=== PATIENT | male | born 1965 | race Caucasian/White ===

== ENCOUNTER 2020-07-19 09:44 | Inpatient (IN) | payer BC, SELFPAY ==
[2020-07-19] VITALS (11 sets, daily range): BP systolic 155–194; BP diastolic 54–74; PULSE 57–66; RESP 16–23; TEMP 36.6–37.1; O2SAT 86–99; BMI 47.1
--- NOTE | ~2020-07-19 | US_ITS ---
EXAMINATION: US venous doppler [facility] DATE: 07/20/2020 10:43 INDICATION: Lower limb edema. TECHNIQUE: Grayscale ultrasound images without and with compression and Doppler ultrasound images of the bilateral lower extremity veins were obtained. COMPARISON: None. FINDINGS: The visualized portions of right common femoral vein, profunda (deep) femoral vein, femoral vein, pop liteal vein, peroneal veins, posterior tibial veins, and greater saphenous vein outflow are patent. The visualized portions of left common femoral vein, profunda femoral vein, femoral vein, popliteal v ein, peroneal veins, posterior tibial veins, and greater saphenous vein outflow are patent. IMPRESSION: 1. No deep venous thrombosis. Reviewed, dictated and finalized at location A. TENDER
--- NOTE | ~2020-07-19 | XR_ITS ---
EXAMINATION: XR chest 1V portable DATE: 07/19/2020 10:33 INDICATION: Hypoxia. COVID-19 pneumonia. TECHNIQUE: A single frontal view of the chest was obtained on 2 radiographs. COMPARISON: None. FINDINGS: There are patchy airspace opacities in all lung zones bilaterally with a lower lung predomi nance. No pleural effusion or pneumothorax. Cardiomegaly is noted. IMPRESSION: 1. Diffuse lung disease, consistent with pneumonia or less likely pulmonary edema. 2. Cardiomegaly. Reviewed, dictated and finalized at location A. N STUDIES PROFESSOR IMPRESSION: 1. Diffuse lung disease, consistent with pneumonia or less likely pulmonary james ma. 2. Cardiomegaly.
--- NOTE | 2020-07-19 09:59 | ECG_ITS ---
Measurements Intervals [place] Rate: 75 P: 49 VA: 148 QRS: 27 QRSD: 101 T: 74 QT: 374 QTc: 418 Interpretive Statements SINUS RHYTHM VENTRICULAR PREMATURE COMPLEX DELAYED PRECORDIAL R/S TRANSITION BORDERLINE ST-T WAVE ABNORMALITY- LAT/HIGH LAT LEADS BASELINE ARTIFACT- II, III, AVR, V2, V5 BORDERLINE ECG Electronically Signed On 07-19-2020 11:21:52 GEOTECHNICIAL PROPERTIES TECHNICIAN by Avtar Whittington D.O.
--- NOTE | 2020-07-19 10:07 | PC.NURSE ---
Had pt job in place and his O2 dropped to 86%. Placed on 2 L O2 via NC
[2020-07-19 10:18] LABS: Eosinophils Percent Auto 0.2 % (0-4.4); Hematocrit 30.2 % (42.0-52.0); Immature Granulocyte Absolute 0.04 K/mm3 (0.00-0.031); Immature Granulocyte Percent A 0.8 % (0-0.5); Lymphocytes Absolute Auto 0.73 K/mm3 (0.9-3.2); Lymphocytes Percent Auto 14.5 % (18.3-44.2); Mean Corpuscular HGB Conc 33.1 g/dl (32-36); Mean Corpuscular Hemoglobin 27.1 pg (26-34); Mean Corpuscular Volume 81.8 fl (80-100); Mean Platelet Volume 10.1 fl (7.4-10.4); Monocytes Absolute Auto 0.6 K/mm3 (0.1-0.6); Monocytes Percent Auto 12.7 % (2.6-8.5); Neutrophils Absolute Auto 3.6 K/mm3 (1.3-6.7); Neutrophils Percent Auto 71.8 % (45.5-73.1); Platelet Count Result 290 k/mm3 (150-375); Red Blood Count 3.69 M/mm3 (4.6-6.20); Red Cell Distribution Width 13.8 % (11.5-14.5); White Blood Count 5.1 K/mm3 (4.5-10.0)
[2020-07-19 10:33] LABS: Alanine Aminotransferase 14 U/L (4-50); Albumin Level 3.3 g/dL (3.5-5.1); Alkaline Phosphatase 88 U/L (38-126); Anion Gap 5 mmol/L (8-16); Aspartate Amino Transferase 23 U/L (17-59); Bilirubin,Total 0.5 mg/dL (0.2-1.3); Blood Urea Nitrogen 22 mg/dL (9-20); Calcium 8.1 mg/dL (8.4-10.2); Carbon Dioxide 26 mmol/L (22-30); Chloride 105 mmol/L (98-107); Estimated CRCL calculation 60 ml/min; Estimated Glomerular Filt Rate 37; Glucose 80 mg/dL (75-110); Potassium 3.6 mmol/L (3.4-5.0); Sodium 136 mmol/L (137-145)
--- NOTE | 2020-07-19 11:57 | ED.GENADULT ---
HPI - General Adult General Chief complaint: Unspecified <Karena Aldana PA-C - Last Filed: 07/19/20 12:04> Stated complaint: COVID/LOW O2 <Karena Aldana PA-C - Last Filed: 07/19/20 12:04> Time Seen by Provider: 07/19/20 10:11 <Karena Aldana PA-C - Last Filed: 07/19/20 12:04> Source: patient <Karena Aldana PA-C - Last Filed: 07/19/20 12:04> Mode of arrival: ambulatory <CARLOS Cardenas Last Filed: 07/19/20 12:04> Limitations: no limitations <Karena Aldana PA-C - Last Filed: 07/19/20 12:04> History of Present Illness HPI narrative: Patient is a Covid positive diabetic with hypertension, high cholesterol, and a stent presenting with chief complaint of hypoxia over the past few days. Patient states that his has been monitoring his oxygen saturations and have noticed that they have been dropping into the 80s even sometimes when he is at rest but especially when he is exerting himself. Patient states that he has not had any fevers, chills, nausea, vomiting. Patient states that he was diagnosed with Covid on Wednesday before week prior he had been noticing some diarrhea. He denies any chest pain, abdominal pain. Patient denies any blood or mucus in his stools. Patient states that he has been able to eat and drink to stay hydrated. He states that he has had some occasional coughing is productive of clear mucus. He denies wheezing. He states at times he feels short of breath but not continuously. He denies any pain with inspiration or breathing. Patient denies have any history of COPD or asthma. He denies using oxygen at home. Patient states he has not had any trouble managing his blood sugars with his insulin pump has not been experiencing hyper or hypoglycemia. <Karena Aldana PA-C - Last Filed: 07/19/20 12:04> Related Data Home medications: Home Medications Medication Instructions Recorded Confirmed amlodipine 10 mg PO DAILY 07/19/20 07/19/20 aspirin 81 mg PO DAILY 07/19/20 07/19/20 atorvastatin 40 mg PO DAILY 07/19/20 07/19/20 clopidogrel 75 mg PO DAILY 07/19/20 07/19/20 furosemide 20 mg PO DAILY 07/19/20 07/19/20 lisinopril 40 mg PO DAILY 07/19/20 07/19/20 metoprolol succinate 100 mg PO DAILY 07/19/20 07/19/20 terazosin 10 mg PO DAILY 07/19/20 07/19/20 <Karena Aldana PA-C - Last Filed: 07/19/20 12:04> Allergies/adverse reactions: Allergies Allergy/AdvReac Type Severity Reaction Status Date / Time Penicillins Allergy Unknown WAS CHILD, Verified 07/19/20 14:49 DOES NOT REMEMBER <Karena Aldana PA-C - Last Filed: 07/19/20 12:04> Review of Systems Review of Systems: Narrative: CONSTITUTIONAL: Denies fever, chills, or sweats. EYES: Denies visual changes, redness, or discharge. ENT: Denies rhinorrhea, congestion, sore throat, or otalgia. CARDIOVASCULAR: Denies chest pain, palpitations, or edema. RESPIRATORY: Reports cough and hypoxia GASTROINTESTINAL: Reports occasional diarrhea denies abdominal pain, nausea, vomiting GENITOURINARY: Denies dysuria or hematuria. SKIN: Denies rash or itching. MUSCULOSKELETAL: Denies back pain, joint pain, or myalgia. NEUROLOGIC: Denies headache, numbness, dizziness, or weakness. PSYCHIATRIC: Denies anxiety or depression. <Karena Aldana PA-C - Last Filed: 07/19/20 12:04> [facility] Past Medical History Medical History: Medical History (Updated 07/20/20 @ 15:33 by Igor Swann MD) Chronic anemia Coronary artery disease Status post stent. History of skin cancer Including basal cell and squamous cell carcinoma. Hypertension Psoriasis Type 1 diabetes mellitus <Karena Aldana PA-C - Last Filed: 07/19/20 12:04> Surgical History Surgical History: Surgical History (Updated 07/19/20 @ 19:22 by Tereza Plaza PA-C) History of heart artery stent Status post surgical removal of malignant neoplasm of skin Including excision of basal cell and squamous cell carcinoma. <Karena Chavarria
--- NOTE | 2020-07-19 12:30 | PM.IMHP ---
H&P: HPI History of Present Illness Date/Time: 07/19/20 12:30 Chief Complaint: Low oxygen levels. Narrative: This is a very pleasant 54-year-old male with type 1 diabetes mellitus, coronary artery disease, and hypertension who presented to the emergency department earlier today via private vehicle from home with reports of low oxygen levels. He has not been feeling very well since Wednesday with reports of fatigue, body aches, diarrhea, cough rarely productive of clear sputum, and mild shortness of breath. He tested positive for COVID-19 this past Wednesday (2 days ago) and he has been monitoring his pulse ox at home per his doctor's instructions. Over the last 12 hours or so his SpO2 has been around 88%, prompting the visit to the emergency department. On arrival to the ED his SpO2 was 86% on room air, and he is currently on 2 L nasal cannula. To his knowledge he has not had a fever and he also denies anosmia, dysgeusia, nausea, and vomiting. No chest pain, pleuritic pain, or palpitations. He has chronic lower extremity edema which is unchanged. No history of DVT or pulmonary embolism. Review of Systems Review of Systems: Narrative: Twelve systems were reviewed with pertinent positives and negatives as per HPI. Weight has remained stable. No headache or neck ache. He believes his diabetes is fairly well controlled although admits that his most recent A1c was somewhere around 9. No retinopathy to his knowledge. He has been referred to a rn surgical due to small amounts of protein in his urine. No blurry vision, polydipsia, or polyuria. Except as documented, all other systems were reviewed and are negative. [facility] Past Medical History Medical History (Updated 07/19/20 @ 19:26 by Tereza Plaza PA-C) Chronic anemia Coronary artery disease Status post stent. History of skin cancer Including basal cell and squamous cell carcinoma. Hypertension Psoriasis Type 1 diabetes mellitus Surgical History Surgical History (Updated 07/19/20 @ 19:22 by Tereza Plaza PA-C) History of heart artery stent Status post surgical removal of malignant neoplasm of skin Including excision of basal cell and squamous cell carcinoma. Family History Family History Other Diabetes mellitus Grandparent Diabetes mellitus Heart attack Father Heart attack Social History Social History (Updated 07/19/20 @ 19:23 by Tereza Plaza PA-C) Social History: Surrogate decision maker: Michelle Parks, spouse. Code status: Full code. Smoking status: Never smoker Alcohol intake: never Substance use: never Additional living arrangements comments: Resides with his in [address]. Additional occupation/education comments: Works for [employer]. Gender identity (if verbalized by the patient): Male Sexual Orientation (if Verbalized by the Patient): Straight or Heterosexual Spiritual care concerns: No Meds Home Medications and Allergies Home Medications Medication Instructions Recorded Confirmed Type amlodipine 10 mg PO DAILY 07/19/20 07/19/20 History aspirin [Adult Aspirin] 81 mg PO DAILY 07/19/20 07/19/20 History atorvastatin 40 mg PO DAILY 07/19/20 07/19/20 History clopidogrel 75 mg PO DAILY 07/19/20 07/19/20 History furosemide 20 mg PO DAILY 07/19/20 07/19/20 History lisinopril 40 mg PO DAILY 07/19/20 07/19/20 History metoprolol succinate 100 mg PO DAILY 07/19/20 07/19/20 History terazosin 10 mg PO DAILY 07/19/20 07/19/20 History Allergies Allergy/AdvReac Type Severity Reaction Status Date / Time Penicillins Allergy Unknown WAS CHILD, Verified 07/19/20 14:49 DOES NOT REMEMBER Vital Signs Vital Signs - 24 hr 07/19/20 09:55 07/19/20 09:58 07/19/20 10:07 Temperature 98.7 F Pulse Rate 66 66 Respiratory Rate 23 H Blood Pressure 194/57 H Pulse Oximetry 94 86 L 07/19/20 10:09 07/19/20 11:18 07/19/20 12:
--- NOTE | 2020-07-19 14:36 | ADMGEN ---
This patient, Lucian Parks, was admitted to 3 [facility] Surg Room 321-01. Patient/family oriented to hospital policies and general routines including ID bracelet, bed and alarms, visiting hours, pain management, procedures, bathroom and other care routines, personal items, smoking policy, room service/diet, and visiting hours. Information on how to activate the Rapid Response Team has been discussed. Patient/Family are encouraged to report perceived risks to care and to ask questions if they do not understand what they are told or what they should do.
[2020-07-19 18:11] LABS: Glucose Point of Care 81 (65-105)
[2020-07-19 18:11] LABS: Glucose Point of Care 45 (65-105)
[2020-07-19 20:30] LABS: Alanine Aminotransferase 21 U/L (4-50); Estimated CRCL calculation 71 ml/min; Estimated Glomerular Filt Rate 46
[2020-07-19 21:35] LABS: Thyroid Stimulating Hormone Reflex 0.693 uIU/mL (0.465-4.68)
[2020-07-19] MEDS: REMDESIVIR 200 MG/NS 250 ML 200 MG/250 ML BAG 250 MG IVPB (21:48)
[2020-07-19 22:19] LABS: Glucose Point of Care 150 (65-105)
[2020-07-20] VITALS (7 sets, daily range): BP systolic 162–182; BP diastolic 68–79; PULSE 52–75; RESP 18–20; TEMP 36.3–36.8; O2SAT 92–95
--- NOTE | 2020-07-20 06:41 | PC.NURSE ---
EXT [id number] CALLED FOR DIABETIC RN EDUCATOR. MESSAGE LEFT RE: CONSULT NEEDED.
[2020-07-20] MEDS: DEXAMETHASONE 2 MG TABLET 6 MG PO (08:20)
[2020-07-20] MEDS: ATORVASTATIN 40 MG TABLET PO (08:20)
[2020-07-20] MEDS: ASPIRIN 81 MG CHEWABLE TABLET PO (08:20)
[2020-07-20] MEDS: amLODIPine BESYLATE 5 MG TABLET 10 MG PO (08:20)
[2020-07-20] MEDS: CLOPIDOGREL BISULFATE 75 MG TABLET PO (08:21)
[2020-07-20] MEDS: ENOXAPARIN 40 MG/0.4 ML SYRINGE SUB-Q (08:21)
[2020-07-20] MEDS: FUROSEMIDE 20 MG TABLET PO (08:22)
[2020-07-20] MEDS: lisinopriL 20 MG TABLET 40 MG PO (08:22)
[2020-07-20] MEDS: METOPROLOL SUCCINATE EXT REL 100 MG TABCR PO (08:23)
[2020-07-20] MEDS: TERAZOSIN HCL 5 MG CAPSULE 10 MG PO (08:24)
[2020-07-20 08:38] LABS: Glucose Point of Care 50 (65-105)
[2020-07-20 08:49] LABS: Glucose Point of Care 83 (65-105)
[2020-07-20 09:45] LABS: Hematocrit 29.2 % (42.0-52.0); Hemoglobin 9.6 g/dL (14.0-18.0); Mean Corpuscular HGB Conc 32.9 g/dl (32-36); Mean Corpuscular Hemoglobin 26.8 pg (26-34); Mean Corpuscular Volume 81.6 fl (80-100); Mean Platelet Volume 10.3 fl (7.4-10.4); Platelet Count Result 299 k/mm3 (150-375); Red Blood Count 3.58 M/mm3 (4.6-6.20); Red Cell Distribution Width 13.9 % (11.5-14.5); White Blood Count 4.6 K/mm3 (4.5-10.0)
[2020-07-20 12:03] LABS: Alanine Aminotransferase 12 U/L (4-50); Albumin Level 3.1 g/dL (3.5-5.1); Alkaline Phosphatase 83 U/L (38-126); Anion Gap 3 mmol/L (8-16); Aspartate Amino Transferase 20 U/L (17-59); Bilirubin,Total 0.5 mg/dL (0.2-1.3); Blood Urea Nitrogen 19 mg/dL (9-20); CRP 7.3 mg/dL (<1.0); Calcium 8.4 mg/dL (8.4-10.2); Carbon Dioxide 28 mmol/L (22-30); Chloride 106 mmol/L (98-107); Estimated CRCL calculation 73 ml/min; Estimated Glomerular Filt Rate 46; Glucose 111 mg/dL (75-110); Lactate Dehydrogenase 896 U/L (313-618); Magnesium 2.4 mg/dL (1.6-2.3); Potassium 4.1 mmol/L (3.4-5.0); Sodium 137 mmol/L (137-145)
[2020-07-20 12:15] LABS: Glucose Point of Care 143 (65-105)
--- NOTE | 2020-07-20 15:28 | PM.IMPN ---
Progress Note: A&P Assessment and Plan (1) Pneumonia due to COVID-19 virus: Code(s): U07.1 - COVID-19; J12.82 - Pneumonia due to coronavirus disease 2018 Status: Acute Assessment and Plan: Remdesivir day 2 Dexamethasone day 1 Azithromycin day 2 (2) Acute respiratory failure with hypoxia: Code(s): J96.01 - Acute respiratory failure with hypoxia Status: Acute Assessment and Plan: currently requiring 2 L of oxygen wean as possible (3) Renal failure: Qualifiers: Renal failure chronicity: acute on chronic Acute renal failure type: unspecified Chronic kidney disease stage: stage 3 (moderate) Chronic kidney disease stage 3 subtype: unspecified whether 3a or 3b Qualified Code(s): N17.9 - Acute kidney failure, unspecified; N18.30 - Chronic kidney disease, stage 3 unspecified Code(s): N19 - Unspecified kidney failure Status: Acute Assessment and Plan: creatinine improved from 1.9-1.6 with hydration (4) Type 1 diabetes mellitus: Qualifiers: Diabetes mellitus complication status: with hyperglycemia Qualified Code(s): E10.65 - Type 1 diabetes mellitus with hyperglycemia Code(s): E10.9 - Type 1 diabetes mellitus without complications Status: Inactive Assessment and Plan: hypoglycemia at 50 this morning with insulin pump improved after eating and after steroid dose (5) Hypertension: Qualifiers: Hypertension type: essential hypertension Qualified Code(s): I10 - Essential (primary) hypertension Code(s): I10 - Essential (primary) hypertension Status: Inactive Assessment and Plan: remains elevated despite home medications and p.r.n. hydralazine IV (6) Chronic anemia: Code(s): D64.9 - Anemia, unspecified Status: Inactive Assessment and Plan: likely due to chronic kidney disease follow-up lab Subjective Date/time seen: 07/20/20 15:28 Interval history: Admitted July 19 with COVID-19 and hypoxia. Symptoms began around July 16. July 20. Short of breath with activity. Minimal coughing. Denied pain. Appetite improved. Eight entire lunch. Denied chest pain or gastrointestinal symptoms. Admitted to fatigue. Review of Systems Review of Systems: All systems reviewed & are unremarkable except as noted in HPI and below Exam Narrative: Exam Narrative: HEENT: PERRL, sclerae nonicteric, pharyngeal mucosa pink and intact NECK: No JVD, adenopathy, or thyromegaly CHEST: slightly coarse breath sounds. Normal effort. HEART: NL S1/S2, regular, no murmur ABDOMEN: BS+, soft, nontender, no mass, no bruits EXTREMITIES: No cyanosis, edema, or clubbing NEUROLOGIC: CN intact and symmetric to inspection. MUSCULOSKELETAL: Tone and strength symmetric. PSYCH: Alert. Oriented to person, place, and time. Objective Data Vital Signs Vital Signs: Vital Signs - 24 hr 07/19/20 16:00 07/19/20 20:00 07/20/20 00:00 Temperature 97.8 F 98.4 F 97.8 F Pulse Rate 58 L 59 L 56 L Respiratory Rate 18 20 20 Blood Pressure 171/71 H 174/73 H 177/79 H Pulse Oximetry 95 96 95 07/20/20 04:00 07/20/20 08:00 Temperature 97.3 F L 98.1 F Pulse Rate 60 58 L Respiratory Rate 20 18 Blood Pressure 170/75 H 180/69 H Pulse Oximetry 95 93 Intake/Output Intake/Output: Intake & Output 07/17/20 07/18/20 07/19/20 07/20/20 23:59 23:59 23:59 23:59 Intake Total 1290 560 Output Total 750 200 Balance 540 360 Meds/Results Medications: Active Medications Generic Name Dose Route Start Last Admin Trade Name Freq PRN Reason Stop Dose Admin Amlodipine Besylate 10 mg 07/20/20 09:00 07/20/20 08:20 Amlodipine Besylate 5 Mg Tablet PO 10 mg DAILY CHRISTINA Administration Aspirin 81 mg 07/20/20 08:00 07/20/20 08:20 Aspirin 81 Mg Chewable Tablet PO 81 mg DAILY@0800 CHRISTINA Administration Atorvastatin Calcium 40 mg 07/20/20 09:00 07/20/20 08:20 Atorvastatin 40 Mg
[2020-07-20 18:33] LABS: Glucose Point of Care 232 (65-105)
--- NOTE | 2020-07-20 18:58 | PC.NURSE ---
PT BS AT 1600 WAS 232 HE GAVE HIMSELF 5.7 UNITS,PT HAS INSULIN PUMP FROM HOME
--- NOTE | 2020-07-20 19:30 | ECHO_ITS ---
Patient Info Name: Lucian Parks Age: 54 years : 1965 Gender: Male Ht: 70 in Wt: 330 lbs BSA: 2.80 m2 HR: 60 bpm BP: 170 / 75 mmHg Technical Quality: Fair Exam Date: 07/20/2020 7:28 AM Exam Location: [facility] Pulmonary Patient Status: Inpatient Admit Date: 07/19/2020 Staff Ordering Physician: Tereza Plaza PA-C Health Information Clerk: Michelle Dejesus RDCS Attending Provider: Lucian Genao MD Referring Physician: Mela HURLEY; Exam Type: CA echo dop color flow w con Study Info Complete two-dimensional, color flow and Doppler transthoracic echocardiogram is performed with contrast to opacify the left ventricle and to improve the deliniation of the left ventricle endocardial borders. Contrast/Agitated Saline Amount: 4.00 ml Summary 1. Left ventricular chamber dimension is normal. 2. Left ventricular systolic function is normal, estimated at 65-70%. 3. There is moderately increased left ventricular wall thickness. 4. Left ventricular septal wall motion is unable to be assessed secondary to poor endocardial definition. 5. The left ventricular diastolic function is grade I diastolic dysfunction. 6. Right ventricular chamber dimension is not well visualized. Left Ventricle Left ventricular chamber dimension is normal. Left ventricular systolic function is normal, estimated at 65-70%. There is moderately increased left ventricular wall thickness. Left ventricular septal wall motion is unable to be assessed secondary to poor endocardial definition. The left ventricular diastolic function is grade I diastolic dysfunction. Right Ventricle Right ventricular chamber dimension is not well visualized. Left Atria Left atrial chamber dimension is mildly enlarged. Right Atria Right atrial chamber dimension is mildly enlarged. Aortic Valve The aortic valve is trileaflet. There is no aortic valve sclerosis. There is no aortic valve stenosis. There is no aortic valve regurgitation. Pulmonic Valve The pulmonic valve is not well visualized. There is no pulmonic regurgitation. There is no pulmonic valve stenosis. Mitral Valve The mitral valve has normal leaflets. There is no mitral valve stenosis. There is no mitral valve regurgitation. Tricuspid Valve The tricuspid valve leaflets are normal. There is no significant tricuspid valve stenosis. There is no tricuspid valve regurgitation. Pericardium/Pleural The pericardium appears normal. There is no pericardial effusion. Inferior Vena Cava Inferior vena cava is not well visualized. Left Ventricular Outflow Tract Name Value Normal LVOT 2D LVOT Diameter 2.30 cm LVOT Doppler LVOT Peak Velocity 114.89 cm/s LVOT Peak Gradient 5 mmHg LVOT Mean Gradient 2 mmHg LVOT VTI 30.45 cm LVOT VTI/AV VTI Ratio 0.73 LVOT Stroke Volume 126.66 ml LVOT CO 7.01 l/min LVOT CI 2.51 L/min/m2
[2020-07-20] MEDS: REMDESIVIR 100 MG/NS 250 ML 100 MG/250 ML BAG 250 MG IVPB (21:58)
[2020-07-20 22:22] LABS: Glucose Point of Care 300 (65-105)
[2020-07-21] VITALS (8 sets, daily range): BP systolic 153–191; BP diastolic 65–117; PULSE 57–91; RESP 16–20; TEMP 36.4–37.2; O2SAT 93–96
[2020-07-21] MEDS: hydrALAZINE HCL 20 MG/ML VIAL 10 MG IV PUSH (01:03)
[2020-07-21] MEDS: hydrALAZINE HCL 50 MG TABLET PO (05:44)
[2020-07-21 06:44] LABS: Hematocrit 30.2 % (42.0-52.0); Hemoglobin 9.8 g/dL (14.0-18.0); Mean Corpuscular HGB Conc 32.5 g/dl (32-36); Mean Corpuscular Hemoglobin 26.1 pg (26-34); Mean Corpuscular Volume 80.5 fl (80-100); Mean Platelet Volume 10.4 fl (7.4-10.4); Platelet Count Result 370 k/mm3 (150-375); Red Blood Count 3.75 M/mm3 (4.6-6.20); Red Cell Distribution Width 13.5 % (11.5-14.5); White Blood Count 5.6 K/mm3 (4.5-10.0)
[2020-07-21 06:51] LABS: D Dimer 1.54 ug/mL (<0.48)
[2020-07-21 07:48] LABS: Alanine Aminotransferase 13 U/L (4-50); Alkaline Phosphatase 85 U/L (38-126); Anion Gap 5 mmol/L (8-16); Aspartate Amino Transferase 18 U/L (17-59); Bilirubin,Total 0.4 mg/dL (0.2-1.3); Blood Urea Nitrogen 21 mg/dL (9-20); CRP 5.2 mg/dL (<1.0); Calcium 8.5 mg/dL (8.4-10.2); Carbon Dioxide 26 mmol/L (22-30); Chloride 105 mmol/L (98-107); Estimated CRCL calculation 78 ml/min; Estimated Glomerular Filt Rate 49; Glucose 306 mg/dL (75-110); Lactate Dehydrogenase 808 U/L (313-618); Potassium 4.2 mmol/L (3.4-5.0); Sodium 136 mmol/L (137-145)
[2020-07-21 07:58] LABS: Glucose Point of Care 289 (65-105)
[2020-07-21] MEDS: DEXAMETHASONE 2 MG TABLET 6 MG PO (08:01)
[2020-07-21] MEDS: ASPIRIN 81 MG CHEWABLE TABLET PO (08:01)
[2020-07-21] MEDS: amLODIPine BESYLATE 5 MG TABLET 10 MG PO (08:02)
[2020-07-21] MEDS: ENOXAPARIN 40 MG/0.4 ML SYRINGE SUB-Q (08:03)
[2020-07-21] MEDS: ATORVASTATIN 40 MG TABLET PO (08:03)
[2020-07-21] MEDS: CLOPIDOGREL BISULFATE 75 MG TABLET PO (08:03)
[2020-07-21] MEDS: FUROSEMIDE 20 MG TABLET PO (08:04)
[2020-07-21] MEDS: lisinopriL 20 MG TABLET 40 MG PO (08:04)
[2020-07-21] MEDS: TERAZOSIN HCL 5 MG CAPSULE 10 MG PO (08:06)
[2020-07-21] MEDS: METOPROLOL SUCCINATE EXT REL 100 MG TABCR PO (08:06)
[2020-07-21 11:21] LABS: Glucose Point of Care 303 (65-105)
[2020-07-21 12:08] LABS: Glucose Point of Care 329 (65-105)
--- NOTE | 2020-07-21 13:29 | PM.DS ---
DS: Admitting Diagnosis Admitting Diagnosis Admitting Diagnosis: Hypoxia DS: Discharge Diagnosis Discharge Diagnosis (1) Pneumonia due to COVID-19 virus: Code(s): U07.1 - COVID-19; J12.82 - Pneumonia due to coronavirus disease 2019 Status: Acute (2) Acute respiratory failure with hypoxia: Code(s): J96.01 - Acute respiratory failure with hypoxia Status: Acute (3) Renal failure: Qualifiers: Acute renal failure type: unspecified Chronic kidney disease stage: stage 3 (moderate) Chronic kidney disease stage 3 subtype: unspecified whether 3a or 3b Renal failure chronicity: acute on chronic Qualified Code(s): N17.9 - Acute kidney failure, unspecified; N18.30 - Chronic kidney disease, stage 3 unspecified Code(s): N19 - Unspecified kidney failure Status: Acute (4) Type 1 diabetes mellitus: Qualifiers: Diabetes mellitus complication status: with hyperglycemia Qualified Code(s): E10.65 - Type 1 diabetes mellitus with hyperglycemia Code(s): E10.9 - Type 1 diabetes mellitus without complications Status: Inactive (5) Hypertension: Qualifiers: Hypertension type: essential hypertension Qualified Code(s): I10 - Essential (primary) hypertension Code(s): I10 - Essential (primary) hypertension Status: Inactive (6) Chronic anemia: Code(s): D64.9 - Anemia, unspecified Status: Inactive DS: Summary Hospital Course Reason for hospitalization: Patient is a 54-year-old man with a history of diabetes type 1, coronary artery disease, hypertension, who presented to the ER with low oxygen levels. Positive for COVID-19 two days prior to arrival. He had associated symptoms of body aches, diarrhea, cough and mild shortness of breath. On arrival to the ER he was hypoxic at 96% on room air and was requiring 2 L via nasal cannula. Initial labs showed normocytic anemia with a hemoglobin of 10, hematocrit 30, slight LULU with a creatinine 1.9, BUN 22, hemoglobin A1c 9%. Chest x-ray showed diffuse lung disease, consistent with pneumonia. He was admitted into the hospital for hypoxia and COVID-19. He has chronic leg swelling and venous Doppler order which was negative for PE. Echocardiogram showed normal EF, 65-70%, moderate LVH, diastolic grade 1. Patient received IV Decadron and Remdesivir while hospitalized. He was feeling much better and no longer hypoxia. Home oxygen evaluation was completed showing he has not needed oxygen. He was stable for discharge home to follow-up PCP. He understands agrees the plan all questions answered. Hospital Course: See above Status at Discharge Cognitive/behavioral status at discharge: Stable, improved. Time Spent with Patient Time attestation: Total time spent providing and/or coordinating discharge services: 43 Time spent: Greater than 30 minutes Exam Narrative: Exam Narrative: General: 54-year-old man sitting up in bed. Appears comfortable. In no acute distress. Skin: No jaundice or cyanosis. Good skin turgor. Neck: Full range of motion. Supple. Respiratory: Lungs are clear to auscultation bilaterally. No bony chest wall tenderness. Cardiovascular: The heart has a regular rate and rhythm without murmur. Lower extremities: No lower extremity edema. Distal pulses are easily palpated. No calf tenderness to palpation. Gastrointestinal: The abdomen is soft, nontender and nondistended with active bowel sounds. Psychiatric: Lucid and oriented. Memory intact. Neurologic: No focal deficits. Speech is clear. No facial drooping. DS: Data Data Completed and Pending Labs on day of discharge: Labs from last 24 hours 07/21/20 07/21/20 07/21/20 11:36 11:04 07:43 WBC RBC Hgb Hct MCV MCH MCHC RDW Plt Count MPV D-Dimer Sodium Potassium Chloride Carbon Dioxide Anion Gap BUN Creatinine
--- NOTE | 2020-07-21 17:26 | PCRCNOTE ---
Late entry 1200. Pt. does not require Home Oxygen; Felecia Choudhary PA-C notified of Home Oxygen Evaluation results.
== END 2020-07-21 14:45 | disposition home or self-care (01) | DRG 177 ==
LOC: ANHED 12:04 → ANH3MEDSUR 12:35
PROVIDERS: Internal Medicine; Physician Assistant; Admitting Provider Family Medicine; Emergency Provider Emergency Medicine; PCP Family Medicine; Visit Provider Physician Assistant
DX: U07.1 COVID-19 (principal); J12.82 Pneumonia due to coronavirus disease 2019; J96.01 Acute respiratory failure with hypoxia; N17.9 Acute kidney failure, unspecified; Z68.42 Body mass index [BMI] 45.0-49.9, adult; N18.30 Chronic kidney disease, stage 3 unspecified; E10.649 Type 1 diabetes mellitus with hypoglycemia without coma; E10.22 Type 1 diabetes mellitus with diabetic chronic kidney disease; D63.1 Anemia in chronic kidney disease; I12.9 Hypertensive chronic kidney disease with stage 1 through stage 4 chronic kidney disease, or unspecified chronic kidney disease; N18.9 Chronic kidney disease, unspecified; I25.10 Atherosclerotic heart disease of native coronary artery without angina pectoris; E66.9 Obesity, unspecified; L40.9 Psoriasis, unspecified; Z95.5 Presence of coronary angioplasty implant and graft; Z85.828 Personal history of other malignant neoplasm of skin
CPT/HCPCS: 36415; 71045; 80053; 82565; 82728; 82948; 83036; 83615; 83735; 84443; 84460; 85025; 85027; 85380; 86140; 93005; 93970; 94618; A9270; C8929; G0378; J0360; J0456; J1650; J7060; J8540; Q9957

== ENCOUNTER 2022-05-23 12:01 | Inpatient (IN) | payer BC, SELFPAY ==
[2022-05-23] VITALS (30 sets, daily range): BP systolic 152–201; BP diastolic 78–115; PULSE 109–133; RESP 18–41; TEMP 36.9–37.1; O2SAT 85–100; BMI 53.4
--- NOTE | ~2022-05-23 | XR_ITS ---
EXAMINATION: XR chest 1V portable DATE: 05/24/2022 02:15 INDICATION: Central line placement. TECHNIQUE: A single frontal view of the chest was obtained. COMPARISON: Chest single view 05/23/2022 FINDINGS: There are airspace opacities in all lung zones bilaterally with a perihilar and basilar pre dominance. There are likely small pleural effusions. No pneumothorax. Cardiomegaly is noted. The endo tracheal tube tip is 4.3 cm above the carlos alberto. A right internal jugular central venous catheter is see n with tip in the superior vena cava. The nasogastric tube tip is beyond the inferior margin of the r adiograph, but at least to the stomach. IMPRESSION: 1. Central line tip in superior vena cava. 2. Diffuse lung disease with slight improvement, consistent with pulmonary edema versus pneumonia. 3. Small pleural effusions. 4. Cardiomegaly. Reviewed, dictated and finalized at location A. C JOURNALIST IMPRESSION: 1. Central line tip in superior vena cava. 2. Diffuse lung disease with slight improvement, consistent with pulmonary andrew a versus pneumonia. 3. Small pleural effusions. 4. Cardiomegaly.
--- NOTE | ~2022-05-23 | US_ITS ---
EXAMINATION: US venous doppler [facility] DATE: 05/24/2022 14:59 INDICATION: elevated d dimer , lower extremity swelling. TECHNIQUE: Grayscale images without and with compression and Doppler images of the bilateral lower ex tremity veins were obtained. COMPARISON: None FINDINGS: The right common femoral vein, profunda (deep) femoral vein, femoral vein, popliteal vein, peroneal v ein, posterior tibial veins, gastrocnemius vein, and greater saphenous vein are patent. The left common femoral vein, profunda femoral vein, femoral vein, popliteal vein, peroneal vein, pos terior tibial veins, gastrocnemius vein, and greater saphenous vein are patent. IMPRESSION: 1. Patent bilateral lower extremity veins. No evidence of deep venous thrombosis. Reviewed, dictated and finalized at location K. MATOR PROJECT MANAGER IMPRESSION: 1. Patent bilateral lower extremity veins. No evidence of deep venous thrombos is.
--- NOTE | ~2022-05-23 | XR_ITS ---
EXAMINATION: XR chest ET placement DATE: 05/25/2022 14:02 INDICATION: Intubation TECHNIQUE: frontal view of the chest was obtained. COMPARISON: Chest radiograph dated 05/25/22 FINDINGS: Endotracheal tube tip 3.3 cm above the carlos alberto. Nasogastric tube extends below the left hemidiaphragm with distal tip collimated off the study. Right internal jugular central venous catheter with distal tip at the cephalad superior vena cava. Persistent gradient of basilar predominant hazy airspace opacities throughout both lungs with obscura tion of the diaphragm. No pneumothorax. Cardiomegaly. IMPRESSION: 1. Lines and tubes in expected position. 2. Persistent diffuse bilateral airspace opacities consistent with small to moderate-sized bilateral pleural effusions with associated atelectasis, pulmonary edema, pneumonia or some combination thereof . Line 3. Cardiomegaly. Reviewed, dictated and finalized at location A. CAN TENDER IMPRESSION: 1. Lines and tubes in expected position. 2. Persistent diffuse bilateral airspace opacities consistent with small to mod erate-sized bilateral pleural effusions with associated atelectasis, pulmonary edema, pneumonia or some combination thereof. Line 3. Cardiomegaly.
--- NOTE | ~2022-05-23 | XR_ITS ---
EXAMINATION: XR chest 1V portable DATE: 05/25/2022 06:35 INDICATION: Respiratory failure. TECHNIQUE: A single frontal view of the chest was obtained. COMPARISON: Chest single view 05/24/2022 FINDINGS: There are airspace opacities in all lung zones bilaterally with a basilar predominance. The re are small pleural effusions. No pneumothorax. Cardiomegaly is noted. The endotracheal tube tip is 5.0 cm above the carlos alberto. The nasogastric tube tip is in the stomach. A right internal jugular central venous catheter is seen with tip in the superior vena cava. IMPRESSION: 1. Stable diffuse lung disease with a basilar predominance, consistent with pulmonary edema versus pn eumonia. 2. Stable small pleural effusions. 3. Cardiomegaly. Reviewed, dictated and finalized at location A. CAMERA OPERATOR IMPRESSION: 1. Stable diffuse lung disease with a basilar predominance, consistent with pul monary edema versus pneumonia. 2. Stable small pleural effusions. 3. Cardiomegaly.
--- NOTE | ~2022-05-23 | XR_ITS ---
EXAMINATION: XR chest 1V portable DATE: 06/04/2022 06:31 INDICATION: Acute respiratory failure. TECHNIQUE: A single frontal view of the chest was obtained. COMPARISON: Chest single view 06/03/2022 FINDINGS: Sensitivity is decreased by obesity. There are airspace opacities in the perihilar regions and at the lung bases, right worse than left. There is likely a small right pleural effusion. No pneu mothorax. Cardiomegaly is noted. The endotracheal tube tip is 4.9 cm above the carlos alberto. A left interna l jugular central venous catheter is seen with tip at the superior cavoatrial junction. A right inter nal jugular central venous catheter is seen with tip in the superior vena cava. IMPRESSION: 1. Stable airspace opacities in the perihilar regions and at the lung bases, right worse than left, c onsistent with pneumonia versus pulmonary edema versus atelectasis. 2. Stable small right pleural effusion. 3. Cardiomegaly. Reviewed, dictated and finalized at location A. EATION SUPERVISOR IMPRESSION: 1. Stable airspace opacities in the perihilar regions and at the lung bases, ri ght worse than left, consistent with pneumonia versus pulmonary edema versus at electasis. 2. Stable small right pleural effusion. 3. Cardiomegaly.
--- NOTE | ~2022-05-23 | XR_ITS ---
EXAMINATION: XR chest 1V portable INDICATION: Acute respiratory failure TECHNIQUE: Portable AP chest at 0752 hours COMPARISON: 05/29/2022 FINDINGS: The endotracheal tube ends approximately 2.9 cm above the carlos alberto. The nasogastric tube is f ollowed as far as the stomach. Its tip is beyond the inferior margin of the radiograph. A right inter nal jugular catheter ends with its tip in the superior vena cava. A left internal jugular central duane ous catheter ends with its tip at the superior cavoatrial junction. Cardiomegaly is noted. Enteric co ntrast material is seen in the partially visualized stomach. Diffuse interstitial and airspace opacit ies persist without significant change. Stable to moderate-sized pleural effusions are noted. There i s no pneumothorax. IMPRESSION: 1. Stable diffuse lung disease, consistent with pneumonia and/or pulmonary edema. 2. Small to moderate-sized pleural effusions, stable. 3. Cardiomegaly. Reviewed, dictated and finalized at location A. FACTURING SCHEDULER IMPRESSION: 1. Stable diffuse lung disease, consistent with pneumonia and/or pulmonary andrew a. 2. Small to moderate-sized pleural effusions, stable. 3. Cardiomegaly.
--- NOTE | ~2022-05-23 | XR_ITS ---
EXAMINATION: XR chest 1V portable DATE: 06/06/2022 06:17 INDICATION: Ventilated patient TECHNIQUE: frontal view of the chest was obtained. COMPARISON: Chest radiograph dated 06/05/2022 FINDINGS: Endotracheal tube tip 5.7 cm above the carlos alberto. Nasogastric tube extends to at least the caudal esopha jewel and beyond which is unable to be distinguished due to underpenetration. Larger bore left internal jugular central venous catheter with distal tip at the caudal superior vena cava and smaller more ri ght internal jugular central venous catheter with distal tip at the cephalad superior vena cava. Persistent airspace opacities in bilateral lower lung zones. No pneumothorax. Cardiomegaly. Residual oral contrast material in the stomach. IMPRESSION: 1. Opacities in the bilateral lower lung zones which could represent atelectasis, pneumonia, small pl eural effusions or some combination thereof. 2. Cardiomegaly. Reviewed, dictated and finalized at location A. ICAL RESOURCE COORDINATOR IMPRESSION: 1. Opacities in the bilateral lower lung zones which could represent atelectasi s, pneumonia, small pleural effusions or some combination thereof. 2. Cardiomegaly.
--- NOTE | ~2022-05-23 | XR_ITS ---
EXAMINATION: XR chest port-a-cath/central DATE: 05/28/2022 12:02 INDICATION: Dialysis catheter placement. TECHNIQUE: A single frontal view of the chest was obtained. COMPARISON: Chest single view at 5:24 AM FINDINGS: Sensitivity is decreased by obesity. There are airspace opacities in the mid and lower lung zones with a basilar predominance. There are small to moderate-sized pleural effusions. No pneumotho rax. Cardiomegaly is noted. The endotracheal tube tip is 3.6 cm above the carlos alberto. A right internal ju gular central venous catheter is seen with tip in the superior vena cava. A left internal jugular zaria tral venous catheter is seen with tip at the superior cavoatrial junction. The nasogastric tube tip i s beyond the inferior margin of the radiograph, but at least to the stomach. IMPRESSION: 1. New central line tip at the superior cavoatrial junction. 2. Airspace opacities in the mid and lower lung zones with a basilar predominance with slight improve ment on the right, consistent with atelectasis versus pneumonia. 3. Stable small to moderate-sized pleural effusions. 4. Cardiomegaly. Reviewed, dictated and finalized at location A. GE MANAGEMENT CONSULTANT IMPRESSION: 1. New central line tip at the superior cavoatrial junction. 2. Airspace opacities in the mid and lower lung zones with a basilar predominan ce with slight improvement on the right, consistent with atelectasis versus pne umonia. 3. Stable small to moderate-sized pleural effusions. 4. Cardiomegaly.
--- NOTE | ~2022-05-23 | XR_ITS ---
EXAMINATION: XR chest 1V portable DATE: 06/01/2022 06:45 INDICATION: Acute respiratory failure. TECHNIQUE: A single frontal view of the chest was obtained. COMPARISON: Chest single view 05/31/2022 FINDINGS: Sensitivity is decreased by obesity. There are small to moderate-sized pleural effusions. T here are airspace opacities in the perihilar regions and at the lung bases. No pneumothorax. Cardiome alison is noted. The endotracheal tube tip is 3.9 cm above the carlos alberto. A left internal jugular central venous catheter is seen with tip at the superior cavoatrial junction. A right internal jugular centra l venous catheter is seen with tip in the superior vena cava. IMPRESSION: 1. Stable airspace opacities in the perihilar regions and at the lung bases, consistent with atelecta sis versus pulmonary edema versus pneumonia. 2. Stable mild small to moderate sized pleural effusions. 3. Cardiomegaly. Reviewed, dictated and finalized at location A. RACHO TANNER IMPRESSION: 1. Stable airspace opacities in the perihilar regions and at the lung bases, co nsistent with atelectasis versus pulmonary edema versus pneumonia. 2. Stable mild small to moderate sized pleural effusions. 3. Cardiomegaly.
--- NOTE | ~2022-05-23 | XR_ITS ---
EXAMINATION: XR chest 1V portable DATE: 06/05/2022 06:24 INDICATION: Acute respiratory failure. TECHNIQUE: A single frontal view of the chest was obtained. COMPARISON: Chest single view 06/04/2022 FINDINGS: Sensitivity is decreased by obesity. There are airspace opacities in the perihilar regions and at the lung bases. There are small pleural effusions. No pneumothorax. Cardiomegaly is noted. The endotracheal tube tip is 4.3 cm above the carlos alberto. A left internal jugular central venous catheter is seen with tip at the superior cavoatrial junction. A right internal jugular central venous catheter is seen with tip in the superior vena cava. The nasogastric tube tip is not well visualized in the in ferior chest. IMPRESSION: 1. Airspace opacities in the perihilar regions and lung bases with worsening on the left, consistent with pneumonia versus pulmonary edema versus atelectasis. 2. Small pleural effusions. 3. Cardiomegaly. Reviewed, dictated and finalized at location A. DING TANK TENDER HELPER
--- NOTE | ~2022-05-23 | XR_ITS ---
EXAMINATION: XR chest 1V portable DATE: 05/26/2022 05:51 INDICATION: Respiratory failure. TECHNIQUE: A single frontal view of the chest was obtained. COMPARISON: Chest single view 05/25/2022 FINDINGS: Sensitivity is decreased by obesity. There are airspace opacities in the mid and lower lung zones with a basilar predominance. There are small to moderate-sized pleural effusions. No pneumotho rax. Cardiomegaly is noted. The endotracheal tube tip is 3.7 cm above the carlos alberto. A right internal ju gular central venous catheter is seen with tip in the superior vena cava. The nasogastric tube tip is in the stomach. IMPRESSION: 1. Slightly improved airspace opacities in the mid and lower lung zones with a basilar predominance, consistent with pneumonia versus pulmonary edema versus atelectasis. 2. Stable small to moderate-sized pleural effusions. 3. Cardiomegaly. Reviewed, dictated and finalized at location A. ISITION COST ESTIMATOR IMPRESSION: 1. Slightly improved airspace opacities in the mid and lower lung zones with a basilar predominance, consistent with pneumonia versus pulmonary edema versus a telectasis. 2. Stable small to moderate-sized pleural effusions. 3. Cardiomegaly.
--- NOTE | ~2022-05-23 | XR_ITS ---
EXAMINATION: XR chest 1V portable DATE: 05/27/2022 06:26 INDICATION: Respiratory failure. TECHNIQUE: A single frontal view of the chest was obtained. COMPARISON: Chest single view 05/26/2022 FINDINGS: Sensitivity is decreased by obesity. There are airspace opacities in the perihilar regions and lung bases. There are small to moderate-sized pleural effusions. No pneumothorax. Cardiomegaly is noted. The endotracheal tube tip is 3.6 cm above the carlos alberto. A right internal jugular central venous catheter is seen with tip in the superior vena cava. The nasogastric tube tip is beyond the inferior margin of the radiograph, but at least to the stomach. IMPRESSION: 1. Stable airspace opacities in the perihilar regions and lung bases, consistent with pneumonia versu s pulmonary edema versus atelectasis. 2. Stable small to moderate-sized pleural effusions. 3. Cardiomegaly. Reviewed, dictated and finalized at location A. STRIAL RELATIONS MANAGER IMPRESSION: 1. Stable airspace opacities in the perihilar regions and lung bases, consisten t with pneumonia versus pulmonary edema versus atelectasis. 2. Stable small to moderate-sized pleural effusions. 3. Cardiomegaly.
--- NOTE | ~2022-05-23 | XR_ITS ---
EXAMINATION: XR chest 1V portable DATE: 06/02/2022 06:15 INDICATION: Acute respiratory failure. TECHNIQUE: A single frontal view of the chest was obtained on 2 radiographs. COMPARISON: Chest single view 06/01/2022 FINDINGS: Sensitivity is decreased by obesity. There are airspace opacities in the perihilar regions and at the lung bases. There is a small right pleural effusion. No pneumothorax. Cardiomegaly is note d. The endotracheal tube tip is 3.9 cm above the carlos alberto. A left internal jugular central venous petty ter is seen with tip at the superior cavoatrial junction. A right internal jugular central venous cat heter is seen with tip in the superior vena cava. The nasogastric tube tip is beyond the inferior mar gin of the radiograph, but at least to the stomach. IMPRESSION: 1. Improved airspace opacities in the perihilar regions and at the lung bases, consistent with pulmon dominguez edema versus pneumonia versus atelectasis. 2. Small right pleural effusion. 3. Cardiomegaly. Reviewed, dictated and finalized at location A. CEMENTER IMPRESSION: 1. Improved airspace opacities in the perihilar regions and at the lung bases, consistent with pulmonary edema versus pneumonia versus atelectasis. 2. Small right pleural effusion. 3. Cardiomegaly.
--- NOTE | ~2022-05-23 | XR_ITS ---
EXAMINATION: XR chest 1V portable DATE: 05/24/2022 00:13 INDICATION: Intubation. TECHNIQUE: A single frontal view of the chest was obtained. COMPARISON: Chest single view 05/23/2022 FINDINGS: There are airspace opacities in all lung zones bilaterally with a perihilar and basilar pre dominance. There are likely small pleural effusions. No pneumothorax. Cardiomegaly is noted. The endo tracheal tube tip is 4.6 cm above the carlos alberto. The nasogastric tube tip is beyond the inferior margin of the radiograph, but at least to the stomach. IMPRESSION: 1. Worsened diffuse lung disease, consistent with pulmonary edema versus pneumonia. 2. Small pleural effusions. 3. Cardiomegaly. Reviewed, dictated and finalized at location A. ENSATION PROGRAMS MANAGER IMPRESSION: 1. Worsened diffuse lung disease, consistent with pulmonary edema versus pneumo yusra. 2. Small pleural effusions. 3. Cardiomegaly.
--- NOTE | ~2022-05-23 | XR_ITS ---
EXAMINATION: XR chest 1V portable DATE: 05/23/2022 13:34 INDICATION: Hypoxia TECHNIQUE: frontal view of the chest was obtained. COMPARISON: Chest radiograph dated 07/19/2020 FINDINGS: Indistinct interstitial opacities throughout both lungs with perihilar and lower lung predominance. M ore patchy airspace opacities in the left lower lung zones with obscuration of the left hemidiaphragm . No pneumothorax. Cardiomegaly. IMPRESSION: 1. Diffuse bilateral interstitial and airspace opacities with lower lung predominance most likely con gestive heart failure related mild to moderate pulmonary edema although differential includes pneumon ia. 2. Likely small left pleural effusion. Reviewed, dictated and finalized at location A. ACTING MACHINE OPERATOR IMPRESSION: 1. Diffuse bilateral interstitial and airspace opacities with lower lung predom inance most likely congestive heart failure related mild to moderate pulmonary edema although differential includes pneumonia. 2. Likely small left pleural effusion.
--- NOTE | ~2022-05-23 | XR_ITS ---
EXAMINATION: XR chest 1V portable DATE: 06/03/2022 05:59 INDICATION: Acute respiratory failure TECHNIQUE: frontal view of the chest was obtained. COMPARISON: Chest radiograph dated 06/02/2022 FINDINGS: Endotracheal tube tip 3.7 cm above the carlos alberto. Nasogastric tube tip and some oral contrast within the body of the stomach. Left internal jugular central venous catheter with distal tip at the caudal sup erior vena cava. Persistent opacities in the bilateral lower lung zones, right greater than left. Likely small right p leural effusion. No definitive left pleural effusion. No pneumothorax. Cardiomegaly. IMPRESSION: 1. No significant change in opacities in the bilateral lower lung zones consistent with atelectasis, pneumonia, pulmonary edema or some combination thereof. 2. Small right pleural effusion. 3. Cardiomegaly.. Reviewed, dictated and finalized at location A. Y CATTLE FARM MANAGER IMPRESSION: 1. No significant change in opacities in the bilateral lower lung zones consist ent with atelectasis, pneumonia, pulmonary edema or some combination thereof. 2. Small right pleural effusion. 3. Cardiomegaly..
--- NOTE | ~2022-05-23 | XR_ITS ---
EXAMINATION: XR chest 1V portable DATE: 05/28/2022 06:06 INDICATION: Respiratory failure. TECHNIQUE: A single frontal view of the chest was obtained. COMPARISON: Chest single view 05/27/2022 FINDINGS: Sensitivity is decreased by obesity. There are airspace opacities in the perihilar regions and at the lung bases. There are small to moderate-sized pleural effusions. No pneumothorax. Cardiome alison is noted. The endotracheal tube tip is 5.1 cm above the carlos alberto. A right internal jugular central venous catheter is seen with tip in the superior vena cava. The nasogastric tube tip is in the stoma ch. IMPRESSION: 1. Stable airspace opacities in the perihilar regions and at the lung bases, consistent with pneumoni a versus pulmonary edema versus atelectasis. 2. Stable small to moderate-sized pleural effusions. 3. Cardiomegaly. Reviewed, dictated and finalized at location A. BOILER IMPRESSION: 1. Stable airspace opacities in the perihilar regions and at the lung bases, co nsistent with pneumonia versus pulmonary edema versus atelectasis. 2. Stable small to moderate-sized pleural effusions. 3. Cardiomegaly.
--- NOTE | ~2022-05-23 | US_ITS ---
EXAMINATION: US renal BI DATE: 05/24/2022 15:00 INDICATION: Acute on chronic renal failure TECHNIQUE: Multiple grayscale and Doppler ultrasound images of the kidneys were obtained. COMPARISON: None. FINDINGS: The right kidney measures 12.7 x 5.2 x 6.0 cm. The left kidney was not visualized. The kidneys demons trate normal parenchymal echogenicity. There is no hydronephrosis. The bladder is decompressed by a F oley which was poorly visualized. IMPRESSION: Limited evaluation. Grossly normal appearing right kidney. Left kidney not visualized. Reviewed, dictated and finalized at location K. ENSER TESTER IMPRESSION: Limited evaluation. Grossly normal appearing right kidney. Left kidney not visu alized.
--- NOTE | ~2022-05-23 | XR_ITS ---
EXAMINATION: XR abdomen NG/feed tube insert DATE: 05/25/2022 14:02 INDICATION: Orogastric tube reinsertion. TECHNIQUE: A semiupright view of the abdomen was obtained. COMPARISON: None. FINDINGS: The lower abdomen is excluded. The nasogastric tube tip is in the stomach. IMPRESSION: 1. Nasogastric tube tip in the stomach. Reviewed, dictated and finalized at location A. UCTION INSPECTOR
--- NOTE | ~2022-05-23 | XR_ITS ---
EXAMINATION: XR chest 1V portable DATE: 05/29/2022 06:30 INDICATION: Respiratory failure. TECHNIQUE: A single frontal view of the chest was obtained. COMPARISON: Chest single view 05/28/2022 FINDINGS: Sensitivity is decreased by obesity. There are airspace opacities in the mid and lower lung zones with a basilar predominance. There are small to moderate-sized pleural effusions. No pneumotho rax. Cardiomegaly is noted. The endotracheal tube tip is 3.1 cm above the carlos alberto. The nasogastric tub e tip is in the stomach. A left internal jugular central venous catheter is seen with tip at the supe rior cavoatrial junction. A right internal jugular central venous catheter is seen with tip in the dixon perior vena cava. IMPRESSION: 1. Airspace opacities in the mid and lower lung zones with a basilar predominance with worsening on t he right, consistent with atelectasis versus pulmonary edema versus pneumonia. 2. Stable small to moderate-sized pleural effusions. 3. Cardiomegaly. Reviewed, dictated and finalized at location A. STATION DEPARTMENT MANAGER IMPRESSION: 1. Airspace opacities in the mid and lower lung zones with a basilar predominan ce with worsening on the right, consistent with atelectasis versus pulmonary ed caitlin versus pneumonia. 2. Stable small to moderate-sized pleural effusions. 3. Cardiomegaly.
--- NOTE | 2022-05-23 12:25 | ECG_ITS ---
Measurements Intervals [place] Rate: 108 P: 140 NM: 177 QRS: 85 QRSD: 108 T: -26 QT: 295 QTc: 397 Interpretive Statements REDUCED ECG QUALITY BECAUSE OF PATIENT MOTION ARTIFACT INTRAVENTRICULAR CONDUCTION DELAY WITH INCOMPLETE LEFT BUNDLE BRANCH BLOCK ST SEGMENT ELEVATION IN THE PRECORDIAL LEADS CONSIDER ACUTE ANTERIOR INJURY COMPARED WITH PREVIOUS TRACING PATIENT IS MORE TACHYCARDIC, ECG IS OF REDUCED QUALITY AND ST SEGMENT FINDINGS CONSISTENT WITH ANTERIOR INJURY ARE NOTED COMPARED TO ECG 07/19/2020 09:52:09 NO SIGNIFICANT CHANGES Electronically Signed On 05-24-2022 8:18:45 COATER OPERATOR by Lucian Mora M.D.
--- NOTE | 2022-05-23 12:27 | ED.SOB ---
HPI - SOB/Dyspnea General Chief Complaint: Shortness of Breath/Dyspnea Stated Complaint: SOB Time Seen by Provider: 05/23/22 12:21 History of Present Illness HPI Narrative: Patient is a 56-year-old male with a history of hypertension, hyperlipidemia, CAD presenting with shortness of breath. Patient states that he was exposed to COVID-19 approximately 2 weeks ago. States that he has felt unwell since then. States that he has had intermittent vomiting as well as coughing. Today he became acutely short of breath so he came in for evaluation. States that he has had increased work of breathing for approximately 6 hours. He denies chest pain, palpitations, lightheadedness. No numbness or weakness, headache, abdominal pain, dysuria, diarrhea, leg swelling. Related Data Home Medications Medication Instructions Recorded Confirmed amlodipine 10 mg tablet 10 mg PO DAILY 07/19/20 05/23/22 aspirin 81 mg tablet 81 mg PO DAILY 07/19/20 05/23/22 atorvastatin 40 mg tablet 40 mg PO DAILY 07/19/20 05/23/22 clopidogrel 75 mg tablet 75 mg PO DAILY 07/19/20 05/23/22 furosemide 20 mg tablet 40 mg PO BID 07/19/20 05/23/22 lisinopril 40 mg tablet 40 mg PO DAILY 07/19/20 05/23/22 metoprolol succinate 100 mg 100 mg PO DAILY 07/19/20 05/23/22 tablet,extended release 24 hr terazosin 10 mg capsule 10 mg PO DAILY 07/19/20 05/23/22 Allergies Allergy/AdvReac Type Severity Reaction Status Date / Time Penicillins Allergy Unknown WAS CHILD, Verified 05/23/22 12:38 DOES NOT REMEMBER Review of Systems Review of Systems: All systems reviewed & are unremarkable except as noted in HPI and below PMFSH Past Medical History Medical History BPH (benign prostatic hyperplasia) Chronic anemia Coronary artery disease Status post stent. 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 Hypertension Pneumonia due to COVID-19 virus Psoriasis Type 1 diabetes mellitus Surgical History Surgical History History of cataract extraction History of heart artery stent History of removal of pigmented skin lesion Status post surgical removal of malignant neoplasm of skin Including excision of basal cell and squamous cell carcinoma. Family History Family History Other Diabetes mellitus Grandparent Diabetes mellitus Heart attack Father Heart attack Social History Social History Social History: The patient is and lives with his who is a durable power croze cutter for healthcare. He has One child. He works for [employer] in the [employer] department Surrogate decision maker: Michelle Parks, spouse. Code status: Full code. Smoking status: Never smoker Alcohol intake: never Substance use: never Substance use type: does not use Lack of Transportation: No Lack of Food: Never True Current Housing: I Have Housing Concerned About Future Housing: No Difficulty Paying Gas/Electric Bills: No Difficulty Paying for Meds: No Currently Unemployed: No Education: Associate Degree Difficulty w/ Childcare or Family Care: No Additional living arrangements comments: Resides with his in [place]. Additional occupation/education comments: Works for [employer]. Gender identity (if verbalized by the patient): Male Sexual Orientation (if Verbalized by the Patient): Straight or Heterosexual Spiritual care concerns: No Exam Narrative: GENERAL: Obese male in moderate respiratory distress HEAD: Normocephalic, atraumatic. EYES: PERRLA and EOMI. ENT: Nares clear, no rhinorrhea or epistaxis. Mucous membranes moist. NECK: Supple. CHEST: Crackles and wheezes bilaterally. Moderate respiratory distress. Saturating 98% on 5 L nasal cannula HEART: Regular rate and rhythm. No
[2022-05-23] MEDS: methylPREDNISolone SOD SUCC 125 MG VIAL IV PUSH (12:36)
[2022-05-23 12:37] LABS: Basophils Absolute Auto 0.1 K/mm3 (0.0-0.1); Basophils Percent Auto 0.4 % (0.2-1.2); Eosinophils Absolute Auto 0.1 K/mm3 (0-0.3); Eosinophils Percent Auto 0.4 % (0-4.4); Hematocrit 31.5 % (42.0-52.0); Hemoglobin 9.7 g/dL (14.0-18.0); Immature Granulocyte Absolute 0.15 K/mm3 (0.00-0.031); Immature Granulocyte Percent A 1.1 % (0-0.5); Lymphocytes Absolute Auto 0.71 K/mm3 (0.9-3.2); Lymphocytes Percent Auto 5.3 % (18.3-44.2); Mean Corpuscular HGB Conc 30.8 g/dl (32-36); Mean Corpuscular Hemoglobin 28.2 pg (26-34); Mean Corpuscular Volume 91.6 fl (80-100); Mean Platelet Volume 11.2 fl (7.4-10.4); Monocytes Absolute Auto 0.8 K/mm3 (0.1-0.6); Neutrophils Absolute Auto 11.7 K/mm3 (1.3-6.7); Neutrophils Percent Auto 86.8 % (45.5-73.1); Platelet Count Result 438 k/mm3 (150-375); Red Blood Count 3.44 M/mm3 (4.6-6.20); Red Cell Distribution Width 13.6 % (11.5-14.5); White Blood Count 13.5 K/mm3 (4.5-10.0)
[2022-05-23] MEDS: SODIUM CHLORIDE 0.9% IV 1,000 ML 999 ML IV CONT ×2 (12:37→14:20)
[2022-05-23 12:46] LABS: Alanine Aminotransferase 49 U/L (6-50); Albumin Level 3.6 g/dL (3.5-5.1); Alkaline Phosphatase 280 U/L (38-126); Anion Gap 7 mmol/L (8-16); Aspartate Amino Transferase 30 U/L (17-59); Bilirubin,Total 0.4 mg/dL (0.2-1.3); Blood Urea Nitrogen 39 mg/dL (9-20); Carbon Dioxide 25 mmol/L (22-30); Chloride 97 mmol/L (98-107); Estimated CRCL calculation 46 ml/min; Estimated Glomerular Filt Rate 31; Glucose 440 mg/dL (65-110); Potassium 4.9 mmol/L (3.4-5.0); Sodium 129 mmol/L (137-145)
[2022-05-23 12:47] LABS: INR 1.1; Prothrombin Time 13.6 Seconds (11.1-14.7)
[2022-05-23 12:48] LABS: Partial Thromboplastin Time 33.8 SECONDS (22.3-36.8)
[2022-05-23 13:01] LABS: NT Pro B Type Natriuretic Pept 2930 pg/mL (5-100)
[2022-05-23 13:07] LABS: D Dimer 2.03 ug/mL (<0.48)
[2022-05-23] MEDS: IPRATROPIUM BR 0.02% INH SOLN 0.5 MG/2.5 ML VIAL INHALATION (13:10)
[2022-05-23] MEDS: ALBUTEROL SULFATE NEB 2.5 MG/3 ML INH 10 MG INHALATION (13:10)
[2022-05-23 13:13] LABS: Alveolar/Arterial O2 Gradient 30.1 mmHg; Base Excess ABG -4.6 mEq/l (+/-2.0); Fractional Inspired Oxygen 28 %; HCO3 ABG 25.1 mEq/l (22.0-26.0); Oxygen Content ABG 16.5 %vol (16.0-22.0); Oxygen Saturation ABG 93.6 % (95.0-100.0); Oxyhemoglobin 92.6 % THb (90.0-100.0); PO2 ABG 86.5 mmHg (80.0-100.0); PO2 FiO2 Ratio Arterial Blood 3.09 %; Total Hemoglobin 12.6 g/dL (12.0-18.0)
[2022-05-23 13:20] LABS: PCO2 ABG 70.4 mmHg (35.0-45.0)
[2022-05-23 13:21] LABS: Influenza A QL RT-PCR Negative (Negative); Influenza B QL RT-PCR Negative (Negative); RSV RNA, RT-PCR Negative (Negative); SARS-CoV-2 RNA PCR Negative
[2022-05-23 15:43] LABS: Alveolar/Arterial O2 Gradient 166.7 mmHg; Base Excess ABG -6.2 mEq/l (+/-2.0); Fractional Inspired Oxygen 90 %; HCO3 ABG 21.3 mEq/l (22.0-26.0); Oxygen Content ABG 16.1 %vol (16.0-22.0); Oxygen Saturation ABG 99.8 % (95.0-100.0); Oxyhemoglobin 98.5 % THb (90.0-100.0); PCO2 ABG 51.1 mmHg (35.0-45.0); PO2 ABG 422.6 mmHg (80.0-100.0); Total Hemoglobin 10.8 g/dL (12.0-18.0)
[2022-05-23 15:46] LABS: Device BIPAP; Modified Allen's Test Pass; Site Drawn RIGHT RADIAL; pH ABG 7.237 (7.350-7.450)
[2022-05-23] MEDS: FUROSEMIDE INJ 40 MG/4 ML VIAL IV PUSH (16:55)
--- NOTE | 2022-05-23 17:05 | PM.IMHP ---
H&P: HPI History of Present Illness Date/Time: 05/23/22 17:05 Chief Complaint: Shortness of breath Narrative: This is a 56-year-old male patient with hypertension, hyperlipidemia and coronary artery disease. The patient came in with complaints of shortness of breath. The patient was exposed to COVID-19 approximately 2 weeks ago. He has felt unwell since then. The patient has had intermittent vomiting and coughing. The patient has become more increasingly short of breath especially the last 6 hours prior to coming to the emergency room. The patient also switch has swelling to his lower extremities. The patient denies having any congestive heart failure. White count is 13.5. H&H is 9.7 and 31.5. Which is his baseline. D-dimer was listed at 2.03. Initial pH was 7.170 repeat was 7.237. CO2 initially was 70.4 and has come down is 51.1. Sodium level was 129. The patient has his own insulin pump and delivered insulin to himself in the ER. However since he was admitted to IMU he is not able to take care of the pump on his own. Creatinine is 2.2 with an average baseline of 1.5-1.9. His blood sugar is greater than 500. His troponin is 4.260. Dr. Mora has been consulted. The patient was given IV fluids, neb treatments, Solu-Medrol, Lasix and nitro in the emergency room. Chest x-ray was read as the following1. Diffuse bilateral interstitial and airspace opacities with lower lung predominance most likely congestive heart failure related mild to moderate pulmonary edema although differential includes pneumonia. 2. Likely small left pleural effusion. The patient has a history of coronary artery disease and has 1 stent. The patient is being admitted to inpatient status on the date of service of 05/23/2022. Review of Systems Review of Systems: All systems reviewed & are unremarkable except as noted in HPI and below Constitutional: Constitutional: Reports as per HPI and Reports no additional constitutional complaints Eyes: Eyes: Reports as per HPI and Reports no additional eye complaints ENT: Reports system reviewed and no additional complaints, except as documented and Reports Normal hearing present Cardiovascular: Cardiovascular: Reports no additional cardiovascular complaints Respiratory: Respiratory: Reports no additional respiratory complaints and Reports no additional respiratory complaints Gastrointestinal: Gastrointestinal: Reports as per HPI and Reports no additional gastrointestinal complaints Musculoskeletal: Musculoskeletal: Reports no additional musculoskeletal complaints Integumentary/Breasts: Skin/Breast: Reports system reviewed and no additional complaints, except as docu and Reports as per HPI Neurologic: Reports system reviewed and no additional complaints, except as documented, Reports as per HPI and Reports Normal hearing present Psychiatric: Psychiatric: Reports no additional psychiatric complaints and Reports as per HPI Endocrine: Endocrine: Reports no additional endocrine complaints Hematologic/Lymphatic: Hematologic/Lymphatic: Reports no additional hematologic/lymphatic complaints Allergic/Immunologic: Allergic/Immunologic: Reports no additional allergic/immunologic complaints [facility] Past Medical History Medical History (Updated 05/23/22 @ 21:35 by Amelia Allan NP) BPH (benign prostatic hyperplasia) Chronic anemia Coronary artery disease Status post stent. 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 Hypertension Pneumonia due to COVID-19 virus Psoriasis Type 1 diabetes mellitus Surgical History Surgical History (Updated 05/23/22 @ 21:20 by Amelia Allan NP) History of cataract extraction History of heart artery stent History of removal of pigmented skin lesion Status post surgical removal of malignant neoplasm of skin Including excision of basal cell and squamous cell carcinoma. Family History Family History (Reviewed 05/23/22 @ 21:18 by Felicitas
[2022-05-23 19:02] LABS: Glucose Point of Care 499 mg/dl (65-105)
[2022-05-23] MEDS: NITROGLYCERIN OINTMENT 1 INCH DOSE TRANSDERM (19:13)
[2022-05-23 20:54] LABS: Glucose Point of Care > 500 mg/dl (65-105)
[2022-05-23] MEDS: INSULIN ASPART (*BKC) 100 UNITS/ML 12 UNITS SUB-Q (21:30)
[2022-05-23] MEDS: INSULIN GLARGINE (*BKC) 100 UNITS/ML 12 UNITS SUB-Q (21:30)
[2022-05-23 21:54] LABS: Hemoglobin A1C 6.9 % (<5.7)
[2022-05-23] MEDS: BUMETANIDE INJ 1 MG/4 ML VIAL IV PUSH (21:56)
[2022-05-23] MEDS: HEPARIN SODIUM 5,000 UNITS/ML VIAL 5000 UNITS SUB-Q (21:57)
[2022-05-23] MEDS: methylPREDNISolone SOD SUCC 125 MG VIAL 60 MG IV PUSH (21:58)
[2022-05-23 21:59] LABS: Anion Gap 8 mmol/L (8-16); Blood Urea Nitrogen 46 mg/dL (9-20); Calcium 8.1 mg/dL (8.4-10.2); Carbon Dioxide 23 mmol/L (22-30); Chloride 100 mmol/L (98-107); Estimated CRCL calculation 51 ml/min; Estimated Glomerular Filt Rate 28; Glucose 544 mg/dL (65-110); Potassium 6.1 mmol/L (3.4-5.0); Sodium 131 mmol/L (137-145)
[2022-05-23 22:23] LABS: Alveolar/Arterial O2 Gradient 99.9 mmHg; Base Excess ABG -5.7 mEq/l (+/-2.0); Fractional Inspired Oxygen 40 %; Oxygen Content ABG 15.3 %vol (16.0-22.0); Oxygen Saturation ABG 98.3 % (95.0-100.0); Oxyhemoglobin 97.1 % THb (90.0-100.0); PCO2 ABG 46.3 mmHg (35.0-45.0); PO2 ABG 132.1 mmHg (80.0-100.0)
--- NOTE | 2022-05-23 22:29 | ECG_ITS ---
Measurements Intervals [place] Rate: 104 P: 66 WI: 193 QRS: 66 QRSD: 107 T: 133 QT: 307 QTc: 404 Interpretive Statements SINUS TACHYCARDIA SUSPECT RECENT ANTERIOR NH BY SERIAL ECG REVIEW INCOMPLETE LEFT BUNDLE BRANCH BLOCK COMPARED TO ECG 05/23/2022 12:20:35 SINUS TACHYCARDIA NOW PRESENT Electronically Signed On 05-24-2022 8:37:16 NEWS PHOTOGRAPHER by Lucian Mora M.D.
[2022-05-23 22:33] LABS: pH ABG 7.274 (7.350-7.450)
[2022-05-23 22:34] LABS: Modified Allen's Test Pass; Site Drawn RIGHT RADIAL
[2022-05-23 22:35] LABS: Device BIPAP
[2022-05-23 22:36] LABS: Expiratory Pressure 8 cmH2O; Inspiratory Pressure 20 cmH2O
[2022-05-23] MEDS: ONDANSETRON INJ 4 MG/2 ML VIAL IV PUSH (22:50)
[2022-05-23] MEDS: ETOMIDATE 20 MG/10 ML AMPUL 60 MG IV PUSH (23:15)
[2022-05-23] MEDS: ROCURONIUM BROMIDE 50 MG/5 ML VIAL 60 MG IV PUSH (23:16)
[2022-05-23] MEDS: MIDAZOLAM 100MG/NS 100ML(*CRX) 100 MG/100 ML BAG IV CONT (23:22)
[2022-05-23] MEDS: FENTANYL 2,500MCG/NS250ML(*CRX 2,500 MCG/250 ML BAG IV CONT (23:22)
[2022-05-23] MEDS: ALBUTEROL SULFATE NEB 2.5 MG/3 ML INH 5 MG INHALATION (23:42)
--- NOTE | 2022-05-23 23:43 | WPDPROCEDUR ---
Procedures Central Line Placement Right Femoral: Central Line Date: 05/23/22 Central Line Time: 23:30 Discussed w/ the patient/family/POA,the placement of a central venous catheter, including its clinical necessity/indication & associated potential risks, benifits and alternatives.: Yes Consent: I have discussed with the patient and/or surrogate, the non-emergent placement of a central venous catheter, including its clinical necessity/indication and associated potential risks and complications. The patient and/or surrogate understand(s) and acknowledge(s) the need to proceed with central venous catheter insertion as an important element of the patient's clinical management. Additional comments: Unable to obtain femoral central line. I attempted both sides x2 kids. Intubation Intubation Date: 05/23/22 Intubation Time: 23:19 A pre-procedural Time-Out was completed immediately before starting the procedure and confirmed: Patient Identification, Site, Procedure, Patient Position and the Availability of Requisite Equipment: Yes Sedative: etomidate Mg given: 40 Paralytic: rocuronium Mg given: 40 Laryngoscope: fiber optic video scope Assist device used: fiber optic device ET tube size: 7.5 Tube secured depth (cm): 25 Tube secured location: lips Tube placement confirmation: visualized tube passing through cords, equal breath sounds bilaterally and confirmation by capnometry
--- NOTE | 2022-05-23 23:45 | PM.EVENT ---
Event Note Event Note Event Note: 05/25/22 2300 the patient had bill on the bipap and tolerated well. the patient had an emesis while on the bipap. the patient continued to have resp distress. we discussed intubation and ventilator. as well as central line. the patient gave me verbal ok to do prcedures. Dr Poe was called and gave vent settings as well as sedation orders
[2022-05-24] VITALS (38 sets, daily range): BP systolic 102–143; BP diastolic 61–82; PULSE 70–109; RESP 12–24; TEMP 36.5–36.9; O2SAT 91–100
[2022-05-24] MEDS: MIDAZOLAM HCL (*CRX) 2 MG/2 ML VIAL 5 MG IV PUSH (00:38)
[2022-05-24] MEDS: fentaNYL CITRATE INJ (*CRX) 100 MCG/2 ML VIAL 50 MCG IV PUSH (01:29)
[2022-05-24 01:45] LABS: Glucose Point of Care > 500 mg/dl (65-105)
--- NOTE | 2022-05-24 01:54 | P.PCNBED_ITS ---
Procedures Central Line Placement Left IJ: Central Line Date: 05/24/22 Central Line Time: 01:15 Performed Emergently - Given emergent patient condition, temporal constraints may have precluded informed consent.: Yes Time Out Performed: Yes Patient Position: trendelenburg Patient placed on monitor/pulse ox: Yes Provider Prep: mask, sterile gown, sterile gloves, Max. sterile barrier precautions, cap and hand hygiene with conventional soap/water or alcohol based hand rub Central line prep: 2% Chlorhexidine scrub Sterile US Technique with sterile gel/sterile probe covers: Yes Central line lumen inserted: triple Swedish: 7 Length (cm): 16 Depth of Insertion (cm): 16 Post Procedure: sutured in place, good blood return, all ports aspirated, flushed, capped, transparent dressing, hemostatic product, antimicrobial product, securement product and aseptic technique maintained throughout procedure Post procedure x-ray: tip of catheter in good position and no pneumothorax seen Patient tolerated procedure: well
--- NOTE | 2022-05-24 02:02 | ADMIMU ---
This patient, Lucian Parks, was admitted to IMU status om 05/24/22 at 2020, and placed in Intensive Care Unit-7. Patient/family oriented to hospital policies and general routines including ID bracelet, bed and alarms, visiting hours, pain management, procedures, bathroom and other care routines, personal items, smoking policy, room service/diet, and visiting hours. Valuables list has been completed. Information on how to activate the Rapid Response Team has been discussed. Patient/Family are encouraged to report perceived risks to care and to ask questions if they do not understand what they are told or what they should do.
--- NOTE | 2022-05-24 02:02 | PC.NURSE ---
Called Michelle and updated her to patients condition including intubation, central line placement, heparin drip, possible insulin drip, and visiting hours. Michelle states understanding and will be up in morning.
[2022-05-24 02:14] LABS: Basophils Percent Auto 0.2 % (0.2-1.2); Hemoglobin 8.9 g/dL (14.0-18.0); Immature Granulocyte Absolute 0.19 K/mm3 (0.00-0.031); Lymphocytes Absolute Auto 0.22 K/mm3 (0.9-3.2); Lymphocytes Percent Auto 1.1 % (18.3-44.2); Mean Corpuscular HGB Conc 30.7 g/dl (32-36); Mean Corpuscular Hemoglobin 28.3 pg (26-34); Mean Corpuscular Volume 92.4 fl (80-100); Mean Platelet Volume 11.1 fl (7.4-10.4); Monocytes Absolute Auto 0.4 K/mm3 (0.1-0.6); Monocytes Percent Auto 2.2 % (2.6-8.5); Neutrophils Absolute Auto 18.9 K/mm3 (1.3-6.7); Neutrophils Percent Auto 95.5 % (45.5-73.1); Platelet Count Result 428 k/mm3 (150-375); Red Blood Count 3.14 M/mm3 (4.6-6.20); Red Cell Distribution Width 13.7 % (11.5-14.5); White Blood Count 19.7 K/mm3 (4.5-10.0)
[2022-05-24] MEDS: INSULIN ASPART (*BKC) 100 UNITS/ML 16 UNITS SUB-Q (02:15)
--- NOTE | 2022-05-24 02:16 | WPDPROCEDUR ---
Procedures Central Line Placement Right IJ: Central Line Date: 05/24/22 Central Line Time: 01:15 Consent: I have discussed with the patient and/or surrogate, the non-emergent placement of a central venous catheter, including its clinical necessity/indication and associated potential risks and complications. The patient and/or surrogate understand(s) and acknowledge(s) the need to proceed with central venous catheter insertion as an important element of the patient's clinical management. Time Out Performed: Yes Patient Position: trendelenburg Patient placed on monitor/pulse ox: Yes Provider Prep: mask, sterile gown, sterile gloves, Max. sterile barrier precautions, cap and hand hygiene with conventional soap/water or alcohol based hand rub Central line prep: 2% Chlorhexidine scrub Sterile US Technique with sterile gel/sterile probe covers: Yes Central line lumen inserted: triple Portuguese: 7 Length (cm): 17 Depth of Insertion (cm): 17 Post Procedure: sutured in place, good blood return, all ports aspirated, flushed, capped, transparent dressing, hemostatic product, antimicrobial product, securement product and aseptic technique maintained throughout procedure Post procedure x-ray: tip of catheter in good position and no pneumothorax seen Patient tolerated procedure: well
[2022-05-24] MEDS: PROPOFOL IV EMULSION 100 ML 5.07 MG IV CONT (02:18)
--- NOTE | 2022-05-24 02:19 | PM.EVENT ---
Event Note Event Note Event Note: Nurse practitioner asked for my assistance in the patient's room. The patient had been admitted to ICU as IMU status due to overflow issues. However while on BiPAP the patient vomited and aspirated. The patient had been intubated and placed on the ventilator. He was on sedation with fentanyl at 150 mcg and Versed at 5 mg. The nurse practitioner had attempted a right femoral central line without success. I was preparing to do a right IJ when I got called to another patient's room for a code. Nine came back in the room nurse practitioner with attempting and left femoral line without success. At that time I set up for a right IJ which was straightforward and completed quickly. Prior to onset of the procedure the patient's blood pressures were soft with systolics in the 90s. The patient has nitropaste was discontinued due to hypotension. Heart rate was also in the 90s. Due to soft blood pressures an order was given for Levophed given the patient was anticipated to need more sedation. However after the procedure was completed the patient's blood pressures were in the 140s systolic. The patient is still awake and moving around on the ventilator. He is oxygenating well. Levophed was not started. Probable fall was ordered due to the patient being agitated biting at the tube and fighting the vent. Vent settings were provided by the barber or beauty shop manager. Repeat chest x-ray report repair performed after central line placement which demonstrated possible slightly improved pulmonary edema. Central line was up in appropriate position. No pneumothorax noted. Given that the patient likely had some aspiration will add Flagyl to the current antibiotic therapy that has already been ordered with Rocephin and azithromycin. Nursing staff notified me shortly after procedure the patient's glucoses came back elevated at greater than 500. Anion gap was normal. Patient usually wears an insulin pump which has been removed. According to the external med history the patient insulin pump usually infuse is 65 units units of insulin a day. (from midnight to 03:30 1.7 units from 03:30 to 08:30 2.25 units from 08:30 to noon 3.4 units from noon to 18:00 3 units from 18:00 to 21:00 3.3 units an from 21:00 to midnight 3 units.) His insulin to carb ratio is 1 unit of insulin for every 5 carbs he eats. His correction factor is 1 unit of insulin for every 25 mg a glucose above 130. I gave an order for 60 units of Lantus subQ x1 and 16 units of the NovoLog. Will repeat Accu-Cheks in 2 hours and re-evaluate. However prior to time for the next Accu-Chek repeat BMP came back with glucoses even higher at 565 despite the Lantus and subQ insulin. Subsequently 20 units of IV insulin was given in the setting of acute hyperkalemia. Patient has markedly elevated troponins. Cardiology was consulted. The patient is heparin drip was started after central line was placed as the patient did not have enough venous access for the heparin drip prior to this. I have ordered repeat stat EKG. On review of the patient's labs he does have a combined respiratory and metabolic acidosis. ABG has been improving. However now patient also has severe hyperkalemia, hyperglycemia with serum bicarb of 21. He still has a normal anion gap. Will get a stat ABG and EKG to evaluate for rhythm changes the setting hyperkalemia. Patient has been given a bolus of sodium bicarb, calcium gluconate, and Lokalma as well as an hour long nebulizer. 90 minutes spent in critical care activities in addition to procedures. Due to a high probability of clinically significant, life threatening deterioration, the patient required my highest level of preparedness to intervene emergently and I personally spent this critical care time directly and personally managing the patient. This critical care time included obtaining a history; examining the patient; pulse oximetry; ordering and review of studies; arranging
[2022-05-24] MEDS: HEPARIN SOD/D5W 100 UNITS/ML 25,000 UNITS/250 ML BAG 10 UNITS IV CONT (02:20)
--- NOTE | 2022-05-24 02:24 | ECG_ITS ---
Measurements Intervals [place] Rate: 77 P: 57 AL: 203 QRS: 65 QRSD: 102 T: 138 QT: 360 QTc: 408 Interpretive Statements SINUS RHYTHM ANTERIOR ND PROBABLY RECENT BY SERIAL ECG COMPARED TO ECG 05/23/2022 22:34:12 COMPARED TO PRIOR TRACINGS INJURY CURRENT HAS RESOLVED Electronically Signed On 05-24-2022 8:41:25 MEDICAL PROGRAM SPECIALIST by Lucian Mora M.D.
[2022-05-24 02:28] LABS: INR 1.2; Prothrombin Time 14.5 Seconds (11.1-14.7)
[2022-05-24 02:29] LABS: Partial Thromboplastin Time 32.4 SECONDS (22.3-36.8)
[2022-05-24] MEDS: BUMETANIDE INJ 1 MG/4 ML VIAL IV PUSH (02:32)
[2022-05-24 02:52] LABS: Anion Gap 8 mmol/L (8-16); Blood Urea Nitrogen 51 mg/dL (9-20); Calcium 7.6 mg/dL (8.4-10.2); Carbon Dioxide 21 mmol/L (22-30); Chloride 99 mmol/L (98-107); Estimated CRCL calculation 45 ml/min; Estimated Glomerular Filt Rate 25; Glucose 565 mg/dL (65-110); Potassium 7.2 mmol/L (3.4-5.0); Sodium 128 mmol/L (137-145); Triglycerides 55 mg/dL (<150)
[2022-05-24] MEDS: INSULIN GLARGINE (*BKC) 100 UNITS/ML 60 UNITS SUB-Q (02:58)
[2022-05-24 03:28] LABS: Alveolar/Arterial O2 Gradient 614.6 mmHg; Base Excess ABG -6.6 mEq/l (+/-2.0); Carboxyhemoglobin 0.1 % THb (0-2.0); Fractional Inspired Oxygen 100 %; Methemoglobin ABG 0.2 %THb (0-1.5); Oxygen Content ABG 9.1 %vol (16.0-22.0); PO2 FiO2 Ratio Arterial Blood 0.38 %; Reduced Hemoglobin 34.4 %THb (0-5.0); Total Hemoglobin 9.9 g/dL (12.0-18.0)
[2022-05-24] MEDS: INSULIN HUMAN REGULAR (*BKC) 100 UNITS/ML 20 UNITS IV PUSH ×2 (03:30→05:44)
[2022-05-24] MEDS: SODIUM BICARBONATE 8.4% 50 MEQ/50 ML SYRINGE IV PUSH (03:32)
[2022-05-24 03:37] LABS: PCO2 ABG 60.2 mmHg (35.0-45.0)
[2022-05-24 03:38] LABS: Oxygen Saturation ABG 58.4 % (95.0-100.0); PO2 ABG 38.2 mmHg (80.0-100.0)
[2022-05-24 03:39] LABS: Arterial Blood Gas PEEP 5 cmH2O; Arterial Blood Gas Vent Mode CMV; Arterial Blood Gas Ventilator rate 20 /MIN; Device VENTILATOR; Modified Allen's Test Pass; Oxyhemoglobin 65.3 % THb (90.0-100.0); Site Drawn RIGHT RADIAL
[2022-05-24] MEDS: CALCIUM GLUCONATE 1,000 MG/10 ML VIAL 1000 MG IV PUSH (03:39)
[2022-05-24 03:40] LABS: Arterial Blood Gas Tidal Volume 450 ml
[2022-05-24] MEDS: SODIUM ZIRCONIUM CYCLOSILICATE 10 GM POWD.PACK PO ×4 (03:46→22:40)
[2022-05-24] MEDS: metroNIDAZOLE 500 MG/ISO 100ML 500 MG/100 ML BAG 100 MG IVPB ×3 (04:06→22:13)
[2022-05-24 04:11] LABS: Alveolar/Arterial O2 Gradient 349.5 mmHg; Base Excess ABG -4.3 mEq/l (+/-2.0); Fractional Inspired Oxygen 100 %; HCO3 ABG 21.3 mEq/l (22.0-26.0); Oxygen Content ABG 13.7 %vol (16.0-22.0); Oxygen Saturation ABG 99.7 % (95.0-100.0); Oxyhemoglobin 98.1 % THb (90.0-100.0); PCO2 ABG 41.7 mmHg (35.0-45.0); PO2 ABG 321.8 mmHg (80.0-100.0); PO2 FiO2 Ratio Arterial Blood 3.22 %; Total Hemoglobin 9.3 g/dL (12.0-18.0); pH ABG 7.327 (7.350-7.450)
[2022-05-24 04:12] LABS: Site Drawn RIGHT RADIAL
[2022-05-24 04:13] LABS: Arterial Blood Gas PEEP 5 cmH2O; Arterial Blood Gas Tidal Volume 450 ml; Arterial Blood Gas Vent Mode CMV; Arterial Blood Gas Ventilator rate 20 /MIN; Device VENTILATOR; Modified Allen's Test Pass
[2022-05-24] MEDS: ALBUTEROL SULFATE NEB 2.5 MG/3 ML INH INHALATION ×4 (04:23→20:23)
[2022-05-24] MEDS: IPRATROPIUM BR 0.02% INH SOLN 0.5 MG/2.5 ML VIAL INHALATION ×4 (04:23→20:23)
[2022-05-24 05:04] LABS: Glucose Point of Care > 500 mg/dl (65-105)
[2022-05-24 05:04] LABS: Glucose Point of Care 454 mg/dl (65-105)
[2022-05-24 05:29] LABS: Glucose Point of Care 436 mg/dl (65-105)
[2022-05-24 06:22] LABS: Basophils Percent Auto 0.1 % (0.2-1.2); Hematocrit 25.7 % (42.0-52.0); Immature Granulocyte Absolute 0.12 K/mm3 (0.00-0.031); Immature Granulocyte Percent A 0.8 % (0-0.5); Lymphocytes Absolute Auto 0.35 K/mm3 (0.9-3.2); Lymphocytes Percent Auto 2.5 % (18.3-44.2); Mean Corpuscular HGB Conc 31.1 g/dl (32-36); Mean Corpuscular Hemoglobin 29.1 pg (26-34); Mean Corpuscular Volume 93.5 fl (80-100); Mean Platelet Volume 11.1 fl (7.4-10.4); Monocytes Absolute Auto 0.4 K/mm3 (0.1-0.6); Monocytes Percent Auto 2.9 % (2.6-8.5); Neutrophils Absolute Auto 13.4 K/mm3 (1.3-6.7); Neutrophils Percent Auto 93.7 % (45.5-73.1); Platelet Count Result 357 k/mm3 (150-375); Red Blood Count 2.75 M/mm3 (4.6-6.20); Red Cell Distribution Width 13.6 % (11.5-14.5); White Blood Count 14.3 K/mm3 (4.5-10.0)
[2022-05-24 06:48] LABS: Sodium Urine Random 21 meq/L
[2022-05-24] MEDS: CENTRAL LINE FLUSH 10 ML IV PUSH ×4 (06:52→22:05)
[2022-05-24] MEDS: methylPREDNISolone SOD SUCC 125 MG VIAL 60 MG IV PUSH (06:52)
[2022-05-24 08:44] LABS: Glucose Point of Care 401 mg/dl (65-105)
[2022-05-24 08:44] LABS: Glucose Point of Care 334 mg/dl (65-105)
[2022-05-24 09:05] LABS: Partial Thromboplastin Time 33.5 SECONDS (22.3-36.8)
[2022-05-24] MEDS: HEPARIN SODIUM 5,000 UNITS/ML VIAL 4000 UNITS IV PUSH ×3 (09:16→22:35)
[2022-05-24 09:22] LABS: Alanine Aminotransferase 45 U/L (6-50); Albumin Level 3.2 g/dL (3.5-5.1); Alkaline Phosphatase 210 U/L (38-126); Anion Gap 5 mmol/L (8-16); Aspartate Amino Transferase 76 U/L (17-59); Bilirubin,Total 0.3 mg/dL (0.2-1.3); Blood Urea Nitrogen 55 mg/dL (9-20); Carbon Dioxide 26 mmol/L (22-30); Chloride 99 mmol/L (98-107); Estimated CRCL calculation 39 ml/min; Estimated Glomerular Filt Rate 21; Glucose 321 mg/dL (65-110); Potassium 5.5 mmol/L (3.4-5.0); Sodium 130 mmol/L (137-145)
--- NOTE | 2022-05-24 09:47 | PM.CNCAR ---
Assessment and Plan Assessment and plan (1) Pulmonary edema: Code(s): J81.1 - Chronic pulmonary edema Status: Acute (2) Acute anterior wall GA: Code(s): I21.09 - ST elevation (STEMI) myocardial infarction involving other coronary artery of anterior wall Status: Acute Plan this is a 56-year-old man very complex situation he has coronary artery disease with previous PCI about a decade ago. He appears to have sustained an anterior wall infarction. His presentation was somewhat late as his ECG findings are as described above and his troponin levels were already elevated when he came to the hospital. His serial EKGs do demonstrate resolution of the acute current of injury and he now has anterior Q-waves. At this time I would not bring him to the [employer] urgently or emergently today as this infarction clearly has already occurred and the risk benefit of bringing him to the [employer] at this late stage would seem to outweigh the risk of complications and contrast nephropathy he has relatively severe chronic kidney disease. We will treat him medically and hopefully be able to clear his congestive heart failure eventually get him off the ventilator and then reassess his status. If he does have ischemic chest pain, ventricular arrhythmias or other complications then clearly angiography will be considered /performed if he has an uncomplicated event with this essentially completed event it may not be necessary more of benefit to bring him for an angiogram at this time/during this hospitalization. Thank you for asking me to see this gentleman and participate in this very challenging situation. echocardiogram has been performed which of course is appropriate the results of that are pending at the time of this dictation Lucian Mora MD [facility] History of Present Illness History of Present Illness Consult date/time: 05/24/22 09:47 Reason For Visit: Hypoxic Respiratory Failure Narrative: This is a 56-year-old gentleman I am seeing at the request of the hospitalist and block breaker operator staff this morning following admission yesterday from being seen in this hospital's emergency room. He is unknown to me prior to this encounter. The patient came to [place] emergency room yesterday and was seen principally with symptoms of feeling poorly with worsening shortness of breath for about 5 or 6 days prior to coming in the hospital. He was not reporting any symptoms of chest pain pressure or heaviness. He was seen in the emergency room by the a physician and evaluated and felt to have evidence of some congestive heart failure on examination and on chest x-ray and was noted to have an elevated troponin level of over 4 although it was not felt that he was having any other evidence of an acute coronary syndrome. The patient was admitted to the hospital ICU because of significant shortness of breath was given diuretics and despite this his shortness of breath worsened through the evening and later in the evening was intubated placed on a mechanical ventilator support. His troponin levels have risen to over 12 and rate reviewing his electrocardiograms this morning it does appear that he had a acute anterior current of injury on the presenting EKG that was not present on an ECG in the old chart here about a year ago. Two subsequent EKGs demonstrate the development of anterior Q-waves with resolution of the ST segment elevation. The patient is being seen in the ICU his records have been reviewed fortunately his arrived for a visit and I was able to obtain some additional history from her. According to his the patient has a history of coronary artery disease with percutaneous revascularization done at [facility] about a decade ago. I do not have any records of those details. He follows with a application integration specialist in [place] regularly. He also follows with an classroom instructor at [facility] for his insulin dependent diabetes he is also morbidly obese
[2022-05-24] MEDS: INSULIN HUMAN REGULAR (*BKC) 100 UNITS in SODIUM CHLORIDE 0.9% IV 99 ML 5.3 UNITS IV CONT (10:03)
[2022-05-24] MEDS: INSULIN HUMAN REGULAR (*BKC) 100 UNITS/ML 10 UNITS IV PUSH (10:04)
[2022-05-24 10:08] LABS: Glucose Point of Care 326 mg/dl (65-105)
[2022-05-24] MEDS: ATORVASTATIN 40 MG TABLET FEED TUBE (10:08)
[2022-05-24] MEDS: CLOPIDOGREL BISULFATE 75 MG TABLET FEED TUBE (10:08)
[2022-05-24] MEDS: MINERAL OIL/WHITE PETROLATUM OINTMENT 1 APPLIC EACH EYE ×2 (10:08→21:05)
[2022-05-24 11:09] LABS: Glucose Point of Care 303 mg/dl (65-105)
[2022-05-24 11:23] LABS: Creatine Kinase 743 U/L (55-170)
[2022-05-24 11:26] LABS: Hemoglobin A1C 7.3 % (<5.7)
--- NOTE | 2022-05-24 12:16 | WPDCNINT ---
Assessment and Plan Assessment and plan (1) Acute respiratory failure with hypoxia: Code(s): J96.01 - Acute respiratory failure with hypoxia Status: Acute Assessment and Plan: Acute Respiratory failure secondary to congestive heart failure and possible community-acquired pneumonia Continue full mechanical ventilation support to prevent hypoxemia/hypercarbia and end organ damage. ABG reviewed and will increase PEEP to 8 Chest x-ray reviewed Low tidal volume ventilation strategy to prevent volutrauma Bronchodilators Hold additional diuretics today at this time since patient's blood pressure soft and patient is in acute renal failure. Also he is only on 30% FiO2 now Empiric Rocephin azithromycin for treatment of community-acquired pneumonia Culture sent and are pending Check procalcitonin level (2) CAP (community acquired pneumonia): Code(s): J18.9 - Pneumonia, unspecified organism Status: Acute Assessment and Plan: See above (3) Acute anterior wall DC: Code(s): I21.09 - ST elevation (STEMI) myocardial infarction involving other coronary artery of anterior wall Status: Acute Assessment and Plan: Patient has history of coronary disease with PCI done more than 12 years ago at [facility] for an DC Patient presented with elevated troponin and abnormal EKG Patient evaluated by Cardiology Recommend conservative management at this time and will plan to cardiac catheterization once his renal function stabilizes or improves Continue aspirin Plavix statin heparin infusion Check echocardiogram (4) Congestive heart failure: Code(s): I50.9 - Heart failure, unspecified Status: Acute Assessment and Plan: His most recent echo done in 08/04 showed diastolic dysfunction patient does have all the signs of congestive heart failure Repeat echo has been ordered (5) Coronary artery disease: Code(s): I25.10 - Atherosclerotic heart disease of [place] coronary artery without angina pectoris Status: Acute Assessment and Plan: See above (6) Hypertension: Qualifiers: Hypertension type: essential hypertension Qualified Code(s): I10 - Essential (primary) hypertension Code(s): I10 - Essential (primary) hypertension Status: Acute Assessment and Plan: Blood pressure is now soft since patient is sedated Hold antihypertensives (7) Pulmonary edema: Code(s): J81.1 - Chronic pulmonary edema Status: Acute Assessment and Plan: Diuretics once blood pressure and renal function allows (8) Type 1 diabetes mellitus: Qualifiers: Diabetes mellitus complication status: with hyperglycemia Qualified Code(s): E10.65 - Type 1 diabetes mellitus with hyperglycemia Code(s): E10.9 - Type 1 diabetes mellitus without complications Status: Acute Assessment and Plan: Patient received significant on insulin overnight. Blood Sugar still elevated Start insulin infusion for tighter control (9) Acute kidney injury: Code(s): N17.9 - Acute kidney failure, unspecified Status: Acute Assessment and Plan: Multifactorial acute renal failure with baseline chronic kidney disease Patient presented with hyperglycemia hypoxia and hypertension He was also on diuretics and lisinopril at home Patient did take some NSAIDs as an outpatient CK level mildly elevated suggestive of rhabdomyolysis Hold further diuretics today Check renal ultrasound urine electrolytes check now will not be helpful as patient did receive diuretics Monitor renal function urine output and creatinine Consult nephrology If renal function continues to deteriorate he may need hemodialysis (10) Hyperkalemia: Code(s): E87.5 - Hyperkalemia Status: Acute Assessment and Plan: Secondary to acute renal failure, acidosis and hyperglycemia 10 units insulin IV push in start insulin drip Marty per tube Recheck BMP later to
[2022-05-24 12:27] LABS: Glucose Point of Care 285 mg/dl (65-105)
[2022-05-24 13:05] LABS: Glucose Point of Care 243 mg/dl (65-105)
[2022-05-24 14:08] LABS: Glucose Point of Care 201 mg/dl (65-105)
[2022-05-24 15:10] LABS: Glucose Point of Care 167 mg/dl (65-105)
[2022-05-24 15:21] LABS: Anion Gap 1 mmol/L (8-16); Blood Urea Nitrogen 59 mg/dL (9-20); Calcium 8.3 mg/dL (8.4-10.2); Carbon Dioxide 31 mmol/L (22-30); Chloride 103 mmol/L (98-107); Estimated CRCL calculation 34 ml/min; Estimated Glomerular Filt Rate 18; Glucose 179 mg/dL (65-110); Potassium 5.6 mmol/L (3.4-5.0); Sodium 135 mmol/L (137-145)
[2022-05-24 15:24] LABS: Partial Thromboplastin Time 40.3 SECONDS (22.3-36.8)
[2022-05-24 16:07] LABS: Glucose Point of Care 165 mg/dl (65-105)
[2022-05-24 17:20] LABS: Procalcitonin 2.5 ng/mL
[2022-05-24 18:06] LABS: Glucose Point of Care 140 mg/dl (65-105)
[2022-05-24 18:06] LABS: Glucose Point of Care 132 mg/dl (65-105)
[2022-05-24 19:08] LABS: Glucose Point of Care 120 mg/dl (65-105)
[2022-05-24 20:03] LABS: Glucose Point of Care 102 mg/dl (65-105)
[2022-05-24] MEDS: FENTANYL 2,500MCG/NS250ML(*CRX 2,500 MCG/250 ML BAG 12.5 MCG IV CONT (20:05)
[2022-05-24] MEDS: MIDAZOLAM 100MG/NS 100ML(*CRX) 100 MG/100 ML BAG IV CONT (20:07)
[2022-05-24] MEDS: HEPARIN SOD/D5W 100 UNITS/ML 25,000 UNITS/250 ML BAG 18 UNITS IV CONT (20:58)
[2022-05-24 22:26] LABS: Partial Thromboplastin Time 53.6 SECONDS (22.3-36.8)
[2022-05-24 22:42] LABS: Glucose Point of Care 89 mg/dl (65-105)
[2022-05-24 22:42] LABS: Glucose Point of Care 84 mg/dl (65-105)
[2022-05-24 23:04] LABS: Glucose Point of Care 94 mg/dl (65-105)
[2022-05-25] VITALS (42 sets, daily range): BP systolic 98–186; BP diastolic 63–92; PULSE 70–996; RESP 12–23; TEMP 36.7–37.2; O2SAT 93–100; BMI 53.3
--- NOTE | 2022-05-25 | ECHO_ITS ---
Patient Info Name: Lucian Parks Age: 56 years : 1965 Gender: Male Ht: 70 in Wt: 372 lbs BSA: 2.98 m2 HR: 90 bpm BP: 127 / 84 mmHg Heart Rhythm: Sinus Rhythm Exam Date: 05/25/2022 8:15 AM Exam Location: [facility] Patient Status: Inpatient Admit Date: 05/23/2022 Staff Ordering Physician: Amelia Allan NP Roving Hand: Eugene Corea RDCS, RT Attending Provider: Asael Davenport MD Referring Physician: Sanjana CABRERA; Exam Type: CA echo dop color flow w con Study Info Indications R60.0 - Localized edema Complete two-dimensional, color flow and Doppler transthoracic echocardiogram is performed with contrast to opacify the left ventricle and to improve the deliniation of the left ventricle endocardial borders. Summary 1. Technically challenging exam because of obesity, definity contrast injected to improve quality. 2. Left ventricular enlargement with severe global hypokinesia akinesis of the distal anterior wall and apex. 3. No significant valvular dysfunction. 4. Small circumferential pericardial effusion. Left Ventricle Left ventricular chamber dimension is moderately enlarged. Left ventricular systolic function is severely reduced, estimated at 30-35%. The left ventricular diastolic function is grade II diastolic dysfunction. Right Ventricle Right ventricular chamber dimension is normal. Left Atria Left atrial chamber dimension is normal. Right Atria Right atrial chamber dimension is not well visualized. Aortic Valve The aortic valve is normal. Pulmonic Valve The pulmonic valve is not well visualized. Mitral Valve The mitral valve has normal leaflets. Tricuspid Valve The tricuspid valve leaflets are normal. Pericardium/Pleural The pericardium appears normal. There is small circumferential pericardial effusion. Aorta The aortic root size at the sinus of Valsalva is normal. Left Ventricular Outflow Tract Name Value Normal LVOT Doppler LVOT Peak Gradient 3 mmHg LVOT Mean Gradient 2 mmHg LVOT VTI 15.49 cm LVOT VTI/AV VTI Ratio 0.55 Mitral Valve Name Value Normal MV Doppler MV Decel [place] 662.16 cm/s2 MV PHT 0 s MV Area (PHT) 4.11 cm2 4.00-5.00 MV Diastolic Function MV E Peak Velocity 122.36 cm/s MV A Peak Velocity 82.04 cm/s MV E/A 1.49 MV Decel Time 0 s MV Annular TDI MV E/e' (Septal) 35.55 <=8.00 MV E/e' (Lateral) 26.76 <=8.00 MV E/e' (Average) 31.16 Tricuspid Valve
[2022-05-25 00:04] LABS: Glucose Point of Care 111 mg/dl (65-105)
[2022-05-25 01:07] LABS: Glucose Point of Care 112 mg/dl (65-105)
[2022-05-25] MEDS: ALBUTEROL SULFATE NEB 2.5 MG/3 ML INH INHALATION ×4 (01:55→21:04)
[2022-05-25] MEDS: IPRATROPIUM BR 0.02% INH SOLN 0.5 MG/2.5 ML VIAL INHALATION ×4 (01:55→21:04)
[2022-05-25 02:12] LABS: Glucose Point of Care 107 mg/dl (65-105)
[2022-05-25 03:15] LABS: Glucose Point of Care 94 mg/dl (65-105)
[2022-05-25 04:09] LABS: Glucose Point of Care 94 mg/dl (65-105)
[2022-05-25 04:40] LABS: Hematocrit 25.8 % (42.0-52.0); Hemoglobin 8.1 g/dL (14.0-18.0); Mean Corpuscular HGB Conc 31.4 g/dl (32-36); Mean Corpuscular Hemoglobin 28.8 pg (26-34); Mean Corpuscular Volume 91.8 fl (80-100); Mean Platelet Volume 10.5 fl (7.4-10.4); Platelet Count Result 374 k/mm3 (150-375); Red Blood Count 2.81 M/mm3 (4.6-6.20); Red Cell Distribution Width 14.1 % (11.5-14.5); White Blood Count 18.7 K/mm3 (4.5-10.0)
[2022-05-25 05:01] LABS: Partial Thromboplastin Time 76.8 SECONDS (22.3-36.8)
[2022-05-25 05:02] LABS: Alanine Aminotransferase 45 U/L (6-50); Albumin Level 3.1 g/dL (3.5-5.1); Alkaline Phosphatase 193 U/L (38-126); Anion Gap 7 mmol/L (8-16); Aspartate Amino Transferase 70 U/L (17-59); Bilirubin,Total 0.2 mg/dL (0.2-1.3); Blood Urea Nitrogen 64 mg/dL (9-20); Calcium 8.2 mg/dL (8.4-10.2); Carbon Dioxide 26 mmol/L (22-30); Chloride 102 mmol/L (98-107); Estimated CRCL calculation 26 ml/min; Estimated Glomerular Filt Rate 13; Glucose 90 mg/dL (65-110); Magnesium 2.6 mg/dL (1.6-2.3); Phosphorus 6.6 mg/dL (2.5-4.5); Potassium 5.2 mmol/L (3.4-5.0); Sodium 135 mmol/L (137-145)
[2022-05-25 05:07] LABS: Alveolar/Arterial O2 Gradient 98.7 mmHg; Base Excess ABG -2.9 mEq/l (+/-2.0); Carboxyhemoglobin 0.2 % THb (0-2.0); Fractional Inspired Oxygen 30 %; HCO3 ABG 22.3 mEq/l (22.0-26.0); Methemoglobin ABG 0.3 %THb (0-1.5); Oxygen Content ABG 16.7 %vol (16.0-22.0); Oxygen Saturation ABG 92.9 % (95.0-100.0); Oxyhemoglobin 91.8 % THb (90.0-100.0); PCO2 ABG 40.4 mmHg (35.0-45.0); PO2 ABG 67.7 mmHg (80.0-100.0); PO2 FiO2 Ratio Arterial Blood 2.26 %; Reduced Hemoglobin 7.7 %THb (0-5.0); Total Hemoglobin 12.9 g/dL (12.0-18.0)
[2022-05-25 05:08] LABS: Glucose Point of Care 85 mg/dl (65-105)
[2022-05-25 05:09] LABS: Device VENTILATOR; Modified Allen's Test Unable to perform; Site Drawn RIGHT RADIAL
[2022-05-25 05:10] LABS: Arterial Blood Gas PEEP 8 cmH2O; Arterial Blood Gas Tidal Volume 450 ml; Arterial Blood Gas Vent Mode CMV; Arterial Blood Gas Ventilator rate 20 /MIN
[2022-05-25] MEDS: metroNIDAZOLE 500 MG/ISO 100ML 500 MG/100 ML BAG 100 MG IVPB ×3 (05:36→21:38)
[2022-05-25] MEDS: CENTRAL LINE FLUSH 10 ML IV PUSH ×4 (05:37→21:39)
[2022-05-25 06:26] LABS: Glucose Point of Care 104 mg/dl (65-105)
[2022-05-25 07:01] LABS: Glucose Point of Care 131 mg/dl (65-105)
[2022-05-25 08:03] LABS: Glucose Point of Care 134 mg/dl (65-105)
[2022-05-25] MEDS: PERFLUTREN LIPID MICROSPHERES 1.5 ML VIAL DILUTED TO 10 ML TOTAL VOLUME IV PUSH (08:40)
--- NOTE | 2022-05-25 08:40 | IVDEFINITY ---
Prior to administration of IV Definity the patient was educated on the risks and benefits of the imaging enhancing agent including potential adverse side effects. The patient verbalized understanding. Allergies were verified. No exclusion criteria were identified and at least one of the following inclusion criteria were met: 1) physician request, 2) patient technically difficult to image (per the [place] [employer] guidelines of two or more segments not discernable within the apical view), or 3) questionable left ventricular function. ?
[2022-05-25] MEDS: HEPARIN SOD/D5W 100 UNITS/ML 25,000 UNITS/250 ML BAG 22 UNITS IV CONT (09:04)
[2022-05-25] MEDS: FUROSEMIDE INJ 100 MG/10 ML VIAL 80 MG IV PUSH (09:05)
[2022-05-25] MEDS: ATORVASTATIN 40 MG TABLET FEED TUBE (09:06)
[2022-05-25] MEDS: MINERAL OIL/WHITE PETROLATUM OINTMENT 1 APPLIC EACH EYE ×2 (09:06→20:28)
[2022-05-25] MEDS: CLOPIDOGREL BISULFATE 75 MG TABLET FEED TUBE (09:06)
[2022-05-25] MEDS: PANTOPRAZOLE SODIUM IV 40 MG VIAL IV PUSH (09:07)
[2022-05-25] MEDS: INSULIN GLARGINE (*BKC) 100 UNITS/ML 30 UNITS SUB-Q (09:21)
--- NOTE | 2022-05-25 09:52 | PM.PNCARD ---
Progress Note: A&P Assessment and Plan (1) Pulmonary edema: Code(s): J81.1 - Chronic pulmonary edema Status: Acute (2) Acute anterior wall NM: Code(s): I21.09 - ST elevation (STEMI) myocardial infarction involving other coronary artery of anterior wall Status: Acute Assessment and Plan: Appears to have sustained a late presentation anterior wall infarction. EKGs showing resolution of acute ST changes and he now has anterior Q waves. No plan to bring him to the cardiac cath lab manager at this time. Conservative medical management for now unless he develops ischemic chest pain or ventricular arrhythmias. Contine plavix, statin Echo has been performed earlier this morning but is not yet read, further recommendations to follow. Plan Subjective Date/time seen: 05/25/22 09:52 Cardiology follow up for STEMI Patient remains intubated and sedated in the ICU. Stable, no acute events overnight Review of Systems Review of Systems: ROS unobtainable: Yes unobtainable due to endotracheal tube Exam Const: Other: Obese male intubated and sedated HENMT: Mouth: Yes moist mucous membranes Eyes: Sclera: sclerae normal Neck: Neck: supple Other: unable to assess for venous distention given his body habitus. Resp: Auscultation: not clear to auscultation bilaterally and rhonchi Other: Cardio: Rate: regular rate Rhythm: regular rhythm Heart sounds: no gallops and no murmurs GI: Auscultation: normal bowel sounds Urinary Catheter: Urinary Catheter: patent and draining Skin: General skin exam: normal color Neuro: Other: sedated on ventilator support Extrem: Other: significant bilateral lower extremity edema Objective Data Vital Signs Vital Signs: Vital Signs - 24 hr 05/24/22 10:45 05/24/22 10:00 05/24/22 12:10 Temperature 36.8 C Pulse Rate 77 74 78 Respiratory Rate 20 24 H Blood Pressure 115/65 Pulse Oximetry 93 96 Oxygen Delivery Mechanical Ventilation Fraction of Inspired Oxygen 30 05/24/22 12:00 05/24/22 12:00 05/24/22 12:00 Temperature 36.9 C Pulse Rate 78 Respiratory Rate 20 Blood Pressure 117/68 Pulse Oximetry 94 91 Oxygen Delivery Mechanical Ventilation Fraction of Inspired Oxygen 40 05/24/22 14:05 05/24/22 16:00 05/24/22 14:00 Temperature 36.8 C Pulse Rate 82 82 Respiratory Rate 21 H 12 Blood Pressure 140/82 Pulse Oximetry 95 Oxygen Delivery Fraction of Inspired Oxygen 40 05/24/22 10:00 05/24/22 12:00 05/24/22 14:00 Temperature Pulse Rate 74 78 82 Respiratory Rate Blood Pressure Pulse Oximetry Oxygen Delivery Fraction of Inspired Oxygen 05/24/22 14:48 05/24/22 14:52 05/24/22 15:00 Temperature Pulse Rate 78 78 77 Respiratory Rate 20 20 Blood Pressure Pulse Oximetry 97 Oxygen Delivery Mechanical Ventilation Fraction of Inspired Oxygen 30 05/24/22 16:51 05/24/22 16:00 05/24/22 16:00 Temperature Pulse Rate 74 78 Respiratory Rate Blood Pressure Pulse Oximetry 95 95 Oxygen Delivery Mechanical Ventilation Mechanical Ventilation Fraction of Inspired Oxygen 30 05/24/22 16:00 05/24/22 18:00 05/24/22 18:00 Temperature 36.8 C 36.8 C Pulse Rate 76 72 72 Respiratory Rate 16 20 Blood Pressure 113/67 104/62 Pulse Oximetry 95 98 Oxygen Delivery Fraction of Inspired Oxygen 05/24/22 16:00 05/24/22 18:00 05/24/22 14:00 Temperature Pulse Rate 76 73 82 Respiratory Rate 20 20 20 Blood Pressure Pulse Oximetry Oxygen Delivery Fraction of Inspired Oxygen 05/24/22 16:00 05/24/22 18:00 05/24/22 20:00 Temperature 36.8 C Pulse Rate 76 73 73 Respiratory Rate 20 20 20 Blood Pressure 103/65 Pulse Oximetry 97 Oxygen Delivery Fraction of Inspired Oxygen 05/24/22 20:05 05/24/22 20:05 05/24/22 20:07 Temperature Pulse Rate 73 73 73 Respiratory Rate 20 20 20 Blood Pressure Pulse Oximetry Oxyg
--- NOTE | 2022-05-25 10:26 | WPDINTPN ---
Progress Note: A&P Assessment and Plan (1) Acute respiratory failure with hypoxia: Code(s): J96.01 - Acute respiratory failure with hypoxia Status: Acute Assessment and Plan: Acute Respiratory failure secondary to congestive heart failure and possible community-acquired pneumonia Continue full mechanical ventilation support to prevent hypoxemia/hypercarbia and end organ damage. ABG reviewed -continue current vent settings Chest x-ray reviewed and showed Stable diffuse lung disease with a basilar predominance, consistent with pulmonary edema versus pneumonia. 2. Stable small pleural effusions. Low tidal volume ventilation strategy to prevent volutrauma Bronchodilators Will order Lasix IV today Empiric Rocephin azithromycin for treatment of community-acquired pneumonia Blood cultures 1/ is growing Gram-positive cocci in anaerobic bottle which I anticipate to be contaminant procalcitonin level 2.5 (2) CAP (community acquired pneumonia): Code(s): J18.9 - Pneumonia, unspecified organism Status: Acute Assessment and Plan: See above (3) Acute anterior wall AL: Code(s): I21.09 - ST elevation (STEMI) myocardial infarction involving other coronary artery of anterior wall Status: Acute Assessment and Plan: Patient has history of coronary disease with PCI done more than 12 years ago at [facility] for an [place] Patient presented with elevated troponin and abnormal EKG Patient was evaluated by Cardiology Recommend conservative management at this time and will plan to cardiac catheterization once his renal function stabilizes or improves Continue aspirin Plavix statin heparin infusion echocardiogram was done this morning and report is pending (4) Congestive heart failure: Code(s): I50.9 - Heart failure, unspecified Status: Acute Assessment and Plan: His most recent echo done in 08/04 showed diastolic dysfunction patient does have all the signs of congestive heart failure Repeat echo has been done and report is pending (5) Coronary artery disease: Code(s): I25.10 - Atherosclerotic heart disease of [place] coronary artery without angina pectoris Status: Acute Assessment and Plan: See above (6) Hypertension: Qualifiers: Hypertension type: essential hypertension Qualified Code(s): I10 - Essential (primary) hypertension Code(s): I10 - Essential (primary) hypertension Status: Acute Assessment and Plan: Blood pressure is now soft since patient is sedated Hold antihypertensives (7) Pulmonary edema: Code(s): J81.1 - Chronic pulmonary edema Status: Acute Assessment and Plan: Will give Lasix IV today (8) Type 1 diabetes mellitus: Qualifiers: Diabetes mellitus complication status: with hyperglycemia Qualified Code(s): E10.65 - Type 1 diabetes mellitus with hyperglycemia Code(s): E10.9 - Type 1 diabetes mellitus without complications Status: Acute Assessment and Plan: Currently on insulin infusion Transition to Lantus and sliding scale insulin (9) Acute kidney injury: Code(s): N17.9 - Acute kidney failure, unspecified Status: Acute Assessment and Plan: Multifactorial acute renal failure with baseline chronic kidney disease Patient presented with hyperglycemia hypoxia and hypertension He was also on diuretics and lisinopril at home Patient did take some NSAIDs as an outpatient CK level mildly elevated suggestive of rhabdomyolysis Hold further diuretics today Renal ultrasound - Limited evaluation. Grossly normal appearing right kidney. Left kidney not visualized.. Likely secondary to morbid obesity urine electrolytes were not checked as it would not have been helpful as patient did receive diuretics Monitor renal function urine output and creatinine Creatinine has been worsening Nephrology consulted If renal function continues to deteriorate he may need hemod
[2022-05-25] MEDS: SODIUM ZIRCONIUM CYCLOSILICATE 10 GM POWD.PACK PO ×3 (10:44→21:39)
[2022-05-25 11:10] LABS: Partial Thromboplastin Time 54.3 SECONDS (22.3-36.8)
[2022-05-25] MEDS: HEPARIN SODIUM 5,000 UNITS/ML VIAL 4000 UNITS IV PUSH (11:17)
--- NOTE | 2022-05-25 12:18 | P.CONNP_ITS ---
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) * CPK mildly elevated -- follow trend * issues with hyperkalemia noted requiring medical management * creatinine continues to worsen * 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 * follow trend of repeat labs and UOP (2) Stage 3a chronic kidney disease: Code(s): N18.31 - Chronic kidney disease, stage 3a Status: Chronic Assessment and Plan: * creatinine was running ~ 1.5 - 1.6mg/dl in July 2020 * presumably due to his HTN, DM and vascular disease (3) Hyperkalemia: Code(s): E87.5 - Hyperkalemia Status: Acute Assessment and Plan: * due to LULU, acidosis and high blood sugars * continue medical management (lokelma) * follow trend of K+ (4) Acute respiratory failure with hypoxia: Code(s): J96.01 - Acute respiratory failure with hypoxia Status: Acute Assessment and Plan: * thought to be secondary to CHF and possible pneumonia * currently on full ventilator support * CXR notes pulmonary edema versus pneumonia * empirically on ceftriaxone and azithromycin for presumed pneumonia * follow culture data * seems reasonable for trial of IV diuretics today given concerns for CHF * this may help improve K+ issues as well (5) CAP (community acquired pneumonia): Code(s): J18.9 - Pneumonia, unspecified organism Status: Acute Assessment and Plan: * based on imaging to date * follow cultures * on antibiotics (6) Acute anterior wall MS: Code(s): I21.09 - ST elevation (STEMI) myocardial infarction involving other coronary artery of anterior wall Status: Acute Assessment and Plan: * known history of CAD * presented with elevated troponins and EKG changes * Cardiology following with recommendations noted * continue conservative therapy for now -- plan cardiac catheterization once renal function improves/stabilizes * continue ASA/plavix/heparin * follow-up on repeat Echo (7) Congestive heart failure: Code(s): I50.9 - Heart failure, unspecified Status: Acute Assessment and Plan: * previous echo in Jul 2020 with diastolic dysfunction * evidence of CHF noted on admission * repeat echo pending * IV diuresis today and assess response (8) Pulmonary edema: Code(s): J81.1 - Chronic pulmonary edema Status: Acute Assessment and Plan: * attempt IV diuresis today * follow I/Os (9) Hypertension: Qualifiers: Hypertension type: essential hypertension Qualified Code(s): I10 - Essential (primary) hypertension Code(s): I10 - Essential (primary) hypertension Status: Chronic Assessment and Plan: * hypertensive on presentation * BP now soft/stable likely due to sedation * BP medications on hold (10) Type 1 diabetes mellitus: Qualifiers: Diabetes mellitus complication status: with hyperglycemia Qualified Code(s): E10.65 - Type 1 d
--- NOTE | 2022-05-25 12:18 | PM.CNNEP ---
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) CPK mildly elevated -- follow trend issues with hyperkalemia noted requiring medical management creatinine continues to worsen remains at high risk for PIER HAND/dialysis follow trend of repeat labs and UOP (2) Stage 3a chronic kidney disease: Code(s): N18.31 - Chronic kidney disease, stage 3a Status: Chronic Assessment and Plan: creatinine was running ~ 1.5 - 1.6mg/dl in July 2020 presumably due to his HTN, DM and vascular disease (3) Hyperkalemia: Code(s): E87.5 - Hyperkalemia Status: Acute Assessment and Plan: due to LULU, acidosis and high blood sugars continue medical management (lokelca) follow trend of K+ (4) Acute respiratory failure with hypoxia: Code(s): J96.01 - Acute respiratory failure with hypoxia Status: Acute Assessment and Plan: thought to be secondary to CHF and possible pneumonia currently on full ventilator support CXR notes pulmonary edema versus pneumonia empirically on ceftriaxone and azithromycin for presumed pneumonia follow culture data seems reasonable for trial of IV diuretics today given concerns for CHF this may help improve K+ issues as well (5) CAP (community acquired pneumonia): Code(s): J18.9 - Pneumonia, unspecified organism Status: Acute Assessment and Plan: based on imaging to date follow cultures on antibiotics (6) Acute anterior wall PA: Code(s): I21.09 - ST elevation (STEMI) myocardial infarction involving other coronary artery of anterior wall Status: Acute Assessment and Plan: known history of CAD presented with elevated troponins and EKG changes Cardiology following with recommendations noted continue conservative therapy for now -- plan cardiac catheterization once renal function improves/stabilizes continue ASA/plavix/heparin follow-up on repeat Echo (7) Congestive heart failure: Code(s): I50.9 - Heart failure, unspecified Status: Acute Assessment and Plan: previous echo in Jul 2020 with diastolic dysfunction evidence of CHF noted on admission repeat echo pending IV diuresis today and assess response (8) Pulmonary edema: Code(s): J81.1 - Chronic pulmonary edema Status: Acute Assessment and Plan: attempt IV diuresis today follow I/Os (9) Hypertension: Qualifiers: Hypertension type: essential hypertension Qualified Code(s): I10 - Essential (primary) hypertension Code(s): I10 - Essential (primary) hypertension Status: Chronic Assessment and Plan: hypertensive on presentation BP now soft/stable likely due to sedation BP medications on hold (10) Type 1 diabetes mellitus: Qualifiers: Diabetes mellitus complication status: with hyperglycemia Qualified Code(s): E10.65 - Type 1 diabetes mellitus with hyperglycemia Code(s): E10.9 - Type 1 diabetes mellitus without complications Status: Acute Assessment and Plan: follow accuchecks glycemic control > 20 minutes spent reviewing electronic record and in discussion with medical staff involved in the patient's care given patient complicated history and events that led to his admission. Will continue to follow. History of Present Illness Reason for Consult Consult date: 05/25/22 Chief Complain
[2022-05-25 12:37] LABS: Glucose Point of Care 182 mg/dl (65-105)
--- NOTE | 2022-05-25 13:10 | P.CDI_ITS ---
CDI Query Clarification Request acute on chronic systolic CHF <Asael Davenport MD - Last Filed: 05/26/22 07:11> Clarified Diagnosis Clarified Diagnosis: Pt with elevated BNP on 05/23 lab work. Pt receiving IV Bumex. CHF noted on assessment and plan. Pt with documented edema. Please specify type and acuity of heart failure if known. * Acute * Chronic * Acute on Chronic * Unknown * Systolic * Diastolic * Combined Systolic and Diastolic * Unknown <Elisha Grajeda RN - Last Filed: 05/25/22 13:13>
--- NOTE | 2022-05-25 13:51 | P.PCNBED_ITS ---
Procedures Intubation Intubation Date: 05/25/22 Intubation Time: 13:40 Consent: Patient was already intubated. He self-extubated and was hypoxic and abdominal breathing. Patient was reintubated emergently A pre-procedural Time-Out was completed immediately before starting the procedure and confirmed: Patient Identification, Site, Procedure, Patient Position and the Availability of Requisite Equipment: Yes Sedative: etomidate Mg given: 20 Paralytic: rocuronium Mg given: 50 Laryngoscope: fiber optic video scope Assist device used: fiber optic device ET tube size: cuffed Tube secured depth (cm): 27 Tube secured location: lips Tube placement confirmation: visualized tube passing through cords, equal breath sounds bilaterally, no breath sounds over epigastrium and confirmation by c apnometry Patient tolerated procedure: well Intubation complications: none
[2022-05-25] MEDS: FENTANYL 2,500MCG/NS250ML(*CRX 2,500 MCG/250 ML BAG 15 MCG IV CONT (14:57)
[2022-05-25 15:18] LABS: Device NASAL CANNULA
[2022-05-25 17:17] LABS: Glucose Point of Care 237 mg/dl (65-105)
[2022-05-25] MEDS: INSULIN ASPART (*BKC) 100 UNITS/ML SUB-Q ×3 (17:34→23:44)
[2022-05-25] MEDS: MIDAZOLAM 100MG/NS 100ML(*CRX) 100 MG/100 ML BAG IV CONT (18:34)
[2022-05-25] MEDS: HEPARIN SOD/D5W 100 UNITS/ML 25,000 UNITS/250 ML BAG 26 UNITS IV CONT (19:38)
[2022-05-25 20:46] LABS: Glucose Point of Care 235 mg/dl (65-105)
[2022-05-25 23:45] LABS: Glucose Point of Care 302 mg/dl (65-105)
[2022-05-26] VITALS (39 sets, daily range): BP systolic 108–141; BP diastolic 60–80; PULSE 66–101; RESP 20–21; TEMP 37.1–37.6; O2SAT 99–100
[2022-05-26 00:12] LABS: Partial Thromboplastin Time 73.2 SECONDS (22.3-36.8)
[2022-05-26] MEDS: FENTANYL 2,500MCG/NS250ML(*CRX 2,500 MCG/250 ML BAG 20 MCG IV CONT (01:38)
[2022-05-26] MEDS: IPRATROPIUM BR 0.02% INH SOLN 0.5 MG/2.5 ML VIAL INHALATION ×4 (02:40→21:35)
[2022-05-26] MEDS: ALBUTEROL SULFATE NEB 2.5 MG/3 ML INH INHALATION ×4 (02:41→21:35)
[2022-05-26] MEDS: metroNIDAZOLE 500 MG/ISO 100ML 500 MG/100 ML BAG 100 MG IVPB ×3 (05:25→22:06)
[2022-05-26 05:26] LABS: Hematocrit 23.3 % (42.0-52.0); Hemoglobin 7.2 g/dL (14.0-18.0); Mean Corpuscular HGB Conc 30.9 g/dl (32-36); Mean Corpuscular Hemoglobin 28.2 pg (26-34); Mean Corpuscular Volume 91.4 fl (80-100); Mean Platelet Volume 10.9 fl (7.4-10.4); Platelet Count Result 296 k/mm3 (150-375); Red Blood Count 2.55 M/mm3 (4.6-6.20); Red Cell Distribution Width 14.3 % (11.5-14.5); White Blood Count 10.9 K/mm3 (4.5-10.0)
[2022-05-26] MEDS: INSULIN ASPART (*BKC) 100 UNITS/ML SUB-Q ×5 (05:27→20:41)
[2022-05-26] MEDS: CENTRAL LINE FLUSH 10 ML IV PUSH ×4 (05:28→22:06)
[2022-05-26 05:32] LABS: Partial Thromboplastin Time 79.9 SECONDS (22.3-36.8)
[2022-05-26 05:38] LABS: Glucose Point of Care 300 mg/dl (65-105)
[2022-05-26 05:39] LABS: Alanine Aminotransferase 34 U/L (6-50); Albumin Level 2.8 g/dL (3.5-5.1); Alkaline Phosphatase 162 U/L (38-126); Anion Gap 4 mmol/L (8-16); Aspartate Amino Transferase 33 U/L (17-59); Bilirubin,Total 0.2 mg/dL (0.2-1.3); Blood Urea Nitrogen 76 mg/dL (9-20); Calcium 7.8 mg/dL (8.4-10.2); Carbon Dioxide 28 mmol/L (22-30); Chloride 96 mmol/L (98-107); Estimated CRCL calculation 26 ml/min; Estimated Glomerular Filt Rate 13; Glucose 310 mg/dL (65-110); Magnesium 2.5 mg/dL (1.6-2.3); Phosphorus 5.4 mg/dL (2.5-4.5); Sodium 128 mmol/L (137-145); Triglycerides 115 mg/dL (<150)
[2022-05-26 05:49] LABS: Alveolar/Arterial O2 Gradient 135.5 mmHg; Base Excess ABG -1.5 mEq/l (+/-2.0); Carboxyhemoglobin 0.3 % THb (0-2.0); Fractional Inspired Oxygen 40 %; HCO3 ABG 22.8 mEq/l (22.0-26.0); Methemoglobin ABG 0.3 %THb (0-1.5); Oxygen Content ABG 11.3 %vol (16.0-22.0); Oxyhemoglobin 96.4 % THb (90.0-100.0); PCO2 ABG 36.4 mmHg (35.0-45.0); PO2 ABG 107.8 mmHg (80.0-100.0); Total Hemoglobin 8.2 g/dL (12.0-18.0); pH ABG 7.415 (7.350-7.450)
[2022-05-26 05:50] LABS: Modified Allen's Test Pass; Site Drawn RIGHT RADIAL
[2022-05-26 05:51] LABS: Arterial Blood Gas PEEP 10 cmH2O; Arterial Blood Gas Vent Mode CMV; Arterial Blood Gas Ventilator rate 20 /MIN; Device VENTILATOR
[2022-05-26 05:52] LABS: Arterial Blood Gas Tidal Volume 450 ml
[2022-05-26] MEDS: HEPARIN SOD/D5W 100 UNITS/ML 25,000 UNITS/250 ML BAG 26 UNITS IV CONT ×2 (05:59→16:23)
[2022-05-26] MEDS: MIDAZOLAM 100MG/NS 100ML(*CRX) 100 MG/100 ML BAG 6 MG IV CONT ×2 (07:38→22:38)
[2022-05-26] MEDS: CLOPIDOGREL BISULFATE 75 MG TABLET FEED TUBE (08:52)
[2022-05-26] MEDS: ATORVASTATIN 40 MG TABLET FEED TUBE (08:52)
[2022-05-26] MEDS: PANTOPRAZOLE SODIUM IV 40 MG VIAL IV PUSH (08:53)
[2022-05-26] MEDS: INSULIN GLARGINE (*BKC) 100 UNITS/ML 45 UNITS SUB-Q (08:53)
[2022-05-26] MEDS: MINERAL OIL/WHITE PETROLATUM OINTMENT 1 APPLIC EACH EYE ×2 (08:53→20:44)
[2022-05-26 09:04] LABS: Glucose Point of Care 345 mg/dl (65-105)
--- NOTE | 2022-05-26 10:05 | P.PNNP_ITS ---
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) * CPK mildly elevated -- follow trend * issues with hyperkalemia noted requiring medical management - doing better * creatinine rising and UOP following -- continue trial of diuretics * stills 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 * follow trend of repeat labs and UOP (2) Stage 3a chronic kidney disease: Code(s): N18.31 - Chronic kidney disease, stage 3a Status: Chronic Assessment and Plan: * creatinine was running ~ 1.5 - 1.6mg/dl in July 2020 * presumably due to his HTN, DM and vascular disease (3) Hyperkalemia: Code(s): E87.5 - Hyperkalemia Status: Acute Assessment and Plan: * appears to be doing better * due to LULU, acidosis and high blood sugars * continue medical management (lokelma) * follow trend of K+ (4) Acute respiratory failure with hypoxia: Code(s): J96.01 - Acute respiratory failure with hypoxia Status: Acute Assessment and Plan: * thought to be secondary to CHF and possible pneumonia * currently on full ventilator support * CXR notes pulmonary edema versus pneumonia * empirically on ceftriaxone and azithromycin for presumed pneumonia * follow culture data * seems reasonable for trial of IV diuretics given concerns for CHF/volume overload * this may help improve K+ issues as well (5) CAP (community acquired pneumonia): Code(s): J18.9 - Pneumonia, unspecified organism Status: Acute Assessment and Plan: * based on imaging to date * follow cultures * on antibiotics (6) Acute anterior wall [place]: Code(s): I21.09 - ST elevation (STEMI) myocardial infarction involving other coronary artery of anterior wall Status: Acute Assessment and Plan: * known history of CAD * presented with elevated troponins and EKG changes * Cardiology following with recommendations noted * continue conservative therapy for now -- plan cardiac catheterization once renal function improves/stabilizes * continue ASA/plavix/heparin * follow-up on repeat Echo (7) Congestive heart failure: Code(s): I50.9 - Heart failure, unspecified Status: Acute Assessment and Plan: * previous echo in Jul 2020 with diastolic dysfunction * evidence of CHF noted on admission * repeat echo pending * IV diuresis and assess response (8) Pulmonary edema: Code(s): J81.1 - Chronic pulmonary edema Status: Acute Assessment and Plan: * attempt IV diuresis today * follow I/Os (9) Hypertension: Qualifiers: Hypertension type: essential hypertension Qualified Code(s): I10 - Essential (primary) hypertension Code(s): I10 - Essential (primary) hypertension Status: Chronic Assessment and Plan: * hypertensive on presentation * BP now soft/stable likely due to sedation * BP medications on hold (10) Type 1 diabetes mellitus: Qualifiers:
--- NOTE | 2022-05-26 10:05 | PM.PNNEP ---
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) CPK mildly elevated -- follow trend issues with hyperkalemia noted requiring medical management - doing better creatinine rising and UOP following -- continue trial of diuretics stills remains at 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 follow trend of repeat labs and UOP (2) Stage 3a chronic kidney disease: Code(s): N18.31 - Chronic kidney disease, stage 3a Status: Chronic Assessment and Plan: creatinine was running ~ 1.5 - 1.6mg/dl in July 2020 presumably due to his HTN, DM and vascular disease (3) Hyperkalemia: Code(s): E87.5 - Hyperkalemia Status: Acute Assessment and Plan: appears to be doing better due to LULU, acidosis and high blood sugars continue medical management (lokelma) follow trend of K+ (4) Acute respiratory failure with hypoxia: Code(s): J96.01 - Acute respiratory failure with hypoxia Status: Acute Assessment and Plan: thought to be secondary to CHF and possible pneumonia currently on full ventilator support CXR notes pulmonary edema versus pneumonia empirically on ceftriaxone and azithromycin for presumed pneumonia follow culture data seems reasonable for trial of IV diuretics given concerns for CHF/volume overload this may help improve K+ issues as well (5) CAP (community acquired pneumonia): Code(s): J18.9 - Pneumonia, unspecified organism Status: Acute Assessment and Plan: based on imaging to date follow cultures on antibiotics (6) Acute anterior wall [place]: Code(s): I21.09 - ST elevation (STEMI) myocardial infarction involving other coronary artery of anterior wall Status: Acute Assessment and Plan: known history of CAD presented with elevated troponins and EKG changes Cardiology following with recommendations noted continue conservative therapy for now -- plan cardiac catheterization once renal function improves/stabilizes continue ASA/plavix/heparin follow-up on repeat Echo (7) Congestive heart failure: Code(s): I50.9 - Heart failure, unspecified Status: Acute Assessment and Plan: previous echo in Jul 2020 with diastolic dysfunction evidence of CHF noted on admission repeat echo pending IV diuresis and assess response (8) Pulmonary edema: Code(s): J81.1 - Chronic pulmonary edema Status: Acute Assessment and Plan: attempt IV diuresis today follow I/Os (9) Hypertension: Qualifiers: Hypertension type: essential hypertension Qualified Code(s): I10 - Essential (primary) hypertension Code(s): I10 - Essential (primary) hypertension Status: Chronic Assessment and Plan: hypertensive on presentation BP now soft/stable likely due to sedation BP medications on hold (10) Type 1 diabetes mellitus: Qualifiers: Diabetes mellitus complication status: with hyperglycemia Qualified Code(s): E10.65 - Type 1 diabetes mellitus with hyperglycemia Code(s): E10.9 - Type 1 diabetes mellitus without complications Status: Acute Assessment and Plan: follow accuchecks glycemic control Will continue to follow. Subjective Date/time seen: 05/26/22 10:05 No real significan change -- remains intubated/sedated and on mechanical ventilation; remains on heparin gtt; urine output continues to d
[2022-05-26] MEDS: SODIUM ZIRCONIUM CYCLOSILICATE 10 GM POWD.PACK PO ×3 (11:08→22:06)
--- NOTE | 2022-05-26 11:27 | WPDINTPN ---
Progress Note: A&P Assessment and Plan (1) Acute respiratory failure with hypoxia: Code(s): J96.01 - Acute respiratory failure with hypoxia Status: Acute Assessment and Plan: Acute Respiratory failure secondary to congestive heart failure, volume overload and possible community-acquired pneumonia/aspiration pneumonia -intubated 05/24/2022, patient self-extubated on 05/25/2022 and was reintubated and was using accessory muscles of respiration. Continue full mechanical ventilation support to prevent hypoxemia/hypercarbia and end organ damage. -ABG reviewed -continue current vent settings Chest x-ray this morning: Slightly improved airspace opacities in the mid and lower lung zones with a basilar predominance, consistent with pneumonia versus pulmonary edema versus atelectasis.. Stable small to moderate-sized pleural effusions.. Cardiomegaly. Low tidal volume ventilation strategy to prevent volutrauma Bronchodilators Patient did not respond well to Lasix on 05/25 Empiric Rocephin azithromycin for treatment of community-acquired pneumonia Blood cultures 1/2 is growing Gram-positive cocci in anaerobic bottle, started on vancomycin procalcitonin level 2.5 (2) CAP (community acquired pneumonia): Code(s): J18.9 - Pneumonia, unspecified organism Status: Acute Assessment and Plan: See above (3) Acute anterior wall [place]: Code(s): I21.09 - ST elevation (STEMI) myocardial infarction involving other coronary artery of anterior wall Status: Acute Assessment and Plan: Patient has history of coronary disease with PCI done more than 12 years ago at [facility] for an [place] - elevated troponin and abnormal EKG -Cardiology evaluated the patient -appreciate cardiology recommendations, conservative management at this time and will plan to cardiac catheterization once his renal function stabilizes or improves Continue aspirin, Plavix, statin, heparin infusion 05/25/2022: Echocardiogram showed technically attending examine because of obesity, LV enlargement with severe global hypokinesia, achiness of the distal anterior wall and apex. No significant evaluated dysfunction, EF of 30-35%, small circumferential pericardial effusion (4) Congestive heart failure: Code(s): I50.9 - Heart failure, unspecified Status: Acute Assessment and Plan: His most recent echo done in 08/04 showed diastolic dysfunction patient does have all the signs of congestive heart failure Echocardiogram as above (5) Coronary artery disease: Code(s): I25.10 - Atherosclerotic heart disease of [place] coronary artery without angina pectoris Status: Acute Assessment and Plan: See above (6) Hypertension: Qualifiers: Hypertension type: essential hypertension Qualified Code(s): I10 - Essential (primary) hypertension Code(s): I10 - Essential (primary) hypertension Status: Chronic Assessment and Plan: Blood pressures are stable -continue to hold antihypertensives (7) Pulmonary edema: Code(s): J81.1 - Chronic pulmonary edema Status: Acute Assessment and Plan: Patient was given Lasix on 05/25/2022, will discuss with Nephrology regarding Bumex q.12 hours (8) Type 1 diabetes mellitus: Qualifiers: Diabetes mellitus complication status: with hyperglycemia Qualified Code(s): E10.65 - Type 1 diabetes mellitus with hyperglycemia Code(s): E10.9 - Type 1 diabetes mellitus without complications Status: Acute Assessment and Plan: Patient was initially on insulin infusion has been transition to Lantus. Will increase Lantus -continue Accu-Cheks and sliding scale insulin (9) Acute kidney injury: Code(s): N17.9 - Acute kidney failure, unspecified Status: Acute Assessment and Plan: Multifactorial acute renal failure with baseline chronic kidney disease Patient presented with hyperglycemia, hypoxia and hypertension -He
--- NOTE | 2022-05-26 11:30 | PCNFU ---
Nutrition Follow-Up Complete: Inadequate Oral Intake as related to mechanical vent as evidenced by NPO goal: Meet estimated nutritional needs Patient is meeting nutritional needs. We will continue with current goal. Pt current nutrition is Nepro at 50 ml/hr. Last recorded weight is 170.9 kg. Bowel Motility:No BM reported Labs Reviewed:PO4 5.4,BUN 76, Cr 4.7,Glu 310 Meds Noted:Fentanyl, Versed, Vancomycin, Heparin, Plavix, Lipitor, Zithromax. Skin: WNL Additional Notes: Patient remains on mechanical vent and tube feedings of Nepro at 60 ml/hr and tolerating. This is providing 2376 kcals/107 gms protein/960 ml water. Meeting 94% of caloric needs at 15 kcal/kg and 100% protein needs. Flush 30 ml q 4 hours. Agree with diet orders. Will monitor daily in ICU rounds and reassessing every Wednesday and Wednesday.
[2022-05-26 12:02] LABS: Iron 23 ug/dL (49-181)
[2022-05-26] MEDS: BUMETANIDE INJ 1 MG/4 ML VIAL IV PUSH (12:07)
[2022-05-26 12:15] LABS: Percent Iron Saturation 8 % (20-50)
[2022-05-26 13:11] LABS: Glucose Point of Care 389 mg/dl (65-105)
[2022-05-26 13:14] LABS: Folic Acid 7.5 ng/mL (2.76->20)
[2022-05-26] MEDS: INSULIN ASPART (*BKC) 100 UNITS/ML 10 UNITS SUB-Q (13:43)
[2022-05-26] MEDS: PROPOFOL IV EMULSION 100 ML 5.13 MG IV CONT (13:51)
[2022-05-26 14:16] LABS: Hematocrit 25.7 % (42.0-52.0); Hemoglobin 7.9 g/dL (14.0-18.0); Mean Corpuscular HGB Conc 30.7 g/dl (32-36); Mean Corpuscular Hemoglobin 28.3 pg (26-34); Mean Corpuscular Volume 92.1 fl (80-100); Mean Platelet Volume 11.2 fl (7.4-10.4); Platelet Count Result 320 k/mm3 (150-375); Red Blood Count 2.79 M/mm3 (4.6-6.20); Red Cell Distribution Width 14.3 % (11.5-14.5); White Blood Count 13.5 K/mm3 (4.5-10.0)
[2022-05-26 17:11] LABS: Glucose Point of Care 355 mg/dl (65-105)
[2022-05-26] MEDS: FENTANYL 2,500MCG/NS250ML(*CRX 2,500 MCG/250 ML BAG 17.5 MCG IV CONT (17:32)
--- NOTE | 2022-05-26 17:33 | PM.PNCARD ---
Progress Note: A&P Assessment and Plan (1) Acute anterior wall NV: Code(s): I21.09 - ST elevation (STEMI) myocardial infarction involving other coronary artery of anterior wall Status: Acute Assessment and Plan: Appears to have sustained a late presentation anterior wall infarction. EKGs showing resolution of acute ST changes and he now has anterior Q waves. 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 Conservative medical management for now unless he develops ischemic chest pain or ventricular arrhythmias. Fortunately BP and HR stable. Contine plavix, statin Echo EF 30-35%, severe hypokinesis to akinesis of the distal anterior wall and apex. Currently on heparin. He is at risk of LV apical thrombi. However, he has worsening anemia, so changing to a DOAC or warfarin may be harmful. Follow H&H. (2) Acute combined systolic and diastolic congestive heart failure: Code(s): I50.41 - Acute combined systolic (congestive) and diastolic (congestive) heart failure Status: Acute Assessment and Plan: Cardiomyopathy, EF 30-35%, with acute CHF. Not responding well to diuretics, remains on the ventilator with pulmonary edema Will add dobutamine 2.5 mcg per kilos Hold off on beta-yesenia at this time Unable to use an CARLOS-inhibitor or ARB Can try hydralazine +nitrates (3) LULU (acute kidney injury): Code(s): N17.9 - Acute kidney failure, unspecified Status: Acute Assessment and Plan: Creatinine continues to rise, hopefully will peak soon. Will add low-dose dobutamine, hope for better renal perfusion and diuresis Followed by Dr. Kincaid (4) Acute respiratory failure with hypoxia: Code(s): J96.01 - Acute respiratory failure with hypoxia Status: Acute Plan Subjective Date/time seen: Follow-up late presentation anterior NV, CHF. Admitted with shortness of breath, coughing, vomiting, COVID exposure (tested neg), hypertension, acute CHF, anemia, acute on chronic kidney disease. Echo showed moderate LV enlargement, akinesis of the distal anterior wall and apex, EF 30-35%, diastolic dysfunction, small pericardial effusion. Troponins up to 19.7. Intubated and sedated in the ICU. History of remote NV and PCI 12 years ago. 05/26/22 17:33 Remains on ventilator, FiO2 40%, sedated. Did not respond well to the IV diuretic challenge. Heparin drip, antibiotics, sedation. Labs suggest iron deficiency. Creatinine continues to rise. Had a blood culture positive for Gram-positive cocci in the anaerobic bottle. Telemetry shows sinus rhythm, occasional PVC Review of Systems Review of Systems: Review of systems obtained and patient's nurse and EMR. ROS unobtainable: Yes unobtainable due to endotracheal tube, unobtainable due to medical condition and unobtainable due to mental status Exam Const: Other: Obese male intubated and sedated HENMT: Mouth: Yes moist mucous membranes Eyes: Sclera: sclerae normal Neck: Neck: supple Other: unable to assess for venous distention given his body habitus. Resp: Auscultation: clear to auscultation bilaterally and no rhonchi Other: Cardio: Rate: regular rate Rhythm: regular rhythm Heart sounds: no gallops and no murmurs Other: difficult exam, distant heart sounds GI: GI Palp: No Tenderness to palpation present (GI) Auscultation: normal bowel sounds Urinary Catheter: Urinary Catheter: patent and draining Skin: General skin exam: normal color Lesions: lesion noted (Excoriation right tibia, appears old) Neuro: Other: sedated on ventilator support Extrem: Other: significant bilateral lower extremity edema Psych: Other: Intubated and sedated Objective Data Vital Signs Vital Signs: Vital Signs - 24 hr 05/25/22 17:37 05/25/22 18:00 05/25/22 18:00 Temperature Pulse Rate 97 97 97 Respiratory Rate 20 20 Blood Pressure Pulse Oximetry 99 Oxygen Delivery Mechanical Ventilatio
[2022-05-26] MEDS: DOBUTamine 250 MG/D5W 250 ML 250 MG/250 ML BAG 25.64 MG IV CONT (19:27)
[2022-05-26] MEDS: AZITHROMYCIN IV 500 MG in SODIUM CHLORIDE 0.9% IV 250 ML 250 MG IVPB (20:42)
[2022-05-26 20:43] LABS: Glucose Point of Care 273 mg/dl (65-105)
[2022-05-26] MEDS: PROPOFOL IV EMULSION 100 ML 10.25 MG IV CONT (22:05)
[2022-05-27] VITALS (37 sets, daily range): BP systolic 121–169; BP diastolic 57–88; PULSE 76–111; RESP 20–21; TEMP 36.8–37.8; O2SAT 97–100
[2022-05-27] MEDS: INSULIN ASPART (*BKC) 100 UNITS/ML SUB-Q ×2 (00:04→05:03)
[2022-05-27] MEDS: ISOSORBIDE DINITRATE 5 MG TABLET PO ×5 (00:05→23:51)
[2022-05-27] MEDS: hydrALAZINE 10 MG TABLET PO ×3 (00:05→11:52)
[2022-05-27 00:08] LABS: Glucose Point of Care 271 mg/dl (65-105)
[2022-05-27] MEDS: BUMETANIDE INJ 1 MG/4 ML VIAL IV PUSH ×3 (00:08→23:54)
[2022-05-27] MEDS: HEPARIN SOD/D5W 100 UNITS/ML 25,000 UNITS/250 ML BAG 26 UNITS IV CONT ×2 (01:53→11:51)
[2022-05-27] MEDS: ALBUTEROL SULFATE NEB 2.5 MG/3 ML INH INHALATION ×4 (02:15→21:14)
[2022-05-27] MEDS: IPRATROPIUM BR 0.02% INH SOLN 0.5 MG/2.5 ML VIAL INHALATION ×4 (02:15→21:14)
[2022-05-27 04:17] LABS: IFOB Positive Control Positive; Immunochemical Fecal Occult Bl Negative (N)
[2022-05-27 04:36] LABS: Hematocrit 23.5 % (42.0-52.0); Hemoglobin 7.3 g/dL (14.0-18.0); Mean Corpuscular HGB Conc 31.1 g/dl (32-36); Mean Corpuscular Hemoglobin 28.3 pg (26-34); Mean Corpuscular Volume 91.1 fl (80-100); Mean Platelet Volume 10.6 fl (7.4-10.4); Platelet Count Result 296 k/mm3 (150-375); Red Blood Count 2.58 M/mm3 (4.6-6.20); Red Cell Distribution Width 14.1 % (11.5-14.5); White Blood Count 12.6 K/mm3 (4.5-10.0)
[2022-05-27 04:56] LABS: Alanine Aminotransferase 27 U/L (6-50); Albumin Level 2.7 g/dL (3.5-5.1); Alkaline Phosphatase 153 U/L (38-126); Anion Gap 5 mmol/L (8-16); Aspartate Amino Transferase 23 U/L (17-59); Bilirubin,Total 0.2 mg/dL (0.2-1.3); Blood Urea Nitrogen 87 mg/dL (9-20); Calcium 7.7 mg/dL (8.4-10.2); Carbon Dioxide 26 mmol/L (22-30); Chloride 96 mmol/L (98-107); Estimated CRCL calculation 26 ml/min; Estimated Glomerular Filt Rate 13; Glucose 343 mg/dL (65-110); Magnesium 2.6 mg/dL (1.6-2.3); Phosphorus 6.9 mg/dL (2.5-4.5); Potassium 4.6 mmol/L (3.4-5.0); Sodium 127 mmol/L (137-145)
[2022-05-27] MEDS: DOBUTamine 250 MG/D5W 250 ML 250 MG/250 ML BAG 25.64 MG IV CONT ×2 (04:59→16:02)
[2022-05-27 05:07] LABS: Glucose Point of Care 391 mg/dl (65-105)
[2022-05-27 05:31] LABS: Alveolar/Arterial O2 Gradient 79.7 mmHg; Base Excess ABG -1.9 mEq/l (+/-2.0); Carboxyhemoglobin 0.3 % THb (0-2.0); Device VENTILATOR; Fractional Inspired Oxygen 30 %; HCO3 ABG 23.2 mEq/l (22.0-26.0); Methemoglobin ABG 0.2 %THb (0-1.5); Modified Allen's Test Unable to perform; Oxygen Content ABG 11.2 %vol (16.0-22.0); Oxygen Saturation ABG 96.3 % (95.0-100.0); Oxyhemoglobin 94.6 % THb (90.0-100.0); PCO2 ABG 40.7 mmHg (35.0-45.0); PO2 ABG 86.4 mmHg (80.0-100.0); PO2 FiO2 Ratio Arterial Blood 2.88 %; Reduced Hemoglobin 4.9 %THb (0-5.0); Site Drawn RIGHT RADIAL; Total Hemoglobin 8.3 g/dL (12.0-18.0); pH ABG 7.373 (7.350-7.450)
[2022-05-27 05:32] LABS: Arterial Blood Gas PEEP 10 cmH2O; Arterial Blood Gas Tidal Volume 500 ml; Arterial Blood Gas Vent Mode CMV; Arterial Blood Gas Ventilator rate 20 /MIN
[2022-05-27] MEDS: metroNIDAZOLE 500 MG/ISO 100ML 500 MG/100 ML BAG 100 MG IVPB ×3 (06:05→21:48)
[2022-05-27] MEDS: CENTRAL LINE FLUSH 10 ML IV PUSH ×4 (06:05→20:33)
[2022-05-27] MEDS: PROPOFOL IV EMULSION 100 ML 10.25 MG IV CONT ×2 (06:07→22:41)
[2022-05-27] MEDS: ALBUMIN HUMAN 25% 25 GM/100 ML 100 ML IVPB ×2 (07:45→11:52)
[2022-05-27] MEDS: FENTANYL 2,500MCG/NS250ML(*CRX 2,500 MCG/250 ML BAG 17.5 MCG IV CONT ×2 (08:19→22:38)
[2022-05-27] MEDS: ATORVASTATIN 40 MG TABLET FEED TUBE (09:00)
[2022-05-27] MEDS: PANTOPRAZOLE SODIUM IV 40 MG VIAL IV PUSH ×2 (09:00→20:33)
[2022-05-27] MEDS: CLOPIDOGREL BISULFATE 75 MG TABLET FEED TUBE (09:00)
[2022-05-27] MEDS: MINERAL OIL/WHITE PETROLATUM OINTMENT 1 APPLIC EACH EYE ×2 (09:00→20:12)
[2022-05-27] MEDS: VANCOMYCIN HCL 2,000 MG in SODIUM CHLORIDE 0.9% IV 500 ML 250 MG IVPB (09:01)
[2022-05-27 09:46] LABS: Glucose Point of Care 403 mg/dl (65-105)
[2022-05-27] MEDS: INSULIN HUMAN REGULAR (*BKC) 100 UNITS in SODIUM CHLORIDE 0.9% IV 99 ML 6.8 UNITS IV CONT (09:56)
[2022-05-27 11:10] LABS: Glucose Point of Care 390 mg/dl (65-105)
[2022-05-27] MEDS: SODIUM ZIRCONIUM CYCLOSILICATE 10 GM POWD.PACK PO ×3 (11:10→21:54)
--- NOTE | 2022-05-27 11:40 | WPDINTPN ---
Progress Note: A&P Assessment and Plan (1) Acute respiratory failure with hypoxia: Code(s): J96.01 - Acute respiratory failure with hypoxia Status: Acute Assessment and Plan: Acute Respiratory failure secondary to congestive heart failure, volume overload and possible community-acquired pneumonia/aspiration pneumonia -intubated 05/24/2022, patient self-extubated on 05/25/2022 and was reintubated and was using accessory muscles of respiration. Continue full mechanical ventilation support to prevent hypoxemia/hypercarbia and end organ damage. -ABG reviewed -continue current vent settings Chest x-ray this morning: Stable airspace opacities in the perihilar regions and lung bases, consistent with pneumonia versus pulmonary edema versus atelectasis. Stable small to moderate-sized pleural effusions. Cardiomegaly. Low tidal volume ventilation strategy to prevent volutrauma Bronchodilators Patient did not respond well to Lasix on 05/25 -start patient on Bumex after discussing with Nephrology on 05/26 Empiric Rocephin azithromycin for treatment of community-acquired pneumonia 05/23; Blood cultures growing staph epidermis 1 of 2, discontinued vancomycin (2) CAP (community acquired pneumonia): Code(s): J18.9 - Pneumonia, unspecified organism Status: Acute Assessment and Plan: See above (3) Acute anterior wall [place]: Code(s): I21.09 - ST elevation (STEMI) myocardial infarction involving other coronary artery of anterior wall Status: Acute Assessment and Plan: Patient has history of coronary disease with PCI done more than 12 years ago at [facility] for an [place] - elevated troponin and abnormal EKG -Cardiology evaluated the patient -appreciate cardiology recommendations, conservative management at this time and will plan to cardiac catheterization once his renal function stabilizes or improves Continue aspirin, Plavix, statin, heparin infusion 05/25/2022: Echocardiogram showed technically attending examine because of obesity, LV enlargement with severe global hypokinesia, achiness of the distal anterior wall and apex. No significant evaluated dysfunction, EF of 30-35%, small circumferential pericardial effusion (4) Congestive heart failure: Code(s): I50.9 - Heart failure, unspecified Status: Acute Assessment and Plan: His most recent echo done in 08/04 showed diastolic dysfunction patient does have all the signs of congestive heart failure Echocardiogram as above -given his cardiomyopathy and congestive heart failure along with renal failure, cardiology started dobutamine, will continue (5) Coronary artery disease: Code(s): I25.10 - Atherosclerotic heart disease of [place] coronary artery without angina pectoris Status: Acute Assessment and Plan: See above (6) Hypertension: Qualifiers: Hypertension type: essential hypertension Qualified Code(s): I10 - Essential (primary) hypertension Code(s): I10 - Essential (primary) hypertension Status: Chronic Assessment and Plan: Blood pressures are stable -patient was started on hydralazine 10 mg per tube q.6 hours and isosorbide dinitrate 5 mg p.o. q.6 hours per Cardiology (7) Pulmonary edema: Code(s): J81.1 - Chronic pulmonary edema Status: Acute Assessment and Plan: Patient was given Lasix on 05/25/2022, discussed with Nephrology regarding Bumex q.12 hours, agreeable (8) Type 1 diabetes mellitus: Qualifiers: Diabetes mellitus complication status: with hyperglycemia Qualified Code(s): E10.65 - Type 1 diabetes mellitus with hyperglycemia Code(s): E10.9 - Type 1 diabetes mellitus without complications Status: Acute Assessment and Plan: Patient was initially on insulin infusion has been transitioned to Lantus. Patient currently hyperglycemic, with restart insulin infusion -continue Accu-Cheks and sliding scale insulin (9) Acute kidney
[2022-05-27 11:53] LABS: Glucose Point of Care 357 mg/dl (65-105)
--- NOTE | 2022-05-27 12:04 | PCFNICU ---
ICU Rounding Note: Pt current nutrition is Nepro at 60 ml/hr Last recorded weight is 174.2 kg. Bowel Motility:+Bm reported 05/27 Labs Reviewed:Glu 343, Cr 4.8,BUN 87, GFR 13, Na 127, ALl2.7 Meds Noted:Propofol at 10.25 ml/yl=069 kcals,Versed, Vancomycin, Heparin, Plavix, Lipitor, Zithromax Skin: WNL Additional Notes: Patient remains on mechanical vent and tube feedings of Nepro at 60 ml/hr and tolerating. Propofol infusion providing an additional 270 kcals. Flush 30 ml q 4 hours. Agree with diet orders at this time. Will monitor daily in ICU rounds and reassessing every Wednesday and Wednesday.
--- NOTE | 2022-05-27 12:09 | PM.PNNEP ---
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) CPK mildly elevated -- follow trend issues with hyperkalemia noted requiring medical management - doing better creatinine rising and UOP low -- continue trial of diuretics stills 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 follow trend of repeat labs and UOP (2) Stage 3a chronic kidney disease: Code(s): N18.31 - Chronic kidney disease, stage 3a Status: Chronic Assessment and Plan: creatinine was running ~ 1.5 - 1.6mg/dl in July 2020 presumably due to his HTN, DM and vascular disease (3) Hyperkalemia: Code(s): E87.5 - Hyperkalemia Status: Acute Assessment and Plan: appears to be doing better due to LULU, acidosis and high blood sugars continue medical management (lokelma) PRN follow trend of K+ (4) Acute respiratory failure with hypoxia: Code(s): J96.01 - Acute respiratory failure with hypoxia Status: Acute Assessment and Plan: thought to be secondary to CHF and possible pneumonia currently on full ventilator support CXR notes pulmonary edema versus pneumonia empirically on ceftriaxone and azithromycin for presumed pneumonia follow culture data still with concerns/issues for CHF/volume overload questionable improvement with diuretics and dobutamine (5) CAP (community acquired pneumonia): Code(s): J18.9 - Pneumonia, unspecified organism Status: Acute Assessment and Plan: based on imaging to date follow cultures on antibiotics (6) Acute anterior wall NV: Code(s): I21.09 - ST elevation (STEMI) myocardial infarction involving other coronary artery of anterior wall Status: Acute Assessment and Plan: known history of CAD presented with elevated troponins and EKG changes Cardiology following with recommendations noted continue conservative therapy for now -- plan cardiac catheterization once renal function improves/stabilizes continue ASA/plavix/heparin (7) Congestive heart failure: Code(s): I50.9 - Heart failure, unspecified Status: Acute Assessment and Plan: previous echo in Jul 2020 with diastolic dysfunction evidence of CHF noted on admission repeat echo pending IV diuretics and dobutamine with poor response (8) Pulmonary edema: Code(s): J81.1 - Chronic pulmonary edema Status: Acute Assessment and Plan: continue attempts at diuresis follow I/Os (9) Hypertension: Qualifiers: Hypertension type: essential hypertension Qualified Code(s): I10 - Essential (primary) hypertension Code(s): I10 - Essential (primary) hypertension Status: Chronic Assessment and Plan: hypertensive on presentation BP now soft/stable likely due to sedation BP medications on hold (10) Type 1 diabetes mellitus: Qualifiers: Diabetes mellitus complication status: with hyperglycemia Qualified Code(s): E10.65 - Type 1 diabetes mellitus with hyperglycemia Code(s): E10.9 - Type 1 diabetes mellitus without complications Status: Acute Assessment and Plan: follow accuchecks glycemic control Will continue to follow. Subjective Date/time seen: 05/27/22 12:09 Remains intubated/sedated and on mechanical ventilation; urine still low despite IV diuretic therapy as well as IV dobutamine; creatinine up a but no critical elect
--- NOTE | 2022-05-27 12:09 | P.PNNP_ITS ---
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) * CPK mildly elevated -- follow trend * issues with hyperkalemia noted requiring medical management - doing better * creatinine rising and UOP low -- continue trial of diuretics * stills remains at high risk for 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/dialysis * follow trend of repeat labs and UOP (2) Stage 3a chronic kidney disease: Code(s): N18.31 - Chronic kidney disease, stage 3a Status: Chronic Assessment and Plan: * creatinine was running ~ 1.5 - 1.6mg/dl in July 2020 * presumably due to his HTN, DM and vascular disease (3) Hyperkalemia: Code(s): E87.5 - Hyperkalemia Status: Acute Assessment and Plan: * appears to be doing better * due to LULU, acidosis and high blood sugars * continue medical management (lokelma) PRN * follow trend of K+ (4) Acute respiratory failure with hypoxia: Code(s): J96.01 - Acute respiratory failure with hypoxia Status: Acute Assessment and Plan: * thought to be secondary to CHF and possible pneumonia * currently on full ventilator support * CXR notes pulmonary edema versus pneumonia * empirically on ceftriaxone and azithromycin for presumed pneumonia * follow culture data * still with concerns/issues for CHF/volume overload * questionable improvement with diuretics and dobutamine (5) CAP (community acquired pneumonia): Code(s): J18.9 - Pneumonia, unspecified organism Status: Acute Assessment and Plan: * based on imaging to date * follow cultures * on antibiotics (6) Acute anterior wall [place]: Code(s): I21.09 - ST elevation (STEMI) myocardial infarction involving other coronary artery of anterior wall Status: Acute Assessment and Plan: * known history of CAD * presented with elevated troponins and EKG changes * Cardiology following with recommendations noted * continue conservative therapy for now -- plan cardiac catheterization once renal function improves/stabilizes * continue ASA/plavix/heparin (7) Congestive heart failure: Code(s): I50.9 - Heart failure, unspecified Status: Acute Assessment and Plan: * previous echo in Jul 2020 with diastolic dysfunction * evidence of CHF noted on admission * repeat echo pending * IV diuretics and dobutamine with poor response (8) Pulmonary edema: Code(s): J81.1 - Chronic pulmonary edema Status: Acute Assessment and Plan: * continue attempts at diuresis * follow I/Os (9) Hypertension: Qualifiers: Hypertension type: essential hypertension Qualified Code(s): I10 - Essential (primary) hypertension Code(s): I10 - Essential (primary) hypertension Status: Chronic Assessment and Plan: * hypertensive on presentation * BP now soft/stable likely due to sedation * BP medications on hold (10) Type 1 diabetes mellitus: Qualifiers: Diabetes mellitus complication status:
[2022-05-27 12:53] LABS: Glucose Point of Care 320 mg/dl (65-105)
[2022-05-27 13:48] LABS: Glucose Point of Care 302 mg/dl (65-105)
[2022-05-27] MEDS: MIDAZOLAM 100MG/NS 100ML(*CRX) 100 MG/100 ML BAG 6 MG IV CONT (14:24)
[2022-05-27 14:57] LABS: Glucose Point of Care 271 mg/dl (65-105)
[2022-05-27 15:54] LABS: Glucose Point of Care 240 mg/dl (65-105)
[2022-05-27] MEDS: INSULIN HUMAN REGULAR (*BKC) 100 UNITS in SODIUM CHLORIDE 0.9% IV 99 ML 14.7 UNITS IV CONT (16:03)
[2022-05-27 16:49] LABS: Glucose Point of Care 233 mg/dl (65-105)
--- NOTE | 2022-05-27 17:33 | P.PNCA_ITS ---
Progress Note: A&P Assessment and Plan (1) Acute anterior wall [place]: Code(s): I21.09 - ST elevation (STEMI) myocardial infarction involving other coronary artery of anterior wall Status: Acute Assessment and Plan: Appears to have sustained a late presentation anterior wall infarction. EKGs showing resolution of acute ST changes and he now has anterior Q waves. 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 Conservative medical management for now unless he develops ischemic chest pain or ventricular arrhythmias. Fortunately BP and HR stable. * Continue plavix, statin * Echo EF 30-35%, severe hypokinesis to akinesis of the distal anterior wall and apex. * Currently on heparin. He is at risk of LV apical thrombi. However, he has worsening anemia, so changing to a DOAC or warfarin may be harmful. Follow H&H. * OK to DC heparin from cardiology point of view since he has likely completed the infarction and is becoming progressively anemic. (2) Acute combined systolic and diastolic congestive heart failure: Code(s): I50.41 - Acute combined systolic (congestive) and diastolic (congestive) heart failure Status: Acute Assessment and Plan: Cardiomyopathy, EF 30-35%, with acute CHF. * Not responding well to diuretics, remains on the ventilator with pulmonary edema * Added dobutamine 2.5 mcg per kilos, no improvement * Hold off on beta-yesenia at this time * Unable to use an CARLOS-inhibitor or ARB * Titrate hydralazine +nitrates * Becoming progressively volume-overloaded (3) LULU (acute kidney injury): Code(s): N17.9 - Acute kidney failure, unspecified Status: Acute Assessment and Plan: Creatinine continues to rise, hopefully will peak soon. * Will add low-dose dobutamine, hope for better renal perfusion and diuresis * Creatinine rising * Progressive volume overload * Followed by Dr. Kincaid (4) Acute respiratory failure with hypoxia: Code(s): J96.01 - Acute respiratory failure with hypoxia Status: Acute Assessment and Plan: Pneumonia + CHF. * Intubated, an antibiotics. Plan Subjective Date/time seen: Follow-up late presentation anterior VA, CHF.? Admitted with shortness of breath, coughing, vomiting, COVID exposure (tested neg), hypertension, acute CHF, anemia, acute on chronic kidney disease.? Echo showed moderate LV enlargement, akinesis of the distal anterior wall and apex, EF 30-35%, diastolic dysfunction, small pericardial effusion.? Troponins up to 19.7.? Intubated and sedated in the ICU.? History of remote VA and PCI 12 years ago. 05/26/22? 17:33 Remains on ventilator, FiO2 40%, sedated.? Did not respond well to the IV diuretic challenge.? Heparin drip, antibiotics, sedation.? Labs s uggest iron deficiency.? Creatinine continues to rise.? Had a blood culture positive for Gram-positive cocci in the anaerobic bottle.? Added dobutamine 2.5 mcg, low-dose hydralazine and nitrates. 05/27/22 17:33 Remains intubated and sedated, SBP 146-169 mmHg. 40% FiO2. I's and O's yesterday: 3900, 800 cc's. Hct down to 23.5, creat up to 4.8.TEle = NSR Review of Systems Review of Systems: ROS unobtainable: Yes unobtainable due to endotracheal tube, unobtainable due to medical condition and unobtainable due to mental status Exam Const: Other: Obese male intubated and sedated HENMT: Mouth: Yes moist mucous membranes Eyes: Sclera: sclerae normal Neck: Neck
--- NOTE | 2022-05-27 17:33 | PM.PNCARD ---
Progress Note: A&P Assessment and Plan (1) Acute anterior wall [place]: Code(s): I21.09 - ST elevation (STEMI) myocardial infarction involving other coronary artery of anterior wall Status: Acute Assessment and Plan: Appears to have sustained a late presentation anterior wall infarction. EKGs showing resolution of acute ST changes and he now has anterior Q waves. 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 Conservative medical management for now unless he develops ischemic chest pain or ventricular arrhythmias. Fortunately BP and HR stable. Continue plavix, statin Echo EF 30-35%, severe hypokinesis to akinesis of the distal anterior wall and apex. Currently on heparin. He is at risk of LV apical thrombi. However, he has worsening anemia, so changing to a DOAC or warfarin may be harmful. Follow H&H. OK to DC heparin from cardiology point of view since he has likely completed the infarction and is becoming progressively anemic. (2) Acute combined systolic and diastolic congestive heart failure: Code(s): I50.41 - Acute combined systolic (congestive) and diastolic (congestive) heart failure Status: Acute Assessment and Plan: Cardiomyopathy, EF 30-35%, with acute CHF. Not responding well to diuretics, remains on the ventilator with pulmonary edema Added dobutamine 2.5 mcg per kilos, no improvement Hold off on beta-yesenia at this time Unable to use an CARLOS-inhibitor or ARB Titrate hydralazine +nitrates Becoming progressively volume-overloaded (3) LULU (acute kidney injury): Code(s): N17.9 - Acute kidney failure, unspecified Status: Acute Assessment and Plan: Creatinine continues to rise, hopefully will peak soon. Will add low-dose dobutamine, hope for better renal perfusion and diuresis Creatinine rising Progressive volume overload Followed by Dr. Kincaid (4) Acute respiratory failure with hypoxia: Code(s): J96.01 - Acute respiratory failure with hypoxia Status: Acute Assessment and Plan: Pneumonia + CHF. Intubated, an antibiotics. Plan Subjective Date/time seen: Follow-up late presentation anterior DE, CHF.? Admitted with shortness of breath, coughing, vomiting, COVID exposure (tested neg), hypertension, acute CHF, anemia, acute on chronic kidney disease.? Echo showed moderate LV enlargement, akinesis of the distal anterior wall and apex, EF 30-35%, diastolic dysfunction, small pericardial effusion.? Troponins up to 19.7.? Intubated and sedated in the ICU.? History of remote DE and PCI 12 years ago. 05/26/22? 17:33 Remains on ventilator, FiO2 40%, sedated.? Did not respond well to the IV diuretic challenge.? Heparin drip, antibiotics, sedation.? Labs suggest iron deficiency.? Creatinine continues to rise.? Had a blood culture positive for Gram-positive cocci in the anaerobic bottle.? Added dobutamine 2.5 mcg, low-dose hydralazine and nitrates. 05/27/22 17:33 Remains intubated and sedated, SBP 146-169 mmHg. 40% FiO2. I's and O's yesterday: 3900, 800 cc's. Hct down to 23.5, creat up to 4.8.TEle = NSR Review of Systems Review of Systems: ROS unobtainable: Yes unobtainable due to endotracheal tube, unobtainable due to medical condition and unobtainable due to mental status Exam Const: Other: Obese male intubated and sedated HENMT: Mouth: Yes moist mucous membranes Eyes: Sclera: sclerae normal Neck: Neck: supple Other: unable to assess for venous distention given his body habitus. Resp: Auscultation: clear to auscultation bilaterally and no rhonchi Other: Cardio: Rate: regular rate Rhythm: regular rhythm Heart sounds: no gallops and no murmurs Other: difficult exam, distant heart sounds GI: Inspection: distended Auscultation: normal bowel sounds Other: Abdominal wall edema, wonder if some ascites. Urinary Catheter: Urinary Catheter: patent and draining Skin: General skin exam: normal color
[2022-05-27 18:03] LABS: Glucose Point of Care 176 mg/dl (65-105)
[2022-05-27 18:55] LABS: Glucose Point of Care 181 mg/dl (65-105)
[2022-05-27] MEDS: hydrALAZINE HCL 25 MG TABLET PO ×2 (19:04→23:51)
[2022-05-27 20:03] LABS: Glucose Point of Care 142 mg/dl (65-105)
[2022-05-27] MEDS: AZITHROMYCIN IV 500 MG in SODIUM CHLORIDE 0.9% IV 250 ML 250 MG IVPB (20:35)
[2022-05-27 20:45] LABS: Glucose Point of Care 142 mg/dl (65-105)
[2022-05-27 21:28] LABS: Osmolality, Urine 354 mOsm/kg (50-1200)
[2022-05-27 22:02] LABS: Glucose Point of Care 154 mg/dl (65-105)
[2022-05-27 22:49] LABS: Glucose Point of Care 153 mg/dl (65-105)
[2022-05-27 23:54] LABS: Glucose Point of Care 134 mg/dl (65-105)
[2022-05-28] VITALS (46 sets, daily range): BP systolic 101–135; BP diastolic 54–68; PULSE 71–96; RESP 16–20; TEMP 35.7–37.7; O2SAT 93–100
[2022-05-28 01:17] LABS: Glucose Point of Care 135 mg/dl (65-105)
[2022-05-28] MEDS: ALBUTEROL SULFATE NEB 2.5 MG/3 ML INH INHALATION ×4 (02:00→20:10)
[2022-05-28] MEDS: IPRATROPIUM BR 0.02% INH SOLN 0.5 MG/2.5 ML VIAL INHALATION ×4 (02:00→20:15)
[2022-05-28] MEDS: DOBUTamine 250 MG/D5W 250 ML 250 MG/250 ML BAG 25.64 MG IV CONT (02:01)
[2022-05-28 02:09] LABS: Glucose Point of Care 121 mg/dl (65-105)
[2022-05-28] MEDS: INSULIN HUMAN REGULAR (*BKC) 100 UNITS in SODIUM CHLORIDE 0.9% IV 99 ML 5.9 UNITS IV CONT (03:11)
[2022-05-28 03:16] LABS: Glucose Point of Care 126 mg/dl (65-105)
[2022-05-28 04:15] LABS: Glucose Point of Care 120 mg/dl (65-105)
[2022-05-28] MEDS: metroNIDAZOLE 500 MG/ISO 100ML 500 MG/100 ML BAG 100 MG IVPB ×3 (05:10→21:59)
[2022-05-28] MEDS: CENTRAL LINE FLUSH 10 ML IV PUSH ×7 (05:12→22:03)
[2022-05-28] MEDS: ISOSORBIDE DINITRATE 5 MG TABLET PO (05:13)
[2022-05-28] MEDS: hydrALAZINE HCL 25 MG TABLET PO (05:13)
[2022-05-28 05:28] LABS: Glucose Point of Care 112 mg/dl (65-105)
[2022-05-28 05:38] LABS: Hematocrit 21.9 % (42.0-52.0); Mean Corpuscular HGB Conc 31.1 g/dl (32-36); Mean Corpuscular Hemoglobin 28.1 pg (26-34); Mean Corpuscular Volume 90.5 fl (80-100); Mean Platelet Volume 10.6 fl (7.4-10.4); Platelet Count Result 268 k/mm3 (150-375); Red Blood Count 2.42 M/mm3 (4.6-6.20); Red Cell Distribution Width 14.4 % (11.5-14.5); White Blood Count 9.1 K/mm3 (4.5-10.0)
[2022-05-28 05:42] LABS: Hemoglobin 6.8 g/dL (14.0-18.0)
[2022-05-28 05:46] LABS: Triglycerides 53 mg/dL (<150)
[2022-05-28 05:48] LABS: Alanine Aminotransferase 24 U/L (6-50); Albumin Level 2.8 g/dL (3.5-5.1); Alkaline Phosphatase 141 U/L (38-126); Anion Gap 5 mmol/L (8-16); Aspartate Amino Transferase 23 U/L (17-59); Bilirubin,Total 0.2 mg/dL (0.2-1.3); Blood Urea Nitrogen 89 mg/dL (9-20); Calcium 7.8 mg/dL (8.4-10.2); Carbon Dioxide 26 mmol/L (22-30); Chloride 101 mmol/L (98-107); Estimated CRCL calculation 22 ml/min; Estimated Glomerular Filt Rate 10; Glucose 118 mg/dL (65-110); Magnesium 2.9 mg/dL (1.6-2.3); Phosphorus 7.6 mg/dL (2.5-4.5); Potassium 4.4 mmol/L (3.4-5.0); Sodium 132 mmol/L (137-145)
[2022-05-28 05:55] LABS: Partial Thromboplastin Time 36.8 SECONDS (22.3-36.8)
[2022-05-28 06:25] LABS: Glucose Point of Care 115 mg/dl (65-105)
[2022-05-28 07:32] LABS: Glucose Point of Care 106 mg/dl (65-105)
[2022-05-28] MEDS: PROPOFOL IV EMULSION 100 ML 10.25 MG IV CONT ×2 (08:28→18:47)
[2022-05-28 08:33] LABS: Glucose Point of Care 117 mg/dl (65-105)
[2022-05-28] MEDS: MINERAL OIL/WHITE PETROLATUM OINTMENT 1 APPLIC EACH EYE ×2 (08:41→20:22)
[2022-05-28] MEDS: CLOPIDOGREL BISULFATE 75 MG TABLET FEED TUBE (08:41)
[2022-05-28] MEDS: ATORVASTATIN 40 MG TABLET FEED TUBE (08:41)
[2022-05-28] MEDS: SODIUM ZIRCONIUM CYCLOSILICATE 10 GM POWD.PACK PO ×3 (08:54→22:03)
[2022-05-28 09:14] LABS: INR 1.2; Prothrombin Time 14.8 Seconds (11.1-14.7)
[2022-05-28 09:15] LABS: Triglycerides 54 mg/dL (<150)
[2022-05-28 09:16] LABS: Partial Thromboplastin Time 36.6 SECONDS (22.3-36.8)
[2022-05-28 09:40] LABS: Glucose Point of Care 130 mg/dl (65-105)
[2022-05-28 10:31] LABS: Glucose Point of Care 153 mg/dl (65-105)
[2022-05-28] MEDS: PANTOPRAZOLE SODIUM IV 40 MG VIAL IV PUSH ×2 (11:17→20:22)
--- NOTE | 2022-05-28 11:57 | PCFNICU ---
ICU Rounding Note: Pt current nutrition is Nepro at 60 ml/hr. Last recorded weight is 181.2 kg. Bowel Motility:+Bm reported 05/28 Labs Reviewed:Glu 118, Cr 5.7,BUN 89,GFR 10, Na 132, Alb 2.8,Hgb 6.8 Meds Noted:Propofol at 10.25 ml/fr=343 kcals,Versed, Heparin, Plavix, Lipitor, Zithromax Skin:WNL Additional Notes: Patient remains on mechanical vent. Tube feeding on hold. Plans for Dialysis catheter placed today. Blood given today. Following daily in ICU rounds. Will monitor daily in ICU rounds and reassessing every Wednesday and Wednesday.
[2022-05-28 12:13] LABS: Glucose Point of Care 246 mg/dl (65-105)
[2022-05-28] MEDS: FENTANYL 2,500MCG/NS250ML(*CRX 2,500 MCG/250 ML BAG 17.5 MCG IV CONT (13:09)
[2022-05-28] MEDS: MIDAZOLAM 100MG/NS 100ML(*CRX) 100 MG/100 ML BAG 6 MG IV CONT (13:10)
--- NOTE | 2022-05-28 13:27 | WPDPROCEDUR ---
Procedures Hemodialysis Catheter Placement Left IJ: Discussed w/ patient and/or surrogate, the non-emergent placement of a hemodialysis catheter, including it's clinincal necessity/indication & associated potential risks & complications.: Yes The patient and/or surrogate understand(s) and acknowledge(s) the need to proceed with hemodialysis catheter insertion as an important element of the patient's clinical management.: Yes Consent: Obtained consent from patient's HD Catheter Date: 05/28/22 HD Catheter Time: 11:41 Pre-procedural Time-Out was completed immediately before starting the procedure and confirmed: Patient Identification, Site, Procedure, Patient Position and the Availability of Requisite Equipment.: Yes Patient Position: supine Patient Placed on Monitor/Pulse Ox: Yes Provider Prep: mask, sterile gown, sterile gloves, Max. sterile barrier precautions, cap and hand hygiene Hemodialysis Catheter Prep: Chlorhexidine scrub Local Anesthesia Used: lidocaine 1% Amount of anesthesia used (mL): 3 Ultrasound Used for Placement: Yes Hemodialysis Catheter Inserted: triple Depth of Insertion (cm): 20 Post Procedure: sutured in place, good blood return, all ports aspirated, flushed, capped, transparent dressing, hemostatic product, antimicrobial product, securement product and aseptic technique maintained throughout procedure Post Procedure X-Ray: tip of catheter in good position and no pneumothorax seen Patient Tolerated Procedure: well Complications: none
--- NOTE | 2022-05-28 13:30 | WPDINTPN ---
Progress Note: A&P Assessment and Plan (1) Acute respiratory failure with hypoxia: Code(s): J96.01 - Acute respiratory failure with hypoxia Status: Acute Assessment and Plan: Acute Respiratory failure secondary to congestive heart failure, volume overload and possible community-acquired pneumonia/aspiration pneumonia -intubated 05/24/2022, patient self-extubated on 05/25/2022 and was reintubated and was using accessory muscles of respiration. Continue full mechanical ventilation support to prevent hypoxemia/hypercarbia and end organ damage. -ABG reviewed -continue current vent settings Chest x-ray this morning: Stable airspace opacities in the perihilar regions and lung bases, consistent with pneumonia versus pulmonary edema versus atelectasis. Stable small to moderate-sized pleural effusions. Cardiomegaly. Low tidal volume ventilation strategy to prevent volutrauma Bronchodilators Patient did not respond well to Lasix on 05/25 -started on IV Bumex after discussing with Nephrology on 05/26 with minimal response Empiric Rocephin azithromycin for treatment of community-acquired pneumonia 05/23; Blood cultures growing staph epidermis 1 of 2, discontinued vancomycin Patient will require dialysis for fluid removal (2) CAP (community acquired pneumonia): Code(s): J18.9 - Pneumonia, unspecified organism Status: Acute Assessment and Plan: See above (3) Acute anterior wall [place]: Code(s): I21.09 - ST elevation (STEMI) myocardial infarction involving other coronary artery of anterior wall Status: Acute Assessment and Plan: Patient has history of coronary disease with PCI done more than 12 years ago at [facility] for an OR - elevated troponin and abnormal EKG -Cardiology evaluated the patient -appreciate cardiology recommendations, conservative management at this time and will plan to cardiac catheterization once his renal function stabilizes or improves Continue aspirin, Plavix, statin, heparin infusion 05/25/2022: Echocardiogram showed technically attending examine because of obesity, LV enlargement with severe global hypokinesia, achiness of the distal anterior wall and apex. No significant evaluated dysfunction, EF of 30-35%, small circumferential pericardial effusion (4) Congestive heart failure: Code(s): I50.9 - Heart failure, unspecified Status: Acute Assessment and Plan: His most recent echo done in 08/04 showed diastolic dysfunction patient does have all the signs of congestive heart failure Echocardiogram as above -given his cardiomyopathy and congestive heart failure along with renal failure, cardiology s -dobutamine was discontinued later this morning on 05/28 due to arrhythmias/tachyarrhythmias (5) Coronary artery disease: Code(s): I25.10 - Atherosclerotic heart disease of [place] coronary artery without angina pectoris Status: Acute Assessment and Plan: See above (6) Hypertension: Qualifiers: Hypertension type: essential hypertension Qualified Code(s): I10 - Essential (primary) hypertension Code(s): I10 - Essential (primary) hypertension Status: Chronic Assessment and Plan: Blood pressures are stable -patient was started on hydralazine 10 mg per tube q.6 hours and isosorbide dinitrate 5 mg p.o. q.6 hours per Cardiology (7) Pulmonary edema: Code(s): J81.1 - Chronic pulmonary edema Status: Acute Assessment and Plan: Patient was given Lasix on 05/25/2022, discussed with Nephrology patient did not respond well to Bumex which was started on 05/26 (8) Type 1 diabetes mellitus: Qualifiers: Diabetes mellitus complication status: with hyperglycemia Qualified Code(s): E10.65 - Type 1 diabetes mellitus with hyperglycemia Code(s): E10.9 - Type 1 diabetes mellitus without complications Status: Acute Assessment and Plan: Patient was initially on insulin infusion has bee
--- NOTE | 2022-05-28 15:20 | P.PNNP_ITS ---
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) * CPK mildly elevated -- follow trend * issues with hyperkalemia noted requiring medical management - doing better * creatinine rising and UOP low despite IV diuretics * initiation of REFUND SPECIALIST/hemodialysis today -- likely plan HD tomorrow and day after as well * follow electrolytes, volume status, and clearance * follow trend of labs and UOP for possible renal recovery (2) Stage 3a chronic kidney disease: Code(s): N18.31 - Chronic kidney disease, stage 3a Status: Chronic Assessment and Plan: * creatinine was running ~ 1.5 - 1.6mg/dl in July 2020 * presumably due to his HTN, DM and vascular disease (3) Acute respiratory failure with hypoxia: Code(s): J96.01 - Acute respiratory failure with hypoxia Status: Acute Assessment and Plan: * thought to be secondary to CHF and possible pneumonia * currently on full ventilator support * serial CXRs with pulmonary edema versus pneumonia * empirically on ceftriaxone and azithromycin for presumed pneumonia * follow culture data * still with concerns/issues for CHF/volume overload * fluid removal with dialysis as hemodynamics tolerate (4) CAP (community acquired pneumonia): Code(s): J18.9 - Pneumonia, unspecified organism Status: Acute Assessment and Plan: * based on imaging to date * follow cultures * on antibiotics (5) Acute anterior wall [place]: Code(s): I21.09 - ST elevation (STEMI) myocardial infarction involving other coronary artery of anterior wall Status: Acute Assessment and Plan: * known history of CAD * presented with elevated troponins and EKG changes * Cardiology following with recommendations noted * continue conservative therapy for now -- plan cardiac catheterization once renal function improves/stabilizes * continue ASA/plavix/heparin (6) Congestive heart failure: Code(s): I50.9 - Heart failure, unspecified Status: Acute Assessment and Plan: * previous echo in Jul 2020 with diastolic dysfunction * evidence of CHF noted on admission * poor response with IV diuretics and dobutamine * plan fluid removal with dialysis (7) Pulmonary edema: Code(s): J81.1 - Chronic pulmonary edema Status: Acute Assessment and Plan: * attempts at diuresis failed * push fluid removal/ultrafiltration with dialysis * follow I/Os (8) Hypertension: Qualifiers: Hypertension type: essential hypertension Qualified Code(s): I10 - Essential (primary) hypertension Code(s): I10 - Essential (primary) hypertension Status: Chronic Assessment and Plan: * hypertensive on presentation * stable at this time * follow trend of hemodynamics (9) Type 1 diabetes mellitus: Qualifiers: Diabetes mellitus complication status: with hyperglycemia Qualified Code(s): E10.65 - Type 1 diabetes mellitus with hyperglycemia Code(s):
--- NOTE | 2022-05-28 15:20 | PM.PNNEP ---
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) CPK mildly elevated -- follow trend issues with hyperkalemia noted requiring medical management - doing better creatinine rising and UOP low despite IV diuretics initiation of INFORMATION SCIENTIST/hemodialysis today -- likely plan HD tomorrow and day after as well follow electrolytes, volume status, and clearance follow trend of labs and UOP for possible renal recovery (2) Stage 3a chronic kidney disease: Code(s): N18.31 - Chronic kidney disease, stage 3a Status: Chronic Assessment and Plan: creatinine was running ~ 1.5 - 1.6mg/dl in July 2020 presumably due to his HTN, DM and vascular disease (3) Acute respiratory failure with hypoxia: Code(s): J96.01 - Acute respiratory failure with hypoxia Status: Acute Assessment and Plan: thought to be secondary to CHF and possible pneumonia currently on full ventilator support serial CXRs with pulmonary edema versus pneumonia empirically on ceftriaxone and azithromycin for presumed pneumonia follow culture data still with concerns/issues for CHF/volume overload fluid removal with dialysis as hemodynamics tolerate (4) CAP (community acquired pneumonia): Code(s): J18.9 - Pneumonia, unspecified organism Status: Acute Assessment and Plan: based on imaging to date follow cultures on antibiotics (5) Acute anterior wall [place]: Code(s): I21.09 - ST elevation (STEMI) myocardial infarction involving other coronary artery of anterior wall Status: Acute Assessment and Plan: known history of CAD presented with elevated troponins and EKG changes Cardiology following with recommendations noted continue conservative therapy for now -- plan cardiac catheterization once renal function improves/stabilizes continue ASA/plavix/heparin (6) Congestive heart failure: Code(s): I50.9 - Heart failure, unspecified Status: Acute Assessment and Plan: previous echo in Jul 2020 with diastolic dysfunction evidence of CHF noted on admission poor response with IV diuretics and dobutamine plan fluid removal with dialysis (7) Pulmonary edema: Code(s): J81.1 - Chronic pulmonary edema Status: Acute Assessment and Plan: attempts at diuresis failed push fluid removal/ultrafiltration with dialysis follow I/Os (8) Hypertension: Qualifiers: Hypertension type: essential hypertension Qualified Code(s): I10 - Essential (primary) hypertension Code(s): I10 - Essential (primary) hypertension Status: Chronic Assessment and Plan: hypertensive on presentation stable at this time follow trend of hemodynamics (9) Type 1 diabetes mellitus: Qualifiers: Diabetes mellitus complication status: with hyperglycemia Qualified Code(s): E10.65 - Type 1 diabetes mellitus with hyperglycemia Code(s): E10.9 - Type 1 diabetes mellitus without complications Status: Acute Assessment and Plan: follow accuchecks glycemic control Will continue to follow. Subjective Date/time seen: 05/28/22 15:20 Tolerating hemodialysis treatment at the time of my visit (seen on HD at 3:00pm); given worsening volume status in association with riising BUN + creatininine along with poor response to IV diuretic therapy, decision made to proceed with initiation of dial
[2022-05-28 15:45] LABS: Hepatitis B Surface Antigen Negative (Negative)
[2022-05-28 15:51] LABS: Hepatitis B Core IgM Result Negative (Negative)
[2022-05-28 16:02] LABS: Hepatitis B Surface Anti Res Negative
[2022-05-28 17:17] LABS: Anion Gap 9 mmol/L (8-16); Blood Urea Nitrogen 71 mg/dL (9-20); Calcium 7.9 mg/dL (8.4-10.2); Carbon Dioxide 23 mmol/L (22-30); Chloride 98 mmol/L (98-107); Estimated CRCL calculation 27 ml/min; Estimated Glomerular Filt Rate 13; Glucose 289 mg/dL (65-110); Magnesium 2.6 mg/dL (1.6-2.3); Potassium 4.7 mmol/L (3.4-5.0); Sodium 130 mmol/L (137-145)
[2022-05-28 17:35] LABS: Glucose Point of Care 278 mg/dl (65-105)
--- NOTE | 2022-05-28 18:07 | WPDGICN ---
Assessment and Plan Assessment and plan (1) Anemia: Code(s): D64.9 - Anemia, unspecified Status: Acute Assessment and Plan: There has been a drop in his counts, gradually without any obvious evidence of bleeding. He is at the point where he may need transfusion. I am concerned that because he needs anticoagulation that there is risk of bleeding. I will perform an EGD to examine least his upper gastrointestinal tract. (2) LULU (acute kidney injury): Code(s): N17.9 - Acute kidney failure, unspecified Status: Acute Assessment and Plan: His BUN was 71 with a creatinine of 4.7. He is just this afternoon begun hemodialysis. (3) Congestive heart failure: Code(s): I50.9 - Heart failure, unspecified Status: Acute Assessment and Plan: He is being treated with diuretics and now dialysis (4) Acute respiratory failure with hypoxia: Code(s): J96.01 - Acute respiratory failure with hypoxia Status: Acute Assessment and Plan: intubated for the last several days. Chest x-ray shows airspace opacities in the perihilar areas and the lung bases consistent with pneumonia and/or pulmonary edema Plan EGD tomorrow. We will hold heparin for couple of hours prior GI Consult Note Consult date/time: 05/28/22 18:07 HPI: Lucian Parks is a 56 year old male Who is being treated for acute respiratory failure due to congestive heart failure. Is also also thought he may have community-acquired and or aspiration pneumonia. He also has been found have a myocardial infarction and has history of coronary artery disease. He has been intubated for the past 4 days. He has been found to be anemic with a drop in his hemoglobin from 8.02 days ago to 6.8 today. Of fecal occult blood apparently was negative. The staff has not seen any evidence of gastrointestinal bleeding. He is however on heparin infusion and Plavix raising the possibility that he may bleed if he has stress ulcers. His admission medications do not show use of NSAIDs other than aspirin which he was taking once a day along with his Plavix due to previous coronary disease. He had PCI done 12 years ago. FOR[facility]LY [facility], [facility] Past Medical History Medical History BPH (benign prostatic hyperplasia) Chronic anemia Coronary artery disease Status post stent. 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 Hypertension Pneumonia due to COVID-19 virus Psoriasis Type 1 diabetes mellitus Surgical History Surgical History History of cataract extraction History of heart artery stent History of removal of pigmented skin lesion Status post surgical removal of malignant neoplasm of skin Including excision of basal cell and squamous cell carcinoma. Family History Family History Other Diabetes mellitus Grandparent Diabetes mellitus Heart attack Father Heart attack Social History Social History Social History: The patient is and lives with his who is a durable power hand or machine paster for healthcare. He has One child. He works for [employer] in the [employer] department Surrogate decision maker: Michelle Parks, spouse. Code status: Full code. Smoking status: Never smoker Alcohol intake: never Substance use: never Substance use type: does not use Lack of Transportation: No Lack of Food: Never True Current Housing: I Have Housing Concerned About Future Housing: No Difficulty Paying Gas/Electric Bills: No Difficulty Paying for Meds: No Currently Unemployed: No Education: Associate Degree Difficulty w/ Childcare or Family Care: No Additional living arrangements comments: Resides with his in [place]. Additional occupation/education
[2022-05-28 18:28] LABS: Glucose Point of Care 292 mg/dl (65-105)
[2022-05-28] MEDS: INSULIN ASPART (*BKC) 100 UNITS/ML SUB-Q ×2 (18:49→23:19)
--- NOTE | 2022-05-28 19:45 | P.PNCA_ITS ---
Progress Note: A&P Assessment and Plan (1) Acute anterior wall DC: Code(s): I21.09 - ST elevation (STEMI) myocardial infarction involving other coronary artery of anterior wall Status: Acute Assessment and Plan: Appears to have sustained a late presentation anterior wall infarction. EKGs showing resolution of acute ST changes and he now has anterior Q waves. No plan to bring him to the energy systems laboratory director at this time. Conservative medical management for now unless he develops ischemic chest pain or ventricular arrhythmias. Fortunately BP and HR stable. * Appears to have a completed anterior infarction * Echo EF 30-35%, severe hypokinesis to akinesis of the distal anterior wall and apex. * Eventual ischemia evaluation depending on the patient's course * Continue plavix, statin * Add low-dose metoprolol. (2) Acute combined systolic and diastolic congestive heart failure: Code(s): I50.41 - Acute combined systolic (congestive) and diastolic (congestive) heart failure Status: Acute Assessment and Plan: Cardiomyopathy, EF 30-35%, with acute CHF. * Not responding well to diuretics, remains on the ventilator with pulmonary edema * No improvement with dobutamine 2.5 mcg per kilos, discontinued due to arrhythmias * Unable to use an CARLOS-inhibitor or ARB * Continue hydralazine +nitrates * Volume removal with dialysis. * Add low-dose metoprolol. (3) Ventricular arrhythmia: Code(s): I49.9 - Cardiac arrhythmia, unspecified Status: Acute Assessment and Plan: Frequent PVCs and some nonsustained ventricular tachycardia noted today. * Dobutamine discontinued * Potassium 4.7 * Add low-dose metoprolol * Check potassium and magnesium in the morning (4) LULU (acute kidney injury): Code(s): N17.9 - Acute kidney failure, unspecified Status: Acute Assessment and Plan: Creatinine continues to rise, hopefully will peak soon. * Progressive volume overload * Started dialysis 05/28/2022. * Followed by Dr. Kincaid (5) Anemia: Code(s): D64.9 - Anemia, unspecified Status: Acute Assessment and Plan: Heparin discontinued, remains on Plavix. * EGD on 05/29/2022 * Add aspirin if blood count improves (6) Acute respiratory failure with hypoxia: Code(s): J96.01 - Acute respiratory failure with hypoxia Status: Acute Assessment and Plan: Pneumonia + CHF. * Intubated, an antibiotics. Plan Subjective Date/time seen: Follow-up late presentation anterior DC, CHF.? Admitted with shortness of breath, coughing, vomiting, COVID exposure (tested neg), hypertension, acute CHF, anemia, acute on chronic kidney disease.? Echo showed moderate LV enla rgement, akinesis of the distal anterior wall and apex, EF 30-35%, diastolic dysfunction, small pericardial effusion.? Troponins up to 19.7.? Intubated and sedated in the ICU.? History of remote DC and PCI 12 years ago. 05/26/22? 17:33 Remains on ventilator, FiO2 40%, sedated.? Did not respond well to the IV diuretic challenge.? Heparin drip, antibiotics, sedation.? Labs suggest iron deficiency.? Creatinine continues to rise.? Had a blood culture positive for Gram-positive cocci in the anaerobic bottle.? Added dobutamine 2.5 mcg, low-dose hydralazine and nitrates. 05/27/22? 17:33? Remains intubated and sedated, SBP 146-169 mmHg.? 40% FiO2.? I's and O's yesterday:? 3900, 800 cc's.? Hct down to 23.5, creat up to 4.8.TEle = NSR . Increased hydralazine dose
--- NOTE | 2022-05-28 19:45 | PM.PNCARD ---
Progress Note: A&P Assessment and Plan (1) Acute anterior wall CT: Code(s): I21.09 - ST elevation (STEMI) myocardial infarction involving other coronary artery of anterior wall Status: Acute Assessment and Plan: Appears to have sustained a late presentation anterior wall infarction. EKGs showing resolution of acute ST changes and he now has anterior Q waves. No plan to bring him to the labor contract analyst at this time. Conservative medical management for now unless he develops ischemic chest pain or ventricular arrhythmias. Fortunately BP and HR stable. Appears to have a completed anterior infarction Echo EF 30-35%, severe hypokinesis to akinesis of the distal anterior wall and apex. Eventual ischemia evaluation depending on the patient's course Continue plavix, statin Add low-dose metoprolol. (2) Acute combined systolic and diastolic congestive heart failure: Code(s): I50.41 - Acute combined systolic (congestive) and diastolic (congestive) heart failure Status: Acute Assessment and Plan: Cardiomyopathy, EF 30-35%, with acute CHF. Not responding well to diuretics, remains on the ventilator with pulmonary edema No improvement with dobutamine 2.5 mcg per kilos, discontinued due to arrhythmias Unable to use an CARLOS-inhibitor or ARB Continue hydralazine +nitrates Volume removal with dialysis. Add low-dose metoprolol. (3) Ventricular arrhythmia: Code(s): I49.9 - Cardiac arrhythmia, unspecified Status: Acute Assessment and Plan: Frequent PVCs and some nonsustained ventricular tachycardia noted today. Dobutamine discontinued Potassium 4.7 Add low-dose metoprolol Check potassium and magnesium in the morning (4) LULU (acute kidney injury): Code(s): N17.9 - Acute kidney failure, unspecified Status: Acute Assessment and Plan: Creatinine continues to rise, hopefully will peak soon. Progressive volume overload Started dialysis 05/28/2022. Followed by Dr. Kincaid (5) Anemia: Code(s): D64.9 - Anemia, unspecified Status: Acute Assessment and Plan: Heparin discontinued, remains on Plavix. EGD on 05/29/2022 Add aspirin if blood count improves (6) Acute respiratory failure with hypoxia: Code(s): J96.01 - Acute respiratory failure with hypoxia Status: Acute Assessment and Plan: Pneumonia + CHF. Intubated, an antibiotics. Plan Subjective Date/time seen: Follow-up late presentation anterior CT, CHF.? Admitted with shortness of breath, coughing, vomiting, COVID exposure (tested neg), hypertension, acute CHF, anemia, acute on chronic kidney disease.? Echo showed moderate LV enlargement, akinesis of the distal anterior wall and apex, EF 30-35%, diastolic dysfunction, small pericardial effusion.? Troponins up to 19.7.? Intubated and sedated in the ICU.? History of remote CT and PCI 12 years ago. 05/26/22? 17:33 Remains on ventilator, FiO2 40%, sedated.? Did not respond well to the IV diuretic challenge.? Heparin drip, antibiotics, sedation.? Labs suggest iron deficiency.? Creatinine continues to rise.? Had a blood culture positive for Gram-positive cocci in the anaerobic bottle.? Added dobutamine 2.5 mcg, low-dose hydralazine and nitrates. 05/27/22? 17:33? Remains intubated and sedated, SBP 146-169 mmHg.? 40% FiO2.? I's and O's yesterday:? 3900, 800 cc's.? Hct down to 23.5, creat up to 4.8.TEle = NSR . Increased hydralazine dose 05/28/22 19:45 remains intubated and sedated. Systolic blood pressure 101- 123 mmHg. Had hemodialysis today with the removal of 2000 cc. Dobutamine was discontinued due to frequent PVCs and some nonsustained ventricular particular Heparin was discontinued ; hematocrit 22. Review of Systems Review of Systems: Review of systems obtained from the chart and the patient's nurse. ROS unobtainable: Yes unobtainable due to endotracheal tube, unobtainable due to medical condition and
[2022-05-28] MEDS: METOPROLOL TARTRATE 12.5 MG TABLET PO (20:54)
[2022-05-28 23:19] LABS: Glucose Point of Care 308 mg/dl (65-105)
[2022-05-29] VITALS (102 sets, daily range): BP systolic 105–157; BP diastolic 53–81; PULSE 60–92; RESP 0–24; TEMP 36–37.2; O2SAT 94–100
[2022-05-29] MEDS: IPRATROPIUM BR 0.02% INH SOLN 0.5 MG/2.5 ML VIAL INHALATION ×4 (02:22→20:23)
[2022-05-29] MEDS: ALBUTEROL SULFATE NEB 2.5 MG/3 ML INH INHALATION ×4 (02:22→20:24)
[2022-05-29] MEDS: PROPOFOL IV EMULSION 100 ML 10.25 MG IV CONT (03:28)
[2022-05-29] MEDS: FENTANYL 2,500MCG/NS250ML(*CRX 2,500 MCG/250 ML BAG 17.5 MCG IV CONT ×2 (04:21→18:49)
[2022-05-29 05:17] LABS: Hematocrit 26.8 % (42.0-52.0); Hemoglobin 8.2 g/dL (14.0-18.0); Mean Corpuscular HGB Conc 30.6 g/dl (32-36); Mean Corpuscular Hemoglobin 28.4 pg (26-34); Mean Corpuscular Volume 92.7 fl (80-100); Mean Platelet Volume 11.4 fl (7.4-10.4); Platelet Count Result 283 k/mm3 (150-375); Red Blood Count 2.89 M/mm3 (4.6-6.20); Red Cell Distribution Width 14.6 % (11.5-14.5); White Blood Count 14.5 K/mm3 (4.5-10.0)
[2022-05-29 05:26] LABS: Alanine Aminotransferase 28 U/L (6-50); Alkaline Phosphatase 181 U/L (38-126); Anion Gap 15 mmol/L (8-16); Aspartate Amino Transferase 23 U/L (17-59); Bilirubin,Total 0.5 mg/dL (0.2-1.3); Blood Urea Nitrogen 81 mg/dL (9-20); Calcium 8.3 mg/dL (8.4-10.2); Carbon Dioxide 18 mmol/L (22-30); Chloride 96 mmol/L (98-107); Estimated CRCL calculation 21 ml/min; Estimated Glomerular Filt Rate 10; Glucose 342 mg/dL (65-110); Magnesium 2.8 mg/dL (1.6-2.3); Phosphorus 8.6 mg/dL (2.5-4.5); Potassium 4.8 mmol/L (3.4-5.0); Sodium 129 mmol/L (137-145)
[2022-05-29 05:47] LABS: Alveolar/Arterial O2 Gradient 87.2 mmHg; Base Excess ABG -10.6 mEq/l (+/-2.0); Carboxyhemoglobin 0.5 % THb (0-2.0); Fractional Inspired Oxygen 30 %; Methemoglobin ABG 0.4 %THb (0-1.5); Oxygen Content ABG 12.3 %vol (16.0-22.0); Oxygen Saturation ABG 91.5 % (95.0-100.0); Oxyhemoglobin 90.2 % THb (90.0-100.0); PCO2 ABG 44.7 mmHg (35.0-45.0); PO2 ABG 74.2 mmHg (80.0-100.0); PO2 FiO2 Ratio Arterial Blood 2.47 %; Reduced Hemoglobin 8.9 %THb (0-5.0); Total Hemoglobin 9.6 g/dL (12.0-18.0)
[2022-05-29] MEDS: INSULIN ASPART (*BKC) 100 UNITS/ML SUB-Q ×4 (05:48→23:57)
[2022-05-29 05:49] LABS: Device VENTILATOR; Modified Allen's Test Pass; Site Drawn LEFT RADIAL; pH ABG 7.197 (7.350-7.450)
[2022-05-29 05:50] LABS: Arterial Blood Gas PEEP 10 cmH2O; Arterial Blood Gas Tidal Volume 500 ml; Arterial Blood Gas Vent Mode CMV; Arterial Blood Gas Ventilator rate 20 /MIN
[2022-05-29] MEDS: CENTRAL LINE FLUSH 10 ML IV PUSH ×6 (05:50→18:16)
[2022-05-29] MEDS: ISOSORBIDE DINITRATE 5 MG TABLET PO ×4 (05:51→23:47)
[2022-05-29] MEDS: hydrALAZINE HCL 25 MG TABLET PO ×4 (05:52→23:47)
[2022-05-29 05:53] LABS: Glucose Point of Care 329 mg/dl (65-105)
[2022-05-29] MEDS: metroNIDAZOLE 500 MG/ISO 100ML 500 MG/100 ML BAG 100 MG IVPB ×3 (06:01→23:41)
[2022-05-29] MEDS: MIDAZOLAM 100MG/NS 100ML(*CRX) 100 MG/100 ML BAG 6 MG IV CONT (06:01)
[2022-05-29] MEDS: SODIUM BICARBONATE 8.4% 50 MEQ/50 ML SYRINGE IV PUSH (06:46)
[2022-05-29] MEDS: METOPROLOL TARTRATE 12.5 MG TABLET PO ×2 (08:25→20:43)
[2022-05-29] MEDS: MINERAL OIL/WHITE PETROLATUM OINTMENT 1 APPLIC EACH EYE ×2 (08:27→20:42)
[2022-05-29] MEDS: PANTOPRAZOLE SODIUM IV 40 MG VIAL IV PUSH ×2 (08:28→20:43)
[2022-05-29] MEDS: CLOPIDOGREL BISULFATE 75 MG TABLET FEED TUBE (08:28)
[2022-05-29] MEDS: ATORVASTATIN 40 MG TABLET FEED TUBE (08:28)
[2022-05-29] MEDS: INSULIN GLARGINE (*BKC) 100 UNITS/ML 35 UNITS SUB-Q (08:30)
--- NOTE | 2022-05-29 12:01 | PCNFU ---
Nutrition Follow-Up Complete: Inadequate Oral Intake as related to mechanical vent as evidenced by NPO Goal: Meet estimated nutritional needs Patient is progressing towards goal. We will continue current goal. Pt current nutrition is Nepro at 60 ml/hr. Last recorded weight is 182.4 kg. Bowel Motility: FMS Labs Reviewed:Glu 342, BUN 81, Na 129, Alb 2.8, Hgb 8.2 Meds Noted:Propofol at 5.13 ml/ca=085 kcals,Versed, Heparin, Plavix, Lipitor, Zithromax Skin: DT-Right Heel Additional Notes:Patient remains on mechanical vent and tube feedings of Nepro at 60 ml/hr. Tube feeding currently on hold for EGD today. Tube feedings at goal rate providing 2376 kcals/107 gms protein/960 ml water. Meeting 94% kcals needs at 15 kcal/kg and 100% protein needs. Flush 30 ml q 4 hours. Protein Modular of Juvan started BID for wound healing. Agree with diet orders. Plans for Dialysis today. Will monitor daily in ICU rounds and reassessing every Wednesday and Wednesday.
[2022-05-29 12:02] LABS: Glucose Point of Care 389 mg/dl (65-105)
--- NOTE | 2022-05-29 13:18 | WPDINTPN ---
Progress Note: A&P Assessment and Plan (1) Acute respiratory failure with hypoxia: Code(s): J96.01 - Acute respiratory failure with hypoxia Status: Acute Assessment and Plan: Acute Respiratory failure secondary to congestive heart failure, volume overload and possible community-acquired pneumonia/aspiration pneumonia -intubated 05/24/2022, patient self-extubated on 05/25/2022 and was reintubated and was using accessory muscles of respiration. Continue full mechanical ventilation support to prevent hypoxemia/hypercarbia and end organ damage. -ABG reviewed -ventilator was adjusted Chest x-ray this morning: Airspace opacities in the mid and lower lung zones with a basilar predominance with worsening on the right, consistent with atelectasis versus pulmonary edema versus pneumonia. Stable small to moderate-sized pleural effusions. Cardiomegaly. Bronchodilators Patient did not respond well to Lasix or Bumex -fluid removal with hemodialysis which was started on 05/28/202205/23; Blood cultures growing staph epidermis 1 of 2, discontinued vancomycin -05/27/2022: Repeat blood cultures growing Staph epidermidis 2/2 bottles, it was MSSA -will start cefazolin 05/29, and continue Flagyl -sedated with fentanyl, Versed, propofol infusion, daily sedation vacation maintain RASS of 0 to -1 (2) CAP (community acquired pneumonia): Code(s): J18.9 - Pneumonia, unspecified organism Status: Acute Assessment and Plan: See above (3) Acute anterior wall MS: Code(s): I21.09 - ST elevation (STEMI) myocardial infarction involving other coronary artery of anterior wall Status: Acute Assessment and Plan: Patient has history of coronary disease with PCI done more than 12 years ago at [facility] for an MS - elevated troponin and abnormal EKG -Cardiology evaluated the patient -appreciate cardiology recommendations, conservative management at this time and will plan to cardiac catheterization once his renal function stabilizes or improves Continue aspirin, Plavix, statin, -heparin infusion was discontinued per Cardiology -low-dose metoprolol was added 06/25/2014 05/25/2022: Echocardiogram showed technically attending examine because of obesity, LV enlargement with severe global hypokinesia, achiness of the distal anterior wall and apex. No significant evaluated dysfunction, EF of 30-35%, small circumferential pericardial effusion (4) Congestive heart failure: Code(s): I50.9 - Heart failure, unspecified Status: Acute Assessment and Plan: His most recent echo done in 08/04 showed diastolic dysfunction patient does have all the signs of congestive heart failure Echocardiogram as above -given his cardiomyopathy and congestive heart failure along with renal failure, cardiology following -dobutamine was discontinued on 05/28 due to arrhythmias/tachyarrhythmias -continue hydralazine and nitrates -unable to use Izaiah inhibitor or Arb due to renal dysfunction -will require fluid removal with dialysis (5) Coronary artery disease: Code(s): I25.10 - Atherosclerotic heart disease of [place] coronary artery without angina pectoris Status: Acute Assessment and Plan: See above (6) Hypertension: Qualifiers: Hypertension type: essential hypertension Qualified Code(s): I10 - Essential (primary) hypertension Code(s): I10 - Essential (primary) hypertension Status: Chronic Assessment and Plan: Blood pressures are stable -patient on hydralazine, isosorbide, metoprolol -monitor blood pressures (7) Pulmonary edema: Code(s): J81.1 - Chronic pulmonary edema Status: Acute Assessment and Plan: Patient was given Lasix on 05/25/2022, discussed with Nephrology patient did not respond well to Bumex which was started on 05/26, patient did not respond to diuretics and/or dobutamine -fluid removal with dialysis (8) Type 1 diabetes mellitus: Qualifi
--- NOTE | 2022-05-29 14:08 | PCSTNOTE ---
Nurse reported that this patient is intubated and orders were discontinued.
--- NOTE | 2022-05-29 14:38 | P.PNNP_ITS ---
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) * CPK mildly elevated -- follow trend * HD today and likely tomorrow as well * follow electrolytes, volume status, and clearance * follow trend of labs and UOP for possible renal recovery (2) Stage 3a chronic kidney disease: Code(s): N18.31 - Chronic kidney disease, stage 3a Status: Chronic Assessment and Plan: * creatinine was running ~ 1.5 - 1.6mg/dl in July 2020 * presumably due to his HTN, DM and vascular disease (3) Acute respiratory failure with hypoxia: Code(s): J96.01 - Acute respiratory failure with hypoxia Status: Acute Assessment and Plan: * thought to be secondary to CHF and possible pneumonia * currently on full ventilator support * serial CXRs with pulmonary edema versus pneumonia * still with issues related CHF/volume overload * continue fluid removal with dialysis as hemodynamics tolerate (4) Anemia: Code(s): D64.9 - Anemia, unspecified Status: Acute Assessment and Plan: * noted fluctuations since admission * anemia studies noted: * iron deficiency present * B12 and folate okay * LULU and CKD likely playing a role * s/p PRBC transfusion on 05/28 (hgb dropped to 6.8) * GI following - plan EGD * follow trend of H/H (5) CAP (community acquired pneumonia): Code(s): J18.9 - Pneumonia, unspecified organism Status: Acute Assessment and Plan: * based on imaging to date * follow cultures - MSSA noted in blood cultures * on antibiotics (6) Acute anterior wall DE: Code(s): I21.09 - ST elevation (STEMI) myocardial infarction involving other coronary artery of anterior wall Status: Acute Assessment and Plan: * known history of CAD * presented with elevated troponins and EKG changes * Cardiology following with recommendations noted * continue conservative therapy for now -- plan cardiac catheterization once renal function improves/stabilizes * continue ASA/plavix/heparin (7) Congestive heart failure: Code(s): I50.9 - Heart failure, unspecified Status: Acute Assessment and Plan: * previous echo in Jul 2020 with diastolic dysfunction * evidence of CHF noted on admission * poor response with IV diuretics and dobutamine * plan fluid removal with dialysis (8) Pulmonary edema: Code(s): J81.1 - Chronic pulmonary edema Status: Acute Assessment and Plan: * attempts at diuresis failed * repeat Echo noted -- EF now 30 - 35% * push fluid removal/ultrafiltration with dialysis * follow I/Os (9) Hypertension: Qualifiers: Hypertension type: essential hypertension Qualified Code(s): I10 - Essential (primary) hypertension Code(s): I10 - Essential (primary) hypertension Status: Chronic Assessment and Plan: * hypertensive on presentation * stable at this time * follow trend of hemodynamics (10) Type 1 diabet
--- NOTE | 2022-05-29 14:38 | PM.PNNEP ---
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) CPK mildly elevated -- follow trend HD today and likely tomorrow as well follow electrolytes, volume status, and clearance follow trend of labs and UOP for possible renal recovery (2) Stage 3a chronic kidney disease: Code(s): N18.31 - Chronic kidney disease, stage 3a Status: Chronic Assessment and Plan: creatinine was running ~ 1.5 - 1.6mg/dl in July 2020 presumably due to his HTN, DM and vascular disease (3) Acute respiratory failure with hypoxia: Code(s): J96.01 - Acute respiratory failure with hypoxia Status: Acute Assessment and Plan: thought to be secondary to CHF and possible pneumonia currently on full ventilator support serial CXRs with pulmonary edema versus pneumonia still with issues related CHF/volume overload continue fluid removal with dialysis as hemodynamics tolerate (4) Anemia: Code(s): D64.9 - Anemia, unspecified Status: Acute Assessment and Plan: noted fluctuations since admission anemia studies noted: iron deficiency present B12 and folate okay LULU and CKD likely playing a role s/p PRBC transfusion on 05/28 (hgb dropped to 6.8) GI following - plan EGD follow trend of H/H (5) CAP (community acquired pneumonia): Code(s): J18.9 - Pneumonia, unspecified organism Status: Acute Assessment and Plan: based on imaging to date follow cultures - MSSA noted in blood cultures on antibiotics (6) Acute anterior wall MA: Code(s): I21.09 - ST elevation (STEMI) myocardial infarction involving other coronary artery of anterior wall Status: Acute Assessment and Plan: known history of CAD presented with elevated troponins and EKG changes Cardiology following with recommendations noted continue conservative therapy for now -- plan cardiac catheterization once renal function improves/stabilizes continue ASA/plavix/heparin (7) Congestive heart failure: Code(s): I50.9 - Heart failure, unspecified Status: Acute Assessment and Plan: previous echo in Jul 2020 with diastolic dysfunction evidence of CHF noted on admission poor response with IV diuretics and dobutamine plan fluid removal with dialysis (8) Pulmonary edema: Code(s): J81.1 - Chronic pulmonary edema Status: Acute Assessment and Plan: attempts at diuresis failed repeat Echo noted -- EF now 30 - 35% push fluid removal/ultrafiltration with dialysis follow I/Os (9) Hypertension: Qualifiers: Hypertension type: essential hypertension Qualified Code(s): I10 - Essential (primary) hypertension Code(s): I10 - Essential (primary) hypertension Status: Chronic Assessment and Plan: hypertensive on presentation stable at this time follow trend of hemodynamics (10) Type 1 diabetes mellitus: Qualifiers: Diabetes mellitus complication status: with hyperglycemia Qualified Code(s): E10.65 - Type 1 diabetes mellitus with hyperglycemia Code(s): E10.9 - Type 1 diabetes mellitus without complications Status: Acute Assessment and Plan: follow accuchecks glycemic control Will continue to follow. Subjective Date/time seen: 05/29/22 14:38 Tolerated dialysis treatment yesterday and tolerating dialysis treatment today at the time of m
--- NOTE | 2022-05-29 14:48 | P.PNCA_ITS ---
Progress Note: A&P Assessment and Plan (1) Acute anterior wall [place]: Code(s): I21.09 - ST elevation (STEMI) myocardial infarction involving other coronary artery of anterior wall Status: Acute Assessment and Plan: Appears to have sustained a late presentation anterior wall infarction. EKGs showing resolution of acute ST changes and he now has anterior Q waves. 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 Conservative medical management for now unless he develops ischemic chest pain or ventricular arrhythmias. Fortunately BP and HR stable. * Appears to have a completed anterior infarction * Echo EF 30-35%, severe hypokinesis to akinesis of the distal anterior wall and apex. * Eventual ischemia evaluation depending on the patient's course * Continue plavix, statin * Added low-dose metoprolol, BP tolerating well. (2) Acute combined systolic and diastolic congestive heart failure: Code(s): I50.41 - Acute combined systolic (congestive) and diastolic (congestive) heart failure Status: Acute Assessment and Plan: Cardiomyopathy, EF 30-35%, with acute CHF. * Not responding well to diuretics, remains on the ventilator with pulmonary edema * No improvement with dobutamine 2.5 mcg per kilos, discontinued due to arrhythmias * Unable to use an CARLOS-inhibitor or ARB * Continue hydralazine +nitrates * Volume removal with dialysis. * Continue low-dose metoprolol. (3) Ventricular arrhythmia: Code(s): I49.9 - Cardiac arrhythmia, unspecified Status: Acute Assessment and Plan: Frequent PVCs and some nonsustained ventricular tachycardia noted 05/28. * Dobutamine discontinued (4) LULU (acute kidney injury): Code(s): N17.9 - Acute kidney failure, unspecified Status: Acute Assessment and Plan: Creatinine continues to rise, hopefully will peak soon. * Progressive volume overload * Started dialysis 05/28/2022. * Followed by Dr. Kincaid (5) Anemia: Code(s): D64.9 - Anemia, unspecified Status: Acute Assessment and Plan: Heparin discontinued, remains on Plavix. * Plan for EGD today but this has not been done yet * Add aspirin if blood count improves (6) Acute respiratory failure with hypoxia: Code(s): J96.01 - Acute respiratory failure with hypoxia Status: Acute Assessment and Plan: Pneumonia + CHF. * Intubated, an antibiotics. Plan Subjective Date/time seen: 05/29/22 14:48 Cardiology follow up for STEMI, cardiomyopathy, CHF Started on hemodialysis yesterday. Remains intubated and sedated in the ICU. Review of Systems Review of Systems: ROS unobtainable: Yes unobtainable due to endotracheal tube, unobtainable due to medical condition and unobtainable due to mental status Exam Const: Other: Obese male intubated and sedated HENMT: Mouth: Yes moist mucous membranes Eyes: Sclera: sclerae normal Neck: Neck: supple Other: unable to assess for venous distention given his body habitus. Resp: Auscultation: clear to auscultation bilaterally and no rhonchi Other: Cardio: Rate: regular rate Rhythm: regular rhythm Heart sounds: no gallops and no murmurs Other: difficult exam, distant heart sounds GI: Inspection: distended Auscultation: normal bowel sounds Other: Abdominal wall edema Urinary Catheter: Urin
--- NOTE | 2022-05-29 14:48 | PM.PNCARD ---
Progress Note: A&P Assessment and Plan (1) Acute anterior wall [place]: Code(s): I21.09 - ST elevation (STEMI) myocardial infarction involving other coronary artery of anterior wall Status: Acute Assessment and Plan: Appears to have sustained a late presentation anterior wall infarction. EKGs showing resolution of acute ST changes and he now has anterior Q waves. 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 Conservative medical management for now unless he develops ischemic chest pain or ventricular arrhythmias. Fortunately BP and HR stable. Appears to have a completed anterior infarction Echo EF 30-35%, severe hypokinesis to akinesis of the distal anterior wall and apex. Eventual ischemia evaluation depending on the patient's course Continue plavix, statin Added low-dose metoprolol, BP tolerating well. (2) Acute combined systolic and diastolic congestive heart failure: Code(s): I50.41 - Acute combined systolic (congestive) and diastolic (congestive) heart failure Status: Acute Assessment and Plan: Cardiomyopathy, EF 30-35%, with acute CHF. Not responding well to diuretics, remains on the ventilator with pulmonary edema No improvement with dobutamine 2.5 mcg per kilos, discontinued due to arrhythmias Unable to use an CARLOS-inhibitor or ARB Continue hydralazine +nitrates Volume removal with dialysis. Continue low-dose metoprolol. (3) Ventricular arrhythmia: Code(s): I49.9 - Cardiac arrhythmia, unspecified Status: Acute Assessment and Plan: Frequent PVCs and some nonsustained ventricular tachycardia noted 05/28. Dobutamine discontinued (4) LULU (acute kidney injury): Code(s): N17.9 - Acute kidney failure, unspecified Status: Acute Assessment and Plan: Creatinine continues to rise, hopefully will peak soon. Progressive volume overload Started dialysis 05/28/2022. Followed by Dr. Kincaid (5) Anemia: Code(s): D64.9 - Anemia, unspecified Status: Acute Assessment and Plan: Heparin discontinued, remains on Plavix. Plan for EGD today but this has not been done yet Add aspirin if blood count improves (6) Acute respiratory failure with hypoxia: Code(s): J96.01 - Acute respiratory failure with hypoxia Status: Acute Assessment and Plan: Pneumonia + CHF. Intubated, an antibiotics. Plan Subjective Date/time seen: 05/29/22 14:48 Cardiology follow up for STEMI, cardiomyopathy, CHF Started on hemodialysis yesterday. Remains intubated and sedated in the ICU. Review of Systems Review of Systems: ROS unobtainable: Yes unobtainable due to endotracheal tube, unobtainable due to medical condition and unobtainable due to mental status Exam Const: Other: Obese male intubated and sedated HENMT: Mouth: Yes moist mucous membranes Eyes: Sclera: sclerae normal Neck: Neck: supple Other: unable to assess for venous distention given his body habitus. Resp: Auscultation: clear to auscultation bilaterally and no rhonchi Other: Cardio: Rate: regular rate Rhythm: regular rhythm Heart sounds: no gallops and no murmurs Other: difficult exam, distant heart sounds GI: Inspection: distended Auscultation: normal bowel sounds Other: Abdominal wall edema Urinary Catheter: Urinary Catheter: patent and draining Skin: General skin exam: normal color and lesion (Excoriation right tibia, appears old) Lesions: lesion noted (Excoriation right tibia, appears old) Neuro: Other: sedated on ventilator support Extrem: Other: Severe bilateral lower extremity edema, edema of hands, arms and abdominal wall Psych: Other: Intubated and sedated Objective Data Vital Signs Vital Signs: Vital Signs - 24 hr 05/28/22 15:07 05/28/22 15:15 05/28/22 15:00 Temperature 36.4 C L Pulse Rate 81 81 81 Respiratory Rate 20 16 Blood Pressure 112/63 Pulse Oximetry 96 99 Oxyg
[2022-05-29] MEDS: EPOETIN ALFA-EPBX 10,000 UNITS/ML VIAL 10000 UNITS IV PUSH (17:10)
[2022-05-29 18:05] LABS: Glucose Point of Care 285 mg/dl (65-105)
[2022-05-29] MEDS: PROPOFOL IV EMULSION 100 ML 5.13 MG IV CONT (18:24)
[2022-05-30] VITALS (53 sets, daily range): BP systolic 127–174; BP diastolic 63–114; PULSE 20–205; RESP 14–26; TEMP 36–37.9; O2SAT 94–99
[2022-05-30 00:13] LABS: Glucose Point of Care 292 mg/dl (65-105)
[2022-05-30] MEDS: hydrALAZINE HCL 20 MG/ML VIAL 10 MG IV PUSH (01:37)
[2022-05-30] MEDS: IPRATROPIUM BR 0.02% INH SOLN 0.5 MG/2.5 ML VIAL INHALATION ×4 (02:46→20:46)
[2022-05-30] MEDS: ALBUTEROL SULFATE NEB 2.5 MG/3 ML INH INHALATION ×4 (02:47→20:46)
[2022-05-30] MEDS: ISOSORBIDE DINITRATE 5 MG TABLET PO ×4 (05:27→23:58)
[2022-05-30] MEDS: CENTRAL LINE FLUSH 10 ML IV PUSH ×9 (05:28→21:00)
[2022-05-30] MEDS: hydrALAZINE HCL 25 MG TABLET PO ×4 (05:28→23:58)
[2022-05-30] MEDS: INSULIN ASPART (*BKC) 100 UNITS/ML SUB-Q ×3 (05:51→18:18)
[2022-05-30 05:52] LABS: Alveolar/Arterial O2 Gradient 76.5 mmHg; Base Excess ABG -7.4 mEq/l (+/-2.0); Carboxyhemoglobin 0.3 % THb (0-2.0); Fractional Inspired Oxygen 30 %; HCO3 ABG 18.8 mEq/l (22.0-26.0); Methemoglobin ABG 0.2 %THb (0-1.5); Oxygen Content ABG 12.4 %vol (16.0-22.0); Oxygen Saturation ABG 95.8 % (95.0-100.0); Oxyhemoglobin 94.4 % THb (90.0-100.0); PCO2 ABG 41.2 mmHg (35.0-45.0); PO2 FiO2 Ratio Arterial Blood 2.97 %; Reduced Hemoglobin 5.1 %THb (0-5.0); Total Hemoglobin 9.2 g/dL (12.0-18.0)
[2022-05-30 05:53] LABS: Device VENTILATOR; Modified Allen's Test Pass; Site Drawn LEFT RADIAL; pH ABG 7.278 (7.350-7.450)
[2022-05-30 05:54] LABS: Arterial Blood Gas PEEP 10 cmH2O; Arterial Blood Gas Tidal Volume 500 ml; Arterial Blood Gas Vent Mode CMV; Arterial Blood Gas Ventilator rate 22 /MIN
[2022-05-30] MEDS: metroNIDAZOLE 500 MG/ISO 100ML 500 MG/100 ML BAG 100 MG IVPB ×3 (06:00→21:00)
[2022-05-30 06:08] LABS: Alanine Aminotransferase 29 U/L (6-50); Albumin Level 3.1 g/dL (3.5-5.1); Alkaline Phosphatase 182 U/L (38-126); Anion Gap 17 mmol/L (8-16); Aspartate Amino Transferase 30 U/L (17-59); Bilirubin,Total 0.4 mg/dL (0.2-1.3); Blood Urea Nitrogen 70 mg/dL (9-20); Calcium 8.1 mg/dL (8.4-10.2); Carbon Dioxide 17 mmol/L (22-30); Chloride 99 mmol/L (98-107); Estimated CRCL calculation 22 ml/min; Estimated Glomerular Filt Rate 10; Glucose 313 mg/dL (65-110); Potassium 4.6 mmol/L (3.4-5.0); Sodium 133 mmol/L (137-145); Triglycerides 122 mg/dL (<150)
[2022-05-30 06:11] LABS: Glucose Point of Care 294 mg/dl (65-105)
[2022-05-30 06:11] LABS: Basophils Percent Auto 0.2 % (0.2-1.2); Eosinophils Absolute Auto 0.4 K/mm3 (0-0.3); Eosinophils Percent Auto 2.2 % (0-4.4); Hematocrit 26.9 % (42.0-52.0); Hemoglobin 8.1 g/dL (14.0-18.0); Immature Granulocyte Absolute 0.15 K/mm3 (0.00-0.031); Immature Granulocyte Percent A 0.9 % (0-0.5); Lymphocytes Absolute Auto 0.48 K/mm3 (0.9-3.2); Mean Corpuscular HGB Conc 30.1 g/dl (32-36); Mean Corpuscular Hemoglobin 28.4 pg (26-34); Mean Corpuscular Volume 94.4 fl (80-100); Mean Platelet Volume 11.6 fl (7.4-10.4); Monocytes Absolute Auto 1.3 K/mm3 (0.1-0.6); Monocytes Percent Auto 7.9 % (2.6-8.5); Neutrophils Absolute Auto 13.9 K/mm3 (1.3-6.7); Neutrophils Percent Auto 85.8 % (45.5-73.1); Platelet Count Result 275 k/mm3 (150-375); Red Blood Count 2.85 M/mm3 (4.6-6.20); Red Cell Distribution Width 14.7 % (11.5-14.5); White Blood Count 16.2 K/mm3 (4.5-10.0)
[2022-05-30 07:31] LABS: Acanthocytes 2+ (NORMAL); Platelet Estimate Adequate (Adequate); Poikilocytosis 1+ (NORMAL); Schistocytes None Seen (NORMAL)
--- NOTE | 2022-05-30 08:02 | SUR.OPER ---
0720: PT SEDATION MANAGED BY JOSH WOODWARD. VITAL SIGNS: 137/67, 95%, 90, 20. AFTER PROCEDURE COMPLETE VITAL SIGNS: 194/78, 94%, 93, 16. PT NURSE CRISSY AT BEDSIDE, AWARE OF PROCEDURE FINDINGS.
--- NOTE | 2022-05-30 09:53 | PCPTNOTE ---
Pt currently on Mechanical vent and sedated. Pt not appropriate for skilled therapy at this time. Please re-order when pt becomes appropriate.
[2022-05-30] MEDS: MINERAL OIL/WHITE PETROLATUM OINTMENT 1 APPLIC EACH EYE ×2 (09:56→20:49)
[2022-05-30] MEDS: PANTOPRAZOLE SODIUM IV 40 MG VIAL IV PUSH ×2 (09:56→20:49)
[2022-05-30] MEDS: CLOPIDOGREL BISULFATE 75 MG TABLET FEED TUBE (09:57)
[2022-05-30] MEDS: METOPROLOL TARTRATE 12.5 MG TABLET PO ×2 (09:57→20:50)
[2022-05-30] MEDS: ATORVASTATIN 40 MG TABLET FEED TUBE (09:58)
[2022-05-30] MEDS: INSULIN GLARGINE (*BKC) 100 UNITS/ML 50 UNITS SUB-Q (10:00)
[2022-05-30] MEDS: FENTANYL 2,500MCG/NS250ML(*CRX 2,500 MCG/250 ML BAG 15 MCG IV CONT (10:13)
--- NOTE | 2022-05-30 11:33 | PM.IMPN ---
Progress Note: A&P Assessment and Plan (1) Acute respiratory failure with hypoxia: Code(s): J96.01 - Acute respiratory failure with hypoxia Status: Acute Assessment and Plan: Acute Respiratory failure secondary to congestive heart failure, volume overload and possible community-acquired pneumonia/aspiration pneumonia -intubated 05/24/2022, patient self-extubated on 05/25/2022 and was reintubated and was using accessory muscles of respiration. Continue full mechanical ventilation support to prevent hypoxemia/hypercarbia and end organ damage. -ABG reviewed -ventilator was adjusted Chest x-ray this morning: Airspace opacities in the mid and lower lung zones with a basilar predominance with worsening on the right, consistent with atelectasis versus pulmonary edema versus pneumonia. Stable small to moderate-sized pleural effusions. Cardiomegaly. Bronchodilators Patient did not respond well to Lasix or Bumex -fluid removal with hemodialysis which was started on 05/28/2022 -05/27/2022: Repeat blood cultures growing Staph epidermidis 07/16 bottles, it was MSSA -started cefazolin 05/29, and continue Flagyl -sedated with fentanyl, Versed, propofol infusion, daily sedation vacation maintain RASS of 0 to -1 (2) CAP (community acquired pneumonia): Code(s): J18.9 - Pneumonia, unspecified organism Status: Acute Assessment and Plan: See above (3) Acute anterior wall [place]: Code(s): I21.09 - ST elevation (STEMI) myocardial infarction involving other coronary artery of anterior wall Status: Acute Assessment and Plan: Patient has history of coronary disease with PCI done more than 12 years ago at [facility] for an [place] - elevated troponin and abnormal EKG -Cardiology evaluated the patient -appreciate cardiology recommendations, conservative management at this time and will plan to cardiac catheterization once his renal function stabilizes or improves Continue aspirin, Plavix, statin, -heparin infusion was discontinued per Cardiology -low-dose metoprolol was added 06/25/2014 05/25/2022: Echocardiogram showed technically attending examine because of obesity, LV enlargement with severe global hypokinesia, achiness of the distal anterior wall and apex. No significant evaluated dysfunction, EF of 30-35%, small circumferential pericardial effusion (4) Congestive heart failure: Code(s): I50.9 - Heart failure, unspecified Status: Acute Assessment and Plan: His most recent echo done in 08/04 showed diastolic dysfunction patient does have all the signs of congestive heart failure Echocardiogram as above -given his cardiomyopathy and congestive heart failure along with renal failure, cardiology following -dobutamine was discontinued on 05/28 due to arrhythmias/tachyarrhythmias -continue hydralazine and nitrates -unable to use Izaiah inhibitor or Arb due to renal dysfunction -will require fluid removal with dialysis (5) Coronary artery disease: Code(s): I25.10 - Atherosclerotic heart disease of [place] coronary artery without angina pectoris Status: Acute Assessment and Plan: See above (6) Hypertension: Qualifiers: Hypertension type: essential hypertension Qualified Code(s): I10 - Essential (primary) hypertension Code(s): I10 - Essential (primary) hypertension Status: Chronic Assessment and Plan: Blood pressures are stable -patient on hydralazine, isosorbide, metoprolol -monitor blood pressures (7) Pulmonary edema: Code(s): J81.1 - Chronic pulmonary edema Status: Acute Assessment and Plan: Patient was given Lasix on 05/25/2022, did not respond well to Bumex which was started on 05/26, patient did not respond to diuretics and/or dobutamine -fluid removal with dialysis (8) Type 1 diabetes mellitus: Qualifiers: Diabetes mellitus complication status: with hyperglycemia Qualified Code(s): E10.65 - Type 1 diabetes
[2022-05-30 12:33] LABS: Glucose Point of Care 323 mg/dl (65-105)
--- NOTE | 2022-05-30 12:42 | WPDINTPN ---
Progress Note: A&P Assessment and Plan (1) Acute respiratory failure with hypoxia: Code(s): J96.01 - Acute respiratory failure with hypoxia Status: Acute Assessment and Plan: Acute Respiratory failure secondary to congestive heart failure, volume overload and possible community-acquired pneumonia/aspiration pneumonia -intubated 05/24/2022, patient self-extubated on 05/25/2022 and was reintubated and was using accessory muscles of respiration. Continue full mechanical ventilation support to prevent hypoxemia/hypercarbia and end organ damage. Chest x-ray this morning: Airspace opacities in the mid and lower lung zones with a basilar predominance with worsening on the right, consistent with atelectasis versus pulmonary edema versus pneumonia.. Stable small to moderate-sized pleural effusions.. Cardiomegaly.. -continue Bronchodilators Patient did not respond well to Lasix or Bumex and dobutamine -fluid removal with hemodialysis which was started on 05/28/202205/23; Blood cultures growing staph epidermis 1 of 2, discontinued vancomycin -05/27/2022: Repeat blood cultures growing Staph epidermidis 2/2 bottles, it was MSSA -continue cefazolin 05/29, and continue Flagyl -sedated with fentanyl, Versed, propofol infusion, daily sedation vacation maintain RASS of 0 to -1 (2) CAP (community acquired pneumonia): Code(s): J18.9 - Pneumonia, unspecified organism Status: Acute Assessment and Plan: See above (3) Acute anterior wall [place]: Code(s): I21.09 - ST elevation (STEMI) myocardial infarction involving other coronary artery of anterior wall Status: Acute Assessment and Plan: Patient has history of coronary disease with PCI done more than 12 years ago at [facility] for an [place] - elevated troponin and abnormal EKG -Cardiology evaluated the patient -appreciate cardiology recommendations, conservative management at this time and will plan to cardiac catheterization once his renal function stabilizes or improves Continue aspirin, Plavix, statin, -status post heparin infusion x48 hours -low-dose metoprolol was added 06/25/2014 05/25/2022: Echocardiogram showed technically attending examine because of obesity, LV enlargement with severe global hypokinesia, achiness of the distal anterior wall and apex. No significant evaluated dysfunction, EF of 30-35%, small circumferential pericardial effusion (4) Congestive heart failure: Code(s): I50.9 - Heart failure, unspecified Status: Acute Assessment and Plan: His most recent echo done in 08/04 showed diastolic dysfunction patient does have all the signs of congestive heart failure Echocardiogram as above -given his cardiomyopathy and congestive heart failure along with renal failure, cardiology following -dobutamine was discontinued on 05/28 due to arrhythmias/tachyarrhythmias -continue hydralazine and nitrates -unable to use CARLOS-inhibitor or ARB -will require fluid removal with dialysis (5) Coronary artery disease: Code(s): I25.10 - Atherosclerotic heart disease of [place] coronary artery without angina pectoris Status: Acute Assessment and Plan: See above (6) Hypertension: Qualifiers: Hypertension type: essential hypertension Qualified Code(s): I10 - Essential (primary) hypertension Code(s): I10 - Essential (primary) hypertension Status: Chronic Assessment and Plan: Blood pressures are stable -patient on hydralazine, isosorbide, metoprolol -monitor blood pressures (7) Pulmonary edema: Code(s): J81.1 - Chronic pulmonary edema Status: Acute Assessment and Plan: Patient was given Lasix on 05/25/2022, discussed with Nephrology patient did not respond well to Bumex which was started on 05/26, patient did not respond to diuretics and/or dobutamine -fluid removal with dialysis (8) Type 1 diabetes mellitus: Qualifiers: Diabetes mellitus complication st
--- NOTE | 2022-05-30 12:46 | P.PNNP_ITS ---
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) * CPK mildly elevated -- follow trend * HD today and likely again on Wednesday * follow electrolytes, volume status, and clearance * follow trend of labs and UOP for possible renal recovery (2) Stage 3a chronic kidney disease: Code(s): N18.31 - Chronic kidney disease, stage 3a Status: Chronic Assessment and Plan: * creatinine was running ~ 1.5 - 1.6mg/dl in July 2020 * presumably due to his HTN, DM and vascular disease (3) Acute respiratory failure with hypoxia: Code(s): J96.01 - Acute respiratory failure with hypoxia Status: Acute Assessment and Plan: * thought to be secondary to CHF and possible pneumonia * currently on full ventilator support * serial CXRs with pulmonary edema versus pneumonia * still with issues related CHF/volume overload * continue fluid removal with dialysis as hemodynamics tolerate (4) Anemia: Code(s): D64.9 - Anemia, unspecified Status: Acute Assessment and Plan: * noted fluctuations since admission * anemia studies noted: * iron deficiency present * B12 and folate okay * LULU and CKD likely playing a role * s/p PRBC transfusion on 05/28 (hgb dropped to 6.8) * GI following - s/p EGD with results noted * Epogen with HD * follow trend of H/H (5) CAP (community acquired pneumonia): Code(s): J18.9 - Pneumonia, unspecified organism Status: Acute Assessment and Plan: * based on imaging to date * follow cultures - MSSA noted in blood cultures * on antibiotics (6) Acute anterior wall [place]: Code(s): I21.09 - ST elevation (STEMI) myocardial infarction involving other coronary artery of anterior wall Status: Acute Assessment and Plan: * known history of CAD * presented with elevated troponins and EKG changes * Cardiology following with recommendations noted * continue conservative therapy for now -- plan cardiac catheterization at a later date * continue ASA/plavix/heparin (7) Congestive heart failure: Code(s): I50.9 - Heart failure, unspecified Status: Acute Assessment and Plan: * previous echo in Jul 2020 with diastolic dysfunction * evidence of CHF noted on admission * poor response with IV diuretics and dobutamine * repeat Echo noted -- EF now 30 - 35% * continue fluid removal with dialysis (8) Pulmonary edema: Code(s): J81.1 - Chronic pulmonary edema Status: Acute Assessment and Plan: * attempts at diuresis failed * push fluid removal/ultrafiltration with dialysis * follow I/Os (9) Hypertension: Qualifiers: Hypertension type: essential hypertension Qualified Code(s): I10 - Essential (primary) hypertension Code(s): I10 - Essential (primary) hypertension Status: Chronic Assessment and Plan: * hypertensive on presentation * stable at this time * follow trend of hemodynamics
--- NOTE | 2022-05-30 12:46 | PM.PNNEP ---
Progress Note: A&P Assessment and Plan (1) Acute kidney injury: Code(s): N17.9 - Acute kidney failure, unspecified Status: Acute Assessment and Plan: multifactorial etiology: cardiac event/RI combination of hyperglycemia, hypertension, and hypoxia on presentation (?) volume depletion/prerenal factors (?) ongoing use of diuretics and CARLOS-I prior to admission NSAID use as an outpatient evaluation to date: renal ultrasound limited due to obesity - right kidney normal but unable to visualize left kidney urine electrolytes not done (but on diuretics CARPENTER AND JOINER) CPK mildly elevated -- follow trend HD today and likely again on Wednesday follow electrolytes, volume status, and clearance follow trend of labs and UOP for possible renal recovery (2) Stage 3a chronic kidney disease: Code(s): N18.31 - Chronic kidney disease, stage 3a Status: Chronic Assessment and Plan: creatinine was running ~ 1.5 - 1.6mg/dl in July 2020 presumably due to his HTN, DM and vascular disease (3) Acute respiratory failure with hypoxia: Code(s): J96.01 - Acute respiratory failure with hypoxia Status: Acute Assessment and Plan: thought to be secondary to CHF and possible pneumonia currently on full ventilator support serial CXRs with pulmonary edema versus pneumonia still with issues related CHF/volume overload continue fluid removal with dialysis as hemodynamics tolerate (4) Anemia: Code(s): D64.9 - Anemia, unspecified Status: Acute Assessment and Plan: noted fluctuations since admission anemia studies noted: iron deficiency present B12 and folate okay LLUU and CKD likely playing a role s/p PRBC transfusion on 05/28 (hgb dropped to 6.8) GI following - s/p EGD with results noted Epogen with HD follow trend of H/H (5) CAP (community acquired pneumonia): Code(s): J18.9 - Pneumonia, unspecified organism Status: Acute Assessment and Plan: based on imaging to date follow cultures - MSSA noted in blood cultures on antibiotics (6) Acute anterior wall [place]: Code(s): I21.09 - ST elevation (STEMI) myocardial infarction involving other coronary artery of anterior wall Status: Acute Assessment and Plan: known history of CAD presented with elevated troponins and EKG changes Cardiology following with recommendations noted continue conservative therapy for now -- plan cardiac catheterization at a later date continue ASA/plavix/heparin (7) Congestive heart failure: Code(s): I50.9 - Heart failure, unspecified Status: Acute Assessment and Plan: previous echo in Jul 2020 with diastolic dysfunction evidence of CHF noted on admission poor response with IV diuretics and dobutamine repeat Echo noted -- EF now 30 - 35% continue fluid removal with dialysis (8) Pulmonary edema: Code(s): J81.1 - Chronic pulmonary edema Status: Acute Assessment and Plan: attempts at diuresis failed push fluid removal/ultrafiltration with dialysis follow I/Os (9) Hypertension: Qualifiers: Hypertension type: essential hypertension Qualified Code(s): I10 - Essential (primary) hypertension Code(s): I10 - Essential (primary) hypertension Status: Chronic Assessment and Plan: hypertensive on presentation stable at this time follow trend of hemodynamics (10) Type 1 diabetes mellitus: Qualifiers: Diabetes mellitus complication status: with hyperglycemia Qualified Code(s): E10.65 - Type 1 diabetes mellitus with hyperglycemia Code(s): E10.9 - Type 1 diabetes mellitus without complications Status: Acute Assessment and Plan: follow accuchecks glycemic control Will continue to follow. Subjective Date/time seen: 05/30/22 12:46 Tolerating dialysis treatment at the time of my visit (seen on HD at ~ 12:30PM);
--- NOTE | 2022-05-30 17:14 | ECG_ITS ---
Measurements Intervals [place] Rate: 88 P: 38 UT: 160 QRS: 46 QRSD: 117 T: 128 QT: 351 QTc: 426 Interpretive Statements SINUS RHYTHM WITH OCCASIONAL VENTRICULAR PREMATURE COMPLEXES ANTERIOR MYOCARDIAL INFARCTION Recent POSSIBLE INFERIOR MYOCARDIAL INFARCTION [30 ms Q WAVE IN II/aVF], PROBABLY OLD NO SIGNIFICANT CHANGES Electronically Signed On 05-31-2022 14:40:23 DRILL RIG OPERATOR by Mell Howell M.D.
[2022-05-30 17:46] LABS: Glucose Point of Care 272 mg/dl (65-105)
[2022-05-30 17:58] LABS: Magnesium 2.6 mg/dL (1.6-2.3)
[2022-05-30 18:14] LABS: Alanine Aminotransferase 30 U/L (6-50); Albumin Level 3.4 g/dL (3.5-5.1); Alkaline Phosphatase 181 U/L (38-126); Anion Gap 12 mmol/L (8-16); Aspartate Amino Transferase 39 U/L (17-59); Bilirubin,Total 0.4 mg/dL (0.2-1.3); Blood Urea Nitrogen 54 mg/dL (9-20); Calcium 8.5 mg/dL (8.4-10.2); Carbon Dioxide 25 mmol/L (22-30); Chloride 95 mmol/L (98-107); Estimated CRCL calculation 25 ml/min; Estimated Glomerular Filt Rate 12; Glucose 294 mg/dL (65-110); Potassium 4.4 mmol/L (3.4-5.0); Sodium 132 mmol/L (137-145)
--- NOTE | 2022-05-30 18:55 | ECG_ITS ---
Measurements Intervals [place] Rate: 209 P: DC: 0 QRS: 132 QRSD: 152 T: -64 QT: 233 QTc: 434 Interpretive Statements UNCERTAIN TACHCYARDIA WITH A CHANGE IN AXIS, PROBABLY VENTRICULAR TACHYCARDIA RIGHTWARD AXIS COMPARED TO ECG 05/30/2022 17:18:11THE RHYTHM HAS CHANGED Electronically Signed On 05-31-2022 14:42:38 BILINGUAL INSIDE SALES REPRESENTATIVE by Mell Howell M.D.
[2022-05-30] MEDS: AMIODARONE 150 MG/D5W 100 ML 150 MG/100 ML BAG 600 MG IV CONT (19:05)
[2022-05-30] MEDS: AMIODARONE 360 MG/D5W 200 ML 360 MG/200 ML BAG 33.33 MG IV CONT (19:15)
[2022-05-30] MEDS: MIDAZOLAM 100MG/NS 100ML(*CRX) 100 MG/100 ML BAG IV CONT (20:47)
[2022-05-30] MEDS: CLINDAMYCIN 900 MG/D5W 50 ML 900 MG/50 ML PIGGYBACK 100 MG IVPB (20:47)
[2022-05-30] MEDS: EPOETIN ALFA-EPBX 10,000 UNITS/ML VIAL 10000 UNITS IV PUSH (20:50)
[2022-05-30 23:51] LABS: Glucose Point of Care 357 mg/dl (65-105)
[2022-05-30] MEDS: AMIODARONE 360 MG/D5W 200 ML 360 MG/200 ML BAG 16.67 MG IV CONT (23:59)
[2022-05-31] VITALS (77 sets, daily range): BP systolic 121–189; BP diastolic 68–103; PULSE 62–205; RESP 0–26; TEMP 36.8–37.9; O2SAT 95–99
[2022-05-31] MEDS: INSULIN HUMAN REGULAR (*BKC) 100 UNITS/ML 8 UNITS IV PUSH (00:10)
[2022-05-31] MEDS: hydrALAZINE HCL 20 MG/ML VIAL 10 MG IV PUSH (01:18)
[2022-05-31] MEDS: AMIODARONE 150 MG/D5W 100 ML 150 MG/100 ML BAG 600 MG IV CONT ×2 (01:42→16:51)
[2022-05-31] MEDS: ALBUTEROL SULFATE NEB 2.5 MG/3 ML INH INHALATION ×4 (03:14→20:00)
[2022-05-31] MEDS: IPRATROPIUM BR 0.02% INH SOLN 0.5 MG/2.5 ML VIAL INHALATION ×4 (03:14→20:00)
[2022-05-31] MEDS: CLINDAMYCIN 900 MG/D5W 50 ML 900 MG/50 ML PIGGYBACK 100 MG IVPB ×3 (04:14→21:28)
[2022-05-31 04:34] LABS: Hematocrit 26.5 % (42.0-52.0); Hemoglobin 8.2 g/dL (14.0-18.0); Mean Corpuscular HGB Conc 30.9 g/dl (32-36); Mean Corpuscular Hemoglobin 27.9 pg (26-34); Mean Corpuscular Volume 90.1 fl (80-100); Mean Platelet Volume 11.3 fl (7.4-10.4); Platelet Count Result 279 k/mm3 (150-375); Red Blood Count 2.94 M/mm3 (4.6-6.20); Red Cell Distribution Width 14.6 % (11.5-14.5); White Blood Count 17.9 K/mm3 (4.5-10.0)
[2022-05-31 04:43] LABS: Alanine Aminotransferase 29 U/L (6-50); Albumin Level 3.2 g/dL (3.5-5.1); Alkaline Phosphatase 162 U/L (38-126); Anion Gap 15 mmol/L (8-16); Aspartate Amino Transferase 33 U/L (17-59); Bilirubin,Total 0.3 mg/dL (0.2-1.3); Blood Urea Nitrogen 66 mg/dL (9-20); Calcium 8.3 mg/dL (8.4-10.2); Carbon Dioxide 21 mmol/L (22-30); Chloride 93 mmol/L (98-107); Estimated CRCL calculation 22 ml/min; Estimated Glomerular Filt Rate 10; Glucose 415 mg/dL (65-110); Magnesium 2.7 mg/dL (1.6-2.3); Phosphorus 8.8 mg/dL (2.5-4.5); Potassium 4.6 mmol/L (3.4-5.0); Sodium 129 mmol/L (137-145)
[2022-05-31] MEDS: hydrALAZINE HCL 25 MG TABLET PO ×3 (05:05→18:08)
[2022-05-31] MEDS: metroNIDAZOLE 500 MG/ISO 100ML 500 MG/100 ML BAG 100 MG IVPB ×3 (05:05→21:28)
[2022-05-31] MEDS: ISOSORBIDE DINITRATE 5 MG TABLET PO ×3 (05:05→18:08)
[2022-05-31] MEDS: CENTRAL LINE FLUSH 10 ML IV PUSH ×8 (05:06→21:29)
[2022-05-31] MEDS: INSULIN ASPART (*BKC) 100 UNITS/ML 12 UNITS SUB-Q (05:08)
[2022-05-31 05:39] LABS: Base Excess ABG -5.5 mEq/l (+/-2.0); Carboxyhemoglobin 0.2 % THb (0-2.0); Fractional Inspired Oxygen 30 %; HCO3 ABG 20.1 mEq/l (22.0-26.0); Methemoglobin ABG 0.4 %THb (0-1.5); Oxygen Content ABG 12.7 %vol (16.0-22.0); Oxygen Saturation ABG 97.2 % (95.0-100.0); Oxyhemoglobin 95.6 % THb (90.0-100.0); PCO2 ABG 39.3 mmHg (35.0-45.0); PO2 ABG 100.7 mmHg (80.0-100.0); PO2 FiO2 Ratio Arterial Blood 3.36 %; Reduced Hemoglobin 3.8 %THb (0-5.0); Total Hemoglobin 9.3 g/dL (12.0-18.0); pH ABG 7.326 (7.350-7.450)
[2022-05-31 05:55] LABS: Arterial Blood Gas PEEP 10 cmH2O; Arterial Blood Gas Vent Mode CMV; Arterial Blood Gas Ventilator rate 22 /MIN; Device VENTILATOR; Modified Allen's Test Pass; Site Drawn RIGHT RADIAL
[2022-05-31 05:56] LABS: Arterial Blood Gas Tidal Volume 500 ml
[2022-05-31 06:46] LABS: Glucose Point of Care 480 mg/dl (65-105)
[2022-05-31] MEDS: AMIODARONE 360 MG/D5W 200 ML 360 MG/200 ML BAG 33.33 MG IV CONT ×3 (06:53→19:08)
[2022-05-31 08:24] LABS: Glucose Point of Care 459 mg/dl (65-105)
[2022-05-31] MEDS: INSULIN HUMAN REGULAR (*BKC) 100 UNITS in SODIUM CHLORIDE 0.9% IV 99 ML 8.4 UNITS IV CONT (08:29)
--- NOTE | 2022-05-31 08:45 | WPDINTPN ---
Progress Note: A&P Assessment and Plan (1) Ventricular arrhythmia: Code(s): I49.9 - Cardiac arrhythmia, unspecified Status: Acute Assessment and Plan: Patient with frequent PVCs and nonsustained V-tach on 05/28 -dobutamine was discontinued -overnight patient had multiple episodes of ventricular tachycardia, started on amiodarone bolus and infusion 05/30 -will increase metoprolol to 25mg PO Q12H -will maintain potassium >4.0 and magnesium >2.5 (2) Acute respiratory failure with hypoxia: Code(s): J96.01 - Acute respiratory failure with hypoxia Status: Acute Assessment and Plan: Acute Respiratory failure secondary to congestive heart failure, volume overload and possible community-acquired pneumonia/aspiration pneumonia -intubated 05/24/2022, patient self-extubated on 05/25/2022 and was reintubated and was using accessory muscles of respiration. Continue full mechanical ventilation support to prevent hypoxemia/hypercarbia and end organ damage. Chest x-ray this morning: Airspace opacities in the mid and lower lung zones with a basilar predominance with worsening on the right, consistent with atelectasis versus pulmonary edema versus pneumonia.. Stable small to moderate-sized pleural effusions.. Cardiomegaly.. -continue Bronchodilators Patient did not respond well to Lasix or Bumex and dobutamine -fluid removal with hemodialysis which was started on 05/28/202205/23; Blood cultures growing staph epidermis 1 of 2, discontinued vancomycin -05/27/2022: Repeat blood cultures growing Staph epidermidis 2/2 bottles, it was MRSA -cefazolin was switched to vancomycin, patient went into SVT after vancomycin was started, discontinued and patient placed on clindamycin, - continue Flagyl for possible aspiration -sedated with fentanyl, Versed, OFF propofol , daily sedation vacation maintain RASS of 0 to -1 (3) CAP (community acquired pneumonia): Code(s): J18.9 - Pneumonia, unspecified organism Status: Acute Assessment and Plan: See above (4) Acute anterior wall [place]: Code(s): I21.09 - ST elevation (STEMI) myocardial infarction involving other coronary artery of anterior wall Status: Acute Assessment and Plan: Patient has history of coronary disease with PCI done more than 12 years ago at [facility] for an [place] - elevated troponin and abnormal EKG -Cardiology evaluated the patient -appreciate cardiology recommendations, conservative management at this time and will plan to cardiac catheterization once his renal function stabilizes or improves Continue aspirin, Plavix, statin, -status post heparin infusion x48 hours -low-dose metoprolol was added 06/25/2014 05/25/2022: Echocardiogram showed technically attending examine because of obesity, LV enlargement with severe global hypokinesia, achiness of the distal anterior wall and apex. No significant evaluated dysfunction, EF of 30-35%, small circumferential pericardial effusion (5) Congestive heart failure: Code(s): I50.9 - Heart failure, unspecified Status: Acute Assessment and Plan: His most recent echo done in 08/04 showed diastolic dysfunction patient does have all the signs of congestive heart failure Echocardiogram as above -given his cardiomyopathy and congestive heart failure along with renal failure, cardiology following -dobutamine was discontinued on 05/28 due to arrhythmias/tachyarrhythmias -continue hydralazine and nitrates and beta-yesenia -unable to use CARLOS-inhibitor or ARB -will require fluid removal with dialysis (6) Coronary artery disease: Code(s): I25.10 - Atherosclerotic heart disease of [place] coronary artery without angina pectoris Status: Acute Assessment and Plan: See above (7) Hypertension: Qualifiers: Hypertension type: essential hypertension Qualified Code(s): I10 - Essential (primary) hypertension Code(s): I10 - Essential (primary) hypertens
[2022-05-31 09:45] LABS: Glucose Point of Care 443 mg/dl (65-105)
[2022-05-31] MEDS: METOPROLOL TARTRATE 25 MG TABLET PO ×2 (09:46→21:28)
[2022-05-31] MEDS: CLOPIDOGREL BISULFATE 75 MG TABLET FEED TUBE (09:48)
[2022-05-31] MEDS: ATORVASTATIN 40 MG TABLET FEED TUBE (09:48)
[2022-05-31] MEDS: PANTOPRAZOLE SODIUM IV 40 MG VIAL IV PUSH ×2 (09:48→21:29)
[2022-05-31] MEDS: MINERAL OIL/WHITE PETROLATUM OINTMENT 1 APPLIC EACH EYE ×2 (09:48→21:29)
[2022-05-31] MEDS: INSULIN GLARGINE (*BKC) 100 UNITS/ML 50 UNITS SUB-Q (09:51)
[2022-05-31 10:25] LABS: Glucose Point of Care 424 mg/dl (65-105)
--- NOTE | 2022-05-31 10:51 | P.PNNP_ITS ---
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) * CPK mildly elevated -- follow trend * HD yesterday and likely again tomorrow * follow electrolytes, volume status, and clearance * follow trend of labs and UOP for possible renal recovery (2) Stage 3a chronic kidney disease: Code(s): N18.31 - Chronic kidney disease, stage 3a Status: Chronic Assessment and Plan: * creatinine was running ~ 1.5 - 1.6mg/dl in July 2020 * presumably due to his HTN, DM and vascular disease (3) Acute respiratory failure with hypoxia: Code(s): J96.01 - Acute respiratory failure with hypoxia Status: Acute Assessment and Plan: * thought to be secondary to CHF and possible pneumonia * currently on full ventilator support * serial CXRs with pulmonary edema versus pneumonia * still with issues related CHF/volume overload * continue fluid removal with dialysis as hemodynamics tolerate (4) Anemia: Code(s): D64.9 - Anemia, unspecified Status: Acute Assessment and Plan: * noted fluctuations since admission * anemia studies noted: * iron deficiency present * B12 and folate okay * LULU and CKD likely playing a role * s/p PRBC transfusion on 05/28 (hgb dropped to 6.8) * GI following - s/p EGD with results noted * Epogen with HD * follow trend of H/H (5) CAP (community acquired pneumonia): Code(s): J18.9 - Pneumonia, unspecified organism Status: Acute Assessment and Plan: * based on imaging to date * follow cultures - MSSA noted in blood cultures * on antibiotics (6) Acute anterior wall [place]: Code(s): I21.09 - ST elevation (STEMI) myocardial infarction involving other coronary artery of anterior wall Status: Acute Assessment and Plan: * known history of CAD * presented with elevated troponins and EKG changes * Cardiology following with recommendations noted * continue conservative therapy for now -- plan cardiac catheterization at a later date * continue ASA/plavix/heparin (7) Congestive heart failure: Code(s): I50.9 - Heart failure, unspecified Status: Acute Assessment and Plan: * previous echo in Jul 2020 with diastolic dysfunction * evidence of CHF noted on admission * poor response with IV diuretics and dobutamine * repeat Echo noted -- EF now 30 - 35% * continue fluid removal with dialysis (8) Pulmonary edema: Code(s): J81.1 - Chronic pulmonary edema Status: Acute Assessment and Plan: * attempts at diuresis failed * push fluid removal/ultrafiltration with dialysis * follow I/Os (9) Hypertension: Qualifiers: Hypertension type: essential hypertension Qualified Code(s): I10 - Essential (primary) hypertension Code(s): I10 - Essential (primary) hypertension Status: Chronic Assessment and Plan: * hypertensive on presentation * stable at this time * follow trend of hemodynamics
--- NOTE | 2022-05-31 10:51 | PM.PNNEP ---
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) CPK mildly elevated -- follow trend HD yesterday and likely again tomorrow follow electrolytes, volume status, and clearance follow trend of labs and UOP for possible renal recovery (2) Stage 3a chronic kidney disease: Code(s): N18.31 - Chronic kidney disease, stage 3a Status: Chronic Assessment and Plan: creatinine was running ~ 1.5 - 1.6mg/dl in July 2020 presumably due to his HTN, DM and vascular disease (3) Acute respiratory failure with hypoxia: Code(s): J96.01 - Acute respiratory failure with hypoxia Status: Acute Assessment and Plan: thought to be secondary to CHF and possible pneumonia currently on full ventilator support serial CXRs with pulmonary edema versus pneumonia still with issues related CHF/volume overload continue fluid removal with dialysis as hemodynamics tolerate (4) Anemia: Code(s): D64.9 - Anemia, unspecified Status: Acute Assessment and Plan: noted fluctuations since admission anemia studies noted: iron deficiency present B12 and folate okay LULU and CKD likely playing a role s/p PRBC transfusion on 05/28 (hgb dropped to 6.8) GI following - s/p EGD with results noted Epogen with HD follow trend of H/H (5) CAP (community acquired pneumonia): Code(s): J18.9 - Pneumonia, unspecified organism Status: Acute Assessment and Plan: based on imaging to date follow cultures - MSSA noted in blood cultures on antibiotics (6) Acute anterior wall [place]: Code(s): I21.09 - ST elevation (STEMI) myocardial infarction involving other coronary artery of anterior wall Status: Acute Assessment and Plan: known history of CAD presented with elevated troponins and EKG changes Cardiology following with recommendations noted continue conservative therapy for now -- plan cardiac catheterization at a later date continue ASA/plavix/heparin (7) Congestive heart failure: Code(s): I50.9 - Heart failure, unspecified Status: Acute Assessment and Plan: previous echo in Jul 2020 with diastolic dysfunction evidence of CHF noted on admission poor response with IV diuretics and dobutamine repeat Echo noted -- EF now 30 - 35% continue fluid removal with dialysis (8) Pulmonary edema: Code(s): J81.1 - Chronic pulmonary edema Status: Acute Assessment and Plan: attempts at diuresis failed push fluid removal/ultrafiltration with dialysis follow I/Os (9) Hypertension: Qualifiers: Hypertension type: essential hypertension Qualified Code(s): I10 - Essential (primary) hypertension Code(s): I10 - Essential (primary) hypertension Status: Chronic Assessment and Plan: hypertensive on presentation stable at this time follow trend of hemodynamics (10) Type 1 diabetes mellitus: Qualifiers: Diabetes mellitus complication status: with hyperglycemia Qualified Code(s): E10.65 - Type 1 diabetes mellitus with hyperglycemia Code(s): E10.9 - Type 1 diabetes mellitus without complications Status: Acute Assessment and Plan: follow accuchecks glycemic control Will continue to follow. Subjective Date/time seen: 05/31/22 10:51 Tolerated dialysis treatment yesterday with ~ 4L fluid removal; issues with ve
[2022-05-31 11:07] LABS: Glucose Point of Care 402 mg/dl (65-105)
[2022-05-31 12:47] LABS: Glucose Point of Care 401 mg/dl (65-105)
[2022-05-31 13:07] LABS: Glucose Point of Care 367 mg/dl (65-105)
[2022-05-31] MEDS: INSULIN HUMAN REGULAR (*BKC) 100 UNITS in SODIUM CHLORIDE 0.9% IV 99 ML 21.5 UNITS IV CONT (13:36)
[2022-05-31 14:29] LABS: Glucose Point of Care 313 mg/dl (65-105)
--- NOTE | 2022-05-31 15:04 | ECG_ITS ---
Measurements Intervals [place] Rate: 68 P: 39 SD: 176 QRS: 64 QRSD: 127 T: 129 QT: 399 QTc: 426 Interpretive Statements SINUS RHYTHM POSSIBLE ANTERIOR MYOCARDIAL INFARCTION [30 ms Q WAVE IN V3/V4, OR R < 0.2 mV IN V4], OF INDETERMINATE AGE LATERAL ST AND T-WAVE ABNORMALITY, CONSIDER ISCHEMIA ABNORMAL ECG Electronically Signed On 06-01-2022 10:26:58 MEMBER SERVICES COORDINATOR by Bay Slater M.D.
[2022-05-31] MEDS: METOPROLOL TARTRATE INJ 5 MG/5 ML VIAL (16:22)
[2022-05-31] MEDS: METOCLOPRAMIDE HCL INJ 10 MG/2 ML VIAL 5 MG IV PUSH (16:22)
[2022-05-31] MEDS: METOPROLOL TARTRATE INJ 5 MG/5 ML VIAL IV PUSH (16:52)
[2022-05-31] MEDS: AMIODARONE 150 MG/D5W 100 ML 150 MG/100 ML BAG 600 MG (16:53)
[2022-05-31 16:57] LABS: Glucose Point of Care 288 mg/dl (65-105)
[2022-05-31 16:57] LABS: Glucose Point of Care 243 mg/dl (65-105)
[2022-05-31 17:02] LABS: Glucose Point of Care 226 mg/dl (65-105)
[2022-05-31] MEDS: dilTIAZem HCl INJ 25 MG/5 ML VIAL 10 MG IV PUSH (17:59)
[2022-05-31 18:12] LABS: Glucose Point of Care 197 mg/dl (65-105)
--- NOTE | 2022-05-31 18:31 | P.PNCA_ITS ---
Progress Note: A&P Assessment and Plan (1) Acute anterior wall [place]: Code(s): I21.09 - ST elevation (STEMI) myocardial infarction involving other coronary artery of anterior wall Status: Acute Assessment and Plan: Late presentation anterior wall infarction. Fortunately BP and HR stable. * Appears to have a completed anterior infarction * Echo EF 30-35%, severe hypokinesis to akinesis of the distal anterior wall and apex. * Eventual ischemia evaluation depending on the patient's course * Continue plavix, statin * Added metoprolol, BP tolerating well. * Hoping the patient can get enough fluid off with dialysis and we can consider weaning and assessing his mental status. Continue medical therapy for heart failure and cardiomyopathy. (2) Ventricular tachycardia: Code(s): I47.20 - Ventricular tachycardia, unspecified Status: Acute Assessment and Plan: Patient has a intermittent tachycardia, suspect ventricular tachycardia rather than SVT. * EKG does not show any acute ischemic changes to suggest the arrhythmias from ischemia or another infarction * Likely this is due to irritability from his previously infarcted myocardium * Potassium, magnesium on oxygen levels are good * Not responding well to amiodarone boluses and beta-yesenia * Will try lidocaine IV (3) Acute combined systolic and diastolic congestive heart failure: Code(s): I50.41 - Acute combined systolic (congestive) and diastolic (congestive) heart failure Status: Acute Assessment and Plan: Cardiomyopathy, EF 30-35%, with acute CHF. * Continue hydralazine +nitrates * Volume removal with dialysis. * Continue low-dose metoprolol. (4) LULU (acute kidney injury): Code(s): N17.9 - Acute kidney failure, unspecified Status: Acute Assessment and Plan: Creatinine continues to rise, hopefully will peak soon. * Progressive volume overload * Started dialysis 05/28/2022. * Followed by Dr. Kincaid (5) Anemia: Code(s): D64.9 - Anemia, unspecified Status: Acute Assessment and Plan: Heparin discontinued, remains on Plavix. * Add aspirin if blood count improves (6) Acute respiratory failure with hypoxia: Code(s): J96.01 - Acute respiratory failure with hypoxia Status: Acute Assessment and Plan: Pneumonia + CHF. * Intubated, an antibiotics. Plan Subjective Date/time seen: Cardiology follow up for STEMI, cardiomyopathy, CHF 05/29/2022: Started on hemodialysis yesterday.? Remains intubated and sedated in the ICU.? 05/31/22 18:31: Pt developed a wide complex tachycardia yesterday, more likely V-tach rather than SVT, and given a couple boluses of amiodarone last night and started on amiodarone drip. Has had more intermittent spells this afternoon evening. Metoprolol per feeding tube has been increased and electrolytes checked. He has been given metoprolol IV push x2, another bolus of amiodarone, and a trial of Cardizem 10 mg IV push. His episodes are self terminated. Remains on a vent, sedated. Had dialysis yesterday and likely will get it Wednesday. Being treated for pneumonia. Review of Systems Review of Systems: Review of systems obtained from the patient's nurse, Dr. Fuentes and EMR ROS unobtainable: Yes unobtainable due to endotracheal tube, unobtainable due to medical condition and unobtainable due to mental status Exam Narrative: Obese male w
--- NOTE | 2022-05-31 18:31 | PM.PNCARD ---
Progress Note: A&P Assessment and Plan (1) Acute anterior wall [place]: Code(s): I21.09 - ST elevation (STEMI) myocardial infarction involving other coronary artery of anterior wall Status: Acute Assessment and Plan: Late presentation anterior wall infarction. Fortunately BP and HR stable. Appears to have a completed anterior infarction Echo EF 30-35%, severe hypokinesis to akinesis of the distal anterior wall and apex. Eventual ischemia evaluation depending on the patient's course Continue plavix, statin Added metoprolol, BP tolerating well. Hoping the patient can get enough fluid off with dialysis and we can consider weaning and assessing his mental status. Continue medical therapy for heart failure and cardiomyopathy. (2) Ventricular tachycardia: Code(s): I47.20 - Ventricular tachycardia, unspecified Status: Acute Assessment and Plan: Patient has a intermittent tachycardia, suspect ventricular tachycardia rather than SVT. EKG does not show any acute ischemic changes to suggest the arrhythmias from ischemia or another infarction Likely this is due to irritability from his previously infarcted myocardium Potassium, magnesium on oxygen levels are good Not responding well to amiodarone boluses and beta-yesenia Will try lidocaine IV (3) Acute combined systolic and diastolic congestive heart failure: Code(s): I50.41 - Acute combined systolic (congestive) and diastolic (congestive) heart failure Status: Acute Assessment and Plan: Cardiomyopathy, EF 30-35%, with acute CHF. Continue hydralazine +nitrates Volume removal with dialysis. Continue low-dose metoprolol. (4) LULU (acute kidney injury): Code(s): N17.9 - Acute kidney failure, unspecified Status: Acute Assessment and Plan: Creatinine continues to rise, hopefully will peak soon. Progressive volume overload Started dialysis 05/28/2022. Followed by Dr. Kincaid (5) Anemia: Code(s): D64.9 - Anemia, unspecified Status: Acute Assessment and Plan: Heparin discontinued, remains on Plavix. Add aspirin if blood count improves (6) Acute respiratory failure with hypoxia: Code(s): J96.01 - Acute respiratory failure with hypoxia Status: Acute Assessment and Plan: Pneumonia + CHF. Intubated, an antibiotics. Plan Subjective Date/time seen: Cardiology follow up for STEMI, cardiomyopathy, CHF 05/29/2022: Started on hemodialysis yesterday.? Remains intubated and sedated in the ICU.? 05/31/22 18:31: Pt developed a wide complex tachycardia yesterday, more likely V-tach rather than SVT, and given a couple boluses of amiodarone last night and started on amiodarone drip. Has had more intermittent spells this afternoon evening. Metoprolol per feeding tube has been increased and electrolytes checked. He has been given metoprolol IV push x2, another bolus of amiodarone, and a trial of Cardizem 10 mg IV push. His episodes are self terminated. Remains on a vent, sedated. Had dialysis yesterday and likely will get it Wednesday. Being treated for pneumonia. Review of Systems Review of Systems: Review of systems obtained from the patient's nurse, Dr. Fuentes and EMR ROS unobtainable: Yes unobtainable due to endotracheal tube, unobtainable due to medical condition and unobtainable due to mental status Exam Narrative: Obese male who is sedated and on a ventilator, multiple tubes and lines HENMT: Mouth: Yes moist mucous membranes Eyes: General: appearance normal, both eyes and all related structures Resp: Effort & Inspection: normal respiratory effort Auscultation: diminished lung sounds Cardio: Rate: regular rate and tachycardic Rhythm: abnormal rhythm Heart sounds: no murmurs GI: GI Palp: Yes Soft to palpation and No Tenderness to palpation present (GI) Neuro: Other: Intubated and sedated Extrem: Other: Moderate edema of the hands
[2022-05-31] MEDS: INSULIN HUMAN REGULAR (*BKC) 100 UNITS in SODIUM CHLORIDE 0.9% IV 99 ML 14.4 UNITS IV CONT (19:07)
[2022-05-31 19:09] LABS: Glucose Point of Care 180 mg/dl (65-105)
[2022-05-31 20:29] LABS: Glucose Point of Care 153 mg/dl (65-105)
[2022-05-31 21:36] LABS: Glucose Point of Care 123 mg/dl (65-105)
[2022-05-31 22:20] LABS: Glucose Point of Care 114 mg/dl (65-105)
[2022-05-31 23:07] LABS: Glucose Point of Care 111 mg/dl (65-105)
[2022-06-01] VITALS (52 sets, daily range): BP systolic 105–212; BP diastolic 66–107; PULSE 53–125; RESP 14–28; TEMP 36–37.8; O2SAT 95–100
[2022-06-01] MEDS: hydrALAZINE HCL 25 MG TABLET PO ×4 (00:09→17:10)
[2022-06-01] MEDS: ISOSORBIDE DINITRATE 5 MG TABLET PO ×4 (00:09→17:11)
[2022-06-01] MEDS: AMIODARONE 360 MG/D5W 200 ML 360 MG/200 ML BAG 33.33 MG IV CONT ×5 (00:23→22:44)
[2022-06-01 01:27] LABS: Glucose Point of Care 103 mg/dl (65-105)
[2022-06-01 01:27] LABS: Glucose Point of Care 100 mg/dl (65-105)
[2022-06-01] MEDS: IPRATROPIUM BR 0.02% INH SOLN 0.5 MG/2.5 ML VIAL INHALATION ×4 (02:03→20:25)
[2022-06-01] MEDS: ALBUTEROL SULFATE NEB 2.5 MG/3 ML INH INHALATION ×4 (02:03→20:25)
[2022-06-01 02:33] LABS: Glucose Point of Care 105 mg/dl (65-105)
[2022-06-01 04:44] LABS: Glucose Point of Care 93 mg/dl (65-105)
[2022-06-01 04:44] LABS: Glucose Point of Care 99 mg/dl (65-105)
[2022-06-01 04:51] LABS: Basophils Absolute Auto 0.1 K/mm3 (0.0-0.1); Basophils Percent Auto 0.4 % (0.2-1.2); Eosinophils Absolute Auto 0.1 K/mm3 (0-0.3); Eosinophils Percent Auto 0.6 % (0-4.4); Hematocrit 27.3 % (42.0-52.0); Hemoglobin 8.6 g/dL (14.0-18.0); Immature Granulocyte Absolute 0.23 K/mm3 (0.00-0.031); Immature Granulocyte Percent A 1.4 % (0-0.5); Lymphocytes Absolute Auto 0.73 K/mm3 (0.9-3.2); Lymphocytes Percent Auto 4.5 % (18.3-44.2); Mean Corpuscular HGB Conc 31.5 g/dl (32-36); Mean Corpuscular Hemoglobin 28.4 pg (26-34); Mean Corpuscular Volume 90.1 fl (80-100); Mean Platelet Volume 10.8 fl (7.4-10.4); Monocytes Absolute Auto 1.3 K/mm3 (0.1-0.6); Monocytes Percent Auto 8.3 % (2.6-8.5); Neutrophils Absolute Auto 13.7 K/mm3 (1.3-6.7); Neutrophils Percent Auto 84.8 % (45.5-73.1); Nucleated Red Blood Cells Perc 0.2 % (0.0-0.2); Platelet Count Result 292 k/mm3 (150-375); Red Blood Count 3.03 M/mm3 (4.6-6.20); Red Cell Distribution Width 14.8 % (11.5-14.5); White Blood Count 16.2 K/mm3 (4.5-10.0)
[2022-06-01 05:07] LABS: Alanine Aminotransferase 28 U/L (6-50); Albumin Level 3.2 g/dL (3.5-5.1); Alkaline Phosphatase 198 U/L (38-126); Anion Gap 9 mmol/L (8-16); Aspartate Amino Transferase 32 U/L (17-59); Bilirubin,Total 0.2 mg/dL (0.2-1.3); Blood Urea Nitrogen 82 mg/dL (9-20); Calcium 8.2 mg/dL (8.4-10.2); Carbon Dioxide 28 mmol/L (22-30); Chloride 95 mmol/L (98-107); Estimated CRCL calculation 19 ml/min; Estimated Glomerular Filt Rate 9; Glucose 113 mg/dL (65-110); Magnesium 2.8 mg/dL (1.6-2.3); Phosphorus 7.8 mg/dL (2.5-4.5); Potassium 3.9 mmol/L (3.4-5.0); Sodium 132 mmol/L (137-145); Triglycerides 67 mg/dL (<150)
[2022-06-01] MEDS: CLINDAMYCIN 900 MG/D5W 50 ML 900 MG/50 ML PIGGYBACK 100 MG IVPB ×3 (05:32→21:21)
[2022-06-01 05:33] LABS: Alveolar/Arterial O2 Gradient 87.8 mmHg; Base Excess ABG 0.3 mEq/l (+/-2.0); Carboxyhemoglobin 0.3 % THb (0-2.0); Fractional Inspired Oxygen 30 %; HCO3 ABG 25.8 mEq/l (22.0-26.0); Methemoglobin ABG 0.2 %THb (0-1.5); Oxygen Content ABG 15.2 %vol (16.0-22.0); Oxygen Saturation ABG 94.2 % (95.0-100.0); Oxyhemoglobin 92.6 % THb (90.0-100.0); PCO2 ABG 45.3 mmHg (35.0-45.0); PO2 ABG 72.9 mmHg (80.0-100.0); PO2 FiO2 Ratio Arterial Blood 2.43 %; Reduced Hemoglobin 6.9 %THb (0-5.0); Total Hemoglobin 11.6 g/dL (12.0-18.0); pH ABG 7.373 (7.350-7.450)
[2022-06-01] MEDS: metroNIDAZOLE 500 MG/ISO 100ML 500 MG/100 ML BAG 100 MG IVPB (05:33)
[2022-06-01] MEDS: FENTANYL 2,500MCG/NS250ML(*CRX 2,500 MCG/250 ML BAG IV CONT (05:33)
[2022-06-01 05:35] LABS: Arterial Blood Gas Vent Mode CMV; Arterial Blood Gas Ventilator rate 22 /MIN; Device VENTILATOR; Modified Allen's Test Pass; Site Drawn RIGHT RADIAL
[2022-06-01 05:36] LABS: Arterial Blood Gas PEEP 10 cmH2O; Arterial Blood Gas Tidal Volume 500 ml
[2022-06-01] MEDS: MIDAZOLAM 100MG/NS 100ML(*CRX) 100 MG/100 ML BAG IV CONT (05:38)
[2022-06-01] MEDS: CENTRAL LINE FLUSH 10 ML IV PUSH ×8 (06:18→21:22)
[2022-06-01 06:22] LABS: Glucose Point of Care 139 mg/dl (65-105)
[2022-06-01 06:22] LABS: Glucose Point of Care 120 mg/dl (65-105)
[2022-06-01 07:00] LABS: Glucose Point of Care 125 mg/dl (65-105)
[2022-06-01 08:06] LABS: Glucose Point of Care 134 mg/dl (65-105)
[2022-06-01] MEDS: SODIUM CHLORIDE 0.9% IV 1,000 ML 999 ML IV CONT (08:40)
[2022-06-01 08:57] LABS: Glucose Point of Care 118 mg/dl (65-105)
[2022-06-01] MEDS: EPOETIN ALFA-EPBX 10,000 UNITS/ML VIAL 10000 UNITS IV PUSH (08:57)
[2022-06-01] MEDS: ATORVASTATIN 40 MG TABLET FEED TUBE (09:49)
[2022-06-01] MEDS: CLOPIDOGREL BISULFATE 75 MG TABLET FEED TUBE (09:49)
[2022-06-01] MEDS: PANTOPRAZOLE SODIUM IV 40 MG VIAL IV PUSH ×2 (09:51→20:10)
[2022-06-01] MEDS: INSULIN GLARGINE (*BKC) 100 UNITS/ML 50 UNITS SUB-Q ×2 (09:51→20:09)
[2022-06-01] MEDS: MINERAL OIL/WHITE PETROLATUM OINTMENT 1 APPLIC EACH EYE ×2 (09:52→20:10)
[2022-06-01] MEDS: METOPROLOL TARTRATE 25 MG TABLET PO ×2 (10:11→20:10)
[2022-06-01 10:19] LABS: Glucose Point of Care 119 mg/dl (65-105)
--- NOTE | 2022-06-01 10:35 | WPDINTPN ---
Progress Note: A&P Assessment and Plan (1) Ventricular arrhythmia: Code(s): I49.9 - Cardiac arrhythmia, unspecified Status: Acute Assessment and Plan: Patient with frequent PVCs and nonsustained V-tach on 05/28 -dobutamine was discontinued -overnight patient had multiple episodes of ventricular tachycardia, started on amiodarone bolus and infusion 05/30 -lidocaine infusion started 05/31 by Cardiology -continue metoprolol to 25mg PO Q12H -will maintain potassium >4.0 and magnesium >2.5 (2) Acute respiratory failure with hypoxia: Code(s): J96.01 - Acute respiratory failure with hypoxia Status: Acute Assessment and Plan: Acute Respiratory failure secondary to congestive heart failure, volume overload and possible community-acquired pneumonia/aspiration pneumonia -intubated 05/24/2022, patient self-extubated on 05/25/2022 and was reintubated and was using accessory muscles of respiration. Continue full mechanical ventilation support to prevent hypoxemia/hypercarbia and end organ damage. Chest x-ray this morning: Airspace opacities in the mid and lower lung zones with a basilar predominance with worsening on the right, consistent with atelectasis versus pulmonary edema versus pneumonia.. Stable small to moderate-sized pleural effusions.. Cardiomegaly.. -continue Bronchodilators Patient did not respond well to Lasix or Bumex and dobutamine -fluid removal with hemodialysis which was started on 05/28/202205/23; Blood cultures growing staph epidermis 1 of 2, discontinued vancomycin -05/27/2022: Repeat blood cultures growing Staph epidermidis 2/2 bottles, it was MRSA -cefazolin was switched to vancomycin, patient went into SVT after vancomycin was started, discontinued and patient placed on clindamycin, -will discontinue Flagyl as clindamycin will provide appropriate coverage for aspiration pneumonia -sedated with fentanyl, Versed, OFF propofol , daily sedation vacation maintain RASS of 0 to -1 (3) CAP (community acquired pneumonia): Code(s): J18.9 - Pneumonia, unspecified organism Status: Acute Assessment and Plan: See above (4) Acute anterior wall [place]: Code(s): I21.09 - ST elevation (STEMI) myocardial infarction involving other coronary artery of anterior wall Status: Acute Assessment and Plan: Patient has history of coronary disease with PCI done more than 12 years ago at [facility] for an [place] - elevated troponin and abnormal EKG -Cardiology evaluated the patient -appreciate cardiology recommendations, conservative management at this time -awaits cardiac catheterization - Continue aspirin, Plavix, statin, -status post heparin infusion x48 hours -low-dose metoprolol was added 06/25/2014 05/25/2022: Echocardiogram showed technically attending examine because of obesity, LV enlargement with severe global hypokinesia, achiness of the distal anterior wall and apex. No significant evaluated dysfunction, EF of 30-35%, small circumferential pericardial effusion (5) Congestive heart failure: Code(s): I50.9 - Heart failure, unspecified Status: Acute Assessment and Plan: His most recent echo done in 08/04 showed diastolic dysfunction patient does have all the signs of congestive heart failure Echocardiogram as above -given his cardiomyopathy and congestive heart failure along with renal failure, cardiology following -dobutamine was discontinued on 05/28 due to arrhythmias/tachyarrhythmias -continue hydralazine and nitrates and beta-yesenia -unable to use CARLOS-inhibitor or ARB -continue fluid removal with dialysis (6) Coronary artery disease: Code(s): I25.10 - Atherosclerotic heart disease of [place] coronary artery without angina pectoris Status: Acute Assessment and Plan: See above (7) Hypertension: Qualifiers: Hypertension type: essential hypertension Qualified Code(s): I10 - Essential (primary) hypertension
[2022-06-01] MEDS: INSULIN HUMAN REGULAR (*BKC) 100 UNITS in SODIUM CHLORIDE 0.9% IV 99 ML 6.5 UNITS IV CONT (10:38)
--- NOTE | 2022-06-01 10:53 | P.PNNP_ITS ---
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 * Electrolytes look okay * still has swelling. * Will try to remove fluid. (2) Stage 3a chronic kidney disease: Code(s): N18.31 - Chronic kidney disease, stage 3a Status: Chronic Assessment and Plan: * creatinine was running ~ 1.5 - 1.6mg/dl in July 2020 * presumably due to his HTN, DM and vascular disease (3) Acute respiratory failure with hypoxia: Code(s): J96.01 - Acute respiratory failure with hypoxia Status: Acute Assessment and Plan: * thought to be secondary to CHF and possible pneumonia * currently on full ventilator support * serial CXRs with pulmonary edema versus pneumonia * Continue to remove fluid with dialysis. Pressure 160 this morning so hopefully will tolerate more fluid off today. (4) Anemia: Code(s): D64.9 - Anemia, unspecified Status: Acute Assessment and Plan: * noted fluctuations since admission * anemia studies noted: * iron deficiency present * B12 and folate okay * LULU and CKD likely playing a role * s/p PRBC transfusion on 05/28 (hgb dropped to 6.8) * GI following - s/p EGD with results noted * Epogen with HD * Hemoglobin 8.6 today. (5) CAP (community acquired pneumonia): Code(s): J18.9 - Pneumonia, unspecified organism Status: Acute Assessment and Plan: * based on imaging to date * follow cultures - MSSA noted in blood cultures * on antibiotics (6) Acute anterior wall [place]: Code(s): I21.09 - ST elevation (STEMI) myocardial infarction involving other coronary artery of anterior wall Status: Acute Assessment and Plan: * known history of CAD * presented with elevated troponins and EKG changes * Cardiology following with recommendations noted * continue conservative therapy for now -- plan cardiac catheterization at a later date * continue ASA/plavix/heparin (7) Congestive heart failure: Code(s): I50.9 - Heart failure, unspecified Status: Acute Assessment and Plan: * previous echo in Jul 2020 with diastolic dysfunction * evidence of CHF noted on admission * poor response with IV diuretics and dobutamine * repeat Echo noted -- EF now 30 - 35% * continue fluid removal with dialysis (8) Pulmonary edema: Code(s): J81.1 - Chronic pulmonary edema Status: Acute Assessment and Plan: * attempts at diuresis failed * push fluid removal/ultrafiltration with dialysis * follow I/Os (9) Hypertension: Qualifiers: Hypertension type: essential hypertension Qualified Code(s): I10 - Essential (primary) hypertension Code(s): I10 - Essential (primary) hypertension Status: Chronic Assessment and Plan: * hypertensive on presentation * Systolic still a bit high. It should come down with fluid removal
--- NOTE | 2022-06-01 10:53 | PM.PNNEP ---
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 Electrolytes look okay still has swelling. Will try to remove fluid. (2) Stage 3a chronic kidney disease: Code(s): N18.31 - Chronic kidney disease, stage 3a Status: Chronic Assessment and Plan: creatinine was running ~ 1.5 - 1.6mg/dl in July 2020 presumably due to his HTN, DM and vascular disease (3) Acute respiratory failure with hypoxia: Code(s): J96.01 - Acute respiratory failure with hypoxia Status: Acute Assessment and Plan: thought to be secondary to CHF and possible pneumonia currently on full ventilator support serial CXRs with pulmonary edema versus pneumonia Continue to remove fluid with dialysis. Pressure 160 this morning so hopefully will tolerate more fluid off today. (4) Anemia: Code(s): D64.9 - Anemia, unspecified Status: Acute Assessment and Plan: noted fluctuations since admission anemia studies noted: iron deficiency present B12 and folate okay LULU and CKD likely playing a role s/p PRBC transfusion on 05/28 (hgb dropped to 6.8) GI following - s/p EGD with results noted Epogen with HD Hemoglobin 8.6 today. (5) CAP (community acquired pneumonia): Code(s): J18.9 - Pneumonia, unspecified organism Status: Acute Assessment and Plan: based on imaging to date follow cultures - MSSA noted in blood cultures on antibiotics (6) Acute anterior wall [place]: Code(s): I21.09 - ST elevation (STEMI) myocardial infarction involving other coronary artery of anterior wall Status: Acute Assessment and Plan: known history of CAD presented with elevated troponins and EKG changes Cardiology following with recommendations noted continue conservative therapy for now -- plan cardiac catheterization at a later date continue ASA/plavix/heparin (7) Congestive heart failure: Code(s): I50.9 - Heart failure, unspecified Status: Acute Assessment and Plan: previous echo in Jul 2020 with diastolic dysfunction evidence of CHF noted on admission poor response with IV diuretics and dobutamine repeat Echo noted -- EF now 30 - 35% continue fluid removal with dialysis (8) Pulmonary edema: Code(s): J81.1 - Chronic pulmonary edema Status: Acute Assessment and Plan: attempts at diuresis failed push fluid removal/ultrafiltration with dialysis follow I/Os (9) Hypertension: Qualifiers: Hypertension type: essential hypertension Qualified Code(s): I10 - Essential (primary) hypertension Code(s): I10 - Essential (primary) hypertension Status: Chronic Assessment and Plan: hypertensive on presentation Systolic still a bit high. It should come down with fluid removal (10) Type 1 diabetes mellitus: Qualifiers: Diabetes mellitus complication status: with hyperglycemia Qualified Code(s): E10.65 - Type 1 diabetes mellitus with hyperglycemia Code(s): E10.9 - Type 1 diabetes mellitus without complications Status: Acute Assessment and Plan: management per bead wire taper /Hospitalists Subjective Date/time seen: 06/01/22 10:53 Interval history: Seen earlier this morning. Patient is on the ventilator. On sedatives.
[2022-06-01 11:08] LABS: Glucose Point of Care 103 mg/dl (65-105)
--- NOTE | 2022-06-01 11:09 | PCFNICU ---
ICU Rounding Note: Pt current nutrition is Glucerna 1.2 at 50 ml/hr. Nutrition recommendation: Nepro at 60 ml/hr Last recorded weight is 176.7 kg. Bowel Motility: FMS Labs Reviewed:Glu 113, BUN 82, Cr 6.8,GFR 9, Na 132, Alb 3.2 Meds Noted:Versed, Heparin, Plavix, Lipitor, Zithromax, Lantus, Insulin Drip Skin: DT right heel Additional Notes: Patient remains on mechanical vent and tube feedings of Glucerna 1.2 at 50 ml/hr. Patient getting Dialysis today. On Insulin Drip. Recommend tube feeding change to better meet nutritional needs to Nepro at 60 at 60 ml/hr. Flush 30 ml q 4 hours. Following daily in ICU rounds. Will monitor daily in ICU rounds and reassessing every Wednesday and Wednesday.
[2022-06-01 12:18] LABS: Glucose Point of Care 114 mg/dl (65-105)
[2022-06-01 13:19] LABS: Glucose Point of Care 113 mg/dl (65-105)
[2022-06-01 13:55] LABS: Glucose Point of Care 113 mg/dl (65-105)
[2022-06-01 15:03] LABS: Glucose Point of Care 125 mg/dl (65-105)
--- NOTE | 2022-06-01 15:11 | PM.PNCARD ---
Progress Note: A&P Assessment and Plan (1) Ventricular tachycardia: Code(s): I47.20 - Ventricular tachycardia, unspecified Status: Acute (2) Acute anterior wall [place]: Code(s): I21.09 - ST elevation (STEMI) myocardial infarction involving other coronary artery of anterior wall Status: Acute Plan 56-year-old patient with coronary disease who has sustained an anterior infarction his ejection fraction is reduced as mentioned in previous notes he unfortunately also has significant renal disease which is now have become dialysis dependent and he is dependent on mechanical ventilation. Over this past weekend he has developed significant ventricular arrhythmias because of this infarction. He is being treated now with amiodarone as well as lidocaine and at least for the last 12 hours or so his that has been quiescent. 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 This patient however has several issues including massive obesity, renal failure and most importantly DNR status that has now been chosen by his family. In my opinion for these reasons he is no longer a reasonable candidate for angiography. I will leave his antiarrhythmic agents unchanged for the time being my plan would be tomorrow morning to. The lidocaine and see how he does with simple amiodarone treatment. If significant arrhythmias recur again I would probably use the combination of amiodarone with mexiletine as he cannot stay on intravenous lidocaine forl the long-term. Prognosis here is obviously poor. Lucian Mora MD [facility] Subjective Date/time seen: Date of service:06/01/22 15:11 Interval history: Follow-up visit in this 56-year-old man with: Coronary artery disease with previous PCI in the remote past. Presented to this hospital 9 days ago with a significant shortness of breath respiratory distress and evidence that he an anterior wall infarction had occurred. His ejection fraction is now low 35%. Because of this/ and pulmonary edema and renal failure now requiring dialysis as well as massive obesity he is now ventilator dependent and has been made DNR by his family. Over the weekend he has had significant difficulty with ventricular tachycardia and is now receiving a combination of IV amiodarone as well as intravenous lidocaine. On this combination since the middle of the night his rhythm has been stable. He is intubated sedated and incapable of providing any history. Exam Const: Other: Massively obese man on ventilator support HENMT: Mouth: Yes moist mucous membranes Eyes: Sclera: sclerae normal Neck: Neck: supple Other: cannot assess venous distention given his body habitus carotid pulses are intact Resp: Other: breath sounds are distant but largely clear anterior unable to sit him up posterior auscultation Cardio: Rate: regular rate Rhythm: regular rhythm Other: PMI is not palpable S1-S2 are normal no audible murmur GI: GI Palp: Yes Soft to palpation Auscultation: normal bowel sounds Skin: General skin exam: normal color Neuro: Other: on mechanical ventilator support Extrem: Other: paste still has moderate diffuse pitting edema which was present on admission. He has has extremities that are warm and well perfused pulses are very difficult if not impossible to appreciate Objective Data Vital Signs Vital Signs: Vital Signs - 24 hr 05/31/22 15:39 05/31/22 16:22 05/31/22 16:51 Temperature 37.3 C Pulse Rate 74 205 H 88 Respiratory Rate 24 H Blood Pressure 169/86 H Pulse Oximetry 96 Oxygen Delivery Fraction of Inspired Oxygen 05/31/22 16:52 05/31/22 16:53 05/31/22 18:05 Temperature Pulse Rate 198 H 72 175 H Respiratory Rate Blood Pressure 169/86 H 133/84 Pulse Oximetry Oxygen Delivery Fraction of Inspired Oxygen 05/31/22 17:15 05/31/22 16:00 05/31/22 18:00 Temperature Pulse Rate 183 H 62 73 Resp
[2022-06-01 16:25] LABS: Glucose Point of Care 117 mg/dl (65-105)
[2022-06-01 17:06] LABS: Glucose Point of Care 114 mg/dl (65-105)
--- NOTE | 2022-06-01 17:45 | PC.NURSE ---
Sister Geena and Michelle would like to talk to the supervisor dog license officer or lawn and tree service spray supervisor. They have questions about why heart cath has not been done/would it be beneficial to get. Also, sister and mom would like updated on the next steps of plan of care in general. Michelle will be here for am rounding and would like to be present to ask questions.
--- NOTE | 2022-06-01 18:03 | PC.NURSE ---
see insulin titration paper for insulin gtt changes this shift.
[2022-06-01 18:16] LABS: Glucose Point of Care 132 mg/dl (65-105)
[2022-06-01 19:21] LABS: Glucose Point of Care 134 mg/dl (65-105)
[2022-06-01 20:09] LABS: Glucose Point of Care 118 mg/dl (65-105)
[2022-06-01 20:54] LABS: Glucose Point of Care 119 mg/dl (65-105)
[2022-06-01 21:57] LABS: Glucose Point of Care 112 mg/dl (65-105)
[2022-06-01 23:17] LABS: Glucose Point of Care 115 mg/dl (65-105)
[2022-06-02] VITALS (48 sets, daily range): BP systolic 101–167; BP diastolic 64–97; PULSE 60–91; RESP 16–28; TEMP 36–37.7; O2SAT 94–98
[2022-06-02 00:27] LABS: Glucose Point of Care 114 mg/dl (65-105)
[2022-06-02] MEDS: hydrALAZINE HCL 25 MG TABLET PO ×3 (00:59→16:29)
[2022-06-02] MEDS: ISOSORBIDE DINITRATE 5 MG TABLET PO ×3 (00:59→16:29)
[2022-06-02] MEDS: INSULIN HUMAN REGULAR (*BKC) 100 UNITS in SODIUM CHLORIDE 0.9% IV 99 ML 7.4 UNITS IV CONT (01:05)
[2022-06-02 01:14] LABS: Glucose Point of Care 134 mg/dl (65-105)
[2022-06-02] MEDS: ALBUTEROL SULFATE NEB 2.5 MG/3 ML INH INHALATION ×4 (01:40→20:24)
[2022-06-02] MEDS: IPRATROPIUM BR 0.02% INH SOLN 0.5 MG/2.5 ML VIAL INHALATION ×4 (01:40→20:24)
[2022-06-02 02:10] LABS: Glucose Point of Care 117 mg/dl (65-105)
[2022-06-02 03:16] LABS: Basophils Absolute Auto 0.1 K/mm3 (0.0-0.1); Basophils Percent Auto 0.4 % (0.2-1.2); Eosinophils Absolute Auto 0.2 K/mm3 (0-0.3); Eosinophils Percent Auto 0.8 % (0-4.4); Hematocrit 29.6 % (42.0-52.0); Hemoglobin 9.2 g/dL (14.0-18.0); Immature Granulocyte Absolute 0.49 K/mm3 (0.00-0.031); Immature Granulocyte Percent A 2.5 % (0-0.5); Lymphocytes Absolute Auto 0.87 K/mm3 (0.9-3.2); Lymphocytes Percent Auto 4.5 % (18.3-44.2); Mean Corpuscular HGB Conc 31.1 g/dl (32-36); Mean Corpuscular Hemoglobin 28.1 pg (26-34); Mean Corpuscular Volume 90.5 fl (80-100); Mean Platelet Volume 11.1 fl (7.4-10.4); Monocytes Absolute Auto 1.2 K/mm3 (0.1-0.6); Monocytes Percent Auto 6.1 % (2.6-8.5); Neutrophils Absolute Auto 16.6 K/mm3 (1.3-6.7); Neutrophils Percent Auto 85.7 % (45.5-73.1); Nucleated Red Blood Cells Perc 0.2 % (0.0-0.2); Platelet Count Result 315 k/mm3 (150-375); Red Blood Count 3.27 M/mm3 (4.6-6.20); Red Cell Distribution Width 15.1 % (11.5-14.5); White Blood Count 19.4 K/mm3 (4.5-10.0)
[2022-06-02 03:26] LABS: Alanine Aminotransferase 35 U/L (6-50); Albumin Level 3.3 g/dL (3.5-5.1); Alkaline Phosphatase 268 U/L (38-126); Anion Gap 10 mmol/L (8-16); Aspartate Amino Transferase 46 U/L (17-59); Bilirubin,Total 0.3 mg/dL (0.2-1.3); Blood Urea Nitrogen 70 mg/dL (9-20); Carbon Dioxide 29 mmol/L (22-30); Chloride 92 mmol/L (98-107); Estimated CRCL calculation 21 ml/min; Estimated Glomerular Filt Rate 10; Glucose 118 mg/dL (65-110); Magnesium 2.5 mg/dL (1.6-2.3); Phosphorus 6.5 mg/dL (2.5-4.5); Potassium 3.9 mmol/L (3.4-5.0); Sodium 131 mmol/L (137-145)
[2022-06-02 03:27] LABS: Glucose Point of Care 110 mg/dl (65-105)
[2022-06-02] MEDS: METOPROLOL TARTRATE 25 MG TABLET PO (04:01)
[2022-06-02] MEDS: AMIODARONE 360 MG/D5W 200 ML 360 MG/200 ML BAG 33.33 MG IV CONT ×4 (04:03→22:28)
[2022-06-02 04:13] LABS: Glucose Point of Care 115 mg/dl (65-105)
[2022-06-02 05:06] LABS: Alveolar/Arterial O2 Gradient 81.6 mmHg; Base Excess ABG 5.6 mEq/l (+/-2.0); Carboxyhemoglobin 0.2 % THb (0-2.0); Fractional Inspired Oxygen 30 %; Methemoglobin ABG 0.8 %THb (0-1.5); Oxygen Content ABG 12.4 %vol (16.0-22.0); Oxygen Saturation ABG 96.5 % (95.0-100.0); PCO2 ABG 43.1 mmHg (35.0-45.0); PO2 ABG 81.7 mmHg (80.0-100.0); PO2 FiO2 Ratio Arterial Blood 2.72 %; Total Hemoglobin 9.3 g/dL (12.0-18.0)
[2022-06-02 05:07] LABS: Arterial Blood Gas PEEP 10 cmH2O; Arterial Blood Gas Tidal Volume 500 ml; Arterial Blood Gas Vent Mode CMV; Arterial Blood Gas Ventilator rate 22 /MIN; Device VENTILATOR; Modified Allen's Test Unable to perform; Site Drawn RIGHT RADIAL
[2022-06-02] MEDS: MIDAZOLAM 100MG/NS 100ML(*CRX) 100 MG/100 ML BAG IV CONT (05:14)
[2022-06-02] MEDS: CLINDAMYCIN 900 MG/D5W 50 ML 900 MG/50 ML PIGGYBACK 100 MG IVPB ×3 (05:15→22:26)
[2022-06-02] MEDS: CENTRAL LINE FLUSH 10 ML IV PUSH ×4 (05:15→20:41)
[2022-06-02 05:55] LABS: Glucose Point of Care 107 mg/dl (65-105)
[2022-06-02 06:32] LABS: Glucose Point of Care 100 mg/dl (65-105)
[2022-06-02 06:59] LABS: Glucose Point of Care 112 mg/dl (65-105)
[2022-06-02 08:02] LABS: Glucose Point of Care 112 mg/dl (65-105)
[2022-06-02] MEDS: METOPROLOL TARTRATE 50 MG TAB PO (08:27)
[2022-06-02] MEDS: ATORVASTATIN 40 MG TABLET FEED TUBE (08:27)
[2022-06-02] MEDS: CLOPIDOGREL BISULFATE 75 MG TABLET FEED TUBE (08:27)
[2022-06-02] MEDS: PANTOPRAZOLE SODIUM IV 40 MG VIAL IV PUSH ×2 (08:28→20:19)
[2022-06-02] MEDS: MINERAL OIL/WHITE PETROLATUM OINTMENT 1 APPLIC EACH EYE ×2 (08:28→20:20)
[2022-06-02] MEDS: INSULIN GLARGINE (*BKC) 100 UNITS/ML 60 UNITS SUB-Q ×2 (08:29→20:20)
--- NOTE | 2022-06-02 08:59 | P.PNNP_ITS ---
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 edematous and also on oxygen. * will need fluid off to extubate. * scheduled for DUF today. * Electrolytes look okay (2) Stage 3a chronic kidney disease: Code(s): N18.31 - Chronic kidney disease, stage 3a Status: Chronic Assessment and Plan: * creatinine was running ~ 1.5 - 1.6mg/dl in July 2020 * presumably due to his HTN, DM and vascular disease (3) Acute respiratory failure with hypoxia: Code(s): J96.01 - Acute respiratory failure with hypoxia Status: Acute Assessment and Plan: * thought to be secondary to CHF and possible pneumonia * currently on full ventilator support * serial CXRs with pulmonary edema versus pneumonia * Continue to remove fluid with dialysis. * bp in the 120s and 130s. (4) Anemia: Code(s): D64.9 - Anemia, unspecified Status: Acute Assessment and Plan: * noted fluctuations since admission * anemia studies noted: * iron deficiency present * B12 and folate okay * LULU and CKD likely playing a role * s/p PRBC transfusion on 05/28 (hgb dropped to 6.8) * GI following - s/p EGD with results noted * Epogen with HD * Hemoglobin 8.6 today. (5) CAP (community acquired pneumonia): Code(s): J18.9 - Pneumonia, unspecified organism Status: Acute Assessment and Plan: * based on imaging to date * follow cultures - MSSA noted in blood cultures * on clindamycin (6) Acute anterior wall [place]: Code(s): I21.09 - ST elevation (STEMI) myocardial infarction involving other coronary artery of anterior wall Status: Acute Assessment and Plan: * known history of CAD * presented with elevated troponins and EKG changes * Cardiology following with recommendations noted * continue conservative therapy for now -- plan cardiac catheterization at a later date * continue ASA/plavix/heparin (7) Congestive heart failure: Code(s): I50.9 - Heart failure, unspecified Status: Acute Assessment and Plan: * previous echo in Jul 2020 with diastolic dysfunction * evidence of CHF noted on admission * poor response with IV diuretics and dobutamine * repeat Echo noted -- EF now 30 - 35% * continue fluid removal with dialysis (8) Pulmonary edema: Code(s): J81.1 - Chronic pulmonary edema Status: Acute Assessment and Plan: * attempts at diuresis failed * push fluid removal/ultrafiltration with dialysis * follow I/Os (9) Hypertension: Qualifiers: Hypertension type: essential hypertension Qualified Code(s): I10 - Essential (primary) hypertension Code(s): I10 - Essential (primary) hypertension Status: Chronic Assessment and Plan: * hypertensive on presentation * Systolic still a bit high. It should come down with fluid removal (10) Type 1 diabet
--- NOTE | 2022-06-02 08:59 | PM.PNNEP ---
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 edematous and also on oxygen. will need fluid off to extubate. scheduled for DUF today. Electrolytes look okay (2) Stage 3a chronic kidney disease: Code(s): N18.31 - Chronic kidney disease, stage 3a Status: Chronic Assessment and Plan: creatinine was running ~ 1.5 - 1.6mg/dl in July 2020 presumably due to his HTN, DM and vascular disease (3) Acute respiratory failure with hypoxia: Code(s): J96.01 - Acute respiratory failure with hypoxia Status: Acute Assessment and Plan: thought to be secondary to CHF and possible pneumonia currently on full ventilator support serial CXRs with pulmonary edema versus pneumonia Continue to remove fluid with dialysis. bp in the 120s and 130s. (4) Anemia: Code(s): D64.9 - Anemia, unspecified Status: Acute Assessment and Plan: noted fluctuations since admission anemia studies noted: iron deficiency present B12 and folate okay LULU and CKD likely playing a role s/p PRBC transfusion on 05/28 (hgb dropped to 6.8) GI following - s/p EGD with results noted Epogen with HD Hemoglobin 8.6 today. (5) CAP (community acquired pneumonia): Code(s): J18.9 - Pneumonia, unspecified organism Status: Acute Assessment and Plan: based on imaging to date follow cultures - MSSA noted in blood cultures on clindamycin (6) Acute anterior wall [place]: Code(s): I21.09 - ST elevation (STEMI) myocardial infarction involving other coronary artery of anterior wall Status: Acute Assessment and Plan: known history of CAD presented with elevated troponins and EKG changes Cardiology following with recommendations noted continue conservative therapy for now -- plan cardiac catheterization at a later date continue ASA/plavix/heparin (7) Congestive heart failure: Code(s): I50.9 - Heart failure, unspecified Status: Acute Assessment and Plan: previous echo in Jul 2020 with diastolic dysfunction evidence of CHF noted on admission poor response with IV diuretics and dobutamine repeat Echo noted -- EF now 30 - 35% continue fluid removal with dialysis (8) Pulmonary edema: Code(s): J81.1 - Chronic pulmonary edema Status: Acute Assessment and Plan: attempts at diuresis failed push fluid removal/ultrafiltration with dialysis follow I/Os (9) Hypertension: Qualifiers: Hypertension type: essential hypertension Qualified Code(s): I10 - Essential (primary) hypertension Code(s): I10 - Essential (primary) hypertension Status: Chronic Assessment and Plan: hypertensive on presentation Systolic still a bit high. It should come down with fluid removal (10) Type 1 diabetes mellitus: Qualifiers: Diabetes mellitus complication status: with hyperglycemia Qualified Code(s): E10.65 - Type 1 diabetes mellitus with hyperglycemia Code(s): E10.9 - Type 1 diabetes mellitus without complications Status: Acute Assessment and Plan: management per biomedical electronics technician /Hospitalists Subjective Date/time seen: 06/02/22 08:59 Interval history: Patient is on the ventilator. On sedatives. Exam Narrative: General: WD/WN male
--- NOTE | 2022-06-02 09:14 | WPDINTPN ---
Progress Note: A&P Assessment and Plan (1) Ventricular arrhythmia: Code(s): I49.9 - Cardiac arrhythmia, unspecified Status: Acute Assessment and Plan: Patient with frequent PVCs and nonsustained V-tach on 05/28 -dobutamine was discontinued -continue amiodarone infusion 05/30 and lidocaine infusion started 05/31 by Cardiology -continue metoprolol to 25mg PO Q12H -electrolytes in acceptable range (2) Acute respiratory failure with hypoxia: Code(s): J96.01 - Acute respiratory failure with hypoxia Status: Acute Assessment and Plan: Acute Respiratory failure secondary to congestive heart failure, volume overload and possible community-acquired pneumonia/aspiration pneumonia -intubated 05/24/2022, patient self-extubated on 05/25/2022 and was reintubated and was using accessory muscles of respiration. Continue full mechanical ventilation support to prevent hypoxemia/hypercarbia and end organ damage. Chest x-ray Reviewed IMPRESSION: 1. Improved airspace opacities in the perihilar regions and at the lung bases, consistent with pulmonary edema versus pneumonia versus atelectasis. 2. Small right pleural effusion. 3. Cardiomegaly. -not at a point of weaning as patient has significant volume overload and need additional dialysis for fluid removal. Discussed with nephrology they will plan to dialyze him again today -continue Bronchodilators 05/23; Blood cultures growing staph epidermis 1 of 2, discontinued vancomycin -05/27/2022: Repeat blood cultures growing Staph epidermidis 2/2 bottles, it was oxacillin resistant -cefazolin was switched to vancomycin, patient went into SVT after vancomycin was started, discontinued and patient placed on clindamycin, Flagyl discontinue as clindamycin will provide appropriate coverage for aspiration pneumonia -sedated with fentanyl, Versed, OFF propofol , daily sedation vacation maintain RASS of 0 to -1 (3) CAP (community acquired pneumonia): Code(s): J18.9 - Pneumonia, unspecified organism Status: Acute Assessment and Plan: See above (4) Acute anterior wall [place]: Code(s): I21.09 - ST elevation (STEMI) myocardial infarction involving other coronary artery of anterior wall Status: Acute Assessment and Plan: Patient has history of coronary disease with PCI done more than 12 years ago at [facility] for an [place] - elevated troponin and abnormal EKG -Cardiology following -appreciate cardiology recommendations, conservative management at this time -awaits cardiac catheterization. Will discuss with Cardiology again today - Continue aspirin, Plavix, statin, -status post heparin infusion x48 hours -low-dose metoprolol was added 06/25/2014 05/25/2022: Echocardiogram showed technically attending examine because of obesity, LV enlargement with severe global hypokinesia, achiness of the distal anterior wall and apex. No significant evaluated dysfunction, EF of 30-35%, small circumferential pericardial effusion (5) Congestive heart failure: Code(s): I50.9 - Heart failure, unspecified Status: Acute Assessment and Plan: His most recent echo done in 08/04 showed diastolic dysfunction patient does have all the signs of congestive heart failure Echocardiogram as above -given his cardiomyopathy and congestive heart failure along with renal failure, cardiology following -dobutamine was discontinued on 05/28 due to arrhythmias/tachyarrhythmias -continue hydralazine and nitrates and beta-yesenia -unable to use CARLOS-inhibitor or ARB -continue fluid removal with dialysis (6) Coronary artery disease: Code(s): I25.10 - Atherosclerotic heart disease of [place] coronary artery without angina pectoris Status: Acute Assessment and Plan: See above (7) Hypertension: Qualifiers: Hypertension type: essential hypertension Qualified Code(s): I10 - Essential (primary) hypertension Code(s): I10 - Essential (prima
[2022-06-02 09:24] LABS: Glucose Point of Care 111 mg/dl (65-105)
[2022-06-02] MEDS: ENOXAPARIN 30 MG/0.3 ML SYRINGE SUB-Q (09:43)
[2022-06-02 10:06] LABS: Glucose Point of Care 118 mg/dl (65-105)
--- NOTE | 2022-06-02 10:53 | PCNFU ---
Nutrition Follow-Up Complete: Inadequate Oral Intake as related to mechanical vent as evidenced by NPO Goal: Meet estimated nutritional needs Patient is progressing towards goal. We will continue current goal. Pt current nutrition is Glucerna 1.2 at 70 ml/hr. Nutrition recommendation: Nepro at 60 ml/hr. Last recorded weight is 177.9 kg. Bowel Motility:FMS Labs Reviewed:PO4 6.5,GFR 10, BUN 70, Cr 6.0,Alb 3.3 Meds Noted:Versed, Heparin, Plavix, Lipitor, Zithromax, Lantus, Insulin Drip Skin: Deep Tissue-right heel Additional Notes: Patient remains on mechanical vent and tube feedings of Glucerna 1.2 at 70 ml/hr. Tube feedings providing 1848 kcals/92 gms protein/1240 ml water. Meeting 77% kcal needs and 100% protein needs. Flush 30 ml q 4 hours. Plans for Dialysis today. Cardiology consult. Recommend formula change to Nepro 2/2 to Dialysis patient. Protein Modulars continue with Vinod BID for wound healing. Will monitor daily in ICU rounds and reassessing every Wednesday and Wednesday.
[2022-06-02 11:05] LABS: Glucose Point of Care 109 mg/dl (65-105)
[2022-06-02 12:03] LABS: Glucose Point of Care 98 mg/dl (65-105)
[2022-06-02 13:05] LABS: Glucose Point of Care 95 mg/dl (65-105)
--- NOTE | 2022-06-02 14:07 | PM.PNCARD ---
Progress Note: A&P Assessment and Plan (1) Acute anterior wall MS: Code(s): I21.09 - ST elevation (STEMI) myocardial infarction involving other coronary artery of anterior wall Status: Acute Assessment and Plan: Late presentation anterior wall infarction. Fortunately BP and HR stable. Appears to have a completed anterior infarction Echo EF 30-35%, severe hypokinesis to akinesis of the distal anterior wall and apex. Continue plavix, statin. Hgb is now stable. Will add ASA 81mg. Increasing dose of Metoprolol due to VT. Cardiac cath on this upcoming 06/[address] Mora. (2) Ventricular tachycardia: Code(s): I47.20 - Ventricular tachycardia, unspecified Status: Acute Assessment and Plan: Patient has a intermittent tachycardia, suspect ventricular tachycardia rather than SVT. EKG does not show any acute ischemic changes to suggest the arrhythmias from ischemia or another infarction Likely this is due to irritability from his previously infarcted myocardium Potassium, magnesium on oxygen levels are good On Amiodarone drip. Started on Lidocaine drip yesterday. As we cannot keep him on Lidocaine long-term, will stop Lidocaine. Increase his Metoprolol to 100mg BID. If he has VT despite this, then will add Mexilitine. (3) Acute combined systolic and diastolic congestive heart failure: Code(s): I50.41 - Acute combined systolic (congestive) and diastolic (congestive) heart failure Status: Acute Assessment and Plan: Cardiomyopathy, EF 30-35%, with acute CHF. Continue hydralazine +nitrates Volume removal with dialysis. Continue metoprolol. (4) LULU (acute kidney injury): Code(s): N17.9 - Acute kidney failure, unspecified Status: Acute Assessment and Plan: Started dialysis 05/28/2022. Followed by Dr. Kincaid (5) Anemia: Code(s): D64.9 - Anemia, unspecified Status: Acute Assessment and Plan: Heparin discontinued, remains on Plavix. ASA added 06/02 as Hgb is stable. (6) Acute respiratory failure with hypoxia: Code(s): J96.01 - Acute respiratory failure with hypoxia Status: Acute Assessment and Plan: Pneumonia + CHF. Intubated, an antibiotics. Plan Subjective Date/time seen: 06/02/22 14:07 Interval history: Cardiology follow up for STEMI, cardiomyopathy, CHF Coronary artery disease with previous PCI in the remote past.? Presented to this hospital 9 days ago with a significant shortness of breath respiratory distress and evidence that he an anterior wall infarction had occurred.? His ejection fraction is now low 35%.? Because of this/ and pulmonary edema and renal failure now requiring dialysis as well as massive obesity he is now ventilator dependent. He is intubated sedated and incapable of providing any history. 05/29/2022:? Started on hemodialysis yesterday.? Remains intubated and sedated in the ICU.? 05/31/22? 18:31:? Pt developed a wide complex tachycardia yesterday, more likely V-tach rather than SVT, and given a couple boluses of amiodarone last night and started on amiodarone drip.? Has had more intermittent spells this afternoon evening.? Metoprolol per feeding tube has been increased and electrolytes checked.? He has been given metoprolol IV push x2, another bolus of amiodarone, and a trial of Cardizem 10 mg IV push.? His episodes are self terminated.? Remains on a vent, sedated.? Had dialysis yesterday and likely will get it Wednesday.? Being treated for pneumonia. 06/01/2022: Over the weekend he has had significant difficulty with ventricular tachycardia and is now receiving a combination of IV amiodarone as well as intravenous lidocaine.? On this combination since the middle of the night his rhythm has been stable.? He is intubated sedated and incapable of providing any history. 06/02/2022: Overnight, he had a 2 minute episode of VT. Metoprolol was increased.
[2022-06-02 15:43] LABS: Glucose Point of Care 103 mg/dl (65-105)
[2022-06-02] MEDS: ASPIRIN 81 MG ENTERIC TABLET PO (16:27)
[2022-06-02] MEDS: FENTANYL 2,500MCG/NS250ML(*CRX 2,500 MCG/250 ML BAG 10 MCG IV CONT (19:52)
[2022-06-02 20:04] LABS: Glucose Point of Care 166 mg/dl (65-105)
[2022-06-02] MEDS: METOPROLOL TARTRATE 50 MG TAB 100 MG PO (20:20)
[2022-06-02 21:10] LABS: Hepatitis B Core Ab Total Nonreactive (Nonreactive)
[2022-06-03] VITALS (46 sets, daily range): BP systolic 114–170; BP diastolic 58–97; PULSE 64–86; RESP 17–26; TEMP 36–37.6; O2SAT 93–97
[2022-06-03 00:04] LABS: Glucose Point of Care 160 mg/dl (65-105)
[2022-06-03] MEDS: hydrALAZINE HCL 25 MG TABLET PO ×4 (00:36→18:09)
[2022-06-03] MEDS: ISOSORBIDE DINITRATE 5 MG TABLET PO ×4 (00:37→18:09)
[2022-06-03] MEDS: ALBUTEROL SULFATE NEB 2.5 MG/3 ML INH INHALATION ×4 (02:12→21:10)
[2022-06-03] MEDS: IPRATROPIUM BR 0.02% INH SOLN 0.5 MG/2.5 ML VIAL INHALATION ×4 (02:12→21:10)
[2022-06-03] MEDS: MIDAZOLAM 100MG/NS 100ML(*CRX) 100 MG/100 ML BAG IV CONT (03:29)
[2022-06-03] MEDS: AMIODARONE 360 MG/D5W 200 ML 360 MG/200 ML BAG 33.33 MG IV CONT ×3 (04:16→19:40)
[2022-06-03] MEDS: CLINDAMYCIN 900 MG/D5W 50 ML 900 MG/50 ML PIGGYBACK 100 MG IVPB ×3 (05:21→22:01)
[2022-06-03 05:23] LABS: Basophils Absolute Auto 0.1 K/mm3 (0.0-0.1); Basophils Percent Auto 0.6 % (0.2-1.2); Eosinophils Absolute Auto 0.3 K/mm3 (0-0.3); Eosinophils Percent Auto 1.7 % (0-4.4); Hematocrit 28.9 % (42.0-52.0); Immature Granulocyte Absolute 0.65 K/mm3 (0.00-0.031); Lymphocytes Absolute Auto 0.87 K/mm3 (0.9-3.2); Lymphocytes Percent Auto 5.3 % (18.3-44.2); Mean Corpuscular HGB Conc 31.1 g/dl (32-36); Mean Corpuscular Hemoglobin 27.9 pg (26-34); Mean Corpuscular Volume 89.5 fl (80-100); Mean Platelet Volume 11.3 fl (7.4-10.4); Monocytes Absolute Auto 1.2 K/mm3 (0.1-0.6); Monocytes Percent Auto 7.1 % (2.6-8.5); Neutrophils Absolute Auto 13.3 K/mm3 (1.3-6.7); Neutrophils Percent Auto 81.3 % (45.5-73.1); Nucleated Red Blood Cells Perc 0.1 % (0.0-0.2); Platelet Count Result 298 k/mm3 (150-375); Red Blood Count 3.23 M/mm3 (4.6-6.20); Red Cell Distribution Width 15.5 % (11.5-14.5); White Blood Count 16.3 K/mm3 (4.5-10.0)
[2022-06-03] MEDS: CENTRAL LINE FLUSH 10 ML IV PUSH ×3 (05:25→22:01)
[2022-06-03 05:34] LABS: Arterial Blood Gas Ventilator rate 22 /MIN; Base Excess ABG -0.1 mEq/l (+/-2.0); Carboxyhemoglobin 0.3 % THb (0-2.0); Device VENTILATOR; Fractional Inspired Oxygen 30 %; HCO3 ABG 24.4 mEq/l (22.0-26.0); Methemoglobin ABG 0.4 %THb (0-1.5); Modified Allen's Test Unable to perform; Oxygen Saturation ABG 96.3 % (95.0-100.0); Oxyhemoglobin 94.9 % THb (90.0-100.0); PCO2 ABG 39.3 mmHg (35.0-45.0); PO2 ABG 82.7 mmHg (80.0-100.0); PO2 FiO2 Ratio Arterial Blood 2.76 %; Reduced Hemoglobin 4.4 %THb (0-5.0); Site Drawn RIGHT RADIAL; Total Hemoglobin 10.4 g/dL (12.0-18.0); pH ABG 7.411 (7.350-7.450)
[2022-06-03 05:35] LABS: Arterial Blood Gas PEEP 10 cmH2O; Arterial Blood Gas Tidal Volume 450 ml; Arterial Blood Gas Vent Mode CMV
[2022-06-03 05:41] LABS: Alanine Aminotransferase 41 U/L (6-50); Albumin Level 3.3 g/dL (3.5-5.1); Alkaline Phosphatase 319 U/L (38-126); Anion Gap 11 mmol/L (8-16); Aspartate Amino Transferase 47 U/L (17-59); Bilirubin,Total 0.4 mg/dL (0.2-1.3); Blood Urea Nitrogen 97 mg/dL (9-20); Calcium 8.1 mg/dL (8.4-10.2); Carbon Dioxide 28 mmol/L (22-30); Chloride 92 mmol/L (98-107); Estimated CRCL calculation 17 ml/min; Estimated Glomerular Filt Rate 7; Glucose 188 mg/dL (65-110); Magnesium 2.6 mg/dL (1.6-2.3); Phosphorus 7.5 mg/dL (2.5-4.5); Potassium 4.2 mmol/L (3.4-5.0); Sodium 131 mmol/L (137-145)
[2022-06-03] MEDS: ATORVASTATIN 40 MG TABLET FEED TUBE (08:41)
[2022-06-03] MEDS: METOPROLOL TARTRATE 50 MG TAB 100 MG PO ×2 (08:41→20:07)
[2022-06-03] MEDS: MINERAL OIL/WHITE PETROLATUM OINTMENT 1 APPLIC EACH EYE ×2 (08:41→20:06)
[2022-06-03] MEDS: ASPIRIN 81 MG ENTERIC TABLET PO (08:41)
[2022-06-03] MEDS: CLOPIDOGREL BISULFATE 75 MG TABLET FEED TUBE (08:41)
[2022-06-03] MEDS: ENOXAPARIN 30 MG/0.3 ML SYRINGE SUB-Q (08:42)
[2022-06-03] MEDS: PANTOPRAZOLE SODIUM IV 40 MG VIAL IV PUSH ×2 (08:42→20:08)
[2022-06-03] MEDS: INSULIN GLARGINE (*BKC) 100 UNITS/ML 60 UNITS SUB-Q ×2 (09:09→20:33)
[2022-06-03 09:18] LABS: Glucose Point of Care 185 mg/dl (65-105)
--- NOTE | 2022-06-03 10:40 | PCFNICU ---
ICU Rounding Note: Pt current nutrition is Glucerna 1.2 at 70 ml/hr. Last recorded weight is 177.9 kg. Bowel Motility:FMS Labs Reviewed:PO4 7.5,Cr 7.7,Glu 188, BUN 97, GFR 7,Na 131, Alb 3.3 Meds Noted: Fentanyl, Versed, Heparin, Plavix, Lipitor, Zithromax, Lantus Skin: Deep Tissue-right heel Additional Notes: Patient remains on mechanical vent. Tolerating tube feedings of Glucerna 1.2 at 70 ml/hr. Discussed adding Banatrol Plus for stool bulking with Maintenance Data Analyst. MD key diet supplement. Plans for cardiac cath tomorrow. We will continue current tube feedings of Glucerna no formula change at this time. Following daily in ICU rounds. Will monitor daily in ICU rounds and reassessing every Wednesday and Wednesday.
--- NOTE | 2022-06-03 11:00 | PM.PNCARD ---
Progress Note: A&P Assessment and Plan (1) Acute anterior wall PR: Code(s): I21.09 - ST elevation (STEMI) myocardial infarction involving other coronary artery of anterior wall Status: Acute Assessment and Plan: Late presentation anterior wall infarction. Fortunately BP and HR stable. Appears to have a completed anterior infarction Echo EF 30-35%, severe hypokinesis to akinesis of the distal anterior wall and apex. Continue plavix, statin. Hgb is now stable. Added ASA 81mg. Increased dose of Metoprolol due to VT. Cardiac cath on this upcoming 06/[address] Mora. (2) Ventricular tachycardia: Code(s): I47.20 - Ventricular tachycardia, unspecified Status: Acute Assessment and Plan: Patient has a intermittent tachycardia, suspect ventricular tachycardia rather than SVT. EKG does not show any acute ischemic changes to suggest the arrhythmias from ischemia or another infarction Likely this is due to irritability from his previously infarcted myocardium Potassium, magnesium on oxygen levels are good On Amiodarone drip. Started on Lidocaine drip 06/01. As we cannot keep him on Lidocaine long-term, Lidocaine drip stopped 06/02. Increased his Metoprolol to 100mg BID 06/02. If he has VT despite this, then will add Mexilitine. (3) Acute combined systolic and diastolic congestive heart failure: Code(s): I50.41 - Acute combined systolic (congestive) and diastolic (congestive) heart failure Status: Acute Assessment and Plan: Cardiomyopathy, EF 30-35%, with acute CHF. Continue hydralazine +nitrates Volume removal with dialysis. Continue metoprolol. (4) LULU (acute kidney injury): Code(s): N17.9 - Acute kidney failure, unspecified Status: Acute Assessment and Plan: Started dialysis 05/28/2022. Followed by Dr. Kincaid (5) Anemia: Code(s): D64.9 - Anemia, unspecified Status: Acute Assessment and Plan: Heparin discontinued, remains on Plavix. ASA added 06/02 as Hgb is stable. (6) Acute respiratory failure with hypoxia: Code(s): J96.01 - Acute respiratory failure with hypoxia Status: Acute Assessment and Plan: Pneumonia + CHF. Intubated, an antibiotics. Plan Subjective Date/time seen: 06/03/22 11:00 Interval history: Cardiology follow up for STEMI, cardiomyopathy, CHF Coronary artery disease with previous PCI in the remote past.? Presented to this hospital 9 days ago with a significant shortness of breath respiratory distress and evidence that he an anterior wall infarction had occurred.? His ejection fraction is now low 35%.? Because of this/ and pulmonary edema and renal failure now requiring dialysis as well as massive obesity he is now ventilator dependent. He is intubated sedated and incapable of providing any history. 05/29/2022:? Started on hemodialysis yesterday.? Remains intubated and sedated in the ICU.? 05/31/22? 18:31:? Pt developed a wide complex tachycardia yesterday, more likely V-tach rather than SVT, and given a couple boluses of amiodarone last night and started on amiodarone drip.? Has had more intermittent spells this afternoon evening.? Metoprolol per feeding tube has been increased and electrolytes checked.? He has been given metoprolol IV push x2, another bolus of amiodarone, and a trial of Cardizem 10 mg IV push.? His episodes are self terminated.? Remains on a vent, sedated.? Had dialysis yesterday and likely will get it Wednesday.? Being treated for pneumonia. 06/01/2022: Over the weekend he has had significant difficulty with ventricular tachycardia and is now receiving a combination of IV amiodarone as well as intravenous lidocaine.? On this combination since the middle of the night his rhythm has been stable.? He is intubated sedated and incapable of providing any history. 06/02/2022: Overnight, he had a 2 minute episode of VT. Metoprolol was inc
--- NOTE | 2022-06-03 11:24 | WPDINTPN ---
Progress Note: A&P Assessment and Plan (1) Acute respiratory failure with hypoxia: Code(s): J96.01 - Acute respiratory failure with hypoxia Status: Acute Assessment and Plan: Acute Respiratory failure secondary to congestive heart failure, volume overload and possible community-acquired pneumonia/aspiration pneumonia -intubated 05/24/2022, patient self-extubated on 05/25/2022 and was reintubated and was using accessory muscles of respiration. Continue full mechanical ventilation support to prevent hypoxemia/hypercarbia and end organ damage. Chest x-ray Reviewed IMPRESSION: 1. Improved airspace opacities in the perihilar regions and at the lung bases, consistent with pulmonary edema versus pneumonia versus atelectasis. 2. Small right pleural effusion. 3. Cardiomegaly. -not at a point of weaning as patient has significant volume overload and need additional dialysis for fluid removal. Discussed with nephrology they will plan to dialyze him again today -continue Bronchodilators 05/23; Blood cultures growing staph epidermis 1 of 2, discontinued vancomycin -05/27/2022: Repeat blood cultures growing Staph epidermidis 2/2 bottles, it was oxacillin resistant -cefazolin was switched to vancomycin, patient went into SVT after vancomycin was started, discontinued and patient placed on clindamycin, Flagyl discontinue as clindamycin will provide appropriate coverage for aspiration pneumonia -sedated with fentanyl, Versed, OFF propofol , daily sedation vacation maintain RASS of 0 to -1 (2) CAP (community acquired pneumonia): Code(s): J18.9 - Pneumonia, unspecified organism Status: Acute Assessment and Plan: See above (3) Acute anterior wall DE: Code(s): I21.09 - ST elevation (STEMI) myocardial infarction involving other coronary artery of anterior wall Status: Acute Assessment and Plan: Patient has history of coronary disease with PCI done more than 12 years ago at [facility] for an DE - elevated troponin and abnormal EKG -Cardiology following -appreciate cardiology recommendations, conservative management at this time - Continue aspirin, Plavix, statin, -status post heparin infusion x48 hours -low-dose metoprolol was added 06/25/2014 -plan for cardiac catheterization on 06/0405/25/2022: Echocardiogram showed technically attending examine because of obesity, LV enlargement with severe global hypokinesia, achiness of the distal anterior wall and apex. No significant evaluated dysfunction, EF of 30-35%, small circumferential pericardial effusion (4) Congestive heart failure: Code(s): I50.9 - Heart failure, unspecified Status: Acute Assessment and Plan: His most recent echo done in 08/04 showed diastolic dysfunction patient does have all the signs of congestive heart failure Echocardiogram as above -given his cardiomyopathy and congestive heart failure along with renal failure, cardiology following -dobutamine was discontinued on 05/28 due to arrhythmias/tachyarrhythmias -continue hydralazine and nitrates and beta-yesenia -unable to use CARLOS-inhibitor or ARB -continue fluid removal with dialysis (5) Ventricular arrhythmia: Code(s): I49.9 - Cardiac arrhythmia, unspecified Status: Acute Assessment and Plan: Patient with frequent PVCs and nonsustained V-tach on 05/28 -dobutamine was discontinued -continue amiodarone infusion Cardiology -lidocaine infusion has been discontinued by Cardiology -continue metoprolol to 25mg PO Q12H -electrolytes in acceptable range (6) Coronary artery disease: Code(s): I25.10 - Atherosclerotic heart disease of [place] coronary artery without angina pectoris Status: Acute Assessment and Plan: See above (7) Hypertension: Qualifiers: Hypertension type: essential hypertension Qualified Code(s): I10 - Essential (primary) hypertension Code(s): I10 - Essential (primary) hypertension
[2022-06-03] MEDS: ALTEPLASE 2 MG VIAL (CATHFLO) IV PUSH ×2 (12:08→13:45)
[2022-06-03] MEDS: EPOETIN ALFA-EPBX 10,000 UNITS/ML VIAL 10000 UNITS SUB-Q (12:42)
[2022-06-03 13:55] LABS: Glucose Point of Care 158 mg/dl (65-105)
[2022-06-03 18:12] LABS: Glucose Point of Care 171 mg/dl (65-105)
--- NOTE | 2022-06-03 18:35 | P.PNNP_ITS ---
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 swelling seems a little bit better today. * 3.5L were removed on dialysis today. * he clotted the system off. Will need to give more Heparin tomorrow (2) Stage 3a chronic kidney disease: Code(s): N18.31 - Chronic kidney disease, stage 3a Status: Chronic Assessment and Plan: * creatinine was running ~ 1.5 - 1.6mg/dl in July 2020 * presumably due to his HTN, DM and vascular disease (3) Acute respiratory failure with hypoxia: Code(s): J96.01 - Acute respiratory failure with hypoxia Status: Acute Assessment and Plan: * thought to be secondary to CHF and possible pneumonia * currently on full ventilator support * removing fluid as much as possible. Will do another treatment tomorrow. (4) Anemia: Code(s): D64.9 - Anemia, unspecified Status: Acute Assessment and Plan: * noted fluctuations since admission * anemia studies noted: * iron deficiency present * B12 and folate okay * LULU and CKD likely playing a role * Hemoglobin bouncing around 9. (5) CAP (community acquired pneumonia): Code(s): J18.9 - Pneumonia, unspecified organism Status: Acute Assessment and Plan: * based on imaging to date * follow cultures - MSSA noted in blood cultures * on clindamycin (6) Acute anterior wall MO: Code(s): I21.09 - ST elevation (STEMI) myocardial infarction involving other coronary artery of anterior wall Status: Acute Assessment and Plan: * known history of CAD * presented with elevated troponins and EKG changes * Cardiology following with recommendations noted * continue conservative therapy for now -- plan cardiac catheterization at a later date * continue ASA/plavix/heparin (7) Congestive heart failure: Code(s): I50.9 - Heart failure, unspecified Status: Acute Assessment and Plan: * previous echo in Jul 2020 with diastolic dysfunction * evidence of CHF noted on admission * poor response with IV diuretics and dobutamine * repeat Echo noted -- EF now 30 - 35% * continue fluid removal with dialysis (8) Pulmonary edema: Code(s): J81.1 - Chronic pulmonary edema Status: Acute Assessment and Plan: * attempts at diuresis failed * push fluid removal/ultrafiltration with dialysis * follow I/Os (9) Hypertension: Qualifiers: Hypertension type: essential hypertension Qualified Code(s): I10 - Essential (primary) hypertension Code(s): I10 - Essential (primary) hypertension Status: Chronic Assessment and Plan: * hypertensive on presentation * Systolic is much better. (10) Type 1 diabetes mellitus: Qualifiers: Diabetes mellitus complication status: with hyperglycemia Qualified Code(s): E10.65 - Type 1 diabetes mellitus with hyperglycemia Co
--- NOTE | 2022-06-03 18:35 | PM.PNNEP ---
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 swelling seems a little bit better today. 3.5L were removed on dialysis today. he clotted the system off. Will need to give more Heparin tomorrow (2) Stage 3a chronic kidney disease: Code(s): N18.31 - Chronic kidney disease, stage 3a Status: Chronic Assessment and Plan: creatinine was running ~ 1.5 - 1.6mg/dl in July 2020 presumably due to his HTN, DM and vascular disease (3) Acute respiratory failure with hypoxia: Code(s): J96.01 - Acute respiratory failure with hypoxia Status: Acute Assessment and Plan: thought to be secondary to CHF and possible pneumonia currently on full ventilator support removing fluid as much as possible. Will do another treatment tomorrow. (4) Anemia: Code(s): D64.9 - Anemia, unspecified Status: Acute Assessment and Plan: noted fluctuations since admission anemia studies noted: iron deficiency present B12 and folate okay LULU and CKD likely playing a role Hemoglobin bouncing around 9. (5) CAP (community acquired pneumonia): Code(s): J18.9 - Pneumonia, unspecified organism Status: Acute Assessment and Plan: based on imaging to date follow cultures - MSSA noted in blood cultures on clindamycin (6) Acute anterior wall FL: Code(s): I21.09 - ST elevation (STEMI) myocardial infarction involving other coronary artery of anterior wall Status: Acute Assessment and Plan: known history of CAD presented with elevated troponins and EKG changes Cardiology following with recommendations noted continue conservative therapy for now -- plan cardiac catheterization at a later date continue ASA/plavix/heparin (7) Congestive heart failure: Code(s): I50.9 - Heart failure, unspecified Status: Acute Assessment and Plan: previous echo in Jul 2020 with diastolic dysfunction evidence of CHF noted on admission poor response with IV diuretics and dobutamine repeat Echo noted -- EF now 30 - 35% continue fluid removal with dialysis (8) Pulmonary edema: Code(s): J81.1 - Chronic pulmonary edema Status: Acute Assessment and Plan: attempts at diuresis failed push fluid removal/ultrafiltration with dialysis follow I/Os (9) Hypertension: Qualifiers: Hypertension type: essential hypertension Qualified Code(s): I10 - Essential (primary) hypertension Code(s): I10 - Essential (primary) hypertension Status: Chronic Assessment and Plan: hypertensive on presentation Systolic is much better. (10) Type 1 diabetes mellitus: Qualifiers: Diabetes mellitus complication status: with hyperglycemia Qualified Code(s): E10.65 - Type 1 diabetes mellitus with hyperglycemia Code(s): E10.9 - Type 1 diabetes mellitus without complications Status: Acute Assessment and Plan: management per cut press operator /Hospitalists Subjective Date/time seen: 06/03/22 18:35 Interval history: Patient is on the ventilator. On sedatives. he woke up and followed commands earlier today when sedatives were lightened. Exam Narrative: General: WD/WN male intubated and on mechanical ventilation Heart: normal S1 and S2; no rub or muñoz
[2022-06-03] MEDS: FENTANYL 2,500MCG/NS250ML(*CRX 2,500 MCG/250 ML BAG 12.5 MCG IV CONT (20:02)
[2022-06-03 20:20] LABS: Glucose Point of Care 186 mg/dl (65-105)
[2022-06-04] VITALS (73 sets, daily range): BP systolic 93–161; BP diastolic 53–89; PULSE 56–81; RESP 13–25; TEMP 36–37.5; O2SAT 94–100
[2022-06-04] MEDS: MIDAZOLAM 100MG/NS 100ML(*CRX) 100 MG/100 ML BAG IV CONT (00:03)
[2022-06-04] MEDS: ISOSORBIDE DINITRATE 5 MG TABLET PO ×2 (00:28→23:16)
[2022-06-04] MEDS: hydrALAZINE HCL 25 MG TABLET PO ×2 (00:28→23:16)
[2022-06-04] MEDS: AMIODARONE 360 MG/D5W 200 ML 360 MG/200 ML BAG 33.33 MG IV CONT ×2 (01:05→06:19)
[2022-06-04] MEDS: IPRATROPIUM BR 0.02% INH SOLN 0.5 MG/2.5 ML VIAL INHALATION ×4 (03:01→20:10)
[2022-06-04] MEDS: ALBUTEROL SULFATE NEB 2.5 MG/3 ML INH INHALATION ×4 (03:01→20:10)
[2022-06-04 04:39] LABS: Glucose Point of Care 224 mg/dl (65-105)
[2022-06-04 04:39] LABS: Glucose Point of Care 195 mg/dl (65-105)
[2022-06-04] MEDS: CLINDAMYCIN 900 MG/D5W 50 ML 900 MG/50 ML PIGGYBACK 100 MG IVPB ×3 (05:34→21:27)
[2022-06-04 05:49] LABS: Base Excess ABG 0.1 mEq/l (+/-2.0); Carboxyhemoglobin 0.3 % THb (0-2.0); Fractional Inspired Oxygen 30 %; HCO3 ABG 25.2 mEq/l (22.0-26.0); Methemoglobin ABG 0.3 %THb (0-1.5); Oxygen Content ABG 12.8 %vol (16.0-22.0); Oxygen Saturation ABG 97.2 % (95.0-100.0); Oxyhemoglobin 95.7 % THb (90.0-100.0); PCO2 ABG 42.8 mmHg (35.0-45.0); PO2 ABG 95.6 mmHg (80.0-100.0); PO2 FiO2 Ratio Arterial Blood 3.19 %; Reduced Hemoglobin 3.7 %THb (0-5.0); Total Hemoglobin 9.4 g/dL (12.0-18.0); pH ABG 7.388 (7.350-7.450)
[2022-06-04 05:50] LABS: Arterial Blood Gas Ventilator rate 22 /MIN; Device VENTILATOR; Modified Allen's Test Pass; Site Drawn RIGHT RADIAL
[2022-06-04 05:51] LABS: Arterial Blood Gas PEEP 10 cmH2O; Arterial Blood Gas Tidal Volume 450 ml; Arterial Blood Gas Vent Mode CMV
[2022-06-04] MEDS: CENTRAL LINE FLUSH 10 ML IV PUSH ×3 (06:19→21:10)
[2022-06-04 06:41] LABS: Basophils Absolute Auto 0.1 K/mm3 (0.0-0.1); Basophils Percent Auto 0.4 % (0.2-1.2); Eosinophils Absolute Auto 0.2 K/mm3 (0-0.3); Eosinophils Percent Auto 1.5 % (0-4.4); Hemoglobin 8.4 g/dL (14.0-18.0); Immature Granulocyte Absolute 0.63 K/mm3 (0.00-0.031); Lymphocytes Absolute Auto 0.94 K/mm3 (0.9-3.2); Mean Corpuscular HGB Conc 31.1 g/dl (32-36); Mean Corpuscular Hemoglobin 28.9 pg (26-34); Mean Corpuscular Volume 92.8 fl (80-100); Mean Platelet Volume 11.7 fl (7.4-10.4); Monocytes Absolute Auto 1.1 K/mm3 (0.1-0.6); Monocytes Percent Auto 6.8 % (2.6-8.5); Neutrophils Absolute Auto 12.8 K/mm3 (1.3-6.7); Neutrophils Percent Auto 81.3 % (45.5-73.1); Nucleated Red Blood Cells Perc 0.1 % (0.0-0.2); Platelet Count Result 242 k/mm3 (150-375); Red Blood Count 2.91 M/mm3 (4.6-6.20); Red Cell Distribution Width 15.9 % (11.5-14.5); White Blood Count 15.8 K/mm3 (4.5-10.0)
[2022-06-04 06:49] LABS: Alanine Aminotransferase 31 U/L (6-50); Albumin Level 2.7 g/dL (3.5-5.1); Alkaline Phosphatase 257 U/L (38-126); Anion Gap 10 mmol/L (8-16); Aspartate Amino Transferase 24 U/L (17-59); Bilirubin,Total 0.4 mg/dL (0.2-1.3); Blood Urea Nitrogen 89 mg/dL (9-20); Calcium 7.8 mg/dL (8.4-10.2); Carbon Dioxide 28 mmol/L (22-30); Chloride 93 mmol/L (98-107); Estimated CRCL calculation 18 ml/min; Estimated Glomerular Filt Rate 8; Glucose 173 mg/dL (65-110); Magnesium 2.6 mg/dL (1.6-2.3); Phosphorus 6.5 mg/dL (2.5-4.5); Potassium 3.8 mmol/L (3.4-5.0); Sodium 131 mmol/L (137-145)
--- NOTE | 2022-06-04 07:14 | PM.PNCARD ---
Progress Note: A&P Assessment and Plan (1) Ventricular tachycardia: Code(s): I47.20 - Ventricular tachycardia, unspecified Status: Acute (2) Congestive heart failure: Code(s): I50.9 - Heart failure, unspecified Status: Acute (3) Acute anterior wall VA: Code(s): I21.09 - ST elevation (STEMI) myocardial infarction involving other coronary artery of anterior wall Status: Acute Plan unfortunate 56-year-old man with longstanding diabetes massive obesity and history of previous myocardial infarction treated with PCI at another institution. Patient presented following infarction here with very poor LV function respiratory failure, ventilator dependency and renal failure now progressing to dependency on dialysis. He was having problematic ventricular arrhythmias for several days he is being treated with intravenous amiodarone. Patient also on metoprolol for this as well as his poor LV function. Patient was previously a DNR and not a candidate for invasive evaluation. Apparently in an attempt to force the issue he has been made a full code by his family and so we will proceed with angiography today. Anticipate the procedure being difficult and challenging given his BMI of 54. This will also result in difficult quality angiogram for interpretation. Obviously we will do the best we can. Lucian Mora MD [facility] Subjective Date/time seen: Date of service:06/04/22 07:14 Interval history: Follow-up visit in this unfortunate 56-year-old man with: Coronary artery disease presenting following a significant myocardial infarction resulting in poor left ventricular systolic function, with problematic ventricular arrhythmias, respiratory failure requiring intubation and mechanical ventilation. Significant comorbidities including massive obesity and chronic kidney disease which progressed to end-stage renal failure at this time he is now dependent on hemodialysis. Plans for today are for coronary angiography because of his malignant arrhythmias. Exam Const: Other: Massively obese white male on a ventilator support and sedated in the ICU. HENMT: Mouth: Yes moist mucous membranes Eyes: Sclera: sclerae normal Neck: Neck: supple Other: Cannot appreciate the carotid pulses or JVD given his body habitus Resp: Other: symmetrical breath sounds some coarse central rhonchi Cardio: Rate: regular rate Rhythm: regular rhythm Other: PMI is not palpable because of his size no audible murmur GI: GI Palp: Yes Soft to palpation Auscultation: normal bowel sounds Skin: General skin exam: normal color Neuro: Other: sedated with intravenous midazolam infusion. Extrem: Other: Markedly edematous. deep femoral pulses palpable Objective Data Vital Signs Vital Signs: Vital Signs - 24 hr 06/03/22 08:02 06/03/22 08:05 06/03/22 08:20 Temperature Pulse Rate 83 86 84 Respiratory Rate 25 H 25 H Blood Pressure Pulse Oximetry 94 Oxygen Delivery Mechanical Ventilation Fraction of Inspired Oxygen 30 06/03/22 08:41 06/03/22 08:00 06/03/22 08:00 Temperature Pulse Rate 86 Respiratory Rate Blood Pressure Pulse Oximetry 93 Oxygen Delivery Mechanical Ventilation Fraction of Inspired Oxygen 30 30 06/03/22 10:59 06/03/22 08:00 06/03/22 08:00 Temperature 37.4 C Pulse Rate 84 82 86 Respiratory Rate 25 H Blood Pressure 168/83 H Pulse Oximetry 96 94 Oxygen Delivery Mechanical Ventilation Fraction of Inspired Oxygen 30 06/03/22 10:00 06/03/22 10:00 06/03/22 12:00 Temperature 37.6 C H Pulse Rate 76 76 Respiratory Rate 26 H Blood Pressure 161/87 H Pulse Oximetry 94 93 Oxygen Delivery Mechanical Ventilation Fraction of Inspired Oxygen 30 06/03/22 12:00 06/03/22 12:00 06/03/22 11:37 Temperature 37.6 C H 37.6 C H Pulse Rate 69 71 Respiratory Rate 22 H 17 Blood Pressure 131/69 148/78 H Pulse Oximetry 95 9
--- NOTE | 2022-06-04 07:41 | PM.PNNEP ---
Progress Note: A&P Assessment and Plan (1) Acute kidney injury: Code(s): N17.9 - Acute kidney failure, unspecified Status: Acute Assessment and Plan: multifactorial etiology: cardiac event/CO combination of hyperglycemia, hypertension, and hypoxia on presentation (?) volume depletion/prerenal factors (?) ongoing use of diuretics and CARLOS-I prior to admission NSAID use as an outpatient evaluation to date: renal ultrasound limited due to obesity - right kidney normal but unable to visualize left kidney Urine sodium on the was 21 Repeat CPK volume overloaded. swelling seems gradually to be improving. Will take more fluid off today. (2) Stage 3a chronic kidney disease: Code(s): N18.31 - Chronic kidney disease, stage 3a Status: Chronic Assessment and Plan: creatinine was running ~ 1.5 - 1.6mg/dl in July 2020 presumably due to his HTN, DM and vascular disease (3) Acute respiratory failure with hypoxia: Code(s): J96.01 - Acute respiratory failure with hypoxia Status: Acute Assessment and Plan: thought to be secondary to CHF and possible pneumonia currently on full ventilator support removing fluid as much as possible. Will do another treatment today. (4) Anemia: Code(s): D64.9 - Anemia, unspecified Status: Acute Assessment and Plan: noted fluctuations since admission anemia studies noted: iron deficiency present B12 and folate okay LULU and CKD likely playing a role Hemoglobin bouncing around 9. (5) CAP (community acquired pneumonia): Code(s): J18.9 - Pneumonia, unspecified organism Status: Acute Assessment and Plan: based on imaging to date Blood cultures positive for MSSA. on clindamycin (6) Acute anterior wall CO: Code(s): I21.09 - ST elevation (STEMI) myocardial infarction involving other coronary artery of anterior wall Status: Acute Assessment and Plan: known history of CAD presented with elevated troponins and EKG changes Cardiology following with recommendations noted On amiodarone alone now. continue conservative therapy for now -- plan cardiac catheterization at a later date continue ASA/plavix/heparin (7) Congestive heart failure: Code(s): I50.9 - Heart failure, unspecified Status: Acute Assessment and Plan: previous echo in Jul 2020 with diastolic dysfunction evidence of CHF noted on admission poor response with IV diuretics and dobutamine repeat Echo noted -- EF now 30 - 35% continue fluid removal with dialysis. So far dialysis is being tolerated well eyes blood pressure. (8) Pulmonary edema: Code(s): J81.1 - Chronic pulmonary edema Status: Acute Assessment and Plan: attempts at diuresis failed push fluid removal/ultrafiltration with dialysis follow I/Os (9) Hypertension: Qualifiers: Hypertension type: essential hypertension Qualified Code(s): I10 - Essential (primary) hypertension Code(s): I10 - Essential (primary) hypertension Status: Chronic Assessment and Plan: hypertensive on presentation Systolic is much better with the fluid removal. (10) Type 1 diabetes mellitus: Qualifiers: Diabetes mellitus complication status: with hyperglycemia Qualified Code(s): E10.65 - Type 1 diabetes mellitus with hyperglycemia Code(s): E10.9 - Type 1 diabetes mellitus without complications Status: Acute Assessment and Plan: management per customer sales distributor /Hospitalists Subjective Date/time seen: 06/04/22 07:41 Interval history: Patient is on the ventilator. On sedatives. He is on amiodarone. Rhythm has been good overnight. Exam Narrative: General: WD/WN male intubated and on mechanical ventilation Heart: normal S1 and S2; no rub or gallop Lungs: coarse breath sounds; decreased at bases Ab
--- NOTE | 2022-06-04 07:41 | P.PNNP_ITS ---
Progress Note: A&P Assessment and Plan (1) Acute kidney injury: Code(s): N17.9 - Acute kidney failure, unspecified Status: Acute Assessment and Plan: * multifactorial etiology: * cardiac event/ID * combination of hyperglycemia, hypertension, and hypoxia on presentation (?) * volume depletion/prerenal factors (?) * ongoing use of diuretics and CARLOS-I prior to admission * NSAID use as an outpatient * evaluation to date: * renal ultrasound limited due to obesity - right kidney normal but unable to visualize left kidney * Urine sodium on the was 21 * Repeat CPK * volume overloaded. swelling seems gradually to be improving. Will take more fluid off today. (2) Stage 3a chronic kidney disease: Code(s): N18.31 - Chronic kidney disease, stage 3a Status: Chronic Assessment and Plan: * creatinine was running ~ 1.5 - 1.6mg/dl in July 2020 * presumably due to his HTN, DM and vascular disease (3) Acute respiratory failure with hypoxia: Code(s): J96.01 - Acute respiratory failure with hypoxia Status: Acute Assessment and Plan: * thought to be secondary to CHF and possible pneumonia * currently on full ventilator support * removing fluid as much as possible. Will do another treatment today. (4) Anemia: Code(s): D64.9 - Anemia, unspecified Status: Acute Assessment and Plan: * noted fluctuations since admission * anemia studies noted: * iron deficiency present * B12 and folate okay * LULU and CKD likely playing a role * Hemoglobin bouncing around 9. (5) CAP (community acquired pneumonia): Code(s): J18.9 - Pneumonia, unspecified organism Status: Acute Assessment and Plan: * based on imaging to date * Blood cultures positive for MSSA. * on clindamycin (6) Acute anterior wall ID: Code(s): I21.09 - ST elevation (STEMI) myocardial infarction involving other coronary artery of anterior wall Status: Acute Assessment and Plan: * known history of CAD * presented with elevated troponins and EKG changes * Cardiology following with recommendations noted * On amiodarone alone now. * continue conservative therapy for now -- plan cardiac catheterization at a later date * continue ASA/plavix/heparin (7) Congestive heart failure: Code(s): I50.9 - Heart failure, unspecified Status: Acute Assessment and Plan: * previous echo in Jul 2020 with diastolic dysfunction * evidence of CHF noted on admission * poor response with IV diuretics and dobutamine * repeat Echo noted -- EF now 30 - 35% * continue fluid removal with dialysis. * So far dialysis is being tolerated well eyes blood pressure. (8) Pulmonary edema: Code(s): J81.1 - Chronic pulmonary edema Status: Acute Assessment and Plan: * attempts at diuresis failed * push fluid removal/ultrafiltration with dialysis * follow I/Os (9) Hypertension: Qualifiers: Hypertension type: essential hypertension Qualified Code(s): I10 - Essential (primary) hypertension Code(s): I10 - Essential (primary) hypertension Status: Chronic Assessment and Plan: * hypertensive on presentation * Systolic is much better with the fluid removal. (10) Type 1 diabetes mellitus: Qualifiers: Diabetes mellitus complication status: with hyperglycemia Qualified Code(s): E10.65 - Type 1 diabetes mellitus with hyperglycemia Code(s): E10.9 - Type
[2022-06-04 08:15] LABS: Creatine Kinase 143 U/L (55-170)
[2022-06-04] MEDS: PANTOPRAZOLE SODIUM IV 40 MG VIAL IV PUSH ×2 (08:42→21:09)
[2022-06-04] MEDS: CLOPIDOGREL BISULFATE 75 MG TABLET FEED TUBE (08:42)
[2022-06-04] MEDS: MINERAL OIL/WHITE PETROLATUM OINTMENT 1 APPLIC EACH EYE ×2 (08:43→21:09)
[2022-06-04] MEDS: ATORVASTATIN 40 MG TABLET FEED TUBE (08:44)
[2022-06-04] MEDS: ASPIRIN 81 MG ENTERIC TABLET PO (08:44)
[2022-06-04] MEDS: METOPROLOL TARTRATE 50 MG TAB 100 MG PO ×2 (08:46→21:16)
[2022-06-04 08:47] LABS: Glucose Point of Care 148 mg/dl (65-105)
--- NOTE | 2022-06-04 09:26 | WPDINTPN ---
Progress Note: A&P Assessment and Plan (1) Acute respiratory failure with hypoxia: Code(s): J96.01 - Acute respiratory failure with hypoxia Status: Acute Assessment and Plan: Acute Respiratory failure secondary to congestive heart failure, volume overload and possible community-acquired pneumonia/aspiration pneumonia -intubated 05/24/2022, patient self-extubated on 05/25/2022 and was reintubated and was using accessory muscles of respiration. Continue full mechanical ventilation support to prevent hypoxemia/hypercarbia and end organ damage. Chest x-ray Reviewed IMPRESSION: 1. Improved airspace opacities in the perihilar regions and at the lung bases, consistent with pulmonary edema versus pneumonia versus atelectasis. 2. Small right pleural effusion. 3. Cardiomegaly. -not at a point of weaning as patient has significant volume overload and need additional dialysis for fluid removal. Discussed with nephrology they will plan to dialyze him again today -continue Bronchodilators 05/23; Blood cultures growing staph epidermis 1 of 2, discontinued vancomycin -05/27/2022: Repeat blood cultures growing Staph epidermidis 2/2 bottles, it was oxacillin resistant -cefazolin was switched to vancomycin, patient went into SVT after vancomycin was started, discontinued and patient placed on clindamycin, Flagyl discontinue as clindamycin will provide appropriate coverage for aspiration pneumonia -sedated with fentanyl, Versed, OFF propofol , daily sedation vacation maintain RASS of 0 to -1 (2) CAP (community acquired pneumonia): Code(s): J18.9 - Pneumonia, unspecified organism Status: Acute Assessment and Plan: See above (3) Acute anterior wall AL: Code(s): I21.09 - ST elevation (STEMI) myocardial infarction involving other coronary artery of anterior wall Status: Acute Assessment and Plan: Patient has history of coronary disease with PCI done more than 12 years ago at [facility] for an AL - elevated troponin and abnormal EKG -Cardiology following -appreciate cardiology recommendations, conservative management at this time - Continue aspirin, Plavix, statin, -status post heparin infusion x48 hours -low-dose metoprolol was added 06/25/2014 -plan for cardiac catheterization on 06/0405/25/2022: Echocardiogram showed technically attending examine because of obesity, LV enlargement with severe global hypokinesia, achiness of the distal anterior wall and apex. No significant evaluated dysfunction, EF of 30-35%, small circumferential pericardial effusion (4) Congestive heart failure: Code(s): I50.9 - Heart failure, unspecified Status: Acute Assessment and Plan: His most recent echo done in 08/04 showed diastolic dysfunction patient does have all the signs of congestive heart failure Echocardiogram as above -given his cardiomyopathy and congestive heart failure along with renal failure, cardiology following -dobutamine was discontinued on 05/28 due to arrhythmias/tachyarrhythmias -continue hydralazine and nitrates and beta-yesenia -unable to use CARLOS-inhibitor or ARB -continue fluid removal with dialysis (5) Ventricular arrhythmia: Code(s): I49.9 - Cardiac arrhythmia, unspecified Status: Acute Assessment and Plan: Patient with frequent PVCs and nonsustained V-tach on 05/28 -dobutamine was discontinued -continue amiodarone infusion Cardiology -lidocaine infusion has been discontinued by Cardiology -DC amiodarone 06/04 due to sinus bradycardia -continue metoprolol to 25mg PO Q12H -electrolytes in acceptable range (6) Coronary artery disease: Code(s): I25.10 - Atherosclerotic heart disease of [place] coronary artery without angina pectoris Status: Acute Assessment and Plan: See above (7) Hypertension: Qualifiers: Hypertension type: essential hypertension Qualified Code(s): I10 - Essential (primary) hypertension Code(
--- NOTE | 2022-06-04 10:49 | PCFNICU ---
ICU Rounding Note: Pt current nutrition is NPO. Nutrition recommendation: Glucerna 1.2 at 70 ml/hr Last recorded weight is 172 kg. Bowel Motility:FMS Labs Reviewed:PO4 6.5,Glu 173, Cr 7.0,BUN 89,GFR 8 Meds Noted:Fentanyl, Versed, Heparin, Plavix, Lipitor, Zithromax, Lantus Skin:Deep Tissue-Right heel Additional Notes: Patient is NPO for heart cath today. Recommend diet order advancing after procedure to Glucerna 1.2 at 70 ml/hr. Protein Modular of Vinod BID for wound healing. Banatrol Plus TF BID for stool bulking. Flush 30 ml q 4 hours. Agree with diet orders. Monitoring: Will monitor daily in ICU rounds and reassessing every Wednesday and Wednesday.
[2022-06-04 12:21] LABS: Glucose Point of Care 137 mg/dl (65-105)
--- NOTE | 2022-06-04 12:51 | WPDMODSED ---
Moderate Sedation Note-Pt Data Patient Data Diagnosis: Recent anterior wall OR with low ejection fraction and problematic ventricular arrhythmias Present Complaint: patient is sedated on ventilator support Procedure to be performed/Plan: left heart catheterization Allergies Allergy/AdvReac Type Severity Reaction Status Date / Time Penicillins Allergy Unknown WAS CHILD, Verified 05/23/22 12:38 DOES NOT REMEMBER Home Medications Medication Instructions Recorded Confirmed Type amlodipine 10 mg tablet 10 mg PO DAILY 07/19/20 05/23/22 History aspirin 81 mg tablet 81 mg PO DAILY 07/19/20 05/23/22 History atorvastatin 40 mg tablet 40 mg PO DAILY 07/19/20 05/23/22 History clopidogrel 75 mg tablet 75 mg PO DAILY 07/19/20 05/23/22 History furosemide 20 mg tablet 40 mg PO BID 07/19/20 05/23/22 History lisinopril 40 mg tablet 40 mg PO DAILY 07/19/20 05/23/22 History metoprolol succinate 100 mg 100 mg PO DAILY 07/19/20 05/23/22 History tablet,extended release 24 hr terazosin 10 mg capsule 10 mg PO DAILY 07/19/20 05/23/22 History Current Medications: Active Medications Acetaminophen (Acetaminophen 325 Mg Tablet) 650 mg PO Q4H PRN PRN Reason: Mild Pain (1-3) or Fever Albuterol (Albuterol Sulfate Neb 2.5 Mg/3 Ml Inh) 2.5 mg INHALATION Q6HRT [facility] Last Admin: 06/04/22 09:29 Dose: 2.5 mg Alteplase, Recombinant (Alteplase 2 Mg Vial (Cathflo)) 2 mg IV PUSH ONCE PRN PRN Reason: Line Occlusion Last Admin: 06/03/22 13:45 Dose: 2 mg Aspirin (Aspirin 81 Mg Enteric Tablet) 81 mg PO QAM [facility] Last Admin: 06/04/22 08:44 Dose: 81 mg Atorvastatin Calcium (Atorvastatin 40 Mg Tablet) 40 mg FEED TUBE DAILY [facility] Last Admin: 06/04/22 08:44 Dose: 40 mg Clopidogrel Bisulfate (Clopidogrel Bisulfate 75 Mg Tablet) 75 mg FEED TUBE DAILY [facility] Last Admin: 06/04/22 08:42 Dose: 75 mg Dextrose (Dextrose 50% 25 Gm/50 Ml Syringe) 12.5 gm IV PUSH PRN PRN; Protocol PRN Reason: Hypoglycemia Enoxaparin Sodium (Enoxaparin 30 Mg/0.3 Ml Syringe) 30 mg SUB-Q DAILY [facility] Last Admin: 06/04/22 08:45 Dose: Not Given Epoetin Nba-epbx (Epoetin Nba-Epbx 10,000 Units/Ml Vial) 10,000 units SUB-Q MoWeFr@[id number] [facility] Last Admin: 06/03/22 12:42 Dose: 10,000 units Glucagon (Glucagon For Inj 1 Mg Vial) 1 mg IM PRN PRN; Protocol PRN Reason: Hypoglycemia Glucose (Glucose Oral Gel 15 Gm Of Glucse In 37.5 Gm Tube) 15 gm FEED TUBE PRN PRN; Protocol PRN Reason: Hypoglycemia Hydralazine HCl (Hydralazine Hcl 25 Mg Tablet) 25 mg PO Q6HR [facility] Last Admin: 06/04/22 12:41 Dose: Not Given Hydralazine HCl (Hydralazine Hcl 20 Mg/Ml Vial) 10 mg IV PUSH Q4H PRN PRN Reason: Blood Pressure - High Dextrose (Dextrose 5% 1,000 Ml) 1,000 mls @ 100 mls/hr IVPB PRN PRN; Protocol PRN Reason: Hypoglycemia Fentanyl Citrate (Fentanyl 2,500 Mcg/Ns 250 Ml) 2,500 mcg in 250 mls @ 12.5 mls/hr IV CONT .Q20H CHRISTINA; Protocol Last Titration: 06/04/22 06:21 Dose: 125 mcg/hr, 12.5 mls/hr Midazolam HCl (Versed 100 Mg/Ns 100 Ml) 100 mg in 100 mls @ 5 mls/hr IV CONT .Q20H CHRISTINA; Protocol Last Titration: 06/04/22 06:19 Dose: 5 mg/hr, 5 mls/hr Albumin Human (Albutein) 50 mls @ 999 mls/hr IVPB Q10M PRN PRN Reason: HYPOTENSION Stop: 06/27/22 12:53 Amiodarone HCl/Dextrose (Nexterone 360 Mg/D5w 200 Ml) 360 mg in 200 mls @ 33.333 mls/hr IV CONT .Q6H [facility] Last Admin: 06/04/22 06:19 Dose: 1 mg/min, 33.33 mls/hr Clindamycin Phosphate (Cleocin 900 Mg/D5w 50 Ml) 900 mg in 50 mls @ 100 mls/hr IVPB Q8HR CHRISTINA Stop: 06/09/22 23:59 Last Infusion: 06/04/22 06:19 Dose: Infused Albumin Human (Albutein) 50 mls @ 999 mls/hr IVPB Q10M PRN PRN Reason: HYPOTENSION Stop: 06/05/22 06:37 Insulin Aspart (Insulin Aspart (*Bkc) 100 Units/Ml) 4 - 8 units SUB-Q Q4HR [facility]; Protocol Last Admin: 06/04/22 12:41 Dose: Not Given Insulin Glargine (Insulin Glargine (*Bkc) 100 Units/Ml) 60 units SUB-Q Q12H [facility] Last Admin: 06/04/22 09:44 Dose: Not Given Ipratropium [place] (Ipratropi
--- NOTE | 2022-06-04 14:13 | ECG_ITS ---
Measurements Intervals [place] Rate: 65 P: 44 NE: 173 QRS: 62 QRSD: 126 T: 149 QT: 434 QTc: 453 Interpretive Statements SINUS RHYTHM ANTERIOR MYOCARDIAL INFARCTION [40+ ms Q WAVE AND/OR ST/T ABNORMALITY IN V3/V4], PROBABLY RECENT ACUTE UT ABNORMAL ECG COMPARED TO ECG 05/31/2022 15:10:23 NO SIGNIFICANT CHANGES Electronically Signed On 06-04-2022 16:54:09 PLAYER DEVELOPMENT MANAGER by Bay Slater M.D.
--- NOTE | 2022-06-04 14:16 | WPDCARDPROC ---
Cardiac Cath Procedure Note Date of procedure:: 06/04/22 Performing physician:: Lucian Mora MD Indication:: malignant ventricular arrhythmias following recent acute WI. LV systolic dysfunction, massive obesity, diabetes, renal failure on dialysis Brief clinical history:: this is a 56-year-old patient who has a history of coronary disease with previous PCI in the remote past. He entered this hospital about 2 weeks ago with acute respiratory failure and had to be intubated placed on the ventilator and put into the ICU. There was significant troponin rise following this event indicating evidence of acute WI and echo does show significant LV systolic dysfunction. Following this event while intubated in the ICU he has been having problematic ventricular tachycardia. Angiography has been recommended and planned for today for in this setting. The patient remains intubated and sedated and received hemodialysis this morning. Procedure Procedure performed:: Central hemodynamics coronary angiography PTCA to mid right coronary artery Angio-Seal to right femoral artery Sedation/Medication given:: patient on intravenous Versed infusion no additional sedation given in the salvage laborer Case start time 1:08 p.m. case end time 1407 p.m. Access site:: right femoral artery Estimated blood loss:: 50 cc Procedure note:: patient was brought to the cardiac catheterization lab intubated and sedated was placed on the table for angiography in the supine position and the right femoral triangle was prepared and draped. 1% lidocaine was infiltrated locally for anesthesia. Using the modified Seldinger technique the femoral artery was punctured and a long 6 [place] vascular sheath was placed. A long sheath was chosen because of his massive obesity. Following that I used a 5 Lebanese angled pigtail catheter to document left-sided hemodynamics and pullback pressures across the aortic valve. Left ventriculography was not performed. The left coronary artery was then engaged and injected in multiple projections using a standard 5 [place] FL4 catheter. The right coronary artery was engaged and injected in multiple projections using a standard 5 [place] JR4 catheter. The cineangiograms were then reviewed and PCI of the mid right coronary artery was recommended and carried out as detailed below. Prior to PCI the patient received 8000 units of heparin. He received additional boluses of heparin during the intervention to maintain therapeutic ACT. Following completion of intervention as detailed below an angiogram was done of the femoral artery through the sheath and then a 6 [place] Angio-Seal device was used to provide hemostasis with a good result. The procedure was well tolerated and uncomplicated. There was no sign of groin hematoma upon his leaving the salvage laborer. Findings:: Hemodynamics: Central aortic pressure is 116 over 56 left ventricle 116/15 end-diastolic pressure 24. No gradient on pullback across the aortic valve. the left main coronary artery is medium in caliber and patent. The left anterior descending is a calcified small caliber vessel. There is stent material visible in the proximal LAD which remains nicely patent with no significant loss of lumen. Distal to this there is significant diffuse narrowing of the LAD all the way down to the apical segment of it but there are no flow-limiting lesions identified. The major diagonal branch is free of significant disease. The septal perforating branch which takes its origin just after the stented segment has proximal 90% stenosis. The circumflex is a medium caliber vessel giving rise to the marginal branches. The circumflex trunk after the major obtuse marginal has mild 50-60% stenosis there is no flow-limiting disease in the circumflex. Right coronary artery is small to medium in caliber but is dominant to the posterior circulation. The RCA is moderately calcified. There is a high-grade
[2022-06-04] MEDS: FENTANYL 2,500MCG/NS250ML(*CRX 2,500 MCG/250 ML BAG 15 MCG IV CONT (16:00)
[2022-06-04 17:10] LABS: Glucose Point of Care 147 mg/dl (65-105)
[2022-06-04] MEDS: MIDAZOLAM 100MG/NS 100ML(*CRX) 100 MG/100 ML BAG 6 MG IV CONT (18:47)
[2022-06-04] MEDS: INSULIN GLARGINE (*BKC) 100 UNITS/ML 60 UNITS SUB-Q (21:07)
[2022-06-04 21:20] LABS: Glucose Point of Care 171 mg/dl (65-105)
[2022-06-04] MEDS: INSULIN ASPART (*BKC) 100 UNITS/ML SUB-Q (23:16)
[2022-06-04 23:28] LABS: Glucose Point of Care 231 mg/dl (65-105)
[2022-06-05] VITALS (46 sets, daily range): BP systolic 108–162; BP diastolic 32–81; PULSE 67–84; RESP 13–29; TEMP 37–37.5; O2SAT 96–99
[2022-06-05] MEDS: ALBUTEROL SULFATE NEB 2.5 MG/3 ML INH INHALATION ×4 (02:20→20:20)
[2022-06-05] MEDS: IPRATROPIUM BR 0.02% INH SOLN 0.5 MG/2.5 ML VIAL INHALATION ×4 (02:20→20:20)
[2022-06-05] MEDS: INSULIN ASPART (*BKC) 100 UNITS/ML SUB-Q ×2 (04:12→09:54)
[2022-06-05 04:16] LABS: Glucose Point of Care 219 mg/dl (65-105)
[2022-06-05 04:39] LABS: Basophils Absolute Auto 0.1 K/mm3 (0.0-0.1); Basophils Percent Auto 0.5 % (0.2-1.2); Eosinophils Absolute Auto 0.6 K/mm3 (0-0.3); Eosinophils Percent Auto 3.6 % (0-4.4); Hematocrit 28.2 % (42.0-52.0); Hemoglobin 8.7 g/dL (14.0-18.0); Immature Granulocyte Absolute 0.64 K/mm3 (0.00-0.031); Immature Granulocyte Percent A 4.1 % (0-0.5); Lymphocytes Absolute Auto 0.73 K/mm3 (0.9-3.2); Lymphocytes Percent Auto 4.7 % (18.3-44.2); Mean Corpuscular HGB Conc 30.9 g/dl (32-36); Mean Corpuscular Hemoglobin 28.4 pg (26-34); Mean Corpuscular Volume 92.2 fl (80-100); Mean Platelet Volume 11.4 fl (7.4-10.4); Monocytes Percent Auto 6.4 % (2.6-8.5); Neutrophils Absolute Auto 12.7 K/mm3 (1.3-6.7); Neutrophils Percent Auto 80.7 % (45.5-73.1); Platelet Count Result 255 k/mm3 (150-375); Red Blood Count 3.06 M/mm3 (4.6-6.20); White Blood Count 15.7 K/mm3 (4.5-10.0)
[2022-06-05 04:53] LABS: Alanine Aminotransferase 29 U/L (6-50); Albumin Level 2.8 g/dL (3.5-5.1); Alkaline Phosphatase 261 U/L (38-126); Anion Gap 11 mmol/L (8-16); Aspartate Amino Transferase 21 U/L (17-59); Bilirubin,Total 0.4 mg/dL (0.2-1.3); Blood Urea Nitrogen 107 mg/dL (9-20); Calcium 8.1 mg/dL (8.4-10.2); Carbon Dioxide 25 mmol/L (22-30); Chloride 96 mmol/L (98-107); Estimated CRCL calculation 15 ml/min; Estimated Glomerular Filt Rate 7; Glucose 231 mg/dL (65-110); Magnesium 2.6 mg/dL (1.6-2.3); Potassium 4.5 mmol/L (3.4-5.0); Sodium 132 mmol/L (137-145)
[2022-06-05 05:02] LABS: Base Excess ABG -0.9 mEq/l (+/-2.0); Carboxyhemoglobin 0.4 % THb (0-2.0); Fractional Inspired Oxygen 30 %; HCO3 ABG 24.1 mEq/l (22.0-26.0); Methemoglobin ABG 0.4 %THb (0-1.5); Oxygen Content ABG 14.3 %vol (16.0-22.0); Oxygen Saturation ABG 97.2 % (95.0-100.0); Oxyhemoglobin 95.7 % THb (90.0-100.0); PCO2 ABG 41.4 mmHg (35.0-45.0); PO2 ABG 96.3 mmHg (80.0-100.0); PO2 FiO2 Ratio Arterial Blood 3.21 %; Reduced Hemoglobin 3.5 %THb (0-5.0); Total Hemoglobin 10.5 g/dL (12.0-18.0); pH ABG 7.383 (7.350-7.450)
[2022-06-05 05:03] LABS: Device VENTILATOR; Modified Allen's Test Pass; Site Drawn LEFT RADIAL
[2022-06-05 05:04] LABS: Arterial Blood Gas PEEP 10 cmH2O; Arterial Blood Gas Tidal Volume 450 ml; Arterial Blood Gas Vent Mode CMV; Arterial Blood Gas Ventilator rate 22 /MIN
[2022-06-05] MEDS: ISOSORBIDE DINITRATE 5 MG TABLET PO ×2 (05:04→19:42)
[2022-06-05] MEDS: CLINDAMYCIN 900 MG/D5W 50 ML 900 MG/50 ML PIGGYBACK 100 MG IVPB ×3 (05:04→22:57)
[2022-06-05] MEDS: hydrALAZINE HCL 25 MG TABLET PO ×2 (05:04→19:42)
[2022-06-05] MEDS: CENTRAL LINE FLUSH 10 ML IV PUSH ×3 (05:05→20:06)
--- NOTE | 2022-06-05 05:11 | ECG_ITS ---
Measurements Intervals [place] Rate: 78 P: 47 AR: 172 QRS: 50 QRSD: 118 T: -88 QT: 347 QTc: 397 Interpretive Statements SINUS RHYTHM INCOMPLETE LEFT BUNDLE BRANCH BLOCK ABNORMAL ECG * COMPARED TO ECG 06/04/2022 14:51:03 NO SIGNIFICANT CHANGES Electronically Signed On 06-05-2022 20:01:29 AIR TESTER by Lucian Mora M.D.
[2022-06-05] MEDS: FENTANYL 2,500MCG/NS250ML(*CRX 2,500 MCG/250 ML BAG 15 MCG IV CONT ×2 (06:29→22:57)
[2022-06-05] MEDS: ASPIRIN 81 MG ENTERIC TABLET PO (09:26)
[2022-06-05] MEDS: ATORVASTATIN 40 MG TABLET FEED TUBE (09:26)
[2022-06-05] MEDS: METOPROLOL TARTRATE 50 MG TAB 100 MG PO ×2 (09:27→20:06)
[2022-06-05] MEDS: MINERAL OIL/WHITE PETROLATUM OINTMENT 1 APPLIC EACH EYE ×2 (09:27→20:04)
[2022-06-05] MEDS: CLOPIDOGREL BISULFATE 75 MG TABLET FEED TUBE (09:27)
[2022-06-05] MEDS: ENOXAPARIN 30 MG/0.3 ML SYRINGE SUB-Q (09:27)
[2022-06-05] MEDS: PANTOPRAZOLE SODIUM IV 40 MG VIAL IV PUSH ×2 (09:28→20:05)
[2022-06-05 09:42] LABS: Glucose Point of Care 203 mg/dl (65-105)
[2022-06-05] MEDS: INSULIN GLARGINE (*BKC) 100 UNITS/ML 60 UNITS SUB-Q ×2 (09:54→20:02)
--- NOTE | 2022-06-05 10:13 | PCNFU ---
Nutrition Follow-Up Complete: Inadequate Oral Intake as related to mechanical vent as evidenced by NPO goal: Meet estimated nutritional needs Patient is progressing towards goal. We will continue current goal. Pt current nutrition is Glucerna 1.2 at 70 ml/hr. Last recorded weight is 172.6 kg. no weight loss reported. Bowel Motility:FMS Labs Reviewed:PO4 9.0,CR 8.5,BUN 107, GFR 7, Na 132, Alb 2.8 Meds Noted:Fentanyl, Versed, Heparin, Plavix, Lipitor, Zithromax, Lantus Skin: Deep Tissue-Right heel Additional Notes: Patient remains on mechanical vent and tube feedings of Glucerna 1.2 at 70 ml/hr. Spoke with Crystal Calibrator and nursing today, regarding nutritional status. Patient is tolerating tube feedings at 70 ml/hr, providing 1848 kcals/92 gms protein/1240 ml water. Flush 30 ml q 4 hours. Protein Modular of Vinod BID for wound healing providing an additional 90 kcals and 2.5 gms protein. Banatrol Plus TF BID for stool bulking. Will monitor daily in ICU rounds and reassessing every Wednesday and Wednesday.
--- NOTE | 2022-06-05 10:18 | WPDINTPN ---
Progress Note: A&P Assessment and Plan (1) Acute respiratory failure with hypoxia: Code(s): J96.01 - Acute respiratory failure with hypoxia Status: Acute Assessment and Plan: Acute Respiratory failure secondary to congestive heart failure, volume overload and possible community-acquired pneumonia/aspiration pneumonia -intubated 05/24/2022, patient self-extubated on 05/25/2022 and was reintubated and was using accessory muscles of respiration. Continue full mechanical ventilation support to prevent hypoxemia/hypercarbia and end organ damage. Chest x-ray Reviewed IMPRESSION: 1. Airspace opacities in the perihilar regions and lung bases with worsening on the left, consistent with pneumonia versus pulmonary edema versus atelectasis. 2. Small pleural effusions. 3. Cardiomegaly. -not at a point of weaning as patient has significant volume overload and need additional dialysis for fluid removal. Chest x-ray shows persistent edema and effusion. He has significant anasarca on his legs. Discussed with nephrology they will plan to dialyze him again today and tomorrow -decrease PEEP to 8 and see if patient tolerates -continue Bronchodilators 05/23; Blood cultures growing staph epidermis 1 of 2, discontinued vancomycin -05/27/2022: Repeat blood cultures growing Staph epidermidis 2/2 bottles, it was oxacillin resistant -cefazolin was switched to vancomycin, patient went into SVT after vancomycin was started, discontinued and patient placed on clindamycin, Flagyl discontinue as clindamycin will provide appropriate coverage for aspiration pneumonia -sedated with fentanyl, Versed, OFF propofol , daily sedation vacation maintain RASS of 0 to -1 (2) CAP (community acquired pneumonia): Code(s): J18.9 - Pneumonia, unspecified organism Status: Acute Assessment and Plan: See above (3) Acute anterior wall [place]: Code(s): I21.09 - ST elevation (STEMI) myocardial infarction involving other coronary artery of anterior wall Status: Acute Assessment and Plan: Patient has history of coronary disease with PCI done more than 12 years ago at [facility] for an [place] - elevated troponin and abnormal EKG -Cardiology following -appreciate cardiology recommendations, conservative management at this time - Continue aspirin, Plavix, statin, -status post heparin infusion x48 hours -low-dose metoprolol was added 06/25/2014 -underwent cardiac catheterization 06/04 and underwent successful PTCA of this very high-grade proximal right coronary lesion reducing stenosis from 95% down to about 50% 05/25/2022: Echocardiogram showed technically attending examine because of obesity, LV enlargement with severe global hypokinesia, achiness of the distal anterior wall and apex. No significant evaluated dysfunction, EF of 30-35%, small circumferential pericardial effusion (4) Congestive heart failure: Code(s): I50.9 - Heart failure, unspecified Status: Acute Assessment and Plan: His most recent echo done in 08/04 showed diastolic dysfunction patient does have all the signs of congestive heart failure Echocardiogram as above -given his cardiomyopathy and congestive heart failure along with renal failure, cardiology following -dobutamine was discontinued on 05/28 due to arrhythmias/tachyarrhythmias -continue hydralazine and nitrates and beta-yesenia -unable to use CARLOS-inhibitor or ARB -continue fluid removal with dialysis (5) Ventricular arrhythmia: Code(s): I49.9 - Cardiac arrhythmia, unspecified Status: Acute Assessment and Plan: Patient with frequent PVCs and nonsustained V-tach on 05/28 -dobutamine was discontinued -lidocaine infusion has been discontinued by Cardiology -DC amiodarone 06/04 due to sinus bradycardia -continue metoprolol to 25mg PO Q12H -electrolytes in acceptable range (6) Coronary artery disease: Code(s): I25.10 - Atherosclerotic heart disease of [place] coronary artery
--- NOTE | 2022-06-05 10:46 | P.PNNP_ITS ---
Progress Note: A&P Assessment and Plan (1) Acute kidney injury: Code(s): N17.9 - Acute kidney failure, unspecified Status: Acute Assessment and Plan: * multifactorial etiology: * cardiac event/[place] * combination of hyperglycemia, hypertension, and hypoxia on presentation (?) * volume depletion/prerenal factors (?) * ongoing use of diuretics and CARLOS-I prior to admission * NSAID use as an outpatient * evaluation to date: * renal ultrasound limited due to obesity - right kidney normal but unable to visualize left kidney * Urine sodium on the was 21 * Repeat CPK * volume overloaded. swelling seems gradually to be improving. * 24L have been removed this admission with dialysis. However he does have a high fluid burden, but this is lessening. * Will take more fluid off today. * Discussed with Dr Cleary (2) Stage 3a chronic kidney disease: Code(s): N18.31 - Chronic kidney disease, stage 3a Status: Chronic Assessment and Plan: * creatinine was running ~ 1.5 - 1.6mg/dl in July 2020 * presumably due to his HTN, DM and vascular disease (3) Acute respiratory failure with hypoxia: Code(s): J96.01 - Acute respiratory failure with hypoxia Status: Acute Assessment and Plan: * thought to be secondary to CHF and possible pneumonia * currently on full ventilator support * removing fluid as much as possible. Will do another treatment today. (4) Anemia: Code(s): D64.9 - Anemia, unspecified Status: Acute Assessment and Plan: * Hemoglobin up and down between 8.2 and 9.2. Currently 8.7 * anemia studies noted: * iron deficiency present * B12 and folate okay * LULU and CKD likely playing a role * continue Epogen (5) CAP (community acquired pneumonia): Code(s): J18.9 - Pneumonia, unspecified organism Status: Acute Assessment and Plan: * based on imaging to date * Blood cultures positive for MSSA. * on clindamycin (6) Acute anterior wall [place]: Code(s): I21.09 - ST elevation (STEMI) myocardial infarction involving other coronary artery of anterior wall Status: Acute Assessment and Plan: * known history of CAD * presented with elevated troponins and EKG changes * Cardiology following with recommendations noted * On amiodarone alone now. * he had a cardiac catheterization with an RCA angioplasty yesterday. * continue conservative therapy for now -- plan cardiac catheterization at a later date * continue ASA/plavix/heparin (7) Congestive heart failure: Code(s): I50.9 - Heart failure, unspecified Status: Acute Assessment and Plan: * previous echo in Jul 2020 with diastolic dysfunction * evidence of CHF noted on admission * poor response with IV diuretics and dobutamine * repeat Echo noted -- EF now 30 - 35% * continue fluid removal with dialysis. * So far dialysis is being tolerated well (8) Pulmonary edema: Code(s): J81.1 - Chronic pulmonary edema Status: Acute Assessment and Plan: * attempts at diuresis failed * push fluid removal/ultrafiltration with dialysis * follow I/Os (9) Hypertension: Qualifiers: Hypertension type: essential hypertension Qualified Code(s): I10 - Essential (primary) hypertension Code(s): I10 - Essential (primary) hypertension Status: Chronic Assessment and Plan: * hypertensive on presentation * Systolic is much better with the fluid removal. (10) Typ
--- NOTE | 2022-06-05 10:46 | PM.PNNEP ---
Progress Note: A&P Assessment and Plan (1) Acute kidney injury: Code(s): N17.9 - Acute kidney failure, unspecified Status: Acute Assessment and Plan: multifactorial etiology: cardiac event/[place] combination of hyperglycemia, hypertension, and hypoxia on presentation (?) volume depletion/prerenal factors (?) ongoing use of diuretics and CARLOS-I prior to admission NSAID use as an outpatient evaluation to date: renal ultrasound limited due to obesity - right kidney normal but unable to visualize left kidney Urine sodium on the was 21 Repeat CPK volume overloaded. swelling seems gradually to be improving. 24L have been removed this admission with dialysis. However he does have a high fluid burden, but this is lessening. Will take more fluid off today. Discussed with Dr Cleary (2) Stage 3a chronic kidney disease: Code(s): N18.31 - Chronic kidney disease, stage 3a Status: Chronic Assessment and Plan: creatinine was running ~ 1.5 - 1.6mg/dl in July 2020 presumably due to his HTN, DM and vascular disease (3) Acute respiratory failure with hypoxia: Code(s): J96.01 - Acute respiratory failure with hypoxia Status: Acute Assessment and Plan: thought to be secondary to CHF and possible pneumonia currently on full ventilator support removing fluid as much as possible. Will do another treatment today. (4) Anemia: Code(s): D64.9 - Anemia, unspecified Status: Acute Assessment and Plan: Hemoglobin up and down between 8.2 and 9.2. Currently 8.7 anemia studies noted: iron deficiency present B12 and folate okay LULU and CKD likely playing a role continue Epogen (5) CAP (community acquired pneumonia): Code(s): J18.9 - Pneumonia, unspecified organism Status: Acute Assessment and Plan: based on imaging to date Blood cultures positive for MSSA. on clindamycin (6) Acute anterior wall [place]: Code(s): I21.09 - ST elevation (STEMI) myocardial infarction involving other coronary artery of anterior wall Status: Acute Assessment and Plan: known history of CAD presented with elevated troponins and EKG changes Cardiology following with recommendations noted On amiodarone alone now. he had a cardiac catheterization with an RCA angioplasty yesterday. continue conservative therapy for now -- plan cardiac catheterization at a later date continue ASA/plavix/heparin (7) Congestive heart failure: Code(s): I50.9 - Heart failure, unspecified Status: Acute Assessment and Plan: previous echo in Jul 2020 with diastolic dysfunction evidence of CHF noted on admission poor response with IV diuretics and dobutamine repeat Echo noted -- EF now 30 - 35% continue fluid removal with dialysis. So far dialysis is being tolerated well (8) Pulmonary edema: Code(s): J81.1 - Chronic pulmonary edema Status: Acute Assessment and Plan: attempts at diuresis failed push fluid removal/ultrafiltration with dialysis follow I/Os (9) Hypertension: Qualifiers: Hypertension type: essential hypertension Qualified Code(s): I10 - Essential (primary) hypertension Code(s): I10 - Essential (primary) hypertension Status: Chronic Assessment and Plan: hypertensive on presentation Systolic is much better with the fluid removal. 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 On sedatives. he wakens a little when you jose
[2022-06-05] MEDS: MIDAZOLAM 100MG/NS 100ML(*CRX) 100 MG/100 ML BAG IV CONT (11:17)
--- NOTE | 2022-06-05 12:33 | PM.PNCARD ---
Progress Note: A&P Assessment and Plan (1) Ventricular arrhythmia: Code(s): I49.9 - Cardiac arrhythmia, unspecified Status: Acute (2) Acute combined systolic and diastolic congestive heart failure: Code(s): I50.41 - Acute combined systolic (congestive) and diastolic (congestive) heart failure Status: Acute (3) Coronary artery disease: Code(s): I25.10 - Atherosclerotic heart disease of [place] coronary artery without angina pectoris Status: Acute Plan 56-year-old white male with: Very complex situation has ischemic heart disease significant ischemic cardiomyopathy presenting with acute coronary syndrome followed by a period of malignant ventricular arrhythmias while he was on the ventilator in the ICU. Angiography was finally done yesterday with results as described above. Hopefully PCI of the right coronary artery subtotal mid stenosis will stabilize his rhythm. Amiodarone has been discontinued and there been no arrhythmias for the last couple of days. He remains significantly volume overloaded and is undergoing dialysis regularly now. He hopefully will eventually be able to be extubated. Obviously if intubation/ ventilator dependence he continues plans are for tracheostomy probably next week sometime. Lucian Mora MD [facility] Subjective Date/time seen: date of service:06/05/22 12:33 Interval history: Follow-up visit in this unfortunate 56-year-old man with: Coronary artery disease presenting following a significant myocardial infarction resulting in poor left ventricular systolic function, with problematic ventricular arrhythmias, respiratory failure requiring intubation and mechanical ventilation. Significant comorbidities including massive obesity and chronic kidney disease which progressed to end-stage renal failure at this time he is now dependent on hemodialysis. Plans for today are for coronary angiography because of his malignant arrhythmias. Date of service 06/05/2022: Patient remains ICU room 7. Intubated on mechanical ventilator support. Underwent hemodialysis again. He underwent coronary angiography yesterday demonstrating diffuse disease in his anterior descending but with good patency of the stented segment and no significant lesions were seen. He did have a high-grade significantly calcified mid RCA lesion which was successfully balloon dilated reducing stenosis from subtotal to about 50%. Heavily calcified vessel could not be successfully stented without either Rotablator or shockwave Treatment. Otherwise no complications of procedure. Exam Narrative: Obese male who is sedated and on a ventilator, multiple tubes and lines Const: Other: Massively obese white male on a ventilator support and sedated in the ICU. HENMT: Mouth: Yes moist mucous membranes Eyes: General: appearance normal, both eyes and all related structures Sclera: sclerae normal Neck: Neck: supple Other: Cannot appreciate the carotid pulses or JVD given his body habitus Resp: Effort & Inspection: normal respiratory effort Auscultation: clear to auscultation bilaterally, no rhonchi and diminished lung sounds Other: symmetrical breath sounds some coarse central rhonchi Cardio: Rate: regular rate and tachycardic Rhythm: regular rhythm and abnormal rhythm Heart sounds: no gallops and no murmurs Other: PMI is not palpable because of his size no audible murmur GI: Inspection: distended Auscultation: normal bowel sounds Other: Abdominal wall edema Urinary Catheter: Urinary Catheter: patent and draining Skin: General skin exam: normal color and lesion (Excoriation right tibia, appears old) Lesions: lesion noted (Excoriation right tibia, appears old) Other: Old melvin/skin grafts on extremities? Neuro: Other: sedated with intravenous midazolam infusion. Extrem: Other: Markedly edematous. deep femoral pulses palpable Psych: Other: Sedated Objectiv
[2022-06-05 12:56] LABS: Glucose Point of Care 150 mg/dl (65-105)
[2022-06-05] MEDS: EPOETIN ALFA-EPBX 10,000 UNITS/ML VIAL 10000 UNITS SUB-Q (14:11)
[2022-06-05 17:18] LABS: Glucose Point of Care 147 mg/dl (65-105)
[2022-06-05 20:01] LABS: Glucose Point of Care 156 mg/dl (65-105)
[2022-06-06] VITALS (40 sets, daily range): BP systolic 103–168; BP diastolic 24–82; PULSE 0–184; RESP 0–28; TEMP 36.7–37.3; O2SAT 97–100
[2022-06-06 00:46] LABS: Glucose Point of Care 152 mg/dl (65-105)
[2022-06-06] MEDS: IPRATROPIUM BR 0.02% INH SOLN 0.5 MG/2.5 ML VIAL INHALATION ×3 (02:48→14:40)
[2022-06-06] MEDS: ALBUTEROL SULFATE NEB 2.5 MG/3 ML INH INHALATION ×3 (02:48→14:40)
[2022-06-06] MEDS: MIDAZOLAM 100MG/NS 100ML(*CRX) 100 MG/100 ML BAG IV CONT (05:05)
[2022-06-06] MEDS: CLINDAMYCIN 900 MG/D5W 50 ML 900 MG/50 ML PIGGYBACK 100 MG IVPB ×2 (05:06→13:37)
[2022-06-06] MEDS: CENTRAL LINE FLUSH 10 ML IV PUSH ×2 (05:06→13:38)
[2022-06-06] MEDS: hydrALAZINE HCL 25 MG TABLET PO ×2 (05:07→13:38)
[2022-06-06] MEDS: ISOSORBIDE DINITRATE 5 MG TABLET PO ×2 (05:07→13:38)
[2022-06-06 05:20] LABS: Albumin Level 2.8 g/dL (3.5-5.1); Anion Gap 6 mmol/L (8-16); Blood Urea Nitrogen 84 mg/dL (9-20); Calcium 7.8 mg/dL (8.4-10.2); Carbon Dioxide 32 mmol/L (22-30); Chloride 94 mmol/L (98-107); Estimated CRCL calculation 17 ml/min; Estimated Glomerular Filt Rate 8; Glucose 138 mg/dL (65-110); Phosphorus 8.2 mg/dL (2.5-4.5); Potassium 4.5 mmol/L (3.4-5.0); Sodium 132 mmol/L (137-145)
[2022-06-06 06:10] LABS: Alveolar/Arterial O2 Gradient 65.4 mmHg; Base Excess ABG 3.4 mEq/l (+/-2.0); Fractional Inspired Oxygen 30 %; HCO3 ABG 28.9 mEq/l (22.0-26.0); Oxygen Content ABG 13.3 %vol (16.0-22.0); Oxygen Saturation ABG 96.9 % (95.0-100.0); Oxyhemoglobin 95.5 % THb (90.0-100.0); PCO2 ABG 48.1 mmHg (35.0-45.0); PO2 FiO2 Ratio Arterial Blood 3.07 %; Total Hemoglobin 9.8 g/dL (12.0-18.0); pH ABG 7.396 (7.350-7.450)
[2022-06-06 08:25] LABS: Glucose Point of Care 119 mg/dl (65-105)
[2022-06-06] MEDS: ENOXAPARIN 30 MG/0.3 ML SYRINGE SUB-Q (08:29)
[2022-06-06] MEDS: MINERAL OIL/WHITE PETROLATUM OINTMENT 1 APPLIC EACH EYE (08:30)
[2022-06-06] MEDS: PANTOPRAZOLE SODIUM IV 40 MG VIAL IV PUSH (08:30)
[2022-06-06] MEDS: ATORVASTATIN 40 MG TABLET FEED TUBE (08:31)
[2022-06-06] MEDS: CLOPIDOGREL BISULFATE 75 MG TABLET FEED TUBE (08:31)
[2022-06-06] MEDS: INSULIN GLARGINE (*BKC) 100 UNITS/ML 60 UNITS SUB-Q (08:31)
[2022-06-06] MEDS: ASPIRIN 81 MG ENTERIC TABLET PO (08:31)
[2022-06-06] MEDS: METOPROLOL TARTRATE 50 MG TAB 100 MG PO (08:36)
[2022-06-06] MEDS: HEPARIN SODIUM 1,000 UNITS/ML VIAL 500 UNITS IV PUSH (08:43)
--- NOTE | 2022-06-06 09:05 | WPDINTPN ---
Progress Note: A&P Assessment and Plan (1) Acute respiratory failure with hypoxia: Code(s): J96.01 - Acute respiratory failure with hypoxia Status: Acute Assessment and Plan: Acute Respiratory failure secondary to congestive heart failure, volume overload and possible community-acquired pneumonia/aspiration pneumonia -intubated 05/24/2022, patient self-extubated on 05/25/2022 and was reintubated and was using accessory muscles of respiration. Continue full mechanical ventilation support to prevent hypoxemia/hypercarbia and end organ damage. Chest x-ray Reviewed -advance ET tube by - 06/06 decreased PEEP to 8 -continue Bronchodilators -patient is currently on hemodialysis. Will try sedation holiday and weaning trial after dialysis today 05/23; Blood cultures growing staph epidermis 1 of 2, discontinued vancomycin -05/27/2022: Repeat blood cultures growing Staph epidermidis 2/2 bottles, it was oxacillin resistant -cefazolin was switched to vancomycin, patient went into SVT after vancomycin was started, discontinued and patient placed on clindamycin, Flagyl discontinue as clindamycin will provide appropriate coverage for aspiration pneumonia -sedated with fentanyl, Versed, OFF propofol , daily sedation vacation maintain RASS of 0 to -1 (2) CAP (community acquired pneumonia): Code(s): J18.9 - Pneumonia, unspecified organism Status: Acute Assessment and Plan: See above (3) Acute anterior wall [place]: Code(s): I21.09 - ST elevation (STEMI) myocardial infarction involving other coronary artery of anterior wall Status: Acute Assessment and Plan: Patient has history of coronary disease with PCI done more than 12 years ago at [facility] for an [place] - elevated troponin and abnormal EKG -Cardiology following -appreciate cardiology recommendations, conservative management at this time - Continue aspirin, Plavix, statin, -status post heparin infusion x48 hours -low-dose metoprolol was added 06/25/2014 -underwent cardiac catheterization 06/04 and underwent successful PTCA of this very high-grade proximal right coronary lesion reducing stenosis from 95% down to about 50% 05/25/2022: Echocardiogram showed technically attending examine because of obesity, LV enlargement with severe global hypokinesia, achiness of the distal anterior wall and apex. No significant evaluated dysfunction, EF of 30-35%, small circumferential pericardial effusion (4) Congestive heart failure: Code(s): I50.9 - Heart failure, unspecified Status: Acute Assessment and Plan: His most recent echo done in 08/04 showed diastolic dysfunction patient does have all the signs of congestive heart failure Echocardiogram as above -given his cardiomyopathy and congestive heart failure along with renal failure, cardiology following -dobutamine was discontinued on 05/28 due to arrhythmias/tachyarrhythmias -continue hydralazine and nitrates and beta-yesenia -not on CARLOS-inhibitor or ARB at this time -continue fluid removal with dialysis (5) Ventricular arrhythmia: Code(s): I49.9 - Cardiac arrhythmia, unspecified Status: Acute Assessment and Plan: Patient with frequent PVCs and nonsustained V-tach on 05/28 -dobutamine was discontinued -lidocaine infusion has been discontinued by Cardiology -DC amiodarone 06/04 due to sinus bradycardia -continue metoprolol to 25mg PO Q12H -electrolytes in acceptable range (6) Coronary artery disease: Code(s): I25.10 - Atherosclerotic heart disease of [place] coronary artery without angina pectoris Status: Acute Assessment and Plan: See above (7) Hypertension: Qualifiers: Hypertension type: essential hypertension Qualified Code(s): I10 - Essential (primary) hypertension Code(s): I10 - Essential (primary) hypertension Status: Chronic Assessment and Plan: Blood pressures are are on the lower but acceptable side this mor
--- NOTE | 2022-06-06 09:44 | P.PNNP_ITS ---
Progress Note: A&P Assessment and Plan (1) Acute kidney injury: Code(s): N17.9 - Acute kidney failure, unspecified Status: Acute Assessment and Plan: * multifactorial etiology: * cardiac event/[place] * combination of hyperglycemia, hypertension, and hypoxia on presentation (?) * volume depletion/prerenal factors (?) * ongoing use of diuretics and CARLOS-I prior to admission * NSAID use as an outpatient * evaluation to date: * renal ultrasound limited due to obesity - right kidney normal but unable to visualize left kidney * Urine sodium on the was 21 * Repeat CPK * will take another 4L off today. * Hopefully this will be enough to get him extubated. * Will continue to remove fluid next week but will give him a day off tomorrow. * He is still not making very much urine. * we are doing a regular dialysis today, the 4th 1 this week. This is because his BUN is high. (2) Stage 3a chronic kidney disease: Code(s): N18.31 - Chronic kidney disease, stage 3a Status: Chronic Assessment and Plan: * creatinine was running ~ 1.5 - 1.6mg/dl in July 2020 * presumably due to his HTN, DM and vascular disease (3) Acute respiratory failure with hypoxia: Code(s): J96.01 - Acute respiratory failure with hypoxia Status: Acute Assessment and Plan: * thought to be secondary to CHF and possible pneumonia * currently on full ventilator support * removing fluid as much as possible. Another treatment is underway (4) Anemia: Code(s): D64.9 - Anemia, unspecified Status: Acute Assessment and Plan: * Hemoglobin up and down between 8.2 and 9.2. Currently 8.7 * anemia studies noted: * iron deficiency present * B12 and folate okay * LULU and CKD likely playing a role * continue Epogen (5) CAP (community acquired pneumonia): Code(s): J18.9 - Pneumonia, unspecified organism Status: Acute Assessment and Plan: * based on imaging to date * Blood cultures positive for MSSA. * on clindamycin (6) Acute anterior wall [place]: Code(s): I21.09 - ST elevation (STEMI) myocardial infarction involving other coronary artery of anterior wall Status: Acute Assessment and Plan: * known history of CAD * presented with elevated troponins and EKG changes * Cardiology following with recommendations noted * On amiodarone alone now. * he had a cardiac catheterization with an RCA angioplasty yesterday. (7) Congestive heart failure: Code(s): I50.9 - Heart failure, unspecified Status: Acute Assessment and Plan: * previous echo in Jul 2020 with diastolic dysfunction * evidence of CHF noted on admission * poor response with IV diuretics and dobutamine * repeat Echo noted -- EF now 30 - 35% * continue fluid removal with dialysis. * So far dialysis is being tolerated well (8) Hypertension: Qualifiers: Hypertension type: essential hypertension Qualified Code(s): I10 - Essential (primary) hypertension Code(s): I10 - Essential (primary) hypertension Status: Chronic Assessment and Plan: * hypertensive on presentation * Systolic is much better with the fluid removal. (9) Type 1 diabetes mellitus: Qualifiers: Diabetes mellitus complication status: with hyperglycemia Qualified Code(s): E10.65 - Type 1 diabetes mellitus with hyperglycemia Code(s): E10.9 - Type 1 diabetes mellitus without complications Status: Acute Assessme
--- NOTE | 2022-06-06 09:44 | PM.PNNEP ---
Progress Note: A&P Assessment and Plan (1) Acute kidney injury: Code(s): N17.9 - Acute kidney failure, unspecified Status: Acute Assessment and Plan: multifactorial etiology: cardiac event/FL combination of hyperglycemia, hypertension, and hypoxia on presentation (?) volume depletion/prerenal factors (?) ongoing use of diuretics and CARLOS-I prior to admission NSAID use as an outpatient evaluation to date: renal ultrasound limited due to obesity - right kidney normal but unable to visualize left kidney Urine sodium on the was 21 Repeat CPK will take another 4L off today. Hopefully this will be enough to get him extubated. Will continue to remove fluid next week but will give him a day off tomorrow. He is still not making very much urine. we are doing a regular dialysis today, the 4th 1 this week. This is because his BUN is high. (2) Stage 3a chronic kidney disease: Code(s): N18.31 - Chronic kidney disease, stage 3a Status: Chronic Assessment and Plan: creatinine was running ~ 1.5 - 1.6mg/dl in July 2020 presumably due to his HTN, DM and vascular disease (3) Acute respiratory failure with hypoxia: Code(s): J96.01 - Acute respiratory failure with hypoxia Status: Acute Assessment and Plan: thought to be secondary to CHF and possible pneumonia currently on full ventilator support removing fluid as much as possible. Another treatment is underway (4) Anemia: Code(s): D64.9 - Anemia, unspecified Status: Acute Assessment and Plan: Hemoglobin up and down between 8.2 and 9.2. Currently 8.7 anemia studies noted: iron deficiency present B12 and folate okay LULU and CKD likely playing a role continue Epogen (5) CAP (community acquired pneumonia): Code(s): J18.9 - Pneumonia, unspecified organism Status: Acute Assessment and Plan: based on imaging to date Blood cultures positive for MSSA. on clindamycin (6) Acute anterior wall FL: Code(s): I21.09 - ST elevation (STEMI) myocardial infarction involving other coronary artery of anterior wall Status: Acute Assessment and Plan: known history of CAD presented with elevated troponins and EKG changes Cardiology following with recommendations noted On amiodarone alone now. he had a cardiac catheterization with an RCA angioplasty yesterday. (7) Congestive heart failure: Code(s): I50.9 - Heart failure, unspecified Status: Acute Assessment and Plan: previous echo in Jul 2020 with diastolic dysfunction evidence of CHF noted on admission poor response with IV diuretics and dobutamine repeat Echo noted -- EF now 30 - 35% continue fluid removal with dialysis. So far dialysis is being tolerated well (8) Hypertension: Qualifiers: Hypertension type: essential hypertension Qualified Code(s): I10 - Essential (primary) hypertension Code(s): I10 - Essential (primary) hypertension Status: Chronic Assessment and Plan: hypertensive on presentation Systolic is much better with the fluid removal. (9) Type 1 diabetes mellitus: Qualifiers: Diabetes mellitus complication status: with hyperglycemia Qualified Code(s): E10.65 - Type 1 diabetes mellitus with hyperglycemia Code(s): E10.9 - Type 1 diabetes mellitus without complications Status: Acute Assessment and Plan: management per material clerk /Hospitalists Subjective Date/time seen: 06/06/22 09:44 Interval history: Patient is on the ventilator. He opens his eyes with name calling and shaking a shoulder. Today his eyes stayed open but he did not look around very much. He is still on sedatives. He is getting a regular dialysis today. He is tolerating this well. He is set for about 4L of fluid removal. He was seen at 9:00 a.m. Exam Narrative:
--- NOTE | 2022-06-06 11:06 | PM.IMPN ---
Progress Note: A&P Assessment and Plan (1) Acute respiratory failure with hypoxia: Code(s): J96.01 - Acute respiratory failure with hypoxia Status: Acute Assessment and Plan: Acute Respiratory failure secondary to congestive heart failure, volume overload and possible community-acquired pneumonia/aspiration pneumonia. Intubated 05/24/2022, patient self-extubated on 05/25/2022 and was reintubated. Continue clindamycin Sedation holiday and weaning trial will be attempted today after HD (2) CAP (community acquired pneumonia): Code(s): J18.9 - Pneumonia, unspecified organism Status: Acute Assessment and Plan: See above (3) Acute anterior wall CT: Code(s): I21.09 - ST elevation (STEMI) myocardial infarction involving other coronary artery of anterior wall Status: Acute Assessment and Plan: Patient has history of coronary disease with PCI done more than [address] [facility] for an CT. Patient had elevated troponin with an abnormal EKG, Cardiology was consulted and recommended aspirin, Plavix, statin, metoprolol. 06/04 patient is status post PTCA of a high-grade proximal right coronary lesion Echo from 05/25/2022 showed EF of 30-35%, small pericardial effusion, severe global hypokinesia of the left ventricle (4) Congestive heart failure: Code(s): I50.9 - Heart failure, unspecified Status: Acute Assessment and Plan: As above, continue hydralazine nitrates and beta-blockers Appreciate cardiology consultation (5) Ventricular arrhythmia: Code(s): I49.9 - Cardiac arrhythmia, unspecified Status: Acute Assessment and Plan: Patient with frequent PVCs and nonsustained V-tach on 05/28 Monitor electrolytes, continue metoprolol per Cardiology recommendations (6) Coronary artery disease: Code(s): I25.10 - Atherosclerotic heart disease of [place] coronary artery without angina pectoris Status: Acute Assessment and Plan: As above (7) Hypertension: Qualifiers: Hypertension type: essential hypertension Qualified Code(s): I10 - Essential (primary) hypertension Code(s): I10 - Essential (primary) hypertension Status: Chronic Assessment and Plan: Continue current medications, monitor (8) Pulmonary edema: Code(s): J81.1 - Chronic pulmonary edema Status: Acute Assessment and Plan: Appreciate nephrology consultation, getting dialyzed today (9) Type 1 diabetes mellitus: Qualifiers: Diabetes mellitus complication status: with hyperglycemia Qualified Code(s): E10.65 - Type 1 diabetes mellitus with hyperglycemia Code(s): E10.9 - Type 1 diabetes mellitus without complications Status: Acute Assessment and Plan: Patient was initially on insulin infusion has been transitioned to Lantus. Off insulin infusion and on sliding scale insulin now Lantus 60 units q.12 Continue Glucerna tube feeds (10) Acute kidney injury: Code(s): N17.9 - Acute kidney failure, unspecified Status: Acute Assessment and Plan: Multifactorial acute renal failure with baseline chronic kidney disease Patient presented with hyperglycemia, hypoxia and hypertension and possible mild rhabdomyolysis Nephrology was consulted, eventually patient required dialysis catheter on 05/28 (11) Hyperkalemia: Code(s): E87.5 - Hyperkalemia Status: Acute Assessment and Plan: Resolved (12) Anemia: Code(s): D64.9 - Anemia, unspecified Status: Acute Assessment and Plan: Anemia with drop in hemoglobin, iron studies show iron deficiency anemia, low B12, Hemoccult-negative Status post transfusion of 1 unit packed red blood cells during dialysis on May 28 EGD from 05/30 showed reflux esophagitis, esophageal ulcer without bleeding Continue to monitor hemoglobin, currently stable Plan DVT prophylaxis with Lovenox GI prophylaxis with PPI Co
[2022-06-06 12:09] LABS: Glucose Point of Care 116 mg/dl (65-105)
--- NOTE | 2022-06-06 12:24 | PM.PNCARD ---
Progress Note: A&P Assessment and Plan (1) Ventricular arrhythmia: Code(s): I49.9 - Cardiac arrhythmia, unspecified Status: Acute Assessment and Plan: Stable, no recurrence. Remains on amiodarone due to concern for bradycardia. Tolerating metoprolol thus far. Will continue Metoprolol alone at present dose for now unless significant recurrence of ventricular arrhythmia at which time we may favor reinitiation of amiodarone over beta-yesenia therapy if not able to tolerate both. Continue telemetry, monitor electrolytes closely. Patient is very complicated and quite ill. Prognosis guarded. (2) Acute combined systolic and diastolic congestive heart failure: Code(s): I50.41 - Acute combined systolic (congestive) and diastolic (congestive) heart failure Status: Acute Assessment and Plan: Volume management with hemodialysis per Nephrology. (3) Coronary artery disease: Code(s): I25.10 - Atherosclerotic heart disease of [place] coronary artery without angina pectoris Status: Acute Assessment and Plan: Status post PTCA high-grade RCA stenosis unable to stent due to heavy calcified lesion. (4) Acute respiratory failure with hypoxia: Code(s): J96.01 - Acute respiratory failure with hypoxia Status: Acute Assessment and Plan: Remains intubated sedated. Weaning trials to begin soon per Critical Care Service. Defer management to them. (5) LULU (acute kidney injury): Code(s): N17.9 - Acute kidney failure, unspecified Status: Acute Assessment and Plan: Acute on chronic kidney injury now requiring hemodialysis per Nephrology. Plan Subjective Date/time seen: 06/06/22 12:24 Interval history: Follow-up visit in this unfortunate 56-year-old man with: Coronary artery disease presenting following a significant myocardial infarction resulting in poor left ventricular systolic function, with problematic ventricular arrhythmias, respiratory failure requiring intubation and mechanical ventilation. Significant comorbidities including massive obesity and chronic kidney disease which progressed to end-stage renal failure at this time he is now dependent on hemodialysis. Plans for today are for coronary angiography because of his malignant arrhythmias. 06/05/2022: Patient remains ICU room 7. Intubated on mechanical ventilator support. Underwent hemodialysis again. He underwent coronary angiography yesterday demonstrating diffuse disease in his anterior descending but with good patency of the stented segment and no significant lesions were seen. He did have a high-grade significantly calcified mid RCA lesion which was successfully balloon dilated reducing stenosis from subtotal to about 50%. Heavily calcified vessel could not be successfully stented without either Rotablator or shockwave Treatment. Otherwise no complications of procedure. Date of service 06/06/2022: Patient remains intubated on mechanical ventilatory support. Currently undergoing hemodialysis. No recurrent ventricular arrhythmias, heart rate stable off amiodarone. Plans for weaning sedation and plans for extubation as tolerated after dialysis later today. Discussed plan of care with patient's at bedside. All questions answered to her satisfaction. Review of Systems Review of Systems: ROS unobtainable: Yes unobtainable due to endotracheal tube, unobtainable due to medical condition and unobtainable due to mental status Exam Narrative: Obese male who is sedated and on a ventilator, multiple tubes and lines Const: Other: obese white male on a ventilator support and sedated in the ICU. Spontaneous movement with exam and verbal stimuli HENMT: Mouth: Yes moist mucous membranes Eyes: General: appearance normal, both eyes and all related structures Sclera: sclerae normal Neck: Neck: supple Other: Cannot appreciate the carotid pulses or JVD given his body habitus Resp:
[2022-06-06 13:38] LABS: Alveolar/Arterial O2 Gradient 65.3 mmHg; Base Excess ABG 6.1 mEq/l (+/-2.0); Fractional Inspired Oxygen 30 %; HCO3 ABG 30.9 mEq/l (22.0-26.0); Oxygen Content ABG 14.2 %vol (16.0-22.0); Oxygen Saturation ABG 97.5 % (95.0-100.0); Oxyhemoglobin 96.3 % THb (90.0-100.0); PCO2 ABG 45.8 mmHg (35.0-45.0); PO2 ABG 94.8 mmHg (80.0-100.0); PO2 FiO2 Ratio Arterial Blood 3.16 %; Total Hemoglobin 10.4 g/dL (12.0-18.0); pH ABG 7.447 (7.350-7.450)
[2022-06-06 13:39] LABS: Device VENTILATOR; Modified Allen's Test Pass; Site Drawn RIGHT RADIAL
[2022-06-06 13:40] LABS: Arterial Blood Gas PEEP 8 cmH2O; Arterial Blood Gas Pressure Support 5 cmH2O; Arterial Blood Gas Vent Mode SPONTANEOUS
--- NOTE | 2022-06-06 14:17 | P.PNCROSS_ITS ---
Event Note Event Note Event Note: 10/19 PSV SBT done for more than 1 hour. RSBI, ABGI and Vitals acceptable. Pt dixon wsy but awake and following commands. Strong cough reflex overall weak. Will extubate and monitor. NPO for now. Bipap PRN and at bedtime.
--- NOTE | 2022-06-06 15:23 | PC.NURSE ---
pt in SVT with rate 180's, cardiology called and ordered amiodarone bolusx1.
--- NOTE | 2022-06-06 15:51 | ED.PROGRESS ---
Subjective Date/time seen: 06/06/22 15:52 Responded to CODE BLUE in the ICU. On arrival, compressions are ongoing and patient is being bagged. Patient reportedly has recently come back from the [facility] where he was found to have multivessel disease. Patient has been intubated for approximately 10 to 12 days and was extubated 1 hour prior to losing his pulses. It sounds like he has been having recurrent ventricular arrhythmias that have been unresponsive to amiodarone. According to ICU nursing, the patient was in ventricular tachycardia when he lost his pulse. At next pulse check, it appears patient is in V. fib. ACLS was continued with patient receiving 2 doses of epi as well as 2 shocks without ROSC. As I was preparing for intubation, the hospitalist updated the family who have requested that we cease resuscitation efforts. Objective Data Meds/Results Medications: Active Medications Generic Name Dose Route Start Last Admin Trade Name Freq PRN Reason Stop Dose Admin Acetaminophen 650 mg 06/03/22 11:20 Acetaminophen 325 Mg Tablet PO Q4H PRN Mild Pain (1-3) or Fever Albuterol 2.5 mg 05/24/22 02:00 06/06/22 14:40 Albuterol Sulfate Neb 2.5 Mg/3 Ml Inh INHALATION 2.5 mg Q6HRT CHRISTINA Administration Alteplase, Recombinant 2 mg 06/03/22 11:20 06/03/22 13:45 Alteplase 2 Mg Vial (Cathflo) IV PUSH 2 mg ONCE PRN Administration Line Occlusion Aspirin 81 mg 06/02/22 14:30 06/06/22 08:31 Aspirin 81 Mg Enteric Tablet PO 81 mg QAM CHRISTINA Administration Atorvastatin Calcium 40 mg 05/24/22 09:00 06/06/22 08:31 Atorvastatin 40 Mg Tablet FEED TUBE 40 mg DAILY CHRISTINA Administration Clopidogrel Bisulfate 75 mg 05/24/22 09:00 06/06/22 08:31 Clopidogrel Bisulfate 75 Mg Tablet FEED TUBE 75 mg DAILY CHRISTINA Administration Dextrose 12.5 gm 05/23/22 20:52 Dextrose 50% 25 Gm/50 Ml Syringe IV PUSH PRN PRN Hypoglycemia Protocol Enoxaparin Sodium 30 mg 06/02/22 09:00 06/06/22 08:29 Enoxaparin 30 Mg/0.3 Ml Syringe SUB-Q 30 mg DAILY CHRISTINA Administration Epoetin Nba-epbx 10,000 units 06/03/22 16:00 06/05/22 14:11 Epoetin Nba-Epbx 10,000 Units/Ml Vial SUB-Q 10,000 units [id number] CHRISTINA Administration Glucagon 1 mg 05/23/22 20:52 Glucagon For Inj 1 Mg Vial IM PRN PRN Hypoglycemia Protocol Glucose 15 gm 05/24/22 09:13 Glucose Oral Gel 15 Gm Of Glucse In 37.5 Gm Tube FEED TUBE PRN PRN Hypoglycemia Protocol Hydralazine HCl 25 mg 05/27/22 18:00 06/06/22 13:38 Hydralazine Hcl 25 Mg Tablet PO 25 mg Q6HR CHRISTINA Administration Hydralazine HCl 10 mg 05/31/22 01:39 Hydralazine Hcl 20 Mg/Ml Vial IV PUSH Q4H PRN Blood Pressure - High Dextrose 1,000 mls @ 100 mls/hr 05/23/22 20:52 Dextrose 5% 1,000 Ml IVPB PRN PRN Hypoglycemia Protocol Fentanyl Citrate 2,500 mcg in 250 mls @ 0 mls/hr 05/23/22 23:25 06/06/22 13:05 Fentanyl 2,500 Mcg/Ns 250 Ml IV CONT Not Given .Q0M CHRISTINA Protocol 0 MCG/HR Midazolam HCl 100 mg in 100 mls @ 0 mls/hr 05/23/22 23:25 06/06/22 13:05 Versed 100 Mg/Ns 100 Ml IV CONT Not Given .Q0M CHRISTINA Protocol 0 MG/HR Clindamycin Phosphate 900 mg in 50 mls @ 100 mls/hr 05/31/22 14:00 06/06/22 14:43 Cleocin 900 Mg/D5w 50 Ml IVPB 06/09/22 23:59 Infused Q8HR CHRISTINA Infusion Insulin Aspart 4 - 8 units 06/02/22 17:00 06/06/22 12:27 Insulin Aspart (*Bkc) 100 Units/Ml SUB-Q Not Given Q4HR [facility] Protocol Insulin Glargine 60 units 06/02/22 09:00 06/06/22 08:31 Insulin Glargine (*Bkc) 100 Units/Ml SUB-Q 60 units Q12H CHRISTINA Administration Ipratropium [place] 0.5 mg 05/24/22 02:00 06/06/22 14:40 Ipratropium Br 0.02% Inh Soln 0.5 Mg/2.5 Ml Vial INHALATION 0.5 mg Q6HRT CHRISTINA Administration Isosorbide Dinitrate 5 mg 05/26/22 18:20 06/06/22 13:38 Isosorbide Dinitrate 5 Mg Tablet PO 5 mg
--- NOTE | 2022-06-06 18:57 | ED.PROCEDURE ---
Procedures Other Procedures Procedure 1: Other Procedure: Cardiac arrest: 06/06/22 15:52 Responded to CODE BLUE in the ICU. On arrival, compressions are ongoing and patient is being bagged. Patient reportedly has recently come back from the [facility] where he was found to have multivessel disease. Patient has been intubated for approximately 10 to 12 days and was extubated 1 hour prior to losing his pulses. It sounds like he has been having recurrent ventricular arrhythmias that have been unresponsive to amiodarone. According to ICU nursing, the patient was in ventricular tachycardia when he lost his pulse. At next pulse check, it appears patient is in V. fib. ACLS was continued with patient receiving 2 doses of epi as well as 2 shocks without ROSC. As I was preparing for intubation, the hospitalist updated the family who have requested that we cease resuscitation efforts. Time of was 1545. Critical Care: 32 mins
[2022-06-08 09:08] LABS: Arterial Blood Gas PEEP 8 cmH2O; Arterial Blood Gas Tidal Volume 450 ml; Arterial Blood Gas Vent Mode CMV; Arterial Blood Gas Ventilator rate 22 /MIN; Device VENTILATOR
[2022-06-11 12:01] LABS: Activated Clotting Time 185 SEC (74-137)
[2022-06-11 12:02] LABS: Activated Clotting Time 239 SEC (74-137)
--- NOTE | 2022-06-22 15:49 | PM.DDS ---
Discharge Summary Date and Time Date of : 06/06/22 Time of : 15:38 Provider Pronounced By: Dr. Gambino Probable Cause of Probable Cause of : Cardiac arrhythmia Summary Hospital Course: 56-year-old male patient with hypertension, hyperlipidemia and coronary artery disease.? The patient came in with complaints of shortness of breath.?His troponin is 4.260.?The patient was given IV fluids, neb treatments, Solu-Medrol, Lasix and nitro in the emergency room. Shortly after admission, patient had episode of emesis while on BiPAP and appeared aspirate. Therefore he was intubated and brought to the ICU. Cardiology was consulted for the elevated troponin. Patient was taken to the [facility] and found to have a high-grade RCA lesion as well as significant ischemic disease. Arrhythmias had seemed to nya after amiodarone was initiated and then discontinued after stent. Nephrology was consulted for hemodialysis. Patient was ultimately thought to be stable for extubation. Shortly after extubation, he had multiple ventricular arrhythmias noted on the monitor. He became unresponsive. Code was called. Please see code note for details. Patient ultimately . Additional Data Confirmation of as documented by pronouncing clinician: Pupillary Reflex, Palpable Pulses, Response to Stimuli, Heart Tones and Breath Sounds Name of Provider Notified: Dr. Gambino, Dr. Poe, Dr. 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
== END 2022-06-06 15:38 | disposition expired | DRG 250 ==
LOC: ANHED 12:31 → ANHIMU 19:27 → ANHICU 20:13
PROVIDERS: Internal Medicine; Internal Medicine Gastroenterology; Internal Medicine Nephrology; Nurse Practitioner; Specialist; Admitting Provider Internal Medicine; Emergency Provider Emergency Medicine; PCP Family Medicine; Visit Provider Student in an Organized Health Care Education/Training Program
PROC: 0DJ08ZZ Inspection of Upper Intestinal Tract, Via Natural or Artificial Opening Endoscopic (ICD-10-PCS; CPT 43235; principal; 2022-05-30 08:00)
PROC: 4A023N7 Measurement of Cardiac Sampling and Pressure, Left Heart, Percutaneous Approach (ICD-10-PCS; CPT 93452; principal; 2022-06-04 13:00)
PROC: 02703ZZ Dilation of Coronary Artery, One Artery, Percutaneous Approach (ICD-10-PCS; CPT 92920; 2022-06-04 13:00)
PROC: 02703ZZ Dilation of Coronary Artery, One Artery, Percutaneous Approach (ICD-10-PCS; 2022-06-04 13:00)
DX: I13.0 Hypertensive heart and chronic kidney disease with heart failure and stage 1 through stage 4 chronic kidney disease, or unspecified chronic kidney disease (principal); I21.09 ST elevation (STEMI) myocardial infarction involving other coronary artery of anterior wall; I50.41 Acute combined systolic (congestive) and diastolic (congestive) heart failure; J96.01 Acute respiratory failure with hypoxia; N17.9 Acute kidney failure, unspecified; J81.1 Chronic pulmonary edema; E87.1 Hypo-osmolality and hyponatremia; Z68.43 Body mass index [BMI] 50.0-59.9, adult; I47.20 Ventricular tachycardia, unspecified; K22.10 Ulcer of esophagus without bleeding; I42.9 Cardiomyopathy, unspecified; Z20.822 Contact with and (suspected) exposure to COVID-19; E10.65 Type 1 diabetes mellitus with hyperglycemia; I25.10 Atherosclerotic heart disease of native coronary artery without angina pectoris; Z95.5 Presence of coronary angioplasty implant and graft; N40.0 Benign prostatic hyperplasia without lower urinary tract symptoms; E87.5 Hyperkalemia; Z96.41 Presence of insulin pump (external) (internal); E66.01 Morbid (severe) obesity due to excess calories; N18.31 Chronic kidney disease, stage 3a; E10.22 Type 1 diabetes mellitus with diabetic chronic kidney disease; D63.1 Anemia in chronic kidney disease; D50.0 Iron deficiency anemia secondary to blood loss (chronic); K21.00 Gastro-esophageal reflux disease with esophagitis, without bleeding; Z86.16 Personal history of COVID-19; Z83.3 Family history of diabetes mellitus; Z82.49 Family history of ischemic heart disease and other diseases of the circulatory system; Z79.82 Long term (current) use of aspirin; Z79.899 Other long term (current) drug therapy; Z88.0 Allergy status to penicillin
CPT/HCPCS: 31500; 36415; 36430; 36600; 71045; 76775; 80048; 80053; 80069; 82274; 82375; 82550; 82607; 82746; 82805; 82948; 83036; 83050; 83540; 83550; 83735; 83880; 83935; 84100; 84145; 84300; 84478; 84484; 85025; 85027; 85380; 85610; 85730; 86704; 86705; 86706; 86850; 86900; 86901; 86923; 87040; 87070; 87077; 87081; 87086; 87088; 87186; 87205; 87340; 87637; 92920; 92950; 93005; 93458; 93970; 94002; 94003; 94640; 96361; 96374; 99291; C1752; A9270; C1725; C1751; C1760; C1769; C1887; C1894; C8929; C9113; G0257; G0269; J0171; J0282; J0330; J0360; J0456; J0610; J0690; J0696; J1250; J1644; J1650; J1815; J1940; J2001; J2250; J2405; J2704; J2765; J2930; J2997; J3010; J3370; J7030; J7040; J7050; P9016; P9047; Q5105; Q9957